=== PATIENT | female | born 1990 | race Caucasian/White ===

== ENCOUNTER → 2020-01-24 | Outpatient (CLI) | payer BC, SELFPAY ==
[2020-01-24 15:26] VITALS: BMI 18.8
[2020-01-24 17:05] LABS: Amphetamine Urine VISTA NEGATIVE (<1000 ng/mL); Barbiturate Urine VISTA NEGATIVE (< 200 ng/mL); Benzodiazepine Urine VISTA NEGATIVE (< 200 ng/mL); Cocaine Urine VISTA NEGATIVE (< 300 ng/mL); Ecstacy Urine VISTA NEGATIVE (< 500 ng/mL); Methadone Urine VISTA NEGATIVE (< 300 ng/mL); PCP Urine VISTA NEGATIVE (< 25 ng/mL); THC Urine VISTA NEGATIVE (< 50 ng/mL); Vista UDS pH Range 6
[2020-01-24 18:33] LABS: Chlamydia Trachomatis by PCR Negative (Negative); Neisserai gonorrhoeae by PCR Negative (Negative); Probe Check PASS; Sample Adequacy Control PASS; Specimen Processing Control PASS
== END | disposition home or self-care (01) ==
LOC: LABSPEC 16:38
PROVIDERS: PCP Student in an Organized Health Care Education/Training Program; Referring Provider Obstetrics & Gynecology; Visit Provider Obstetrics & Gynecology
DX: Z34.90 Encounter for supervision of normal pregnancy, unspecified, unspecified trimester (principal)
CPT/HCPCS: 80307; 87086; 87491; 87591

== ENCOUNTER → 2020-01-30 13:33 | Outpatient (CLI) | payer BC, SELFPAY ==
[2020-01-24 15:26] VITALS: BMI 18.8
--- NOTE | 2020-01-30 13:36 | US_ITS ---
STUDY: FIRST TRIMESTER OBSTETRICAL ULTRASOUND REASON FOR EXAM: Female, 29 years old. Dating. LMP: December 01, 2019. TECHNIQUE: Transvaginal TECHNICAL QUALITY: Adequate. PRIOR ULTRASOUND: None. FINDINGS: There is visualization of a single gestational sac in a normal intrauterine position. The mean sac diameter (MSD) measures 2.65 cm, indicating an estimated gestational age (EGA) of 7 weeks, 5 days. The gestational sac shape is within normal limits. There is a visualized yolk sac. The yolk sac measures 0.24 cm. The placenta is non-visualized. There is visualization of a live embryo. The crown-rump length (CRL) measures 0.92 cm, indicating an estimated gestational age (EGA) of 7 weeks, 0 days. There is demonstrated cardiac activity with a heart rate of 132 bpm. The estimated gestation age (EGA) by LMP is 8 weeks, 4 days. The estimated date of delivery (OTTO) by LMP is September 06, 2020. The estimated gestation age (EGA) by US is 7 weeks, 2 days. The estimated date of delivery (OTTO) by US is September 15, 2020. The uterus measures 9.0 x 7.5 x 5.3 cm. There is no demonstrated uterine fibroid. The cervix is closed. The right ovary measures 3.2 x 2.1 x 2.4 cm. There is no visualized right adnexal mass or complex lesion. The left ovary is not visualized. There is no visualized left adnexal mass or complex lesion. There is no fluid in the cul de sac. US/Transvaginal w/Preg US IMPRESSION: 1. Live single intrauterine at 7 weeks, 2 days. OTTO is September 15, 2020. 2. heart rate of 123 bpm. 3. Normal right ovary. Left ovary is not seen. Electronically Signed: Raz Barajas DO at 17:05 EDT Tel [phone], Service support ,
== END ==
PROVIDERS: PCP Student in an Organized Health Care Education/Training Program; Referring Provider Obstetrics & Gynecology; Visit Provider Obstetrics & Gynecology
DX: Z34.90 Encounter for supervision of normal pregnancy, unspecified, unspecified trimester (principal)
CPT/HCPCS: 76817

== ENCOUNTER → 2020-02-18 13:44 | Outpatient (CLI) | payer BC, SELFPAY ==
[2020-01-24 15:26] VITALS: BMI 18.8
[2020-02-18 13:57] LABS: Absolute Lymphocyte Count 2.02 X10^3/uL (0.83-4.51); Absolute Neutrophil Count 5.3 X10^3/uL (2.0-7.7); Basophil# 0.03 X10^3/uL; Basophil% 0.4 % (0-1); Eosinophil# 0.09 X10^3/uL; Eosinophils% 1.1 % (0-5); Hemoglobin 13.6 g/dL (12.0-15.0); Lymphocyte # 2.02 X10^3/ul (4.0); Lymphocyte % 25.7 % (19-41); Mean Corpuscular Hgb 30.4 pg (27.0-32.0); Mean Corpuscular Volume 89.5 fL (81-99); Mean Platelet Vol. 11.1 fl (6.2-12.0); Monocyte# 0.46 X10^3/uL; Monocyte% 5.8 % (0-10); NRBC Flagged by Analyzer 0 % (0-5); Neutrophil # 5.25 X10^3/uL (2.7-7.7); Neutrophil % 66.7 % (47-70); Platelet Count 185 K/mm3 (150-450); RBC Distribution Width CV 11.7 % (11.6-14.6); RBC Distribution Width SD 37.8 fl (35.1-43.9); Red Blood Count 4.47 M/mm3 (4.2-5.4); White Blood Count 7.9 K/mm3 (4.4-11.0)
[2020-02-19 09:57] LABS: HIV - WCH Non-Reactive (Nonreactive); Hepatitis B Surface Antigen Non-Reactive (Nonreactive); Hepatitis C Antibody Non-Reactive (Nonreactive); Rubella IgG 334.2 IU/mL
[2020-02-20 02:25] LABS: Rapid Plasmin Reagin (RPR) NONREACTIVE (NONREACTIVE)
== END ==
PROVIDERS: PCP Student in an Organized Health Care Education/Training Program; Referring Provider Obstetrics & Gynecology; Visit Provider Obstetrics & Gynecology
DX: Z34.90 Encounter for supervision of normal pregnancy, unspecified, unspecified trimester (principal)
CPT/HCPCS: 36415; 85025; 86592; 86703; 86762; 86803; 86850; 86900; 86901; 87340

== ENCOUNTER → 2020-04-23 16:02 | Outpatient (CLI) | payer BC, SELFPAY ==
[2020-03-30 16:39] VITALS: BMI 18.8
--- NOTE | 2020-04-23 16:04 | US_ITS ---
STUDY: SECOND AND THIRD TRIMESTER OBSTETRICAL ULTRASOUND REASON FOR EXAM: Female, 29 years old. Anatomy screening. LMP: 12/01/2019 TECHNIQUE: Transabdominal TECHNICAL QUALITY: Adequate. PRIOR ULTRASOUND: 01/30/2020. FINDINGS: There is a single intrauterine fetus. The fetus is in a breech presentation. There is demonstrated cardiac activity with a heart rate of 141 bpm. There is a normal amniotic fluid volume. The largest amniotic fluid pocket measures 5.9 cm. The placenta is 7 There are Grade 0 placental changes. The cervix measures 3.14 cm in length. The adnexal regions are not visualized. BIOMETRY: BPD: 4.37 cm: 19 weeks, 1 days HC: 16.03 cm: 18 weeks, 5 days AC: 13.36 cm: 18 weeks, 5 days FL: 2.88 cm: 18 weeks, 5 days CI: 77.52 FL/BPD: 65.95 FL/HC: 17.98 FL/AC: 21.57 HC/AC: 1.20 age by current US: 18 weeks, 5 days. OTTO by current US: 09/19/2020. Estimated weight: 263 grams, +/- 4 grams, 56 %. age by prior US: 19 weeks, 2 days. OTTO by prior US: 09/15/2020. Age by LMP: 20 weeks, 4 days. OTTO by LMP: 09/06/2020. ANATOMY: Gender: Male Cranium: Normal lateral ventricles. Normal choroid plexus. Normal cerebellum. Normal cisterna magna. Normal face, nose and lips. Chest: Limited visualization of four-chamber view of the heart due to patient alignment. Abdomen/Pelvis: Normal diaphragm. Normal stomach. Normal abdominal wall. Normal cord insertion. Normal 3 vessel cord. Normal kidneys. Normal bladder. Spine: Normal cervical spine. Normal thoracic spine. Normal lumbar spine. Normal sacrum. Extremities: Normal bilateral upper extremities. Normal bilateral lower extremities. US/OB Anatomy Scan IMPRESSION: 1. Live single intrauterine at 18 weeks, 5 days. There is adequate interval growth since prior ultrasound. 2. EFW 263 g. 3. Adequate MM fluid. 4. Posterior grade 0 placenta. 5. Breech presentation. 6. Limited view of the heart. The remainder of the anatomy appears grossly normal. Electronically Signed: Raz Barajas DO at 23:46 EDT Tel [phone], Service support ,
== END ==
PROVIDERS: PCP Student in an Organized Health Care Education/Training Program; Referring Provider Obstetrics & Gynecology; Visit Provider Obstetrics & Gynecology
DX: Z34.90 Encounter for supervision of normal pregnancy, unspecified, unspecified trimester (principal)
CPT/HCPCS: 76805

== ENCOUNTER → 2020-06-22 14:42 | Outpatient (CLI) | payer BC, SELFPAY ==
[2020-05-25 15:56] VITALS: BMI 21.4
[2020-06-22 15:14] LABS: Absolute Lymphocyte Count 1.23 X10^3/uL (0.83-4.51); Absolute Neutrophil Count 4.2 X10^3/uL (2.0-7.7); Basophil# 0.03 X10^3/uL; Basophil% 0.5 % (0-1); Eosinophil# 0.04 X10^3/uL; Eosinophils% 0.7 % (0-5); Hematocrit 34.1 % (37-47); Hemoglobin 11.5 g/dL (12.0-15.0); Lymphocyte # 1.23 X10^3/ul (4.0); Lymphocyte % 20.9 % (19-41); Mean Corp Hgb Conc 33.7 g/dL (32-36); Mean Corpuscular Hgb 31.2 pg (27.0-32.0); Mean Corpuscular Volume 92.4 fL (81-99); Mean Platelet Vol. 10.6 fl (6.2-12.0); Monocyte# 0.36 X10^3/uL; Monocyte% 6.1 % (0-10); NRBC Flagged by Analyzer 0 % (0-5); Neutrophil # 4.18 X10^3/uL (2.7-7.7); POSITIVE COUNT YES; Platelet Count 94 K/mm3 (150-450); RBC Distribution Width CV 12.7 % (11.6-14.6); RBC Distribution Width SD 42.5 fl (35.1-43.9); Red Blood Count 3.69 M/mm3 (4.2-5.4); White Blood Count 5.9 K/mm3 (4.4-11.0)
[2020-06-22 15:21] LABS: Glucose Challenge Gest 1H 50g 166 mg/dL (70-140)
[2020-06-22 15:41] LABS: Differential Indicated SCAN CRITERIA MET
[2020-06-22 15:54] LABS: Platelet Estimate MOD DEC (ADEQ); Red Cell Morphology NORM C+C NORMAL (NORM C&C)
== END ==
PROVIDERS: PCP Student in an Organized Health Care Education/Training Program; Referring Provider Obstetrics & Gynecology; Visit Provider Obstetrics & Gynecology
DX: Z34.90 Encounter for supervision of normal pregnancy, unspecified, unspecified trimester (principal); Z13.1 Encounter for screening for diabetes mellitus
CPT/HCPCS: 36415; 82950; 85025

== ENCOUNTER → 2020-07-01 07:00 | Outpatient (CLI) | payer BC, SELFPAY ==
[2020-06-22 15:12] VITALS: BMI 23.1
[2020-07-01 08:05] LABS: Glucose GTT-Gestation. Fasting 75 mg/dL (<105)
[2020-07-01 09:22] LABS: Glucose GTT-Gestational 1 Hr 120 mg/dL (<190)
[2020-07-01 10:44] LABS: Glucose GTT-Gestational 2 Hr 111 mg/dL (<165)
[2020-07-01 11:25] LABS: Glucose GTT-Gestational 3 Hr 104 L (<145)
== END ==
PROVIDERS: PCP Student in an Organized Health Care Education/Training Program; Referring Provider Nurse Practitioner Women's Health; Visit Provider Nurse Practitioner Women's Health
DX: R73.09 Other abnormal glucose (principal)
CPT/HCPCS: 36415; 82951; 82952

== ENCOUNTER → 2020-08-24 | Outpatient (CLI) | payer BC, SELFPAY ==
[2020-08-24 16:03] VITALS: BMI 24.7
== END | disposition home or self-care (01) ==
PROVIDERS: PCP Student in an Organized Health Care Education/Training Program; Referring Provider Obstetrics & Gynecology; Visit Provider Obstetrics & Gynecology
DX: Z34.90 Encounter for supervision of normal pregnancy, unspecified, unspecified trimester (principal)
CPT/HCPCS: 87081

== ENCOUNTER → 2020-09-14 17:19 | Outpatient (CLI) | payer BC, SELFPAY ==
[2020-08-03 16:13] VITALS: BMI 23.6
[2020-09-11 13:02] VITALS: BMI 24.7
== END ==
PROVIDERS: PCP Student in an Organized Health Care Education/Training Program; Referring Provider Nurse Practitioner Women's Health; Visit Provider Nurse Practitioner Women's Health
DX: Z34.90 Encounter for supervision of normal pregnancy, unspecified, unspecified trimester (principal)
CPT/HCPCS: 87635; C9803; U0005; U0003

== ENCOUNTER 2020-09-17 20:20 | Inpatient (IN) | payer BC, SELFPAY ==
[2020-09-11 13:02] VITALS: BMI 24.7
[2020-09-17] VITALS (21 sets, daily range): BP systolic 98–133; BP diastolic 54–85; PULSE 68–102; TEMP 36.7–37.4; O2SAT 97–100; BMI 25.1
--- NOTE | 2020-09-17 20:44 | PCM.HPOB.BLA ---
- Problem List (1) Active labor Status: Acute (2) 35 weeks gestation of Status: Acute Comment: electronic covid test ordered 08/14/20 (scheduled for 09/14/20 at 1655) (3) Abnormal US Status: Acute Comment: Echogenic cardiac focus and eccentric cord insertion. Offered NIPT - patient declines. q4 growth ultrasounds. growth adequate, 07/20, 08/17/20 (4) Lab test negative for COVID-19 virus Status: Acute (5) Status: Acute Qualifiers: Comment: declined genetic, carrier and ntd. Overall anatomy normal FU 2 wks with MFM for additional heart views, echogenic intracardiac focus and eccentric cord insertion. Serial growth recommended @ [facility] @ 4 wks (6) Supervision of normal Status: Acute Qualifiers: Comment: PRR OTTO 09/17/20 ITS A BOY! (name secret) Spouse: Bud History and Physical Date of Admission: 09/17/20 Intake Vital Signs 09/11/20 Height 5 ft 7 in 09/11/20 Weight: 158 lb 09/11/20 BMI 24.7 09/11/20 BP 132/82 H Intake Visit Reasons: 40 WK OB Chief Complaint: est ob Dispensing Lead Required: No Is patient in pain?: No Allergies No Known Allergies Allergy (Verified 09/11/20 13:02) Medications multivitamin no.47-iron fum 27 mg-folate no.1 1 mg-dha 300 mg capsule cap PO 01/24/20 [History Confirmed 09/11/20] Last Menstral Period: 12/01/19 Zika: Zika virus screening: Negative : No PFSH PFSH Medical History No significant medical problems (Acute) Surgical History H/O foot surgery (Acute) H/O wisdom tooth extraction (Acute) Family History Grandfather Hypertension Heart disease Grandmother Cancer Aunt Breast cancer Social History (Updated 09/11/20 @ 13:[address] 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 OB Visit OTTO Calculator Estimated Delivery Date Method Current WG Current Estimate 09/17/20 Ultrasound #2 39w 1d Other Estimates 09/06/20 LMP (Certain) 40w 5d 09/17/20 Ultrasound #1 39w 1d Expected Delivery Route/Plan Labor Preferences- CB/BF classes: virtual labor support person: Bud labor intervention preferences: open to standard interventions pain management options: wants to try natural, open to epidural cut cord/dad catch: no : yes PP control planned: [] discussed possible routes of delivery and associated risks: discussed possible delivery modalities and possible indications for each including R/B/A of , VAVD, FAVD, and CS. questions answered. special requests: [] Specific Issue/Plans flu vaccine: given04/27 tdap vaccine: considering rhogam: na LARC form signed: yes movement and labor precautions reviewed. Problem list reviewed and updated with the most current plan of care details and appropriate orders placed. Relevant counseling for the gestational age provided. Continue routine care and follow up unless otherwise noted in visit notes/problem list details Initial Weight: 120 lb Date EGA Weight BP Urine Prot Glucose FHR FuHt Pres Dilation Effaced St Visit Note 03/02/20 11w 4d 123 lb (+3 lb) 108/72 Negative Negative 150 SM- no vb cramping declined all optional testing 03/30/20 15w 4d 126 lb 2 oz (+6 lb 2 oz) 106/60 Negative Negative 150 GP - no cramping or bleeding. Anatomy US at [facility] ordered. 04/27/20 19w 4d 130 lb (+10 lb) 102/60 Negative Negative 140 20 SM_ no vb cramping obtain anatomy us 05/25/20 23w 4d 136 lb 8 oz (+16 lb 8 oz) 120/74 Negative Negative 150 24 GP - no cramping, LOF, VB, DFM. Reviewed repeat anatomy US results. Has isolated episode of lightheadedness consistent with vasovagal episode - discussed EKG if occurs again. 06/22/20 27w 4d 148 lb 2 oz (+28 lb 2 oz) 104/60 Negative Negative 130 27 MH-No Vb, LOF. Good FM. Elevated GCT today:will get 3 hr GTT. Growth US 06/18:no results yet. Will rpt 4 weeks 07/06/20 29w 4d 147 lb (+27 lb) 126/80 Negative Negative 145 30 SM- no vb lof good fm n regualr ctx 07/20/20 31w 4d 147 lb (+27 lb) 110/62 Negative Negative 132 31 Breech MH-No Vb, LOF. Good FM. Had MFM growth US today, confirm breech. Has repeat US 4 weeks 08/03/20 33w 4d 151 lb 4 oz (+31 lb 4 oz) 98/68 Negative Negative 125 33 Cephalic GP - no LOF, VB, DFM, ctx. Discussed labor preferences and routes of delivery. 08/17/20 35w 4d 153 lb 6 oz (+33 lb 6 oz) 110/80 Negative Negative 150 35 Cephalic GP - no LOF, VB, DFM, ctx. Denies complaints. Had growth today. 08/24/20 36w 4d 158 lb (+38 lb) 110/78 Negative Negative 150 36 Cephalic 0.5 SM- no vb lof good fm nor egular ctx gbs today 08/31/20 37w 4d 159 lb 4 oz (+39 lb 4 oz) 110/78 Negative Negative 125 37 Cephalic 1 60 -2 GP - no LOF, VB, DFM, regular ctx. Discussed covid testing. 09/07/20 38w 4d 161 lb (+41 lb) 120/70 Negative Negative 135 37 SM- no vb lof good fm no regular ctx 09/11/20 39w 1d 158 lb (+38 lb) 132/82 Negative Negative 135 37 Cephalic 1 SM- see for spots in vision- nl bps, symptoms resolved good fm no regular ctx no BAILEY. reviewed precautions fu in 1 week ACOG First Trimester First Trimester: Desire for , Alcohol, Tobacco Cessation, Illicit/Recreational Drug/Substance Use, Intimate Partner Violence, Barriers to care, Unstable Housing, Communication Barriers, Environmental/Work Hazards, Anticipated Course of Care, Toxoplasmosis Precations, Use of Any medications, Sexual activity, Exercise, Dental Care, Sauna/Hot tub use, Seat Belt use, Childbirth classes/Hospital facilities, , Travel, Indications for US and Screening for Aneuploidy Diagnostics Diagnostics Diagnostics Gest Glucose Tolerance MG/DL 07/01/20 Glucose 1 Hr 50 gm 166 mg/dL (70-140) H 06/22/20 Hgb 11.5 g/dL (12.0-15.0) L 06/22/20 Hct 34.1 % (37-47) L 06/22/20 Details: HIV: Urine Culture: Sequential Screen: NIPT Screen: Results POC Urinalysis 2 Dip (Clinic) Office Urine Glucose Negative Last Edit by Shayy Sebastian on 09/11/20 13:07 Office Urine Protein Negative Last Edit by Shayy Sebastian on 09/11/20 13:07 Assessment & Plan 29yo at 40 weeks admitted in active labor Patient presents IAL, plan expectant management for , pitocin/AROM PRN if needed. Pain management: plans epidural. GBS negative. Management of any complications: none I have reviewed the [facility] and made any clinically relevant updates. UPDATE- I have seen the patient and performed any clinically relevant updates to the history and physical exam. Neda Estrella MD
[2020-09-17] MEDS: 0.9% Saline Lock 10 ML Syringe IV (20:45)
[2020-09-17 21:13] LABS: Absolute Lymphocyte Count 1.35 X10^3/uL (0.83-4.51); Absolute Neutrophil Count 6.9 X10^3/uL (2.0-7.7); Basophil# 0.02 X10^3/uL; Basophil% 0.2 % (0-1); Eosinophil# 0.01 X10^3/uL; Eosinophils% 0.1 % (0-5); Hematocrit 35.7 % (37-47); Hemoglobin 11.7 g/dL (12.0-15.0); Lymphocyte # 1.35 X10^3/ul (4.0); Mean Corp Hgb Conc 32.8 g/dL (32-36); Mean Corpuscular Hgb 28.3 pg (27.0-32.0); Mean Corpuscular Volume 86.4 fL (81-99); Mean Platelet Vol. 11.3 fl (6.2-12.0); Monocyte# 0.65 X10^3/uL; Monocyte% 7.2 % (0-10); NRBC Flagged by Analyzer 0 % (0-5); Neutrophil # 6.94 X10^3/uL (2.7-7.7); Neutrophil % 76.9 % (47-70); Platelet Count 142 K/mm3 (150-450); RBC Distribution Width CV 12.8 % (11.6-14.6); Red Blood Count 4.13 M/mm3 (4.2-5.4)
[2020-09-17] MEDS: Lactated Ringers 500 ML 999 ML IV (21:54)
[2020-09-17] MEDS: Lactated Ringers 1,000 ML 200 ML IV (22:25)
[2020-09-17] MEDS: fentaNYL-bupivacaine (epidural) 100 ML BAG EPIDURAL (22:59)
[2020-09-18] VITALS (27 sets, daily range): BP systolic 94–185; BP diastolic 54–123; PULSE 74–110; RESP 16–18; TEMP 36.8–37.6; O2SAT 96–100
[2020-09-18] MEDS: Oxytocin 30 units/NS 500 ml 30 UNITS/500 ML IV.SOLN 334 UNITS IV (04:08)
[2020-09-18] MEDS: Methylergonovine 0.2 MG/ML Ampul IM (04:11)
--- NOTE | 2020-09-18 04:25 | PCM.OPRPT ---
Problem List (1) Active labor Status: Acute (2) 35 weeks gestation of Status: Acute Comment: electronic covid test ordered 08/14/20 (scheduled for 09/14/20 at 1655) (3) Abnormal US Status: Acute Comment: Echogenic cardiac focus and eccentric cord insertion. Offered NIPT - patient declines. q4 growth ultrasounds. growth adequate, 07/20, 08/17/20 (4) Lab test negative for COVID-19 virus Status: Acute (5) Status: Acute Qualifiers: Comment: declined genetic, carrier and ntd. Overall anatomy normal FU 2 wks with MFM for additional heart views, echogenic intracardiac focus and eccentric cord insertion. Serial growth recommended @ [facility] @ 4 wks (6) Supervision of normal Status: Acute Qualifiers: Comment: PRR OTTO 09/17/20 ITS A BOY! (name secret) Spouse: Bud Vaginal Delivery Maternal Presentation: Active Labor 29-year-old G1, P0 at 40 weeks gestation admitted out of triage in active labor. Patient made cervical change to complete dilation without augmentation. Amniotic Membrane Rupture Type: Spontaneous Amniotic Fluid Description: Clear Final OTTO: 09/17/20 Gestational age: 40 Weeks and 1 Days Date of Procedure: 09/18/20 Pre-Operative Diagnosis: Term , active labor Post-Operative Diagnosis: Same Surgery/ Procedure Performed: Spontaneous Vaginal Delivery Type of Anesthesia: Epidural Description of Procedure: Patient had been pushing for approximately 30 minutes when she delivered the head in the VIGNESH presentation. The head was delivered atraumatically no nuchal cord was noted. The anterior and posterior shoulders delivered without complication followed by the rest of the and the was placed on the maternal abdomen. Delayed cord clamping was employed for approximately 60 seconds. Cord was clamped and cut and gentle traction was applied to the cord and the placenta delivered spontaneously immediately following it was noted to be intact with three-vessel cord. The perineum and vagina were inspected and midline second-degree perineal laceration which was repaired in the standard fashion using 3-0 Vicryl repeat suture. Intermittent uterine atony was noted and therefore a dose of Methergine was administered. EBL was 350 cc. Patient and infant tolerated delivery well. Presentation: Vertex, VIGNESH Placental Delivery Description: Spontaneous Placenta Disposition: [facility] Cord Vessel Description: 3 Vessels Cord Entanglement: None Estimated Blood Loss: 350 Infant A gender: Male Episiotomy Description: None Laceration: Midline, Perineal Extension/lac, 2nd degree Medications given after delivery: IV Pitocin, IM Methergin Complications: None Multi Select Codes - Urinary/Genital Urinary/Genital CPT Codes: 42621 Vaginal Delivery [facility]
--- NOTE | 2020-09-18 04:28 | DCINST_ITS ---
Discharge Diet: No Restrictions Discharge Activity: Return to Normal Activity, May not drive while taking narcotic pain medications., May Shower May resume sexual activity in: 4-6 weeks Additional Activity Instructions:: Nothing in the vagina for 4-6 weeks. You may return to work/school in 6 weeks. Call your doctor if your incision/area has: Continuous Slow Oozing, Sudden Increased Bleeding, Increased Pain/ Swelling, Increased Redness, Foul Smelling Discharge Additional Instructions: If you experience any of the following, contact your healthcare provider. * Bleeding that soaks a pad every hour for 2 hours * Fever 100.4 or higher * Unrelieved incision or abdominal pain * Swelling, redness, discharge or bleeding from your incision or episiotomy site * Your incision begins to separate * Problems urinating (including inability to urinate or burning while urinating). * Visual changes * Severe headache * Flu-like symptoms * Pain or redness in one of both of your breasts * Pain, warmth, tenderness or swelling in your legs, especially the calf area * Frequent nausea and vomiting * Symptoms of depression or anxiety If you experience any of the following, call 911 or go to the nearest Emergency Room. * Chest pain * Problems breathing * Seizure activity * Partial or complete paralysis of a body part, slurred speech, weakness or drooping of the face, or a sudden inability to walk or hold your balance Allergies/Adverse Reactions: Allergies No Known Allergies Allergy (Verified 09/17/20 20:35) Medications to take at Discharge multivitamin no.47-iron fum 27 mg-folate no.1 1 mg-dha 300 mg capsule 1 cap PO DAILY 01/24/20 Boostrix Tdap 2.5 Lf unit-8 mcg-5 Lf/0.5 mL intramuscular syringe 0.5 ml IM ONCE #1 ml NS 06/22/20 When: Call to make an appointment with your doctor in 6 weeks. If you had elevated Blood Pressure or 4th degree laceration you will need to be seen in 2 weeks. Primary Care Physician: Connor Blank [Primary Care Provider] - Test Results: Test results from this visit will be discussed in further detail at your follow- up appointment, if applicable.
[2020-09-18] MEDS: 0.9% Saline Lock 10 ML Syringe IV (06:43)
[2020-09-18] MEDS: Naproxen 250 MG Tablet 500 MG PO (14:20)
[2020-09-19] VITALS: BP 95/57; PULSE 73; RESP 16; TEMP 36.9; O2SAT 98
[2020-09-19 04:10] VITALS: BP 104/63; PULSE 75; RESP 16; TEMP 36.6; O2SAT 97
--- NOTE | 2020-09-19 06:18 | PCM.PN.OB ---
Subjective: Patient doing well without complaints. Tolerating PO. Ambulating and voiding without difficulty. Breast feeding well. Denies chest pain, shortness of breath, calf pain/swelling, fevers, chills, lightheadedness. - Physical Exam Vitals/I&O's: Vital Signs Temp Pulse Resp BP Pulse Ox 97.9 F 75 16 104/63 97 09/19/20 04:10 09/19/20 04:10 09/19/20 04:10 09/19/20 04:10 09/19/20 04:10 Oxygen Delivery Method Room Air Weight: 160 lb 7.944 oz Body Mass Index (BMI) 25.1 Intake and Output for Last 24 Hours 09/17/20 09/18/20 09/19/20 23:59 23:59 23:59 Intake Total 500 / 500 1500 / 1500 Output Total 800 / 800 Balance 500 / 500 700 / 700 General: Alert, Oriented x3, Cooperative, No apparent distress, Well developed, Well nourished HEENT: Atraumatic, PERRLA, EOMI, Normocephalic Neck: Supple, No JVD Lungs: Normal air movement Cardiovascular: Regular rate Abdomen: Soft, Non Tender, Non-Distended, - - fundus firm Extremities: No edema, No Calf Tenderness Neurological: Cranial nerves II-XII grossly intact, Neuro grossly intact Psych/Mental Status: Normal Affect, Appropriate Current Medications Acetaminophen (Acetaminophen 500 Mg Tablet) 1,000 mg PO Q8H PRN PRN PRN Reason: Pain Score 1-3 Bisacodyl (Bisacodyl 10 Mg Suppository) 10 mg RC UD PRN PRN Reason: If no BM Dibucaine (Dibucaine 30 Gm Tube) 1 applic TOPICAL TID PRN PRN; Protocol PRN Reason: Discomfort Hydrocortisone (Hydrocortisone 2.5% Crm) 1 applic TOPICAL TID PRN PRN; Protocol PRN Reason: Discomfort Methylergonovine Maleate (Methylergonovine 0.2 Mg/Ml Ampul) 0.2 mg IM X1 PRN PRN Reason: Excess bleeding/uterine atony Last Admin: 09/18/20 04:11 Dose: 0.2 mg Documented by: Naproxen (Naproxen 250 Mg Tablet) 500 mg PO Q8H PRN PRN PRN Reason: Pain Score 1-3 Last Admin: 09/18/20 14:20 Dose: 500 mg Documented by: Ondansetron HCl (Ondansetron 4 Mg/2 Ml Vial) 4 mg IV Q4H PRN PRN PRN Reason: Nausea Oxycodone HCl (Oxycodone 5 Mg Tablet) 5 - 10 mg PO Q4H PRN PRN PRN Reason: Pain Score 4-10 Senna/Docusate Sodium (Senna/Docusate Sodium 1 Tablet) 1 - 2 tablet PO DAILY PRN PRN PRN Reason: Constipation Simethicone (Simethicone 80 Mg Tablet) 80 mg PO PCHS PRN PRN Reason: Indigestion/Stomach pain Sodium Chloride (0.9% Saline Lock 10 Ml Syringe) 5 - 15 ml IV UD PRN PRN Reason: SALINE FLUSH Last Admin: 09/18/20 06:43 Dose: 10 ml Documented by: Medical Necessity - Tobacco Use Smoking Status: Never smoker Assessment/Plan All Active Problems (Last Reviewed 09/11/20 @ 13:02 by Shayy Sebastian) 35 weeks gestation of (Resolved) Abnormal US (Resolved) Active labor (Resolved) Lab test negative for COVID-19 virus (Resolved) (Resolved) Supervision of normal (Resolved) s/p PPD # 1 1. routine post delivery care 2. breast feeding- support given 3. rh positive 4. rubella immune
[2020-09-19 07:59] VITALS: BP 95/60; PULSE 80; RESP 16; TEMP 36.6
== END 2020-09-19 12:15 | disposition home or self-care (01) | DRG 807 ==
LOC: OBT 20:30 → WP 20:30
PROVIDERS: Admitting Provider Obstetrics & Gynecology; PCP Student in an Organized Health Care Education/Training Program; Referring Provider Obstetrics & Gynecology; Visit Provider Obstetrics & Gynecology
DX: O70.1 Second degree perineal laceration during delivery (principal); Z37.0 Single live birth; Z3A.40 40 weeks gestation of pregnancy; O62.2 Other uterine inertia
CPT/HCPCS: 59025; 59050; 85025; 86850; 86900; 86901; 99218; J7120; A4216; G0378

== ENCOUNTER → 2020-11-09 | Outpatient (CLI) | payer BC, SELFPAY ==
[2020-11-09 15:32] VITALS: BMI 21.0
[2020-11-12 16:21] LABS: HPV Reflexed? NOT INDICATED
== END | disposition home or self-care (01) ==
LOC: LABSPEC 16:58
PROVIDERS: PCP Student in an Organized Health Care Education/Training Program; Visit Provider Obstetrics & Gynecology
DX: Z12.4 Encounter for screening for malignant neoplasm of cervix (principal)
CPT/HCPCS: 88175; G0145

== ENCOUNTER → 2020-11-24 11:51 | Outpatient (CLI) | payer BC, SELFPAY ==
[2020-11-09 15:32] VITALS: BMI 21.0
== END ==
PROVIDERS: PCP Student in an Organized Health Care Education/Training Program; Referring Provider Obstetrics & Gynecology; Visit Provider Obstetrics & Gynecology
DX: Z39.1 Encounter for care and examination of lactating mother (principal)
CPT/HCPCS: 96158

== ENCOUNTER → 2021-03-26 19:57 | Outpatient (CLI) | payer BC, SELFPAY | PROVIDERS: PCP Student in an Organized Health Care Education/Training Program; Referring Provider Obstetrics & Gynecology; Visit Provider Obstetrics & Gynecology | DX: Z39.1 Encounter for care and examination of lactating mother (principal) | CPT/HCPCS: 96158; 96159 ==

== ENCOUNTER → 2022-03-24 | Outpatient (CLI) | payer OTHER, SELFPAY ==
[2022-03-24 12:04] LABS: Amphetamine Urine VISTA NEGATIVE (<1000 ng/mL); Barbiturate Urine VISTA NEGATIVE (< 200 ng/mL); Benzodiazepine Urine VISTA NEGATIVE (< 200 ng/mL); Cocaine Urine VISTA NEGATIVE (< 300 ng/mL); Ecstacy Urine VISTA NEGATIVE (< 500 ng/mL); Methadone Urine VISTA NEGATIVE (< 300 ng/mL); PCP Urine VISTA NEGATIVE (< 25 ng/mL); THC Urine VISTA NEGATIVE (< 50 ng/mL); Vista UDS pH Range 7
[2022-03-25 22:06] LABS: Chlamydia By Nucleic Acid AMP Negative (Negative)
[2022-03-26 07:46] LABS: Gonococcus By Nucleic Acid AMP Negative (Negative)
== END | disposition home or self-care (01) ==
LOC: LABSPEC 11:19
PROVIDERS: PCP Student in an Organized Health Care Education/Training Program; Visit Provider Obstetrics & Gynecology
DX: Z34.90 Encounter for supervision of normal pregnancy, unspecified, unspecified trimester (principal)
CPT/HCPCS: 80307; 87086; 87088; 87491; 87591

== ENCOUNTER → 2022-05-12 | Outpatient (CLI) | payer OTHER, SELFPAY ==
[2022-05-12 13:27] LABS: Absolute Lymphocyte Count 1.49 X10^3/uL (0.83-4.51); Absolute Neutrophil Count 4.1 X10^3/uL (2.0-7.7); Basophil# 0.02 X10^3/uL; Basophil% 0.3 % (0-1); Eosinophil# 0.05 X10^3/uL; Eosinophils% 0.8 % (0-5); Hematocrit 35.3 % (37-47); Lymphocyte # 1.49 X10^3/ul (0.83-4.51); Lymphocyte % 24.6 % (19-41); Mean Corpuscular Hgb 30.2 pg (27.0-32.0); Mean Corpuscular Volume 88.7 fL (81-99); Mean Platelet Vol. 10.1 fl (6.2-12.0); Monocyte# 0.41 X10^3/uL; Monocyte% 6.8 % (0-10); NRBC Flagged by Analyzer 0 % (0-5); Neutrophil # 4.05 X10^3/uL (2.7-7.7); Platelet Count 161 K/mm3 (150-450); RBC Distribution Width CV 13.2 % (11.6-14.6); RBC Distribution Width SD 42.8 fl (35.1-43.9); Red Blood Count 3.98 M/mm3 (4.2-5.4); White Blood Count 6.1 K/mm3 (4.4-11.0)
[2022-05-12 14:45] LABS: HIV - WCH Non-Reactive (Nonreactive); Hepatitis B Surface Antigen Non-Reactive (Nonreactive); Hepatitis C Antibody Non-Reactive (Nonreactive); Rubella IgG Reactive (Nonreactive); Syphilis Antibodies Non-reactive
== END | disposition home or self-care (01) ==
LOC: PAVLAB 13:07
PROVIDERS: PCP Student in an Organized Health Care Education/Training Program; Referring Provider Obstetrics & Gynecology; Visit Provider Obstetrics & Gynecology
DX: Z34.90 Encounter for supervision of normal pregnancy, unspecified, unspecified trimester (principal)
CPT/HCPCS: 36415; 85025; 86703; 86762; 86780; 86803; 86850; 86900; 86901; 87340

== ENCOUNTER → 2022-08-02 | Outpatient (CLI) | payer OTHER, SELFPAY ==
[2022-08-02 09:05] LABS: Absolute Lymphocyte Count 1.59 X10^3/uL (0.83-4.51); Absolute Neutrophil Count 4.6 X10^3/uL (2.0-7.7); Basophil# 0.03 X10^3/uL; Basophil% 0.4 % (0-1); Eosinophil# 0.04 X10^3/uL; Eosinophils% 0.6 % (0-5); Hematocrit 32.8 % (37-47); Lymphocyte # 1.59 X10^3/ul (0.83-4.51); Lymphocyte % 23.7 % (19-41); Mean Corp Hgb Conc 33.5 g/dL (32-36); Mean Corpuscular Hgb 29.4 pg (27.0-32.0); Mean Corpuscular Volume 87.7 fL (81-99); Mean Platelet Vol. 9.5 fl (6.2-12.0); Monocyte# 0.46 X10^3/uL; Monocyte% 6.9 % (0-10); NRBC Flagged by Analyzer 0 % (0-5); Neutrophil # 4.55 X10^3/uL (2.7-7.7); Neutrophil % 67.8 % (47-70); Platelet Count 190 K/mm3 (150-450); RBC Distribution Width CV 11.9 % (11.6-14.6); RBC Distribution Width SD 38.3 fl (35.1-43.9); Red Blood Count 3.74 M/mm3 (4.2-5.4); White Blood Count 6.7 K/mm3 (4.4-11.0)
[2022-08-02 09:13] LABS: Glucose Challenge Gest 1H 50g 102 mg/dL (70-140)
[2022-08-02 09:47] LABS: HIV - WCH Non-Reactive (Nonreactive); Syphilis Antibodies Non-reactive
== END | disposition home or self-care (01) ==
LOC: PAVLAB 08:36
PROVIDERS: PCP Student in an Organized Health Care Education/Training Program; Referring Provider Obstetrics & Gynecology; Visit Provider Obstetrics & Gynecology
DX: Z34.92 Encounter for supervision of normal pregnancy, unspecified, second trimester (principal); Z3A.24 24 weeks gestation of pregnancy
CPT/HCPCS: 36415; 82950; 85025; 86703; 86780

== ENCOUNTER → 2022-09-29 | Outpatient (CLI) | payer OTHER, SELFPAY | END | disposition home or self-care (01) | LOC: LABSPEC 16:09 | PROVIDERS: PCP Student in an Organized Health Care Education/Training Program; Visit Provider Obstetrics & Gynecology | DX: Z34.90 Encounter for supervision of normal pregnancy, unspecified, unspecified trimester (principal) | CPT/HCPCS: 87081 ==

== ENCOUNTER 2022-10-24 03:45 | Inpatient (IN) | payer OTHER, SELFPAY ==
[2022-10-24] VITALS (45 sets, daily range): BP systolic 107–137; BP diastolic 67–82; PULSE 62–115; RESP 16–18; TEMP 35.9–36.8; O2SAT 97–100; BMI 26.1
[2022-10-24 04:35] LABS: ROM Internal Control Test YES-OK TO RESULT pt. (Internal QC)
[2022-10-24] MEDS: LACTATED RINGERS 500 ML 999 ML IV (04:35)
[2022-10-24 04:37] LABS: ROM Patient Test POSITIVE (Negative)
[2022-10-24 04:50] LABS: Absolute Lymphocyte Count 1.57 X10^3/uL (0.83-4.51); Basophil# 0.02 X10^3/uL; Basophil% 0.3 % (0-1); Eosinophil# 0.02 X10^3/uL; Eosinophils% 0.3 % (0-5); Hematocrit 32.3 % (37-47); Hemoglobin 9.7 g/dL (12.0-15.0); Lymphocyte # 1.57 X10^3/ul (0.83-4.51); Lymphocyte % 21.7 % (19-41); Mean Corpuscular Volume 76.5 fL (81-99); Mean Platelet Vol. 11.5 fl (6.2-12.0); Monocyte# 0.52 X10^3/uL; Monocyte% 7.2 % (0-10); NRBC Flagged by Analyzer 0 % (0-5); Neutrophil # 5.04 X10^3/uL (2.7-7.7); Neutrophil % 69.8 % (47-70); Platelet Count 144 K/mm3 (150-450); RBC Distribution Width CV 14.6 % (11.6-14.6); RBC Distribution Width SD 39.8 fl (35.1-43.9); Red Blood Count 4.22 M/mm3 (4.2-5.4); White Blood Count 7.2 K/mm3 (4.4-11.0)
[2022-10-24 05:35] LABS: Syphilis Antibodies Non-reactive
[2022-10-24] MEDS: Ondansetron 4 MG/2 ML Vial IV (05:47)
[2022-10-24] MEDS: Lactated Ringers 1,000 ML 200 ML IV (05:54)
--- NOTE | 2022-10-24 07:40 | HP.PCM.OB_ITS ---
HPI - General General Date of Admission: 10/24/22 HPI Narrative JOSEY CHÁVEZ, is a 31 F who presents IAL 4 cm dilated with rom of uknown duration Maternal Data Information OTTO Calculator 2 Estimated Delivery Date Method Current WG Current Estimate 10/21/22 LMP (Certain) 40w 3d PFSH PFSH Medical History cardiac echogenic focus Low-lying placenta in second trimester No significant medical problems Home Medications vitamins no.85-iron 10 mg-folate no.1 1 mg-dha 200 mg capsule (Prenate Pixie) 1 cap PO DAILY #30 caps 03/24/22 [Rx Last Taken Unknown] Allergy/AdvReac Type Severity Reaction Status Date / Time No Known Allergies Allergy Verified 10/20/22 13:10 Family History Grandfather Hypertension Heart disease Grandmother Cancer Aunt Breast cancer Surgical History H/O foot surgery H/O wisdom tooth extraction Social History adopted: No household members: spouse and children housing: house current occupational status: employed current occupation: [employer] history of recent travel: No sexually active: Yes Smoking Status: Never smoker second hand exposure: No alcohol intake: former details: social substance use type: does not use caffeine: Yes Type: coffee Number of servings: 1 what type of physical activity do you participate in: walking frequency: 3-4 times per week seatbelt use: always do you feel safe at home: Yes 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 Date Name GA/Weeks Outcome Route Bth Weight Gen Labor Lgth Anesthesia Del Locatn Provider FOB 09/18/20 [place] 40 live - full term Male [facility] Sameer Delivery Date: 09/18/20 Last Updated by: Pebbles Hardin admitted in active labor. normal vaginal delivery Visit Details Expected Delivery Route/Plan labor Preferences- CB/BF classes: no labor support person:Bud labor intervention preferences: [] pain management options preferred: epidural if needed cut cord/dad catch: no : yes PP control planned: discussed discussed possible routes of delivery and associated risks: [] special requests: [] Plans Covid status: discussed Flu vaccine: Tdap vaccine: given Rhogam: na LARC form signed: yes Problem list reviewed and updated with the most current plan of care details and appropriate orders placed. Relevant counseling for the gestational age provided. Continue routine care and follow up unless otherwise noted in visit notes/problem list details OB Flowsheet Initial Weight: Not Recorded Date -?-?-?-?-?-?-?-?-?-?-?-?- EGA Weight BP Urine Prot -?-?-?-?-?-?-?-?-?-?-?-?- Glucose FHR FuHt Pres Dilation -?-?-?-?-?-?-?-?-?-?-?-?- Effaced St Visit Note 03/24/22 -?-?-?-?-?-?-?-?-?-?-?-?- 9w 6d 122 lb 116/72 -?-?-?-?-?-?-?-?-?-?-?-?- 180 -?-?-?-?-?-?-?-?-?-?-?-?- SM- CRL 2.56cm c ons with LMP 04/11/22 -?-?-?-?-?-?-?-?-?-?-?-?- 12w 3d 127 lb 104/60 Negative -?-?-?-?-?-?-?-?-?-?-?-?- Negative 160 -?-?-?-?-?-?-?-?-?-?-?-?- SM- no vb crampi ng 05/12/22 -?-?-?-?-?-?-?-?-?-?-?-?- 16w 6d 134 lb 6 oz 107/74 Nega tive -?-?-?-?-?-?-?-?-?-?-?-?- Negative 145 -?-?-?-?-?-?-?-?-?-?-?-?- JV- no complaint s today. new ob labs reviewed 06/09/22 -?-?-?-?-?-?-?-?-?-?-?-?- 20w 6d 138 lb 102/66 Negative -?-?-?-?-?-?-?-?-?-?-?-?- Negative 143 -?-?-?-?-?-?-?-?-?-?-?-?- -No VB, LOF. F eeling movement. Still desiding about NIPT 07/07/22 -?-?-?-?-?-?-?-?-?-?-?-?- 24w 6d 145 lb 117/75 -?-?-?-?-?-?-?-?-?-?-?-?- 145 -?-?-?-?-?-?-?-?-?-?-?-?- - no vb lof go od fm no regular ctx 08/02/22 -?-?-?-?-?-?-?-?-?-?-?-?- 28w 4d 151 lb 4 oz 96/62 Nega tive -?-?-?-?-?-?-?-?-?-?-?-?- Negative 146 28 -?-?-?-?-?-?-?-?-?-?-?-?- 08/15/22 -?-?-?-?-?-?-?-?-?-?-?-?- 30w 3d 155 lb Negative -?-?-?-?-?-?-?-?-?-?-?-?- Negative 161 30 -?-?-?-?-?-?-?-?-?-?-?-?- MH-NO VB, LOF. G ood FM. Seeing MFM wkly for BPP and check venous varix which is stable. Flu vaccine today 09/01/22 -?-?-?-?-?-?-?-?-?-?-?-?- 32w 6d 161 lb 109/75 -?-?-?-?-?-?-?-?-?-?-?-?- 140 34 -?-?-?-?-?-?-?-?-?-?-?-?- SM- no vb lof go od fm no regular ctx wekely testing. 09/16/22 -?-?-?-?-?--?-?-?-?-?-?-?- 35w 0d 162 lb 8 oz 108/71 Nega tive -?-?-?-?-?-?-?-?-?-?-?-?- Negative 150 36 -?-?-?-?-?-?-?-?-?-?-?-?- SM- no vb lof go od fm no regualr ctx 09/29/22 -?-?-?-?-?-?-?-?-?-?-?-?- 36w 6d 163 lb 8 oz 103/69 Nega tive -?-?-?-?-?-?-?-?-?-?-?-?- Negative 155 33 -?-?-?--?-?-?-?-?-?-?-?-?- JV- fh low but h ad growth scan and getting weekly bpp's and growth is normal. no recommendations on delivery timing on mfm note. 10/06/22 -?-?-?-?-?-?-?-?-?-?-?-?- 37w 6d 163 lb 112/76 Negative -?-?-?-?-?-?-?-?-?-?-?-?- Negative 115 36 -?-?-?-?-?-?-?-?-?-?-?-?- JV- low baseline today. JV- low baseline today. NST reactive, pt reassured. JV- low baseline today. NST reactive, pt reassured. growth scan today at 2:30 10/13/22 -?-?-?-?-?-?-?-?-?-?-?-?- 38w 6d 168 lb 2 oz 113/72 Nega tive -?-?-?-?-?-?-?-?-?-?-?-?- Negative 130 39 1.5 -?-?-?-?-?-?-?-?-?-?-?-?- SM- no vb lof go od fm no reg ctx SM- no vb lof good fm no reg ctx await repeat scan today to determine exp management vs IOL 10/20/22 -?-?-?-?-?-?-?-?-?-?-?-?- 39w 6d 167 lb 4 oz 114/70 Nega tive -?-?-?-?-?-?-?-?-?-?-?-?- Negative 130 40 3 -?-?-?-?-?-?-?-?-?-?-?-?- 60 -2 SM- SM- no vb lof good fm no reg ular ctx membranes swept plan IOL monday due to varices 10/24/22 -?-?-?-?-?-?-?-?-?-?-?-?- 40w 3d 166 lb 10.711 oz 117 /75 116/75 115/82 117/76 118/75 119/79 122/74 116/75 116/69 118/72 126/79 125/82 -?-?-?-?-?-?-?-?-?-?-?-?- -?-?-?-?-?-?-?-?-?-?-?-?- NST FHR Rate Baby A Baseline: 140 Variability:: Moderate Accelerations:: 15 x 15 Decelerations:: None NST Reactive:: Yes FHR Category:: Category I Uterine Activity:: q3-5 ROS Constitutional Constitutional: Reports systems reviewed and no addt'l complaints, except as documented ENT HEENT: Reports systems reviewed and no addt'l complaints, except as documented Cardiovascular Cardiovascular: Reports systems reviewed and no addt'l complaints, except as documented Respiratory/Chest Respiratory/Chest: Reports systems reviewed and no addt'l complaints, except as documented Gastrointestinal Gastrointestinal: Reports systems reviewed and no addt'l complaints, except as documented and nausea; Denies abdominal pain Genitourinary Genitourinary: Reports systems reviewed and no addt'l complaints, except as documented, contractions Details: present and frequency (regular ) and movement Details: present Musculoskeletal Musculoskeletal: Reports systems reviewed and no addt'l complaints, except as documented Integumentary Integumentary: Reports as per HPI Neurologic Neurologic: Reports systems reviewed and no addt'l complaints, except as documented Endocrine Endocrinology: Reports systems reviewed and no addt'l complaints, except as documented Vital Signs Vital Signs Vital Signs: 10/24/22 04:40 10/24/22 04:41 10/24/22 04:41 Temperature Temperature Source Temporal Pulse Rate 82 Blood Pressure 117/75 BP Systolic 117 BP Diastolic 75 Pulse Ox 10/24/22 04:40 10/24/22 04:40 10/24/22 05:51 Temperature 98.1 F Temperature Source Pulse Rate Blood Pressure 116/75 BP Systolic 116 BP Diastolic 75 Pulse Ox 98 10/24/22 05:51 10/24/22 05:51 10/24/22 05:51 Temperature Temperature Source Pulse Rate 80 77 Blood Pressure BP Systolic BP Diastolic Pulse Ox 100 10/24/22 05:52 10/24/22 05:52 10/24/22 06:13 Temperature 98.2 F Temperature Source Oral Pulse Rate 71 Blood Pressure BP Systolic BP Diastolic Pulse Ox 10/24/22 06:13 10/24/22 06:18 10/24/22 06:18 Temperature Temperature Source Pulse Rate 96 Blood Pressure BP Systolic BP Diastolic Pulse Ox 100 100 10/24/22 06:23 10/24/22 06:23 10/24/22 06:25 Temperature Temperature Source Pulse Rate 87 Blood Pressure 115/82 H BP Systolic 115 BP Diastolic 82 Pulse Ox 100 10/24/22 06:25 10/24/22 06:28 10/24/22 06:28 Temperature Temperature Source Pulse Rate 91 70 Blood Pressure BP Systolic BP Diastolic Pulse Ox 100 10/24/22 06:30 10/24/22 06:30 10/24/22 06:33 Temperature Temperature Source Pulse Rate 88 69 Blood Pressure 117/76 BP Systolic 117 BP Diastolic 76 Pulse Ox 10/24/22 06:33 10/24/22 06:36 10/24/22 06:36 Temperature Temperature Source Pulse Rate 79 Blood Pressure 118/75 BP Systolic 118 BP Diastolic 75 Pulse Ox 100 10/24/22 06:38 10/24/22 06:38 10/24/22 06:40 Temperature Temperature Source Pulse Rate 78 Blood Pressure 119/79 BP Systolic 119 BP Diastolic 79 Pulse Ox 100 10/24/22 06:40 10/24/22 06:43 10/24/22 06:43 Temperature Temperature Source Pulse Rate 80 73 Blood Pressure BP Systolic BP Diastolic Pulse Ox 100 10/24/22 06:45 10/24/22 06:45 10/24/22 06:48 Temperature Temperature Source Pulse Rate 71 91 Blood Pressure 122/74 H BP Systolic 122 BP Diastolic 74 Pulse Ox 10/24/22 06:48 10/24/22 06:50 10/24/22 06:50 Temperature Temperature Source Pulse Rate 96 Blood Pressure 116/75 BP Systolic 116 BP Diastolic 75 Pulse Ox 100 10/24/22 06:53 10/24/22 06:53 10/24/22 06:55 Temperature Temperature Source Pulse Rate 91 Blood Pressure 116/69 BP Systolic 116 BP Diastolic 69 Pulse Ox 99 10/24/22 06:55 10/24/22 06:58 10/24/22 06:58 Temperature Temperature Source Pulse Rate 88 96 Blood Pressure BP Systolic BP Diastolic Pulse Ox 99 10/24/22 07:00 10/24/22 07:00 10/24/22 06:43 Temperature Temperature Source Temporal Pulse Rate 103 H Blood Pressure 118/72 BP Systolic 118 BP Diastolic 72 Pulse Ox 10/24/22 06:43 10/24/22 07:03 10/24/22 07:03 Temperature 97.7 F L Temperature Source Pulse Rate 86 Blood Pressure BP Systolic BP Diastolic Pulse Ox 100 10/24/22 07:08 10/24/22 07:08 10/24/22 07:12 Temperature Temperature Source Pulse Rate 79 Blood Pressure 126/79 H BP Systolic 126 BP Diastolic 79 Pulse Ox 100 10/24/22 07:12 10/24/22 07:13 10/24/22 07:13 Temperature Temperature Source Pulse Rate 85 115 H Blood Pressure BP Systolic BP Diastolic Pulse Ox 100 10/24/22 07:16 10/24/22 07:16 10/24/22 07:26 Temperature 97.1 F L Temperature Source Pulse Rate 78 Blood Pressure 125/82 H BP Systolic 125 BP Diastolic 82 Pulse Ox Weight Weight: 166 lb 10.711 oz Body Mass Index (BMI) 26.1 Physical Exam Const alert, oriented x3 and healthy appearing Constitutional Narrative: uncomfortable with contractions HEENT normocephalic and moist oral mucous membranes Head and Scalp: atraumatic Neck full ROM, no lymphadenopathy, supple and thyroid normal General: trachea midline Thyroid: thyroid normal Lymph Lymphatic: no lymphadenopathy noted Chest inspection of chest normal Resp normal respiratory effort Cardio regular rate GI normal to inspection, nondistended, normoactive bowel sounds, soft to palpation and non-tender Inspection: gravid external exam normal Bimanual Exam - Vag & Uterus: uterus non-tender Manual OB Exam: estimated gestational size appropriate, presentation cephalic, dilated, effaced and station Extremity normal to inspection General Extremity: Negative for edema Skin no rashes or lesions noted Neuro deep tendon reflexes 2+ bilaterally Motor Exam: strength 5/5 throughout and clonus absent Psych mental status grossly normal Labs Labs Labs: Blood Type O POSITIVE Antibody Screen NEGATIVE Hct 32.3 % (37-47) L Hgb 9.7 g/dL (12.0-15.0) L Pap Smear Negative Obstetrics US Syphilis Total Ab Non-reactive Rubella IgG Antibody Reactive (Nonreactive) Hep Bs Antigen Non-Reactive (Nonreactive) Chlamydia DNA (ITZEL) Negative (Negative) Neisseria gonorrhoeae DNA (ITZEL) Negative (Negative) HIV 1&2 Antibody Non-Reactive (Nonreactive) Glucose 1 Hr 50 gm 102 mg/dL (70-140) Rhogam given: No Assessment & Plan (1) : QUALIFIERS: Weeks of gestation: 39 weeks Qualified Code(s): Z3A.39 - 39 weeks gestation of COMMENT: Neg GBS. anatomy nl, initially declined NIPT & Carrier testing; (2) Supervision of normal : COMMENT: PRR , OTTO 10/21/21, girl Toy LEISA Haas, Spouse- Bud (3) cardiac echogenic focus: COMMENT: declined NIPT testing. (4) Anxiety: COMMENT: vistaril ordered, needs to talk further at next OB appointment about possible SSRI/vistaril helpful. Declines zoloft. counseling recommended. Stable (5) Prominent renal pelvis: COMMENT: 09/29/22- mild dilation. recommend follow up after delivery fetus <7mm but prominent:recheck 08/09/22 (6) Congenital venous varix: COMMENT: Rpt MFM US 08/09/22: stable. Weekly BPP and growth Q4wk. Del at 39wk if >1.5mm. 14mm plan IOL monday at 40w3d 09/09: remains stable, nl BPP 10/07: remains stable, nl BPP (7) SROM (spontaneous rupture of membranes): (8) Active labor at term: PLAN: Plan Patient presents IAL, plan expectant management for , pitocin/AROM PRN if needed. Pain management: plans epidural. GBS neg. Management of any complications: see a/p I have reviewed the PFSH and made any clinically relevant updates.
[2022-10-24] MEDS: fentaNYL-bupivacaine (epidural) 100 ML BAG EPIDURAL (08:27)
[2022-10-24] MEDS: Oxytocin 15 Units/NS 250ml 15 UNITS/250 ML IV.SOLN 83 UNITS IV (09:45)
[2022-10-24] MEDS: Naproxen 500 MG Tablet PO (11:53)
[2022-10-24] MEDS: Acetaminophen 500 MG Tablet 1000 MG PO (18:35)
--- NOTE | 2022-10-24 19:38 | EX.PCM.OBRPT ---
Assessment & Plan (1) Active labor at term: (2) SROM (spontaneous rupture of membranes): (3) Prominent renal pelvis: COMMENT: 09/29/22- mild dilation. recommend follow up after delivery fetus <7mm but prominent:recheck 08/09/22 (4) Congenital venous varix: COMMENT: Rpt MFM US 08/09/22: stable. Weekly BPP and growth Q4wk. Del at 39wk if >1.5mm. 14mm plan IOL monday at 40w3d 09/09: remains stable, nl BPP 10/07: remains stable, nl BPP (5) Anxiety: COMMENT: vistaril ordered, needs to talk further at next OB appointment about possible SSRI/vistaril helpful. Declines zoloft. counseling recommended. Stable (6) cardiac echogenic focus: COMMENT: declined NIPT testing. (7) Supervision of normal : COMMENT: PRR , OTTO 10/21/21, girl [facility], Spouse- Bud (8) : QUALIFIERS: Weeks of gestation: 39 weeks Qualified Code(s): Z3A.39 - 39 weeks gestation of COMMENT: Neg GBS. anatomy nl, initially declined NIPT & Carrier testing; (9) Vaginal delivery: COMMENT: SM IAL 40 girl Per[place] Maternal Data Information OTTO Calculator Estimated Delivery Date Method Current WG Current Estimate 10/21/22 LMP (Certain) 40w 3d Vaginal Delivery Operative Information Date of Procedure: 10/24/22 Pre-Operative Diagnosis: see a/p diagnoses Post-Operative Diagnosis: same Surgery / Procedure Performed: Spontaneous Vaginal Delivery Type of Anesthesia: Epidural Special Medications: none Estimated Blood Loss: 200 Fluids Replaced: crystalloid Findings Description of Procedure: Patient began pushing and delivered the head in the VIGNESH presentation. The head was delivered atraumatically and a loose nuchal cord ?1 was identified and the delivered through without complication. The anterior and posterior shoulders delivered without complication followed by the rest of the infant and the infant was placed on the maternal abdomen. Delayed cord clamping was employed for approximately 60 seconds. Cord was clamped and cut and gentle traction was applied to the cord and the placenta delivered spontaneously immediately following it was noted to be intact with three-vessel cord. The perineum and vagina were inspected and noted to have no laceration. EBL was 200 cc. Patient and infant tolerated delivery well. Amniotic Fluid Description: Clear Placental Delivery Description: Spontaneous Placenta Disposition: [facility] Cord Vessel Description: 3 Vessels Cord Entanglement: None Delayed Cord Clamping: Yes Post Vaginal Delivery Medications Given After Delivery: IV Pitocin Episiotomy Description: None Complication Complications: None Procedures Urinary/Genital [id number]: [id number] Vaginal Delivery [facility]
--- NOTE | 2022-10-24 19:39 | DCINST_ITS ---
Discharge Instructions Diet Discharge Diet: No restrictions Activity Discharge Activity: Return to Normal Activity, May Drive, May Shower and May Take a Tub Bath (in 4 weeks) May resume sexual activity in: 6-8 weeks (after seen by OB provider) Weight Bearing Status: Full weight bearing Lifting Restrictions: none Dressing / Incision Call your doctor if you observe: Fever of 101 or Higher, Inability to urinate, Using more than 1 pad per hour (for more than 2 hours in a row or more), Shortness of breath, Dizziness, Chest pain and - (headache not controlled with tylenol, change in vision) Follow Up Care When: in 6 weeks for visit, call the office to make the appointment. If you had elevated blood pressures call the office to be seen within 1 week. Test Results: Test results from this visit will be discussed in further detail at your follow- up appointment, if applicable. Discharge Plan Admission Admit Date/Time: 10/24/22 03:45 Attending Provider: Mary Gonzalez Primary Care Provider: Connor Blank Discharge Orders/Prescriptions Prescriptions: No Action Prenate Pixie 10 mg iron- 1 mg-200 mg capsule 1 cap PO DAILY Qty: 30 12RF Referrals / Follow Up: Connor Blank [Primary Care Provider] -
[2022-10-25 03:41] VITALS: BP 110/69; PULSE 79; PULSE 82; O2SAT 97
[2022-10-25 04:11] VITALS: BP 110/69; PULSE 78; RESP 18; TEMP 36.6; O2SAT 97
--- NOTE | 2022-10-25 07:49 | PCM.PN.OB ---
Subjective Subjective Patient doing well without complaints. Tolerating PO. Ambulating and voiding without difficulty. Feeding well. Denies chest pain, shortness of breath, calf pain/swelling, fevers, chills, lightheadedness. Objective Data Objective Data Vital Signs: Vital Signs Temp Pulse Resp BP Pulse Ox O2 Del Method 97.9 F 78 18 110/69 97 Room Air 10/25/22 04:11 10/25/22 04:11 10/25/22 04:11 10/25/22 04:11 10/25/22 04:11 10/25/22 04:11 Oxygen Delivery Method Room Air Weight: 166 lb 10.711 oz Body Mass Index (BMI) 26.1 Intake & Output: Intake and Output for Last 24 Hours 10/23/22 10/24/22 10/25/22 23:59 23:59 23:59 Intake Total 1720 / 1720 Output Total 900 / 900 Balance 820 / 820 Lab / Micro Data Attestation: I reviewed the patient's lab results. Result Diagrams: 10/24/22 04:25 ROS Constitutional Constitutional: Reports systems reviewed and no addt'l complaints, except as documented; Denies anorexia or headache(s) Cardiovascular Cardiovascular: Reports systems reviewed and no addt'l complaints, except as documented; Denies dizziness, dyspnea, nausea or tachypnea Respiratory/Chest Respiratory/Chest: Reports systems reviewed and no addt'l complaints, except as documented; Denies cough, dyspnea, shortness of breath at rest or tachypnea Gastrointestinal Gastrointestinal: Reports systems reviewed and no addt'l complaints, except as documented; Denies abdominal pain, anorexia, constipation or nausea Genitourinary Genitourinary: Reports systems reviewed and no addt'l complaints, except as documented; Denies burning urination, difficulty urinating, dysuria, urinary frequency or urinary incontinence Musculoskeletal Musculoskeletal: Reports systems reviewed and no addt'l complaints, except as documented Integumentary Integumentary: Reports systems reviewed and no addt'l complaints, except as documented Neurologic Neurologic: Reports systems reviewed and no addt'l complaints, except as documented; Denies abnormal speech, dizziness or headache(s) Psychiatric Psychiatric: Reports systems reviewed and no addt'l complaints, except as documented Endocrine Endocrinology: Reports systems reviewed and no addt'l complaints, except as documented Hematologic/Lymphatic Hematologic/Lymphatic: Reports systems reviewed and no addt'l complaints, except as documented Physical Exam Const alert, oriented x3 and no apparent distress Neck full ROM Resp normal respiratory effort, normal air movement and no retractions Effort and Inspection: able to speak in complete sentences and symmetric chest movement GI soft to palpation Bladder / Kidney Exam: bladder normal to palpation Uterus Palpation: uterus fundus firm (U) Extremity normal to inspection and full ROM Psych mental status grossly normal, thought process normal and cooperative Assessment & Plan (1) Vaginal delivery: COMMENT: SALONI IAL 40 girl [place] PLAN: s/p PPD # 1 1. routine post delivery care 2. breast feeding- support given 3. rh positive 4. rubella immune 5. Discharge home (2) Anxiety: COMMENT: vistaril ordered, needs to talk further at next OB appointment about possible SSRI/vistaril helpful. Declines zoloft. counseling recommended. Stable Charges/Coding Multi Select Codes Urinary/Genital Urinary/Genital CPT Codes: No Charge
--- NOTE | 2022-10-25 07:52 | DCINST_ITS ---
Discharge Instructions Diet Discharge Diet: No restrictions Activity May resume sexual activity in: 6-8 weeks (after seen by OB provider) Weight Bearing Status: Full weight bearing Dressing / Incision Call your doctor if you observe: Fever of 101 or Higher, Inability to urinate, Using more than 1 pad per hour (for more than 2 hours in a row or more), Shortness of breath, Dizziness, Chest pain and - (headache not controlled with tylenol, change in vision) Follow Up Care Test Results: Test results from this visit will be discussed in further detail at your follow- up appointment, if applicable. Discharge Plan Admission Admit Date/Time: 10/24/22 03:45 Primary Reason for Your Visit: vaginal of Attending Provider: Mary Gonzalez Primary Care Provider: Connor Blank Discharge Orders/Prescriptions Prescriptions: No Action Prenate Pixie 10 mg iron- 1 mg-200 mg capsule 1 cap PO DAILY Qty: 30 12RF Referrals / Follow Up: Connor Blank [Primary Care Provider] - Disposition Disposition (needs filled in before D/C Order can be placed): Home, Self Care
[2022-10-25 08:15] VITALS: BP 111/60; PULSE 85
[2022-10-25 08:16] VITALS: BP 111/60; PULSE 85; RESP 16; TEMP 36.6
[2022-10-25] MEDS: Acetaminophen 500 MG Tablet 1000 MG PO (09:46)
[2022-10-25 12:52] VITALS: BP 116/73; PULSE 100; RESP 16; TEMP 36.4
== END 2022-10-25 13:15 | disposition home or self-care (01) | DRG 807 ==
PROVIDERS: Admitting Provider Obstetrics & Gynecology; PCP Student in an Organized Health Care Education/Training Program; Visit Provider Obstetrics & Gynecology
DX: O69.81X0 Labor and delivery complicated by cord around neck, without compression, not applicable or unspecified (principal); Z37.0 Single live birth; O99.344 Other mental disorders complicating childbirth; F41.9 Anxiety disorder, unspecified; Q27.8 Other specified congenital malformations of peripheral vascular system; Z3A.40 40 weeks gestation of pregnancy; O99.893 Other specified diseases and conditions complicating puerperium
CPT/HCPCS: 59025; 59050; 84112; 85025; 86780; 86850; 86900; 86901; 99221; J7120; G0378; J2405

== ENCOUNTER → 2024-01-01 | Outpatient (CLI) | payer OTHER, SELFPAY ==
[2024-01-04 13:08] LABS: HPV APTIMA, High Risk Negative (Negative)
== END | disposition home or self-care (01) ==
LOC: LABSPEC 13:44
PROVIDERS: PCP Student in an Organized Health Care Education/Training Program; Referring Provider Obstetrics & Gynecology; Visit Provider Obstetrics & Gynecology
DX: Z12.4 Encounter for screening for malignant neoplasm of cervix (principal)
CPT/HCPCS: 87624; 88175; G0145

== ENCOUNTER → 2024-09-27 | Outpatient (CLI) | payer OTHER, SELFPAY ==
[2024-09-27 09:05] LABS: Absolute Lymphocyte Count 0.97 X10^3/uL (0.83-4.51); Absolute Neutrophil Count 4.3 X10^3/uL (2.0-7.7); Basophil# 0.03 X10^3/uL; Basophil% 0.5 % (0-1); Eosinophil# 0.01 X10^3/uL; Eosinophils% 0.2 % (0-5); Hematocrit 38.3 % (37-47); Hemoglobin 12.8 g/dL (12.0-15.0); Lymphocyte # 0.97 X10^3/ul (0.83-4.51); Lymphocyte % 16.9 % (19-41); Mean Corp Hgb Conc 33.4 g/dL (32-36); Mean Corpuscular Hgb 27.5 pg (27.0-32.0); Mean Corpuscular Volume 82.4 fL (81-99); Mean Platelet Vol. 11.1 fl (6.2-12.0); Monocyte# 0.46 X10^3/uL; NRBC Flagged by Analyzer 0 % (0-5); Neutrophil # 4.26 X10^3/uL (2.7-7.7); Neutrophil % 74.2 % (47-70); Platelet Count 154 K/mm3 (150-450); RBC Distribution Width SD 41.2 fl (35.1-43.9); Red Blood Count 4.65 M/mm3 (4.2-5.4); White Blood Count 5.7 K/mm3 (4.4-11.0)
[2024-09-27 10:56] LABS: HIV Nonreactive (Nonreactive); Hepatitis B Surface Antigen Nonreactive (Nonreactive); Hepatitis C Antibody Nonreactive (Nonreactive); Rubella IgG REAC (Nonreactive); Syphilis Antibodies Nonreactive (Nonreactive)
[2024-09-30 23:07] LABS: Chlamydia By Nucleic Acid AMP Negative (Negative); Gonococcus By Nucleic Acid AMP Negative (Negative)
== END | disposition home or self-care (01) ==
LOC: BWCLAB 08:40
PROVIDERS: PCP Student in an Organized Health Care Education/Training Program; Referring Provider Advanced Practice Midwife; Visit Provider Advanced Practice Midwife
DX: Z34.90 Encounter for supervision of normal pregnancy, unspecified, unspecified trimester (principal)
CPT/HCPCS: 36415; 85025; 86703; 86762; 86780; 86803; 86850; 86900; 86901; 87086; 87340; 87491; 87591

== ENCOUNTER → 2025-02-06 | Outpatient (CLI) | payer OTHER, SELFPAY ==
--- OUTSIDE RECORDS SUMMARY | 2025-02-06 10:22 | XMS RPT_ITS | CCD ---
Author Organization [facility] CliniSyid Care Team Providers Care Telephone Betting Clerk Name Role Phone NAVEEN ARGUELLO Unavailable Unavailable PHYSICIAN, NONE Unavailable Unavailable Connor Rinaldi Primary Care Provider Unavailab Connor Gilbert Referring Provider Unavailable Beulah AGRISCIENCE INSTRUCTOR, RICHARD Christian Attending Provider [phone] Dr. Mary Gonzalez Attending Provider 1(330 ) Dr. Yue Sanford Attending Provider 1([phone]) Connor Rinaldi Primary Care Provider Unavailab Connor Gilbert Referring Provider Unavailable Beulah AGRISCIENCE INSTRUCTOR, RICHARD Christian Attending Provider 1(330 ) Dr. Mary Gonzalez Attending Provider 1(330 ) Dr. Yue Sanford Attending Provider [phone] Connor Patten Primary Care Provider Unava ilable Connor Patten Referring Provider Unavaila Dr. Mary Monroy Attending Provider 1(330 ) RICHARD Riojas NP Attending Provider 1(330 ) Dr. Yue Sanford Attending Provider 1(3 [phone]) Dr. Mary Gonzalez Admit Provider [phone] Dr. Mary Gonzalez Other Provider [phone] MIKI Acosta Attending Provider 1(330) Dr. Connor Rinaldi DO Primary Care Provider Dr. Connor Rinaldi DO Referring Provider Lizy Acosta CNM Attending Provider 1([phone]) Lizy Acosta CNM Referring Provider [phone] YUE HERMAN Referring Unavailab ASHELY Guardado Attending Unavailable RINALDI, CONNOR L Primary Care Unavailable YUE HERMAN Referring Unavailab ASHELY Guardado Attending Unavailable RINALDI, CONNOR L Primary Care Unavailable RINALDI, CONNOR L Primary Care Unavailable RUFINO SHELDON Attending Unavailable YUE HERMAN Referring Unavailab Dr. Yue Chatman DO Attending Provider Anahi Meehan Attending Provider [phone] Self Schedule, [facility] Attending Provider Lesli Gonzalez MD, Dr. Hernandez Attending Provider Rinaldi, Connor Referring Unavailable Rinaldi, Connor Primary Care Unavailable Anahi Riojas NP Attending Unavailable Lizy Acosta Attending Unavailable Rinaldi, Connor Referring Unavailable Rinaldi, Connor Primary Care Unavailable Rinaldi, Connor Referring Unavailable Rinaldi, Connor Primary Care Unavailable Yue Sanford Attending UnavailLizy Esteban Attending Unavailable Lizy Acosta Referring Unavailable Rinaldi, Connor Primary Care Unavailable Rinaldi, Connor Referring Unavailable Rinaldi, Connor Primary Care Unavailable Anahi Riojas NP Attending Unavailable Self Schedule, [facility] Attending Hansel Moralesrison, Connor Referring Unavailable Rinaldi, Connor Primary Care Unavailable Rinaldi, Connor Referring Unavailable Mary Gonzalez Attending Unavailable Rinaldi, Connor Primary Care Unavailable Rinaldi, Connor Referring Unavailable Lizy Acosta Attending Unavailable Rinladi, Connor Primary Care Unavailable Medications Current Medications Medication Drug Class(es) Dates Sig (Normalized) Sig (Original) hydrOXYzine pamoate 50 mg oral capsule (1 source) Antihistamine Start: 07-15-2022 take 1 capsule by mouth three to four times daily Hydroxyzine Pamoate (Vistaril) 50 mg capsule Active 50 MG PO 3 to 4 times per day 60 July 15, 2022 12:00am Magnesium (1 source) Start: 11-19-2024 take 1 tablet by mouth once daily Magnesium 250 mg tablet Active 250 mg PO daily November 19, 2024 12:00am Multivit 48-Sbnv-Xgjnwf 1-Dha (Pnv-Dha) 27 mg iron-1 mg -300 mg capsule (8 sources) Start: 09-13-2024 Multivit 40-Atla-Tixlhs 1-Dha (Pnv-Dha) 27 mg iron-1 mg -300 mg capsule Active NMA PO September 13, 2024 1:00am Start: 01-24-2020 End: 04-11-2022 Multivit 54-Znjl-Gbjwvw 1-Dh a (Pnv-Dha) 27 mg iron-1 mg -300 mg capsule Discontinued 1 NMA PO DAILY January 24, 2020 12:00am April 11, 2022 11:52am Start: 01-24-2020 End: 04-11-2022 take 1 capsule by mouth once daily Multivit 52-Zgjt-Ovfdkw 1-Dha (Pnv-Dha) 27 mg iron-1 mg -300 mg capsule Discontinued 1 CAP PO DAILY January 23, 2020 11:00pm April 11, 2022 10:52am Start: 01-24-2020 End: 04-11-2022 take 1 capsule by mouth once daily Multivit 18-Tmbn-Tououu 1-Dha (Pnv-Dha) 27 mg iron-1 mg -300 mg capsule Discontinued 1 CAP PO DAILY January 24, 2020 12:00am April 11, 2022 11:52am Start: 01-24-2020 take 1 capsule by mo [facility] once daily Multivit 93-Brqv-Lndolp 1-Dha (Pnv-Dha) 27 mg iron-1 mg -300 mg capsule Active 1 CAP PO DAILY January 24, 2020 12:00am Completed/Discontinued Medications Medication Drug Class(es) Dates Sig (Normalized) Sig (Original) amoxicillin 500 mg oral tablet (1 source) Penicillin-class Antibacterial Start: 12-08-2024 End: 12-18-2024 take 1 tablet by mouth every twelve hours Amoxicillin 500 mg tablet Discontinued 500 mg PO Q12H 19 05December 08, 2024 12:00am December 17, 2024 12:00am December 18, 2024 12:07am naproxen 250 mg oral tablet (6 sources) Nonsteroidal Anti-inflammatory Drug Start: 09-18-2020 End: 11-09-2020 take 250-500 mg by mouth every eight hours as needed for pain Naproxen 250 MG tablet Discontinued 250 - 500 mg PO EVERY 8 HOURS NEEDED as needed for MILD PAIN September 18, 2020 1:00am November 09, 2020 3:39pm Vit 85-Iron-Fa 1-Dha (Prenate Pixie) 10 mg iron- 1 mg-200 mg capsule (6 sources) Start: 03-24-2022 End: 09-13-2024 take 1 capsule by mouth once daily Vit 85-Iron-Fa 1-Dha (Prenate Pixie) 10 mg iron- 1 mg-200 mg capsule Discontinued 1 NMA PO DAILY March 24, 2022 12:00am September 13, 2024 2:42pm Start: 03-24-2022 take 1 capsule by mo ut once daily Vit 85-Iron-Fa 1-Dha (Prenate Pixie) 10 mg iron- 1 mg-200 mg capsule Active 1 CAP PO DAILY March 23, 2022 11:00pm Start: 03-24-2022 take 1 capsule by mo uth once daily Vit 85-Iron-Fa 1-Dha (Prenate Pixie) 10 mg iron- 1 mg-200 mg capsule Active 1 CAP PO DAILY March 24, 2022 12:00am Problems Active Problems Problem Classification Problem Date Documented Date Episodic/Chronic Anxiety disorders (20 sources) Anxiety; Translations: [Anxiety disorder, unspecified] Onset: 12-19-2024 08-15-2022 Chronic Comment on above: vistaril ordered, ne eds to talk further at next OB appointment about possible SSRI/vistaril helpful. Declines zoloft. counseling recommended. Stable stable. 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 Weekly BPP and growth Q4wk. Del at 39wk if >1.5mm. 14mm plan IOL monday at 40w3d2/10: remains stable, nl BPP3/10: remains stable, nl BPP Genitourinary symptoms and ill-defined conditions (18 sources) Prominent renal pelvis; Translations: [Other symptoms and signs involving the genitourinary system] 09-30-2022 Episodic Comment on above: 09/29/22- mild dilatio n. recommend follow up after deliveryfetus <7mm but prominent:recheck 08/09/22 Hemorrhage during ; abruptio placenta; placenta previa (7 sources) Low lying placenta; Translations: [Low lying placenta NOS or without hemorrhage, second trimester] 09-01-2022 Episodic Comment on above: 1.7cm no pelvic rest needed FU @ 28 wks/resolved Immunizations and screening for infectious disease (6 sources) Contact with or exposure to other viral diseases; Translations: [Lab test negative for COVID-19 virus] 09-18-2020 Episodic Other complications of (6 sources) ultrasound scan abnormal; Translations: [Abnormal ultrasonic finding on screening of mother] 09-18-2020 Episodic Comment on above: Echogenic cardiac fo cus and eccentric cord insertion. Offered NIPT - patient declines. q4 growth ultrasounds. growth adequate, 07/20, 08/17/20 Other conditions (3 sources) choroid plexus cyst 12-15-2024 Episodic Comment on above: offer NIPT Other and delivery including normal (20 sources) Normal ; Translations: [Encounter for supervision of normal , unspecified, unspecified trimester] Onset: 10-10-2024 Episodic Comment on above: SM IAL 41 girl M josé miguel PRR, , OTTO 05/01, Perla Mora, Bud PRR OTTO 09/17/20 ITS A BOY! (name secret) Spouse: Bud PRR , OTTO , girl [place], Spouse- Bud declined NIPT & Gudino ier testing declined genetic, ca rrier and ntd. Overall anatomy normal FU 2 wks with MFM for additional heart views, echogenic intracardiac focus and eccentric cord insertion. Serial growth recommended @ [facility] @ 4 wks Neg GBS. anatomy nl, initially declined NIPT & Carrier testing; PRR, , OTTO 05/01, SURPRISE Perla Mora, Bud declined NIPT & Gudino ier testing. anatomy scan normal. Other upper respiratory infections (3 sources) Upper respiratory infection; Translations: [Acute upper respiratory infection, unspecified] Onset: 12-08-2024 12-19-2024 Episodic Polyhydramnios and other problems of amniotic cavity (9 sources) Polyhydramnios; Translations: [Polyhydramnios, unspecified trimester, not applicable or unspecified] 09-27-2022 Episodic Comment on above: CHERI-28.2 on 09/09; 17. Residual codes; unclassified (6 sources) Gestation period, 35 weeks; Translations: [35 weeks gestation of ] 09-18-2020 Episodic Comment on above: electronic covid marguerite t ordered 08/14/20 (scheduled for 09/14/20 at 1655) Residual codes; unclassified (2 sources) heart echogenicity on obstetric ultrasound scan 10-24-2022 Episodic Comment on above: declined NIPT testin g. Residual codes; unclassified (1 source) 21 weeks gestation of ; Translations: [21 weeks gestation of ] Onset: 12-19-2024 Episodic Unclassified (2 sources) Normal labor; Translations: [Active labor at term] 10-24-2022 Past or Other Problems Problem Classification Problem Date Documented Date Episodic/Chronic Administrative/social admission (2 sources) Other specified counseling; Translations: [Other specified counseling] Onset: 05-31-2017 Episodic Medical examination/evaluatio n (2 sources) Encounter for gynecological examination (general) (routine) with abnormal findings; Translations: [Encounter for gynecological examination (general) (routine) with abnormal findings] Onset: 05-31-2017 Episodic Unclassified (6 sources) Labor finding; Translations: [Active labor] 09-18-2020 Unclassified (19 sources) heart echogenicity on obstetric ultrasound scan; Translations: [ cardiac echogenic focus] 09-01-2022 Unclassified (2 sources) Spontaneous rupture of membranes; Translations: [Spontaneous rupture of amniotic membranes] 10-24-2022 Results Test Name Value Interpretation Reference Range Facility Tour Bus Driver/Guide Office Visit Reporton 01-16-2025 Tour Bus Driver/Guide Office Visit Report [facility] [address] [place] [address], [address] [place] [address] OFFICE VISIT Date of Service: 01/16/25 MR#: [id number] Acct: [id number] Name: RAMYA GOEL Rep #: [id number] : 1990 Provider: MIKI Bryan ams Age/Sex: 34/F Location[place] [facility] [place]: Signed Intake Vital Signs 10/23/24 14:30 12/19/24 11:48 01/16/25 09:34 Height 5 ft 7 in 5 ft 7 in 5 ft 7 in Weight: 140 lb 8 oz BMI 21.9 BP 97/65 Intake Visit Reasons: 25wk ob Chief Complaint: 25 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 Hand Required: No Is patient in pain?: No Allergies No Known Allergies Allergy (Verified 01/16/25 09:36) Medications ???Medication ???Instructions ???Recorded ???Confirmed ???Type multivitamin no.47-iron fum 27 cap PO 09/13/24 01/16/25 History mg-folate no.1 1 mg-dha 300 mg capsule (PNV-DHA) magnesium 250 mg tablet 250 mg PO QDAY 11/19/24 01/16/25 H istory Last Menstrual Period: 07/25/24 Zika: Zika virus screening: Negative : No PFSH PFSH Medical History Vaginal delivery cardiac echogenic focus Low-lying placenta in second trimester No significant medical problems Surgical History History of cataract surgery H/O foot surgery H/O wisdom tooth extraction Family History Grandfather Hypertension Heart disease Grandmother Cancer Aunt Breast cancer Maternal Social History adopted: No household members: spouse and children housing: house number of children: 2 current occupational status: employed current occupation: [employer] current occupational exposures/hazards: No pets and animals: Yes pets and animals: dog(s) history of recent travel: No sexually active: Yes Smoking Status: Never smoker second hand exposure: No alcohol intake: former details: social- Not while substance use type: does not use well-balanced diet: daily or most days caffeine: Yes Type: coffee Number of servings: 1 eating out: rarely or never during the past year weight has: remained stable what type of physical activity do you participate in: none frequency: 3-4 times per week taryn/religious: Lutheran seatbelt use: always do you feel safe at home: Yes 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 Date Name GA/Weeks Outcome Route Bth Weight Gen Labor Lgth Anesthesia Del Locatn Provider FOB 09/18/20 [place] 40 live - full term 7# Male [facility] Proko p 10/24/22 Perla 40 live - full term 8#11 Female epidural [facility] Sh liliana Farrell Delivery Date: 09/18/20 Last Updated by: Pebbles Hardin admitted in active labor. normal vaginal delivery Delivery Date: 10/24/22 Last Updated by: Alyssa Rizo see problem list for complications, and ial 40 sm. HPI 25wk ob Details: RAMYA GOEL is a 34 year old who presents for routine OB visit. OB Visit OTTO Calculator Estimated Delivery Date Method Current WG Current Estimate 05/01/25 LMP (Certain) 25w 0d Other Estimates 05/04/25 Ultrasound #1 24w 4d Expected Delivery Route/Plan Labor Preferences- CB/BF classes: [] labor support person: [] labor intervention preferences: [] pain management options preferred: [] cut cord/dad catch: [] : [] PP control planned: [] discussed possible routes of delivery and associated risks: [] special requests: [] Specific Issue/Plans Covid status: [] Flu vaccine: [] Tdap vaccine: [] Rhogam: [] LARC form signed: [] Problem list reviewed and updated with the most current plan of care details and appropriate orders placed. Relevant counseling for the gestational age provided. Continue routine care and follow up unless otherwise noted in visit notes/problem list details Initial Weight: 126 lb Date -???-???-???-???-???-?? ?-???-???-???-???-???-? ??- EGA Weight BP Urine Prot -???-???-???-???-???-?? ?-???-???-???-???-???-? ??- Glucose FHR FuHt Pres Dilation -???-???-???-???-???-?? ?-???-???-???-???-???-? ??- Effaced St Visit Note 09/27/24 -???-???-???-???-???-?? ?-???-???-???-???-???-? ??- 9w 1d 126 lb 8 oz (+8 oz) 124/83 -???-???-???-???-???-?? ?-???-???-???-???-???-? ??- 169 -???-???-???-???-???-?? ?-???-???-???-???-???-? ??- KW- CRL cons with dates. Declines NIPT 10/23/24 -???-???-???-???-???-?? ?-???-???-?? (more content not included)... Normal [facility] Progress Noteon 01-03-2025 Automotive Diagnostic Technician Authentication Interface Message Text Note opened in error Normal [facility] Automotive Diagnostic Technician Authentication Interface Message Text [facility] Perinatology Antepartum Consult Note I had the pleasure of seeing your patient, Ms. Goel. She is a 34 y.o. at 23w1d. She comes for consultation today for the following reason: At the prior visit CPCs were identified. She herself had some questions and concerns about this finding so a consultation was planned. Today at ultrasound the CPCs are seen again but extremely small and resolving; as would be expected. The CPCs are an isolated finding as the remaining anatomy appears normal. Please note that the anatomy ultrasound is completed today and is normal. Since the CPCs are an isolated finding they are likely an incidental finding and not a sign of aneuploidy. The patient had some concern about having this finding (CPCs) at the prior study. She told me today that she spoke with her OB in the interval who also explained that CPCs tend not to be a concerning finding. This provided her with further reassurance. I reiterated to her that the CPCs are not concerning. Furthermore they will resolve spontaneously so no follow-up is needed. No follow-up has been scheduled in [facility]. Thank you for the opportunity to participate in the care of Ramya Goel. I would be happy to see her again for her care this . Please feel free to contact me if you have any questions. My final recommendations will be communicated back to the requesting physician by way of shared medical record or fax. Solange Howard MD [facility] Tour Bus Driver/Guide Office Visit Reporton 12-19-2024 Tour Bus Driver/Guide Office Visit Report [facility] [address], [address] [place] [address] OFFICE VISIT Date of Service: 12/19/24 MR#: [id number] Acct: [id number] Name: RAMYA GOEL Rep #: [id number] : 1990 Provider: Dr. Mary tan MD Age/Sex: 33/F [place] [facility] [place] Status: Signed Intake Vital Signs 10/23/24 14:30 12/08/24 09:05 12/19/24 11:44 12/19/24 11:48 Height 5 ft 7 in 5 ft 7 in 5 ft 7 in 5 ft 7 in Weight: 136 lb 8 oz BMI 21.4 BP 116/74 Intake Visit Reasons: 20wk ob Binder Stripper Hand Required: No Is patient in pain?: No Allergies No Known Allergies Allergy (Verified 12/19/24 11:45) Medications ???Medication ???Instructions ???Recorded ???Confirmed ???Type multivitamin no.47-iron fum 27 cap PO 09/13/24 12/19/24 History mg-folate no.1 1 mg-dha 300 mg capsule (PNV-DHA) magnesium 250 mg tablet 250 mg PO QDAY 11/19/24 12/19/24 H istory Last Menstrual Period: 07/25/24 Zika: Zika virus screening: Negative : No PFSH PFSH Medical History Vaginal delivery cardiac echogenic focus Low-lying placenta in second trimester No significant medical problems Surgical History History of cataract surgery H/O foot surgery H/O wisdom tooth extraction Family History Grandfather Hypertension Heart disease Grandmother Cancer Aunt Breast cancer Maternal Social History adopted: No household members: spouse and children housing: house number of children: 2 current occupational status: employed current occupation: [employer]- [employer] current occupational exposures/hazards: No pets and animals: Yes pets and animals: dog(s) history of recent travel: No sexually active: Yes Smoking Status: Never smoker second hand exposure: No alcohol intake: former details: social- Not while substance use type: does not use well-balanced diet: daily or most days caffeine: Yes Type: coffee Number of servings: 1 eating out: rarely or never during the past year weight has: remained stable what type of physical activity do you participate in: none frequency: 3-4 times per week taryn/religious: Lutheran seatbelt use: always do you feel safe at home: Yes 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 Date Name GA/Weeks Outcome Route Bth Weight Gen Labor Lgth Anesthesia Del Locatn Provider FOB 09/18/20 [place] 40 live - full term 7# Male [facility] Proko p 10/24/22 Perla 40 live - full term 8#11 Female epidural [facility] liliana Gonzalez Bud Delivery Date: 09/18/20 Last Updated by: Pebbles Hardin admitted in active labor. normal vaginal delivery Delivery Date: 10/24/22 Last Updated by: Alyssa Rizo see problem list for complications, and ial 40 sm. HPI 20wk ob Details: RAMYA GOEL is a 33 year old who presents for routine OB visit. OB Visit OTTO Calculator Estimated Delivery Date Method Current WG Current Estimate 05/01/25 LMP (Certain) 21w 0d Other Estimates 05/04/25 Ultrasound #1 20w 4d Expected Delivery Route/Plan Labor Preferences- CB/BF classes: [] labor support person: [] labor intervention preferences: [] pain management options preferred: [] cut cord/dad catch: [] : [] PP control planned: [] discussed possible routes of delivery and associated risks: [] special requests: [] Specific Issue/Plans Covid status: [] Flu vaccine: [] Tdap vaccine: [] Rhogam: [] LARC form signed: [] Problem list reviewed and updated with the most current plan of care details and appropriate orders placed. Relevant counseling for the gestational age provided. Continue routine care and follow up unless otherwise noted in visit notes/problem list details Initial Weight: 126 lb Date -???-???-???-???-???-?? ?-???-???-???-???-???-? ??- EGA Weight BP Urine Prot -???-???-???-???-???-?? ?-???-???-???-???-???-? ??- Glucose FHR FuHt Pres Dilation -???-???-???-???-???-?? ?-???-???-???-???-???-? ??- Effaced St Visit Note 09/27/24 -???-???-???-???-???-?? ?-???-???-???-???-???-? ??- 9w 1d 126 lb 8 oz (+8 oz) 124/83 -???-???-???-???-???-?? ?-???-???-???-???-???-? ??- 169 -???-???-???-???-???-?? ?-???-???-???-???-???-? ??- KW- CRL cons with dates. Declines NIPT 10/23/24 -???-???-???-???-???-?? ?-???-???-???-???- (more content not included)... Normal [facility] Rapid group A Streptococcus antigen assay at point of careOrdered By: Nick Ziegler on 12-08-2024 S. pyogenes Ag IA.rapid Ql (Throat) Negative [facility] Visit Reporton 0 12-08-2024 Urgent Care Visit Report [facility] [address] , [address] [place] [address] OFFICE VISIT Date of Service: 12/08/24 MR#: [id number] Acct: [id number] Name: RAMYA GOEL Rep #: [id number] : 1990 Provider: [facility] Self Schedule Age/Sex: 33/F [place] [facility] [place] Status: Signed Intake Vital Signs 11/19/24 13:40 12/08/24 09:05 Height 5 ft 7 in 5 ft 7 in Weight: 131 lb 8 oz 33 lb BMI 20.5 5.1 BP 118/80 105/66 Blood Pressure Location Lt brachial Position Sitting Respiration 14 Pulse 91 Pulse Source Monitor Temp 98.7 F Temp Source Oral Pulse Oximetry (%) 99 Oxygen Delivery Method room air Intake Visit Reasons: SORE THROAT, EAR PAIN Chief Complaint: sore throat, swollen glands in neck, ear pain Binder Stripper Hand Required: No Accompanied by: Self Is patient in pain?: Yes Pain scale (1-10): 1 Allergies No Known Allergies Allergy (Verified 12/08/24 09:05) Medications ???Medication ???Instructions ???Recorded ???Confirmed ???Type multivitamin no.47-iron fum 27 cap PO 09/13/24 12/08/24 History mg-folate no.1 1 mg-dha 300 mg capsule (PNV-DHA) magnesium 250 mg tablet 250 mg PO QDAY 11/19/24 12/08/24 H istory amoxicillin 500 mg tablet 500 mg PO Q12H 10 days #20 tabs 12/08/24 Rx PFSH Medical History Vaginal delivery cardiac echogenic focus Low-lying placenta in second trimester No significant medical problems Surgical History History of cataract surgery H/O foot surgery H/O wisdom tooth extraction Family History Grandfather Hypertension Heart disease Grandmother Cancer Aunt Breast cancer Maternal Social History adopted: No household members: spouse and children housing: house number of children: 2 current occupational status: employed current occupation: [employer] current occupational exposures/hazards: No pets and animals: Yes pets and animals: dog(s) history of recent travel: No sexually active: Yes Smoking Status: Never smoker second hand exposure: No alcohol intake: former details: social- Not while substance use type: does not use well-balanced diet: daily or most days caffeine: Yes Type: coffee Number of servings: 1 eating out: rarely or never during the past year weight has: remained stable what type of physical activity do you participate in: none frequency: 3-4 times per week taryn/religious: Lutheran seatbelt use: always do you feel safe at home: Yes additional social history: [employer] social media in [facility] Chief Complaint: sore throat, swollen glands in neck, ear pain Details: RAMYA GOEL, is a 33 F who presents to the office today for concerns for intermittent sore throat and ear pain. This has been ongoing for 5 days. She state possible fever on day one. She is taking Tylenol to help. ROS Const Constitutional: Positive for headache(s) (day one and day 5) and change in appetite (less hungry); No body ache, chills, fatigue or fever(s) Eyes Eyes: No blurry vision, change in vision, double vision, irritation, discharge, vision loss, dry eyes, bulging eyes, floaters, visual disturbances, eye pain, Light sensitivity, spots in vision, tunnel vision or other ENT ENT: Positive for ear or mastoid pain (Bilateral), ear pressure, nasal congestion (yesterday), sinus pressure (day one), nasal discharge (clear), post nasal drip, headache(s) (day one and day 5), hoarseness (intermittent), neck pain and sore throat; No ear discharge, tinnitus, dizziness/vertigo, nosebleed/epistaxis, nose pain, sinus pain, facial pain, dental pain, difficulty swallowing, bad breath, lip swelling, mouth lesions, mouth pain, tongue swelling or throat swelling Resp Respiratory: Positive for cough (in the AM) Cough: Yes productive and change in phlegm color (unknown); No chest congestion, hemoptysis, pain on inspiration, shortness of breath, pain with cough, stridor or wheezing Cardio Cardiology: No chest pain at rest, chest pain with exertion, shortness of breath, dyspnea on exertion or lightheadedness Gastro GI: No abdominal pain, change in bowel habits, constipation, diarrhea, difficulty swallowing, nausea/dyspepsia or vomiting Genitourinary-Female: No burning urination or urinary frequency Musc Musculoskeletal: Positive for neck pain; No joint pain Skin Skin: No rash Neuro Neurology: Positive for headache(s) (day one and day 5); No visual disturbances Psych Psychiatric: Positive for change in appetite (less hungry) Endo Endocrine: No fatigue Aller/Imm Allergy/Immunologic: No lip swelling (more content not included)... Normal [facility] - Chemistry and C hemistry - challengeOrdered By: Anahi Riojas on 11-19-2024 Glucose Ql (U) Negative [facility] - UrinalysisOrder ed By: Anahi Riojas on 11-19-2024 Protein Ql (U) Negative [facility] Tour Bus Driver/Guide Office Visit Reporton 11-19-2024 Tour Bus Driver/Guide Office Visit Report [facility] [address], [address] [place] [address] OFFICE VISIT Date of Service: 11/19/24 MR#: [id number] Acct: [id number] Name: RAMYA GOEL Rep #: [id number] : 1990 Provider: RICHARD griffiths Age/Sex: 33/F [place] [facility] [place]: Signed Intake Vital Signs 09/27/24 08:02 10/23/24 14:30 11/19/24 13:40 Height 5 ft 7 in 5 ft 7 in 5 ft 7 in Weight: 131 lb 8 oz BMI 20.5 BP 118/80 Intake Visit Reasons: 16 wk ob Chief Complaint: 16 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 Hand Required: No Is patient in pain?: No Allergies No Known Allergies Allergy (Verified 11/19/24 13:40) Medications ???Medication ???Instructions ???Recorded ???Confirmed ???Type multivitamin no.47-iron fum 27 cap PO 09/13/24 11/19/24 History mg-folate no.1 1 mg-dha 300 mg capsule (PNV-DHA) magnesium 250 mg tablet 250 mg PO QDAY 11/19/24 11/19/24 H istory Last Menstrual Period: 07/25/24 Zika: Zika virus screening: Negative : No PFSH PFSH Medical History Vaginal delivery cardiac echogenic focus Low-lying placenta in second trimester No significant medical problems Surgical History History of cataract surgery H/O foot surgery H/O wisdom tooth extraction Family History Grandfather Hypertension Heart disease Grandmother Cancer Aunt Breast cancer Maternal Social History adopted: No household members: spouse and children housing: house number of children: 2 current occupational status: employed current occupation: [employer] current occupational exposures/hazards: No pets and animals: Yes pets and animals: dog(s) history of recent travel: No sexually active: Yes Smoking Status: Never smoker second hand exposure: No alcohol intake: former details: social- Not while substance use type: does not use well-balanced diet: daily or most days caffeine: Yes Type: coffee Number of servings: 1 eating out: rarely or never during the past year weight has: remained stable what type of physical activity do you participate in: none frequency: 3-4 times per week taryn/religious: Lutheran seatbelt use: always do you feel safe at home: Yes 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 Date Name GA/Weeks Outcome Route Bth Weight Gen Labor Lgth Anesthesia Del Locatn Provider FOB 09/18/20 [place] 40 live - full term 7# Male [facility] Proko p 03/27/23 [place] 40 live - full term 8#11 Female epidural [facility] Sh liliana Farrell Delivery Date: 09/18/20 Last Updated by: Pebbles Hardin admitted in active labor. normal vaginal delivery Delivery Date: 10/24/22 Last Updated by: Alyssa Rizo see problem list for complications, and ial 40 sm. HPI 16 wk ob Details: RAMYA GOEL is a 33 year old who presents for routine OB visit. OB Visit OTTO Calculator Estimated Delivery Date Method Current WG Current Estimate 05/01/25 LMP (Certain) 16w 5d Other Estimates 05/04/25 Ultrasound #1 16w 2d Expected Delivery Route/Plan Labor Preferences- CB/BF classes: [] labor support person: [] labor intervention preferences: [] pain management options preferred: [] cut cord/dad catch: [] : [] PP control planned: [] discussed possible routes of delivery and associated risks: [] special requests: [] Specific Issue/Plans Covid status: [] Flu vaccine: [] Tdap vaccine: [] Rhogam: [] LARC form signed: [] Problem list reviewed and updated with the most current plan of care details and appropriate orders placed. Relevant counseling for the gestational age provided. Continue routine care and follow up unless otherwise noted in visit notes/problem list details Initial Weight: 126 lb Date -???-???-???-???-???-?? ?-???-???-???-???-???-? ??- EGA Weight BP Urine Prot -???-???-???-???-???-?? ?-???-???-???-???-???-? ??- Glucose FHR FuHt Pres Dilation -???-???-???-???-???-?? ?-???-???-???-???-???-? ??- Effaced St Visit Note 09/27/24 -???-???-???-???-???-?? ?-???-???-???-???-???-? ??- 9w 1d 126 lb 8 oz (+8 oz) 124/83 -???-???-???-???-???-?? ?-???-???-???-???-???-? ??- 169 -???-???-???-???-???-?? ?-???-???-???-???-???-? ??- KW- CRL cons with dates. Declines NIPT 10/23/24 -???-???-???-???-???-?? ?-???-?? (more content not included)... Normal [facility] - Chemistry and C hemistry - challengeOrdered By: Yue Hull on 10-23-2024 Glucose Ql (U) Negative [facility] - UrinalysisOrder ed By: Yue Hull on 10-23-2024 Protein Ql (U) Negative [facility] Tour Bus Driver/Guide Office Visit Reporton 10-23-2024 Tour Bus Driver/Guide Office Visit Report [facility], [address] [place] [address] OFFICE VISIT Date of Service: 10/23/24 MR#: [id number] Acct: [id number] Name: RAMYA GOEL Rep #: [id number] : 1990 Provider: Dr. Yue Lopez DO Age/Sex: 33/F Location[place] [facility] [place] Status: Signed Intake Vital Signs 01/01/24 10:54 09/27/24 08:02 10/23/24 14:30 10/23/24 14:30 Height 5 ft 7 in 5 ft 7 in 5 ft 7 in 5 ft 7 in Weight: 129 lb 8 oz BMI 20.2 BP 128/80 H Intake Visit Reasons: 12 wk ob Binder Stripper Hand Required: No Is patient in pain?: No Allergies No Known Allergies Allergy (Verified 10/23/24 14:29) Medications ???Medication ???Instructions ???Recorded ???Confirmed ???Type multivitamin no.47-iron fum 27 cap PO 09/13/24 10/23/24 History mg-folate no.1 1 mg-dha 300 mg capsule (PNV-DHA) Last Menstrual Period: 07/25/24 Zika: Zika virus screening: Negative : No PFSH PFSH Medical History Vaginal delivery cardiac echogenic focus Low-lying placenta in second trimester No significant medical problems Surgical History History of cataract surgery H/O foot surgery H/O wisdom tooth extraction Family History Grandfather Hypertension Heart disease Grandmother Cancer Aunt Breast cancer Maternal Social History adopted: No household members: spouse and children housing: house number of children: 2 current occupational status: employed current occupation: [employer] current occupational exposures/hazards: No pets and animals: Yes pets and animals: dog(s) history of recent travel: No sexually active: Yes Smoking Status: Never smoker second hand exposure: No alcohol intake: former details: social- Not while substance use type: does not use well-balanced diet: daily or most days caffeine: Yes Type: coffee Number of servings: 1 eating out: rarely or never during the past year weight has: remained stable what type of physical activity do you participate in: none frequency: 3-4 times per week taryn/religious: Lutheran seatbelt use: always do you feel safe at home: Yes additional social history: [employer] 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 Date Name GA/Weeks Outcome Route Bth Weight Infant Gen Labor Lgth Anesthesia Del Locatn Provider FOB 09/18/20 [place] 40 live - full term 7# Male [facility] Proko p 10/24/22 [place] 40 live - full term 8#11 Female epidural [facility] Demi Gonzalez Bud Delivery Date: 09/18/20 Last Updated by: Pebbles Hardin admitted in active labor. normal vaginal delivery Delivery Date: 10/24/22 Last Updated by: Alyssa Rizo see problem list for complications, and ial 40 sm. HPI 12 wk ob Details: RAMYA GOEL is a 33 year old who presents for routine OB visit. OB Visit OTTO Calculator Estimated Delivery Date Method Current WG Current Estimate 05/01/25 LMP (Certain) 12w 6d Other Estimates 05/04/25 Ultrasound #1 12w 3d Expected Delivery Route/Plan Labor Preferences- CB/BF classes: [] labor support person: [] labor intervention preferences: [] pain management options preferred: [] cut cord/dad catch: [] : [] PP control planned: [] discussed possible routes of delivery and associated risks: [] special requests: [] Specific Issue/Plans Covid status: [] Flu vaccine: [] Tdap vaccine: [] Rhogam: [] LARC form signed: [] Problem list reviewed and updated with the most current plan of care details and appropriate orders placed. Relevant counseling for the gestational age provided. Continue routine care and follow up unless otherwise noted in visit notes/problem list details Initial Weight: 126 lb Date -???-???-???-???-???-?? ?-???-???-???-???-???-? ??- EGA Weight BP Urine Prot -???-???-???-???-???-?? ?-???-???-???-???-???-? ??- Glucose FHR FuHt Pres Dilation -???-???-???-???-???-?? ?-???-???-???-???-???-? ??- Effaced St Visit Note 09/27/24 -???-???-???-???-???-?? ?-???-???-???-???-???-? ??- 9w 1d 126 lb 8 oz (+8 oz) 124/83 -???-???-???-???-???-?? ?-???-???-???-???-???-? ??- 169 -???-???-???-???-???-?? ?-???-???-???-???-???-? ??- KW- CRL cons with dates. Declines NIPT 10/23/24 -???-???-???-???-???-?? ?-???-???-???-???-???-? ??- 12w 6d 129 lb 8 oz (+3 lb 8 oz) 128/80 Negati (more content not included)... Normal [facility] Chlamydia/GC ITZEL aptimaon CHLAMY,NUC ACID Negative Normal Negative [facility] Comment on above: Performed By: #### L 7000.1800, M100.0 #### [facility] [address] [place], [address] GC BY NUC ACID Negative Normal Negative [facility] Comment on above: Result Comment: Perf ormed at: =G - [facility] [address] [place], [place] [id number] Family Counselor: Lizzie Lezama MD, Phone: [phone] Performed By: #### L 7000.1800, M100.2200 #### [facility] [address] [place], [address] Urine Cultureon 09-28-2024 URC Culture exhibits no growth. Normal [facility] Comment on above: Performed By: #### L 7000.1800, M100.2200 #### [facility] [address] [place], [address] Absolute lymphocyte countOrd ered By: Lizy Acosta on 09-27-2024 Lymphocytes Auto (Unsp spec) [#/Vol] 0.97 10*3/uL 0.83-4.51 [facility] Absolute neutrophil countOrd ered By: Lizy Acosta on 09-27-2024 Neutrophils (Bld) [#/Vol] 4.3 10*3/uL 2.0-7.7 [facility] Automated lymphocyte count a s percentage of total leukocytesOrdered By: Lizy Dave on 09-27-2024 Lymphocytes/100 WBC Auto (Unsp spec) 16.9 % Low 19-41 [facility] Basophil percentageOrdered B y: Lizy Acosta on 09-27-2024 Basophils/100 WBC (Bld) 0.5 % 0-1 [facility] C. trachomatis rRNA ITZEL+prob e Ql (Unsp spec)Ordered By: Lizy Acosta on 09-27-2024 Chlamydia DNA (ITZEL) Negative Negative [facility] CBC W/Diff, Automatedon 09-01 Absolute Lymph 0.97 X10 3/uL Normal 0.83-4.51 [facility] Comment on above: Performed By: #### L 3890.6102, L509.8002, L3890.6006, L100.0100, L509.4006, L3890.6301, BTS #### [facility] [address] [place], [address] Absolute Neut 4.3 X10 3/uL Normal 2.0-7.7 [facility] Comment on above: Performed By: #### L 3890.6102, L509.8002, L3890.6006, L100.0100, L509.4006, L3890.6301, BTS #### [facility] [address] [place], [address] Basophils/100 WBC (Bld) 0.5 % Normal 0-1 [facility] Comment on above: Performed By: #### L 3890.6102, L509.8002, L3890.6006, L100.0100, L509.4006, L3890.6301, BTS #### [facility] [address] [place], [address] Eosinophils/100 WBC (Bld) 0.2 % Normal 0-5 [facility] Comment on above: Performed By: #### L 3890.6102, L509.8002, L3890.6006, L100.0100, L509.4006, L3890.6301, BTS #### [facility] [address] [place], [address] Erythrocyte distribution width (RBC) [Ratio] 14.0 % Normal 11.6-14.6 [facility] Comment on above: Performed By: #### L 3890.6102, L509.8002, L3890.6006, L100.0100, L509.4006, L3890.6301, BTS #### [facility] [address] [place], [address] Hematocrit (Bld) [Volume fraction] 38.3 % Normal 37-47 [facility] Comment on above: Performed By: #### L 3890.6102, L509.8002, L3890.6006, L100.0100, L509.4006, L3890.6301, BTS #### [facility] [address] [place], [address] Hemoglobin (Bld) [Mass/Vol] 12.8 g/dL Normal 12.0-15.0 [facility] Comment on above: Performed By: #### L 3890.6102, L509.8002, L3890.6006, L100.0100, L509.4006, L3890.6301, BTS #### [facility] [address] [place], [address] IG% 0.200 Normal 0.0-0.9 [facility] Comment on above: Result Comment: IG% - Immature Granulocytes (promyelocytes, myelocytes and metamyelocytes) > 1% indicates that a LEFT SHIFT is Present. Performed By: #### L 3890.6102, L509.8002, L3890.6006, L100.0100, L509.4006, L3890.6301, BTS #### [facility] [address] [place], [address] Lymphocytes/100 WBC (Bld) 16.9 % Low 19-41 [facility] Comment on above: Performed By: #### L 3890.6102, L509.8002, L3890.6006, L100.0100, L509.4006, L3890.6301, BTS #### [facility] [address] [place], [address] MCH (RBC) [Entitic mass] 27.5 pg Normal 27.0-32.0 [facility] Comment on above: Performed By: #### L 3890.6102, L509.8002, L3890.6006, L100.0100, L509.4006, L3890.6301, BTS #### [facility] [address] [place], [address] MCHC (RBC) [Mass/Vol] 33.4 g/dL Normal 32-36 [facility] Comment on above: Performed By: #### L 3890.6102, L509.8002, L3890.6006, L100.0100, L509.4006, L3890.6301, BTS #### [facility] [address] [place], [address] MCV (RBC) [Entitic vol] 82.4 fL Normal 81-99 [facility] Comment on above: Performed By: #### L 3890.6102, L509.8002, L3890.6006, L100.0100, L509.4006, L3890.6301, BTS #### [facility] [address] [place], [address] Monocytes/100 WBC (Bld) 8.0 % Normal 0-10 [facility] Comment on above: Performed By: #### L 3890.6102, L509.8002, L3890.6006, L100.0100, L509.4006, L3890.6301, BTS #### [facility] [address] [place], [address] Neutrophils/100 WBC (Bld) 74.2 % High 47-70 [facility] Comment on above: Performed By: #### L 3890.6102, L509.8002, L3890.6006, L100.0100, L509.4006, L3890.6301, BTS #### [facility] [address] [place], [address] Nucleated RBC (Bld) [#/Vol] 0 10*3/uL Normal 0-5 [facility] Comment on above: Performed By: #### L 3890.6102, L509.8002, L3890.6006, L100.0100, L509.4006, L3890.6301, BTS #### [facility] [address] [place], [address] Platelet mean volume (Bld) [Entitic vol] 11.1 fL Normal 6.2-12.0 [facility] Comment on above: Performed By: #### L 3890.6102, L509.8002, L3890.6006, L100.0100, L509.4006, L3890.6301, BTS #### [facility] [address] [place], [address] Platelets (Bld) [#/Vol] 154 10*3/uL Normal 150-450 [facility] Comment on above: Performed By: #### L 3890.6102, L509.8002, L3890.6006, L100.0100, L509.4006, L3890.6301, BTS #### [facility] [address] [place], [address] RBC (Bld) [#/Vol] 4.65 10*6/uL Normal 4.2-5.4 [facility] Comment on above: Performed By: #### L 3890.6102, L509.8002, L3890.6006, L100.0100, L509.4006, L3890.6301, BTS #### [facility] [address] [place], [address] RDW SD 41.2 fl Normal 35.1-43.9 [facility] Comment on above: Performed By: #### L 3890.6102, L509.8002, L3890.6006, L100.0100, L509.4006, L3890.6301, BTS #### [facility] [address] [place], [address] WBC (Bld) [#/Vol] 5.7 10*3/uL Normal 4.4-11.0 [facility] Comment on above: Performed By: #### L 3890.6102, L509.8002, L3890.6006, L100.0100, L509.4006, L3890.6301, BTS #### [facility] [address] [place], [address] Chlamydia trachomatis rRNA d etection by probe and target amplification methodOrdered By: Lizy Acosta on 09-27-2024 C. trachomatis rRNA ITZEL+probe Ql (Unsp spec) Negative Negative [facility] Eosinophil percentageOrdered By: Lizy Acosta on 09-27-2024 Eosinophils/100 WBC (Bld) 0.2 % 0-5 [facility] Erythrocyte distribution wid th ratioOrdered By: Lizy Acosta on 09-27-2024 Erythrocyte distribution width (RBC) [Ratio] 14.0 % 11.6-14.6 [facility] Erythrocyte distribution wid th standard deviationOrdered By: Lizy Acosta on 09-27-2024 Erythrocyte distribution width (RBC) [Entitic vol] 41.2 fL 35.1-43.9 [facility] Erythrocyte distribution width (RBC) [Ratio] 41.2 fl 35.1-43.9 [facility] HBV surface Ag Ql (S)Ordered By: Lizy Acosta on 09-27-2024 Hepatitis B Surface Antigen Non-Reactive Nonreactive [facility] Comment on above: Reactive: Presumptiv e evidence of HBV. Repeatedly reactive samples must be confirmed using a neutralization test ([employer] HBsAg Confirmatory Test)Non-Reactive: HBsAg not detected; does not exclude the possibility of exposure to HBV Hematocrit Auto (Bld) [Volum e fraction]Ordered By: Lizy Acosta on 09-27-2024 Hematocrit (Bld) [Volume fraction] 38.3 % 37-47 [facility] Hemoglobin measurementOrdere d By: Lizy Acosta on 09-27-2024 Hemoglobin (Bld) [Mass/Vol] 12.8 g/dL 12.0-15.0 [facility] Hepatitis C antibodyOrdered By: Lizy Acosta on 09-27-2024 Hepatitis C Antibody Non-Reactive Nonreactive [facility] Comment on above: Reactive: Presumptiv e evidence of antibodies to HCV. Follow CDC recommendations for supplemental testing.Non-Reactive: Antibodies to HCV were not detected; does not exclude the possibility of exposure to HCVReactive Results are presumptive evidence of antibodies to HCV. Follow CDC recommendations for supplemental testing.Order confirmation testing: HCV Quant by PCR testing - HCVPCR #[id number] Non Reactive: < 0.8 Equivocal: >/= 0.8 to < 1.0 Reactive: >/= 1.0The CDC requires that a reactive/equivocal HCV antibody result be sent out for confirmation. HCV Quant by PCR testing. Immature granulocytes/100 WB C Auto (Bld)Ordered By: Lizy Acosta on 09-27-2024 Immature granulocytes/100 WBC (Bld) 0.200 % 0.0-0.9 [facility] Comment on above: IG% - Immature Granu locytes (promyelocytes, myelocytes and metamyelocytes) > 1% indicates that a LEFT SHIFT is Present. L3890.6006on 09-27-2024 HIV Non-Reactive Normal Nonreactive [facility] Comment on above: Result Comment: Non- Reactive Reactive Repeatedly reactive samples must be confirmed according to CDC recommended confirmatory algorithms. The subresults for either HIVAG or AHIV can be used as an aid in the selection of the confirmation algorithm for reactive samples. [facility] Order the HIV antibody detection and differentiation: lc#[id number] Performed By: #### L 3890.6102, L509.8002, L3890.6006, L100.0100, L509.4006, L3890.6301, BTS #### [facility] [address] [place], [address] L3890.6102on 09-27-2024 HEP B Surf Ag Non-Reactive Normal Nonreactive [facility] Comment on above: Result Comment: Reac tive: Presumptive evidence of HBV. Repeatedly reactive samples must be confirmed using a neutralization test ([employer] HBsAg Confirmatory Test) Non-Reactive: HBsAg not detected; does not exclude the possibility of exposure to HBV Performed By: #### L 3890.6102, L509.8002, L3890.6006, L100.0100, L509.4006, L3890.6301, BTS ####[facility] [address] [facility] [place], [place], [id number] L3890.6301on 09-27-2024 Hepatitis C Ab Non-Reactive Normal Nonreactive [facility] Comment on above: Result Comment: Reac tive: Presumptive evidence of antibodies to HCV. Follow CDC recommendations for supplemental testing. Non-Reactive: Antibodies to HCV were not detected; does not exclude the possibility of exposure to HCV Reactive Results are presumptive evidence of antibodies to HCV. Follow CDC recommendations for supplemental testing. Order confirmation testing: HCV Quant by PCR testing - HCVPCR lc#[id number] Non Reactive: < 0.8 Equivocal: >/= 0.8 to < 1.0 Reactive: >/= 1.0 The CDC requires that a reactive/equivocal HCV antibody result be sent out for confirmation. HCV Quant by PCR testing. Performed By: #### L 3890.6102, L509.8002, L3890.6006, L100.0100, L509.4006, L3890.6301, BTS ####[facility] [address] [place], [address] L509.4006on 09-27-2024 Rubella IgG REAC Normal Nonreactive [facility] Comment on above: Result Comment: Anti body Result: Interpretation Non-Reactive: Non-Immune Reactive: Immune The following results were obtained with the [employer] Rubella IgG assay. Results from assays of other manufacturers cannot be used interchangeably. Performed By: #### L 3890.6102, L509.8002, L3890.6006, L100.0100, L509.4006, L3890.6301, BTS #### [facility] [address] [facility] [place], [address] L509.8002on 09-27-2024 Syphilis Abs Non-Reactive Normal Nonreactive [facility] Comment on above: Performed By: #### L 3890.6102, L509.8002, L3890.6006, L100.0100, L509.4006, L3890.6301, BTS #### [facility] [address] [facility] [place], [address] Laboratory - Microbiology an d Antimicrobial susceptibilityOrdered By: Lizy Acosta on 09-27-2024 HBV surface Ag Ql (S) Non-Reactive Nonreactive [facility] Comment on above: Reactive: Presumptiv e evidence of HBV. Repeatedly reactive samples must be confirmed using a neutralization test ([employer] HBsAg Confirmatory Test)Non-Reactive: HBsAg not detected; does not exclude the possibility of exposure to HBV Lymphocytes Auto (Unsp spec) [#/Vol]Ordered By: Lizy Acosta on 09-27-2024 Lymphocytes (Bld) [#/Vol] 0.97 10*3/uL 0.83-4.51 [facility] Lymphocytes/100 WBC Auto (Un sp spec)Ordered By: Lizy Acosta on 09-27-2024 Lymphocytes/100 WBC (Bld) 16.9 % Low 19-41 [facility] MCV (mean corpuscular volume ) determinationOrdered By: Lizy Acosta on 09-27-2024 MCV (RBC) [Entitic vol] 82.4 fL 81-99 [facility] Mean corpuscular hemoglobin (MCH) determinationOrdered By: Lizy Acosta on 09-27-2024 MCH (RBC) [Entitic mass] 27.5 pg 27.0-32.0 [facility] Mean corpuscular hemoglobin concentration (MCHC) determinationOrdered By: Lizy Acosta on 09-27-2024 MCHC (RBC) [Mass/Vol] 33.4 g/dL 32-36 [facility] Mean platelet volume determi nationOrdered By: Lizy Acosta on 09-27-2024 Platelet mean volume (Bld) [Entitic vol] 11.1 fL 6.2-12.0 [facility] Monocyte percentageOrdered B y: Lizy Acosta on 09-27-2024 Monocytes/100 WBC (Bld) 8.0 % 0-10 [facility] Neisseria gonorrhoeae nuclei c acid detection by amplified probe techniqueOrdered By: Lizy Acosta on 09-27-2024 N. gonorrhoeae DNA ITZEL+probe Ql (Unsp spec) Negative Negative [facility] Comment on above: Performed at: =[address] [id number] Director: Lizzie Lezama MD, Phone: [phone] Neutrophil percentageOrdered By: Lizy Acosta on 09-27-2024 Neutrophils/100 WBC (Bld) 74.2 % High 47-70 [facility] No Panel InformationOrdered By: Lizy Acosta on 09-27-2024 HIV (1&2) Antibody Non-Reactive Nonreactive [facility] Comment on above: Non-ReactiveReactive Repeatedly reactive samples must be confirmed according to CDC recommended confirmatory algorithms. The subresults for either HIVAG or AHIV can be used as an aid in the selection of the confirmation algorithm for reactive samples.Send out specimens with Reactive results to [facility] for confirmation.Order the HIV antibody detection and differentiation: #[id number] Syphilis Total Antibody Non-Reactive Nonreactiv e [facility] Nucleated red blood cell per centageOrdered By: Lizy Acosta on 09-27-2024 Nucleated RBC/100 WBC (Bld) [Ratio] 0 % 0-5 [facility] Tour Bus Driver/Guide Office Visit Reporton 09-27-2024 Tour Bus Driver/Guide Office Visit Report [facility]'[address], [address] [place] [id number] OFFICE VISIT Date of Service: 09/27/24 MR#: [id number] Acct: [id number] Name: RAMYA GOEL Rep #: [id number] 20 : 1990 Provider: MIKI Bryan ams Age/Sex: 33/F Location[place] [facility] [place]: Signed Intake Vital Signs 01/01/24 10:54 09/27/24 08:02 Height 5 ft 7 in 5 ft 7 in Weight: 126 lb 8 oz BMI 19.8 BP 124/83 H Intake Visit Reasons: NOB LMP 07/25 Chief Complaint: NOB LMP 07/25 Binder Stripper Hand Required: No Is patient in pain?: No Allergies No Known Allergies Allergy (Verified 09/27/24 08:03) Medications ???Medication ???Instructions ???Recorded ???Confirmed ???Type multivitamin no.47-iron fum 27 cap PO 09/13/24 09/13/24 History mg-folate no.1 1 mg-dha 300 mg capsule (PNV-DHA) Last Menstrual Period: 07/25/24 Zika: Zika virus screening: Negative : No PFSH PFSH Medical History Vaginal delivery cardiac echogenic focus Low-lying placenta in second trimester No significant medical problems Surgical History History of cataract surgery H/O foot surgery H/O wisdom tooth extraction Family History Grandfather Hypertension Heart disease Grandmother Cancer Aunt Breast cancer Maternal Social History adopted: No household members: spouse and children housing: house number of children: 2 service: No current occupational status: employed current occupation: [employer] current occupational exposures/hazards: No pets and animals: Yes pets and animals: dog(s) history of recent travel: No sexually active: Yes Smoking Status: Never smoker second hand exposure: No alcohol intake: former details: social- Not while substance use type: does not use well-balanced diet: daily or most days caffeine: Yes Type: coffee Number of servings: 1 eating out: rarely or never during the past year weight has: remained stable what type of physical activity do you participate in: none frequency: 3-4 times per week taryn/religious: Lutheran seatbelt use: always do you feel safe at home: Yes 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 Date Name GA/Weeks Outcome Route Bth Weight Infant Gen Labor Lgth Anesthesia Del Locatn Provider FOB 09/18/20 [place] 40 live - full term 7# Male [facility] Proko p 10/24/22 [place] 40 live - full term 8#11 Female epidural [facility] Sh liliana Lisa Bud Delivery Date: 09/18/20 Last Updated by: Pebbles Hardin admitted in active labor. normal vaginal delivery Delivery Date: 10/24/22 Last Updated by: Alyssa Rizo see problem list for complications, and ial 40 sm. HPI NOB LMP 07/25 Details: RAMYA GOEL is a 33 year old who presents for New OB visit. OB Visit OTTO Calculator Estimated Delivery Date Method Current WG Current Estimate 05/01/25 LMP (Certain) 9w 1d Other Estimates 05/04/25 Ultrasound #1 8w 5d Comments: HIV: Urine Culture: Sequential Screen: NIPT Screen: Estimated Due Date: 05/01/25 Expected Delivery Route/Plan Labor Preferences- CB/BF classes: [] labor support person: [] labor intervention preferences: [] pain management options preferred: [] cut cord/dad catch: [] : [] PP control planned: [] discussed possible routes of delivery and associated risks: [] special requests: [] Specific Issue/Plans Covid status: [] Flu vaccine: [] Tdap vaccine: [] Rhogam: [] LARC form signed: [] Problem list reviewed and updated with the most current plan of care details and appropriate orders placed. Relevant counseling for the gestational age provided. Continue routine care and follow up unless otherwise noted in visit notes/problem list details Initial Weight: 126 lb Date -???-???-???-???-???-?? ?-???-???-???-???-???-? ??- EGA Weight BP Urine Prot -???-???-???-???-???-?? ?-???-???-???-???-???-? ??- Glucose FHR FuHt Pres Dilation -???-???-???-???-???-?? ?-???-???-???-???-???-? ??- Effaced St Visit Note 09/27/24 -???-???-???-???-???-?? ?-???-???-???-???-???-? ??- 9w 1d 126 lb 8 oz (+8 oz) 124/83 -???-???-???-???-???-?? ?-???-???-???-???-???-? ??- 169 -???-???-???-???-???-?? ?-???-???-???-???-???-? ??- KW- CRL cons with dates. Declines NIPT (more content not included)... Normal [facility] Platelet countOrdered By: Beto Acosta on 09-27-2024 Platelets (d) [#/Vol] 154 10*3/uL 150-450 [facility] RBC Auto (d) [#/Vol]Ordere d By: Lizy Acosta on 09-27-2024 RBC (d) [#/Vol] 4.65 10*6/uL 4.2-5.4 [facility] Rubella immune status determ ination by IgG antibody assayOrdered By: Lizy Acosta on 09-27-2024 Rubella IgG Antibody REAC Nonreactive [facility] Comment on above: Antibody Result: Int erpretationNon-Reactive: Non-ImmuneReactive: ImmuneThe following results were obtained with the [employer] Rubella IgG assay. Results from assays of other manufacturers cannot be used interchangeably. Type AND Screenon 09-27-2024 ABO and Rh group Nom (Bld) Blood group O Rh(D) positive Normal [facility] Comment on above: Order Comment: PN Performed By: #### L 3890.6102, L509.8002, L3890.6006, L100.0100, L509.4006, L3890.6301, BTS #### [facility] [address] [place], [address] Urine cultureOrdered By: Manuel Acosta on 09-27-2024 Bacteria identified Cx Nom (U) Culture exhibits no growth. [facility] White blood cell (WBC) count Ordered By: Lizy Acosta on 09-27-2024 WBC (Bld) [#/Vol] 5.7 10*3/uL 4.4-11.0 [facility] Absolute lymphocyte countOrd ered By: Dr. Gonzalez on 10-24-2022 Lymphocytes Auto (Unsp spec) [#/Vol] 1.57 10*3/uL 0.83-4.51 [facility] Basophil percentageOrdered B y: Dr. Gonzalez on 10-24-2022 Basophils/100 WBC (Bld) 0.3 % 0-1 [facility] Eosinophils/100 WBC (Bld) 0.3 % 0-5 [facility] Neutrophils (Bld) [#/Vol] 5.0 10*3/uL 2.0-7.7 [facility] Neutrophils/100 WBC (Bld) 69.8 % 47-70 [facility] WBC (Bld) [#/Vol] 7.2 10*3/uL 4.4-11.0 [facility] Blood erythrocytes count (nu mber/volume)Ordered By: Dr. Gonzalez on 10-24-2022 RBC (Bld) [#/Vol] 4.22 10*6/uL 4.2-5.4 [facility] Blood hemoglobin measurement (mass/volume)Ordered By: Dr. Gonzalez on 10-24-2022 Hemoglobin (Bld) [Mass/Vol] 9.7 g/dL 12.0-15.0 [facility] Blood lymphocytes/100 leukoc ytesOrdered By: Dr. Gonzalez on 10-24-2022 Lymphocytes/100 WBC (Bld) 21.7 % 19-41 [facility] Blood monocytes/100 leukocyt esOrdered By: Dr. Gonzalez on 10-24-2022 Monocytes/100 WBC (Bld) 7.2 % 0-10 [facility] Blood platelet mean volumeOr dered By: Dr. Gonzalez on 10-24-2022 Platelet mean volume (Bld) [Entitic vol] 11.5 fL 6.2-12.0 [facility] Determination of erythrocyte mean corpuscular volume (MCV)Ordered By: Dr. Gonzalez on 10-24-2022 MCV (RBC) [Entitic vol] 76.5 fL 81-99 [facility] Hematocrit Auto (Bld) [Volum e fraction]Ordered By: Dr. Gonzalez on 10-24-2022 Hematocrit (Bld) [Volume fraction] 32.3 % 37-47 [facility] - Hematology and Cell countsOrdered By: Dr. Gonzalez on 10-24-2022 Erythrocyte distribution width (RBC) [Entitic vol] 39.8 fL 35.1-43.9 [facility] Erythrocyte distribution width (RBC) [Ratio] 14.6 % 11.6-14.6 [facility] Immature granulocytes/100 WBC (Bld) 0.700 % 0.0-0.9 [facility] Comment on above: IG% - Immature Granu locytes (promyelocytes, myelocytes and metamyelocytes) > 1% indicates that a LEFT SHIFT is Present. MCH (RBC) [Entitic mass] 23.0 pg 27.0-32.0 [facility] Nucleated RBC/100 WBC (Bld) [Ratio] 0 % 0-5 [facility] MCHC Auto (RBC) [Mass/Vol]Or dered By: Dr. Gonzalez on 10-24-2022 MCHC (RBC) [Mass/Vol] 30.0 g/dL 32-36 [facility] No Panel InformationOrdered By: Dr. Gonzalez on 10-24-2022 Vaginal Amniotic Fluid Detection Positive Negative [facility] Comment on above: Amniotic fluid prese nt indicates rupture of Membranes. RESULTS CALLED TO PHILLY MENDEZ 10/24/22 0435 Ryder Stewart.REPORT READ BACK BY SAME. Platelets bldOrdered By: Dr. Gonzalez on 10-24-2022 Platelets (Bld) [#/Vol] 144 10*3/uL 150-450 [facility] Serum Treponema species anti body detectionOrdered By: Dr. Gonzalez on 10-24-2022 Treponema sp Ab Ql (S) Non-Reactive [facility] - Chemistry and C hemistry - challengeon 10-20-2022 Glucose Ql (U) Negative [facility] - Urinalysison Protein Ql (U) Negative [facility] - Chemistry and C hemistry - challengeon 10-13-2022 Glucose Ql (U) Negative [facility] - Urinalysison Protein Ql (U) Negative [facility] - Chemistry and C hemistry - challengeon 10-06-2022 Glucose Ql (U) Negative [facility] - Urinalysison Protein Ql (U) Negative [facility] No Panel InformationOrdered By: Dr. Hull on 10-01-2022 Group B Streptococcus Culture Group B Beta Streptococcus is not isolated. [facility] - Chemistry and C hemistry - challengeon 09-29-2022 Glucose Ql (U) Negative [facility] - Urinalysison Protein Ql (U) Negative [facility] - Chemistry and C hemistry - challengeon 09-16-2022 Glucose Ql (U) Negative [facility] - Urinalysison Protein Ql (U) Negative [facility] - Chemistry and C hemistry - challengeon 08-15-2022 Glucose Ql (U) Negative [facility] - Urinalysison Protein Ql (U) Negative [facility] Absolute lymphocyte countOrd ered By: Dr. Gonzalez on 08-02-2022 Lymphocytes Auto (Unsp spec) [#/Vol] 1.59 10*3/uL 0.83-4.51 [facility] Basophil percentageOrdered B y: Dr. Gonzalez on 08-02-2022 Basophils/100 WBC (Bld) 0.4 % 0-1 [facility] Eosinophils/100 WBC (Bld) 0.6 % 0-5 [facility] Neutrophils (Bld) [#/Vol] 4.6 10*3/uL 2.0-7.7 [facility] Neutrophils/100 WBC (Bld) 67.8 % 47-70 [facility] WBC (Bld) [#/Vol] 6.7 10*3/uL 4.4-11.0 [facility] Blood erythrocytes count (nu mber/volume)Ordered By: Dr. Gonzalez on 08-02-2022 RBC (Bld) [#/Vol] 3.74 10*6/uL 4.2-5.4 [facility] Blood hemoglobin measurement (mass/volume)Ordered By: Dr. Gonzalez on 08-02-2022 Hemoglobin (Bld) [Mass/Vol] 11.0 g/dL 12.0-15.0 [facility] Blood lymphocytes/100 leukoc ytesOrdered By: Dr. Gonzalez on 08-02-2022 Lymphocytes/100 WBC (Bld) 23.7 % 19-41 [facility] Blood monocytes/100 leukocyt esOrdered By: Dr. Gonzalez on 08-02-2022 Monocytes/100 WBC (Bld) 6.9 % 0-10 [facility] Blood platelet mean volumeOr dered By: Dr. Gonzalez on 08-02-2022 Platelet mean volume (Bld) [Entitic vol] 9.5 fL 6.2-12.0 [facility] Determination of erythrocyte mean corpuscular volume (MCV)Ordered By: Dr. Gonzalez on 08-02-2022 MCV (RBC) [Entitic vol] 87.7 fL 81-99 [facility] Gestational diabetes screen 1-hour screen with 50g oral glucose loadOrdered By: Dr. Gonzalez on 08-02-2022 Glucose 1 Hr post 50 g glucose PO [Mass/Vol] 102 mg/dL 70-140 [facility] HIV 1 and HIV-2 antibody ass ay with HIV-1 p24 antigen detectionOrdered By: Dr. Gonzalez on 01-03-2023 HIV 1+2 Ab+HIV1 p24 Ag IA Ql Non-Reactive Nonreactive [facility] Hematocrit Auto (Bld) [Volum e fraction]Ordered By: Dr. Gonzalez on 08-02-2022 Hematocrit (Bld) [Volume fraction] 32.8 % 37-47 [facility] - Chemistry and C hemistry - challengeon 08-02-2022 Glucose Ql (U) Negative [facility] - Hematology and Cell countsOrdered By: Dr. Gonzalez on 08-02-2022 Erythrocyte distribution width (RBC) [Entitic vol] 38.3 fL 35.1-43.9 [facility] Erythrocyte distribution width (RBC) [Ratio] 11.9 % 11.6-14.6 [facility] Immature granulocytes/100 WBC (Bld) 0.600 % 0.0-0.9 [facility] Comment on above: IG% - Immature Granu locytes (promyelocytes, myelocytes and metamyelocytes) > 1% indicates that a LEFT SHIFT is Present. MCH (RBC) [Entitic mass] 29.4 pg 27.0-32.0 [facility] Nucleated RBC/100 WBC (Bld) [Ratio] 0 % 0-5 [facility] Laboratory - Urinalysison Protein Ql (U) Negative [facility] MCHC Auto (RBC) [Mass/Vol]Or dered By: Dr. Gonzalez on 08-02-2022 MCHC (RBC) [Mass/Vol] 33.5 g/dL 32-36 [facility] Platelets bldOrdered By: Dr. Gonzalez on 08-02-2022 Platelets (Bld) [#/Vol] 190 10*3/uL 150-450 [facility] Serum Treponema species anti body detectionOrdered By: Dr. Gonzalez on 08-02-2022 Treponema sp Ab Ql (S) Non-Reactive [facility] Laboratory - Chemistry and C hemistry - challengeon 06-09-2022 Glucose Ql (U) Negative [facility] - Urinalysison Protein Ql (U) Negative [facility] Absolute lymphocyte counton 05-12-2022 Lymphocytes Auto (Unsp spec) [#/Vol] 1.49 10*3/uL 0.83-4.51 [facility] Work Phone: Basophil percentageon 2021 Basophils/100 WBC (Bld) 0.3 % 0-1 [facility] Work Phone: Eosinophils/100 WBC (Bld) 0.8 % 0-5 [facility] Work Phone: Neutrophils (Bld) [#/Vol] 4.1 10*3/uL 2.0-7.7 [facility] Work Phone: Neutrophils/100 WBC (Bld) 67.0 % 47-70 [facility] Work Phone: WBC (Bld) [#/Vol] 6.1 10*3/uL 4.4-11.0 [facility] Work Phone: [phone] Blood erythrocytes count (nu mber/volume)on 05-12-2022 RBC (Bld) [#/Vol] 3.98 10*6/uL 4.2-5.4 [facility]: [phone] Blood hemoglobin measurement (mass/volume)on 05-12-2022 Hemoglobin (Bld) [Mass/Vol] 12.0 g/dL 12.0-15.0 [facility] Work Phone: Blood lymphocytes/100 leukoc yteson 05-12-2022 Lymphocytes/100 WBC (Bld) 24.6 % 19-41 [facility] Work Phone: Blood monocytes/100 leukocyt eson 05-12-2022 Monocytes/100 WBC (Bld) 6.8 % 0-10 [facility] Work Phone: Blood platelet mean volumeon 05-12-2022 Platelet mean volume (Bld) [Entitic vol] 10.1 fL 6.2-12.0 [facility] Work Phone: Determination of erythrocyte mean corpuscular volume (MCV)on 05-12-2022 MCV (RBC) [Entitic vol] 88.7 fL 81-99 [facility] Work Phone: HIV 1 and HIV-2 antibody ass ay with HIV-1 p24 antigen detectionon 05-12-2022 HIV 1+2 Ab+HIV1 p24 Ag IA Ql Non-Reactive Nonreactive [facility] Work Phone: Hematocrit Auto (Bld) [Volum e fraction]on 05-12-2022 Hematocrit (Bld) [Volume fraction] 35.3 % 37-47 [facility] Work Phone: Laboratory - Chemistry and C hemistry - challengeon 05-12-2022 Glucose Ql (U) Negative [facility] Work Phone: Laboratory - Hematology and Cell countson 05-12-2022 Erythrocyte distribution width (RBC) [Entitic vol] 42.8 fL 35.1-43.9 [facility] Work Phone: Erythrocyte distribution width (RBC) [Ratio] 13.2 % 11.6-14.6 [facility] Work Phone: Immature granulocytes/100 WBC (Bld) 0.500 % 0.0-0.9 [facility] Work Phone: Comment on above: IG% - Immature Granu locytes (promyelocytes, myelocytes and metamyelocytes) > 1% indicates that a LEFT SHIFT is Present. MCH (RBC) [Entitic mass] 30.2 pg 27.0-32.0 [facility] Work Phone: Nucleated RBC/100 WBC (Bld) [Ratio] 0 % 0-5 [facility] Work Phone: Laboratory - Urinalysison Protein Ql (U) Negative [facility] Work Phone: MCHC Auto (RBC) [Mass/Vol]on 05-12-2022 MCHC (RBC) [Mass/Vol] 34.0 g/dL 32-36 [facility] Work Phone: No Panel Informationon 05-12 Hepatitis B Surface Antigen Non-Reactive Nonreactive [facility] Work Phone: Hepatitis C Antibody Non-Reactive Nonreactive [facility] Work Phone: Comment on above: Non Reactive: < 0.8 Equivocal: >/= 0.8 to < 1.0 Reactive: >/= 1.0The CDC recommends that a reactive/equivocal HCV antibody result be followed up by the HCV Nucleic Acid Amplificationtest ([id number]) Rubella IgG Antibody Reactive Nonreactive [facility] Work Phone: Comment on above: Antibody Results Int erpretation of Immune Status Non Reactive Presumed Non-Immune Equivocal Equivocal Reactive Presumed Immune Platelets bldon 05-12-2022 Platelets (Bld) [#/Vol] 161 10*3/uL 150-450 [facility] Work Phone: Serum Treponema species anti body detectionon 05-12-2022 Treponema sp Ab Ql (S) Non-Reactive [facility] Work Phone: Laboratory - Chemistry and C hemistry - challengeon 04-11-2022 Glucose Ql (U) Negative [facility] Work Phone: Laboratory - Urinalysison Protein Ql (U) Negative [facility] Work Phone: Chlamydia trachomatis rRNA d etection by probe and target amplification methodon 03-24-2022 C. trachomatis rRNA ITZEL+probe Ql (Unsp spec) Negative Negative [facility] Work Phone: Laboratory - Drug toxicology on 03-24-2022 Amphetamines Ql (U) Negative <1000 ng/mL [facility] Work Phone: Benzodiazepines Ql (U) Negative < 200 ng/mL [facility] Work Phone: Cannabinoids Screen Ql (U) Negative < 50 ng/mL [facility] Work Phone: Cocaine Ql (U) Negative < 300 ng/mL [facility] Work Phone: Opiates Ql (U) Negative < 300 ng/mL [facility] Work Phone: Laboratory - Microbiology an d Antimicrobial susceptibilityon 03-24-2022 N. gonorrhoeae DNA ITZEL+probe Ql (Unsp spec) Negative Negative [facility] Work Phone: Comment on above: Performed at: =[address] [place] [id number] Director: Lizzie Lezama MD, Phone: [phone] No Panel Informationon 03-24 MDMA (Ecstasy) Screen Negative < 500 ng/mL [facility] Work Phone: Urine Barbiturates Screen Negative < 200 ng/mL [facility] Work Phone: Urine Drug Screen Comment [facility] Work Phone: Comment on above: CONFIRMATORY TESTING FOR ALL POSITIVE URINE DRUG SCREENRESULTS WILL ONLY BE SENT OUT UPON PHYSICIAN ORDER. VISTA Urine Drug Screen methods provide only preliminaryanalytical test results. A more specific alternate chemicalmethod must be used in order to obtain a confirmedanalytical result. Gas chromatography/mass spectrometery(GC/MS) is the preferred confirmatory method. Clinicalconsideration and professional judgement should be appliedto any drug of abuse test result, particularly whenpreliminary positive results are used. URINE TCA TESTING MUST BE ORDERED SEPARATELY. USE TESTMNEMONIC: [facility] Urine Methadone Screen Negative < 300 ng/mL [facility] Work Phone: Urine phencyclidine (PCP) de tectionon 03-24-2022 Phencyclidine Ql (U) Negative < 25 ng/mL [facility] Work Phone: Alcohol And Drug Counselor Cytology Reporton 2016 Alcohol And Drug Counselor Cytology Report . Pathology ReportsAccession: Collected Date/Time: Received Date/Time: Pathologist:[id number] 05/31/2017 17:14 EDT 06/01/2017 18:00 EDT Alcohol And Drug Counselor Cytology ReportSPECIMEN:Specimen Description: Liquid Prep Reflex ASCUSSpecimen: Cervical/EndocervicalSc reening or Diagnostic: ScreeningRELEVANT HISTORY:LMP: [birth year]57Kujce Control: [id number] ADEQUACY:SATISFACTORY FOR EVALUATIONENDOCERVICAL/ TRANSFORMATIONAL ZONE COMPONENT PRESENTINTERPRETATION/R ESULTS:NEGATIVE FOR INTRAEPITHELIAL LESION OR MALIGNANCYORGANISMS:FUN GAL ORGANISMS MORPHOLOGICALLY CONSISTENT WITH NANDO SPECIES.Electronically Signed byPathology report verified by [facility] HospitalScreened by: KKElectronically signed by Monica POLO (ASCP)Sign-Out Date: 06/06/2017 15:23Performing Lab: [facility], [address] [place], [place] [address] hospitalThe Pap test is a screening test for cervical cancer. As evidenced by published data, it is subject to both inherent false negative and false positive results. Your patient's results should be interpreted in context with pertinent clinical history including gynecological examination. Normal [facility] ([place]) Comment on above: Performed By: #### G YCR ####[place] [address] CTPCRon 06-02-2017 C. trachomatis Interp C. trachomatis DNA not detected. Specimen is presumptive negative for C. trachomatis. A negative result does not preclude C. trachomatis infection because results depend on adequate specimen collection, absence of inhibitors, and sufficient DNA to be detected. Normal [facility] ([place]) Comment on above: Performed By: #### C TPCR, NGPCR1 ####[place] [address] C.trachomatis PCR Negative [facility] ([place]) Comment on above: Result Comment: Mole cular (PCR) assay performed on the N[employer] Amanda 4800 system. Performed By: #### C TPCR, NGPCR1 ####[place] [address] Chlam Source Cervix Normal [facility] ([place]) Comment on above: Performed By: #### C TPCR, NGPCR1 ####[place] [address] NGPCRon 06-02-2017 GC PCR Source Cervix Normal [facility] ([place]) Comment on above: Performed By: #### C TPCR, NGPCR1 ####[place] [address] N. gonorrhoeae (PCR) Negative [facility] ([place]) Comment on above: Result Comment: Mole cular (PCR) assay performed on the [employer] Amanda 4800 System. Performed By: #### C TPCR, NGPCR1 ####[place] [id number] [place] [id number] N. gonorrhoeae Interp N. gonorrhoeae DNA not detected. Specimen is presumptive negative for N. gonorrhoeae. A negative result does not preclude Neisseria gonorrhoeae infection because results depend on adequate specimen collection, absence of inhibitors, and sufficient DNA to be detected. Normal [facility] ([place]) Comment on above: Performed By: #### C TPCR, NGPCR1 ####[facility] [place] [id number] Culture, urine Bacteria identified Cx Nom (U) Positive [facility] Work Phone: Vital Signs Date Time Vital Sign Value Performing Clinician Faci lity 01-16-2025 09:34-0400 Body height 170.[address] Connor Rinaldi DO Work Phone: [facility] 01-16-2025 09:34-0400 Body mass index (BMI) [Ratio] 21.9 kg/m2 Dr. Connor Rinaldi DO Work Phone: [facility] 01-16-2025 09:34-0400 Body weight 63.[address] Connor Rinaldi DO Work Phone: [facility] 01-16-2025 09:34-0400 Diastolic blood pressure 65 mm[Hg] Dr. Connor Rinaldi DO Work Phone: [facility] 01-16-2025 09:34-0400 Systolic blood pressure 97 mm[Hg] Dr. Connor Rinaldi DO Work Phone: [facility] 12-19-2024 11:44-0400 Body mass index (BMI) [Ratio] 21.4 kg/m2 Dr. Connor Rinaldi DO Work Phone: [facility] 12-19-2024 11:44-0400 Body weight 61.[address] Connor Rinaldi DO Work Phone: [facility] 12-19-2024 11:44-0400 Diastolic blood pressure 74 mm[Hg] Dr. Connor Rinaldi DO Work Phone: 6(392)787-639128 [place] [address] 12-19-2024 11:44-0400 Systolic blood pressure 116 mm[Hg] Dr. Connor Rinaldi DO Work Phone: 3(611)811-915909 [place] [address] 12-08-2024 09:05-0400 Body mass index (BMI) [Ratio] 5.1 kg/m2 Dr. Connor Rinaldi DO Work Phone: 1(137)382-505809 [place] [address] 12-08-2024 09:05-0400 Body temperature 98.7 [degF] Dr. Connor Rinaldi DO Work Phone: 1(390)645-979809 [place] [address] 12-08-2024 09:05-0400 Body weight 14.[address] Connor Rinaldi DO Work Phone: 0(025)077-013109 [place] [address] 12-08-2024 09:05-0400 Diastolic blood pressure 66 mm[Hg] Dr. Connor Rinaldi DO Work Phone: 7(776)565-423209 [place] [address] 12-08-2024 09:05-0400 Heart rate 91 /min Dr. Connor Rinaldi DO Work Phone: 2(158)100-825509 [place] [address] 12-08-2024 09:05-0400 Respiratory rate 14 /min Dr. Connor Rinaldi DO Work Phone: 7(445)020-008109 [place] [address] 12-08-2024 09:05-0400 SaO2% (BldA) [Mass fraction] 99 % Dr. Connor Rinaldi DO Work Phone: 3(295)829-166209 [place] [address] 12-08-2024 09:05-0400 Systolic blood pressure 105 mm[Hg] Dr. Connor Rinaldi DO Work Phone: 5(834)918-461409 [place] [address] 11-19-2024 13:40-0400 Body mass index (BMI) [Ratio] 20.5 kg/m2 Dr. Connor Rinaldi DO Work Phone: 5(001)960-129509 [place] [address] 11-19-2024 13:40-0400 Body weight 59.[address] Connor Rinaldi DO Work Phone: 8(113)688-226009 [place] [address] 11-19-2024 13:40-0400 Diastolic blood pressure 80 mm[Hg] Dr. Connor Rinaldi DO Work Phone: 1(572)521-322909 [place] [address] 11-19-2024 13:40-0400 Systolic blood pressure 118 mm[Hg] Dr. Connor Rinaldi DO Work Phone: 3(860)953-068309 [place] [address] 10-23-2024 14:30-0400 Body mass index (BMI) [Ratio] 20.2 kg/m2 Dr. Connor Rinaldi DO Work Phone: 8(075)337-622109 [place] [address] 10-23-2024 14:30-0400 Body weight 58.[address] Connor Rinaldi DO Work Phone: 2(339)054-105309 [place] [address] 10-23-2024 14:30-0400 Diastolic blood pressure 80 mm[Hg] Dr. Connor Rinaldi DO Work Phone: 7(101)854-747309 [place] [address] 10-23-2024 14:30-0400 Systolic blood pressure 128 mm[Hg] Dr. Connor Rinaldi DO Work Phone: 9(974)632-957209 [place] [address] 09-27-2024 08:02-0500 Body height 170.[address] Connor Rianldi DO Work Phone: 1(027)733-543109 [place] [address] 09-27-2024 08:02-0500 Body mass index (BMI) [Ratio] 19.8 kg/m2 Dr. Connor Rinaldi DO Work Phone: 5(781)161-554309 [place] [address] 09-27-2024 08:02-0500 Body weight 57.[address] Connor Rinaldi DO Work Phone: 8(354)187-566509 [place] [address] 09-27-2024 08:02-0500 Diastolic blood pressure 83 mm[Hg] Dr. Connor Rinaldi DO Work Phone: 8(513)187-848409 [place] [address] 09-27-2024 08:02-0500 Systolic blood pressure 124 mm[Hg] Dr. Connor Rinaldi DO Work Phone: 2(259)904-335309 [place] [address] 10-25-2022 12:52-0400 Body temperature 97.6 [degF] Connor WITT [facility] 10-25-2022 12:52-0400 Diastolic blood pressure 73 mm[Hg] [facility]-25-2022 12:52-0400 Heart [facility] 100 [facility] 10-25-2022 12:52-0400 Respiratory rate 16 /min Connor Abhay [facility] 10-25-2022 12:52-0400 Systolic blood pressure 116 mm[Hg] Chancellor Abhay [facility] 10-25-2022 04:11-0400 SaO2% (BldA) [Mass fraction] 97 % [facility] 10-24-2022 03:54-0400 Body height 170.18 cm Chancellor Abhay [facility] 10-24-2022 03:54-0400 Body mass index (BMI) [Ratio] 26.1 kg/m2 [facility] 10-24-2022 03:54-0400 Body weight 75.6 kg Chancellor Abhay [facility] 10-20-2022 13:09-0400 Body mass index (BMI) [Ratio] 26.2 kg/m2 Chancellor Abhay [facility] 10-20-2022 13:09-0400 Body weight 75.86 kg Chancellor Abhay [facility] 10-20-2022 13:09-0400 Diastolic blood pressure 70 mm[Hg] [facility] 10-20-2022 13:09-0400 Systolic blood pressure 114 mm[Hg] [facility] 10-13-2022 13:29-0400 Diastolic blood pressure 72 mm[Hg] [facility] 10-13-2022 13:29-0400 Systolic blood pressure 113 mm[Hg] [facility] 10-13-2022 12:58-0400 Body mass index (BMI) [Ratio] 26.3 kg/m2 [facility] 10-13-2022 12:58-0400 Body weight 76.26 kg Chancellor Abhay [facility] 10-06-2022 13:34-0500 Body mass index (BMI) [Ratio] 25.5 kg/m2 [facility] 10-06-2022 13:34-0500 Body weight 73.93 [facility] 10-06-2022 13:34-0500 Diastolic blood pressure 76 mm[Hg] [facility] 10-06-2022 13:34-0500 Systolic blood pressure 112 mm[Hg] [facility] 09-29-2022 13:43-0500 Body height 170.18 cm [facility] [place] 09-29-2022 13:42-0500 Body mass index (BMI) [Ratio] 25.6 kg/m2 [facility] 09-29-2022 13:42-0500 Body weight 74.16 kg [facility] [place] 09-29-2022 13:42-0500 Diastolic blood pressure 69 mm[Hg] [facility] 09-29-2022 13:42-0500 Systolic blood pressure 103 mm[Hg] [facility] 09-16-2022 09:30-0500 Body mass index (BMI) [Ratio] 25.4 kg/m2 [facility] 09-16-2022 09:30-0500 Body weight 73.7 kg [facility] [place] 09-16-2022 09:30-0500 Diastolic blood pressure 71 mm[Hg] [facility] 09-16-2022 09:30-0500 Systolic blood pressure 108 mm[Hg] [facility] 09-01-2022 13:37-0500 Body mass index (BMI) [Ratio] 25.2 kg/m2 [facility] 09-01-2022 13:37-0500 Body weight 73.02 kg [facility] [place] 09-01-2022 13:37-0500 Diastolic blood pressure 75 mm[Hg] [facility] 09-01-2022 13:37-0500 Systolic blood pressure 109 mm[Hg] [facility] 08-15-2022 13:47-0500 Body mass index (BMI) [Ratio] 24.3 kg/m2 [facility] 08-15-2022 13:47-0500 Body weight 70.3 kg [facility] [place] 08-02-2022 09:07-0500 Body mass index (BMI) [Ratio] 23.6 kg/m2 [facility] 08-02-2022 09:07-0500 Body weight 68.6 kg [facility] [place] 08-02-2022 09:07-0500 Diastolic blood pressure 62 mm[Hg] [facility] 08-02-2022 09:07-0500 Systolic blood pressure 96 mm[Hg] [facility] 07-07-2022 13:13-0500 Body mass index (BMI) [Ratio] 22.7 kg/m2 [facility] 07-07-2022 13:13-0500 Body weight 65.77 kg [facility] [place] 07-07-2022 13:13-0500 Diastolic blood pressure 75 mm[Hg] [facility] 07-07-2022 13:13-0500 Systolic blood pressure 117 mm[Hg] [facility] 06-09-2022 14:00-0500 Body mass index (BMI) [Ratio] 21.6 kg/m2 [facility] 06-09-2022 14:00-0500 Body weight 62.59 kg [facility] [place] 06-09-2022 14:00-0500 Diastolic blood pressure 66 mm[Hg] [facility] 06-09-2022 14:00-0500 Systolic blood pressure 102 mm[Hg] [facility] 05-12-2022 13:38-0400 Body height 170.18 cm [facility] [place] Work Phone: 05-12-2022 13:38-0400 Body mass index (BMI) [Ratio] 21 kg/m2 [facility] Work Phone: 05-12-2022 13:38-0400 Body weight 60.95 kg [facility] [place] Work Phone: 05-12-2022 13:38-0400 Diastolic blood pressure 74 mm[Hg] [facility] Work Phone: 05-12-2022 13:38-0400 Systolic blood pressure 107 mm[Hg] [facility] Work Phone: 04-11-2022 11:51-0400 Body mass index (BMI) [Ratio] 19.8 kg/m2 [facility] Work Phone: 04-11-2022 11:51-0400 Body weight 57.6 kg [facility] [place] Work Phone: 04-11-2022 11:51-0400 Diastolic blood pressure 60 mm[Hg] [facility] Work Phone: 04-11-2022 11:51-0400 Systolic blood pressure 104 mm[Hg] [facility] Work Phone: 03-24-2022 09:54-0400 Diastolic blood pressure 72 mm[Hg] [facility] Work Phone: 03-24-2022 09:54-0400 Systolic blood pressure 116 mm[Hg] [facility] Work Phone: 03-24-2022 09:21-0400 Body height 170.18 cm [facility] [place] Work Phone: 03-24-2022 09:20-0400 Body mass index (BMI) [Ratio] 19.1 kg/m2 [facility] Work Phone: 03-24-2022 09:20-0400 Body weight 55.33 kg [facility] [place] Work Phone: 02-08-2022 09:43-0400 Body mass index (BMI) [Ratio] 18.5 kg/m2 [facility] Work Phone: 02-08-2022 09:43-0400 Body weight 53.63 kg Connor Rinaldi [facility] Work Phone: 02-08-2022 09:43-0400 Diastolic blood pressure 78 mm[Hg] [facility] Work Phone: 02-08-2022 09:43-0400 Systolic blood pressure 126 mm[Hg] [facility] Work Phone: Encounters Encounter Date Encounter Type Care Provider Facility Start: 02-06-2025 ambulatory Connor Rinaldiwarner Vu y:[facility] Start: 01-16-2025 End: 01-16-2025 Patient encounter procedure Lizy Acosta CNM -[facility] Work Phone: Start: 01-16-2025 End: 01-16-[address] Connor Rinaldi DO Work Phone: [facility] Work Phone: Start: 01-03-2025 End: 01-03-2025 ambulatory YUE HERMAN [facility] Start: 12-19-2024 End: 12-19-2024 ambulatory Connor Rinaldi Facility:[facility] Start: 12-19-2024 End: 12-19-[address] Mary Gonzalez MD -[facility] Work Phone: Start: 12-11-2024 End: 12-11-2024 ambulatory CONNOR RINALDI [facility] Start: 12-08-2024 End: 12-08-2024 [facility] Work Phone: Start: 12-08-2024 End: 12-08-2024 ambulatory [facility] Start: 11-19-2024 End: 11-19-2024 Patient encounter procedure Anahi RAMOS -[facility] Work Phone: Start: 11-19-2024 End: 11-19-2024 ambulatory Connor Rinaldi Facility:[facility] Start: 10-23-2024 End: 10-23-[address] Yue Sanford DO -[facility] Work Phone: Start: 10-23-2024 End: 10-23-2024 ambulatory Connor Rinaldi Facility[place] Start: 09-27-2024 End: 09-27-2024 Patient encounter procedure Lizy Acosta [facility] -[facility] Work Phone: Start: 09-27-2024 End: 09-27-[address] Connor Rinaldi DO Work Phone: [facility] Work Phone: Start: 09-27-2024 End: 09-27-2024 ambulatory Lizy Acosta Facility:[facility] Start: 10-25-2022 [facility]: 10-24-2022 Non-patient / Non-visit [facility] Start: 10-24-2022 End: 10-25-2022 [facility] and management [facility] Start: 10-20-2022 End: 10-20-2022 Patient encounter procedure [facility] Start: 10-13-2022 End: 10-13-2022 Patient encounter procedure [facility] Start: 10-06-2022 End: 10-06-2022 Patient encounter procedure [facility] Start: 09-29-2022 End: 09-29-2022 ambulatory [facility] Work Phone: Start: 09-29-2022 End: 09-29-2022 Patient encounter procedure [facility] Specimen Start: 09-29-2022 End: 09-29-2022 Patient encounter procedure [facility] Start: 09-16-2022 End: 09-16-2022 Patient encounter procedure [facility] Start: 09-01-2022 End: 09-01-2022 Patient encounter procedure [facility] Start: 08-15-2022 End: 08-15-2022 Patient encounter procedure [facility] Start: 08-02-2022 End: 08-02-2022 Patient encounter procedure [facility] Start: 07-07-2022 End: 07-07-2022 Patient encounter procedure [facility] Start: 06-09-2022 End: 06-09-2022 Patient encounter procedure [facility] Start: 05-12-2022 End: 05-12-2022 ambulatory [facility] Work Phone: Start: 05-12-2022 End: 05-12-2022 Patient encounter procedure [facility] Start: 04-11-2022 End: 04-11-2022 Patient encounter procedure [facility] Start: 03-24-2022 End: 03-24-2022 ambulatory [facility] Work Phone: Start: 03-24-2022 End: 03-24-2022 Patient encounter procedure [facility] Start: 03-24-2022 End: 03-24-2022 Patient encounter procedure [facility] Start: 02-08-2022 End: 02-08-2022 Patient encounter procedure [facility] Start: 05-31-2017 End: 06-05-2017 Ambulatory NAVEEN SAUNDRA Facility:[facility] Procedures Date Procedure Procedure Detail Performing Clinician Start: 09-27-[address] Carlee Rinaldi DO Work Phone: Start: 09-27-2024 Hepatitis C antibody measurement Dr. Connor Rinaldi DO Work Phone: Comment on above: Reactive: Presumptiv e evidence of antibodies to HCV. Follow CDC recommendations for supplemental testing.Non-Reactive: Antibodies to HCV were not detected; does not exclude the possibility of exposure to HCVReactive Results are presumptive evidence of antibodies to HCV. Follow CDC recommendations for supplemental testing.Order confirmation testing: HCV Quant by PCR testing - HCVPCR #[id number] Non Reactive: < 0.8 Equivocal: >/= 0.8 to < 1.0 Reactive: >/= 1.0The CDC requires that a reactive/equivocal HCV antibody result be sent out for confirmation. HCV Quant by PCR testing. Start: 09-27-[address] Connor Rinaldi DO Work Phone: Comment on above: Antibody Result: Int erpretationNon-Reactive: Non- ImmuneReactive: ImmuneThe following results were obtained with the [employer] Rubella IgG assay. Results from assays of other manufacturers cannot be used interchangeably. Group B Streptococcu s Culture Connor Rinaldi Urine culture Connor yañez Plan of Treatment Date Care Activity Detail Author Start: 10-25-2022 Patient discharge [facility] Start: 10-25-2022 Consultation [facility] Start: 10-24-2022 Administration of medication [facility] Start: 10-24-2022 Application of ice c ollar, cap or bag [facility] Start: 10-24-2022 Catheterization of vein [facility] Start: 10-24-2022 Introduction of urin yomi catheter [facility] Start: 10-24-2022 Measuring intake and output [facility] Start: 10-24-2022 Notification of physician [facility] Start: 10-24-2022 Procedure discontinued [facility] Start: 10-24-2022 Provision of activit y privileges [facility] Start: 10-24-2022 Vital signs measurements [facility] Start: 10-24-2022 [facility] Start: 10-24-2022 Admission procedure [facility] Start: 10-24-2022 Anesthesia consultation [facility] Start: 10-24-2022 acoustic stimu lation test [facility] Start: 10-24-2022 Insertion of cathete r into peripheral vein [facility] Start: 10-24-2022 Intrauterine catheterization [facility] Start: 10-24-2022 Introduction of urin yomi catheter [facility] Start: 10-24-2022 Provision of activit y privileges [facility] Start: 10-24-2022 End: 10-24-2022 [facility] Start: 10-24-2022 Nonstress test [facility] Start: 10-24-2022 End: 10-24-2022 Obstetric monitoring [facility] Start: 10-24-2022 Vital signs measurements [facility] CBC W Auto Different ial panel - Blood [facility] Work Phone: CBC W Auto Different ial panel - Blood [facility] Hepatitis B surface antigen measurement [facility] Work Phone: Hepatitis C antibody measurement [facility] Work Phone: HIV 1+2 Ab+HIV1 p24 Ag [Presence] in Serum or Plasma by Immunoassay [facility] Work Phone: Measurement of gluco se 2 hours after glucose challenge for glucose tolerance test [facility] Patient Education After a Vagina l [facility] Work Phone: Patient referral [facility] Work Phone: Rubella IgG measurement [facility] Work Phone: Serologic test for syphilis [facility] Treponema sp Ab [Pre sence] in Serum [facility] Work Phone: [facility] Immunizations Immunization Date Immunization Notes Care Provider Fa cility 08-15-2022 influenza, injectabl e, quadrivalent, preservative free Dr. Connor Rinaldi DO Work Phone: [facility] 08-15-2022 influenza, seasonal, injectable [facility] 08-02-2022 tetanus toxoid, redu alexis diphtheria toxoid, and acellular pertussis vaccine, adsorbed [facility] 07-06-2020 tetanus toxoid, redu alexis diphtheria toxoid, and acellular pertussis vaccine, [facility] 04-27-2020 Influenza virus vaccine Connor Darrian [facility] Payers Date Payer Category Payer Self-pay [id number] 2024 Unknown [id number] 2017 Unknown [id number] 1990 Unknown [id number] 2.16. [id number] 1990 Unknown [id number] 2.16. [id number] 1990 Unknown [id number] 2.16. [id number] Unknown WARNER [id number] Unknown [id number] 2.16.8 [id number] Unknown [id number] 2.16.8 [id number] Unknown [id number] 2.16.8 [id number] Unknown [id number] 2.16.8 [id number] Unknown [id number] 2.16.8 [id number] Unknown [id number] 2.16.8 [id number] Unknown [id number] 2.16.8 [id number] Unknown [id number] 2.16.8 [id number] Social History Date Type Detail Facility Start: 03-24-2022 End: 10-24-2022 Tobacco smoking status NHIS Unknown if ever smoked [facility] Start: 1990 Sex Assigned At Female W [facility] Start: 09-13-2024 Tobacco smoking stat us NHIS Never smoked tobacco (finding) [facility] Start: 10-10-2024 Sex Female (finding) [facility] Goals Date Patient Goal Desired Activity /State Clinical Notes 10-24-2022 to 01-16-2025 Note Date & Type Note Facility 01-16-2025 Progress note [facility] 09-27-2024 Evaluation note Diagnosis Onset Date Resolution Anxiety acute September 27, 2024 7:56am acute September 27, 2024 7:56am Supervision of normal acute September 27 7:56am [facility] Work Phone: 1(465) 440-412602-28-2025 Evaluation note* Diagnosis Onset Date Resolution Status Admit Date Anxiety acute September 27, 2024 7:56am acute September 27, 2024 7:56am Supervision of normal acute September 27, 025 7:56am Anxiety acute October 23 2:17pm acute October 23 2:17pm Supervision of normal acute October 23, 2024 2:17pm Anxiety acute November 19 1:38pm acute November 19 1:38pm Supervision of normal acute November 19, 2024 1:38pm URI (upper respiratory infection) resolved December 08, 2024 8 :59am Anxiety acute December 19, 2024 11:36am Choroid plexus cyst of fetus acute December 19, 2024 11:36am acute December 19, 2024 11:36am Supervision of normal acute December 19, 2024 1 1:36am Anxiety acute January 16 9:31am Choroid plexus cyst of fetus acute January 16, 2025 9:31am acute January 16 9:31am Supervision of normal acute January 16, 2025 9:31am [facility] Work Phone: 1(390) 351-489703-28-2023 Discharge summary Author Lizy Acosta [facility] October 25, 2022 7:53am Note Date/Time October 25, 2022 7:5 2am [facility] Medical Records Department [address] [place] [address] Instructions for Home/Discharge Instructions 10/25/22 0752 MR#: [id number] Acct: [id number] Name: RAMYA GOEL Rep #:[id number] : 1990 31 From: Lizy Acosta CNM PCP: Connor Rinaldi Status:ADM IN Discharge Instructions Diet Discharge Diet: No restrictions Activity May resume sexual activity in: 6-8 weeks (after seen by OB provider) Weight Bearing Status: Full weight bearing Dressing / Incision Call your doctor if you observe: Fever of 101 or Higher, Inability to urinate, Using more than 1 pad per hour (for more than 2 hours in a row or more), Shortness of breath, Dizziness, Chest pain and - (headache not controlled with tylenol, change in vision) Follow Up Care Test Results: Test results from this visit will be discussed in further detail at your follow- up appointment, if applicable. Discharge Plan Admission Admit Date/Time: 10/24/22 03:45 Primary Reason for Your Visit: vaginal of Attending Provider: Mary Gonzalez Primary Care Provider: Connor Rinaldi Discharge Orders/Prescriptions Prescriptions: No Action Prenate Pixie 10 mg iron- 1 mg-200 mg capsule 1 cap PO DAILY Qty: 30 12RF Referrals / Follow Up: Connor Rinaldi [Primary Care Provider] - Disposition Disposition (needs filled in before D/C Order can be placed): Home, Self Care 10/25/22752<Electronically signed by Lizy Acosta CNM>Lizy Acosta CNM CC: Connor Rinaldi ~ Signed [facility] Work Phone: 1(449) 373-844503-28-2023 Progress note Author Lizy Acosta [facility] October 25, 2022 7:52am Note Date/Time October 25, 2022 7:5 2am [facility] Medical Records Department [address] [place] [address] Progress Note - OBGYN 10/25/22 0749 MR#: [id number] Acct: [id number] Name: RAMYA GOEL Rep #:[id number] : 1990 31 From: Lizy Acosta CNM PCP: Connor Rinaldi Status:ADM IN Location: [id number] Subjective Subjective Patient doing well without complaints. Tolerating PO. Ambulating and voiding without difficulty. Feeding well. Denies chest pain, shortness of breath, calf pain/swelling, fevers, chills, lightheadedness. Objective Data Objective Data Vital Signs: Vital Signs Temp Pulse Resp BP Pulse Ox O2 Del Method 97.9 F 78 18 110/69 97 Room Air 10/25/22 04:11 10/25/22 04:11 10/25/22 04:11 10/25/22 04:11 10/25/22 04:11 10/25/22 04:11 Oxygen Delivery Method Room Air Weight: 166 lb 10.711 oz Body Mass Index (BMI) 26.1 Intake & Output: Intake and Output for Last 24 Hours 10/23/22 10/24/22 10/25/22 23:59 23:59 23:59 Intake Total 1720 / 1720 Output Total 900 / 900 Balance 820 / 820 Lab / Micro Data Attestation: I reviewed the patient's lab results. Result Diagrams: 10/24/22 04:25 ROS Constitutional Constitutional: Reports systems reviewed and no addt'l complaints, except as documented; Denies anorexia or headache(s) Cardiovascular Cardiovascular: Reports systems reviewed and no addt'l complaints, except as documented; Denies dizziness, dyspnea, nausea or tachypnea Respiratory/Chest Respiratory/Chest: Reports systems reviewed and no addt'l complaints, except as documented; Denies cough, dyspnea, shortness of breath at rest or tachypnea Gastrointestinal Gastrointestinal: Reports systems reviewed and no addt'l complaints, except as documented; Denies abdominal pain, anorexia, constipation or nausea Genitourinary Genitourinary: Reports systems reviewed and no addt'l complaints, except as documented; Denies burning urination, difficulty urinating, dysuria, urinary frequency or urinary incontinence Musculoskeletal Musculoskeletal: Reports systems reviewed and no addt'l complaints, except as documented Integumentary Integumentary: Reports systems reviewed and no addt'l complaints, except as documented Neurologic Neurologic: Reports systems reviewed and no addt'l complaints, except as documented; Denies abnormal speech, dizziness or headache(s) Psychiatric Psychiatric: Reports systems reviewed and no addt'l complaints, except as documented Endocrine Endocrinology: Reports systems reviewed and no addt'l complaints, except as documented Hematologic/Lymphatic Hematologic/Lymphatic: Reports systems reviewed and no addt'l complaints, exceptas documented Physical Exam Const alert, oriented x3 and no apparent distress Neck full ROM Resp normal respiratory effort, normal air movement and no retractions Effort and Inspection: able to speak in complete sentences and symmetric chest movement GI soft to palpation Bladder / Kidney Exam: bladder normal to palpation Uterus Palpation: uterus fundus firm (U) Extremity normal to inspection and full ROM Psych mental status grossly normal, thought process normal and cooperative Assessment & Plan (1) Vaginal delivery: COMMENT: SM IAL 40 girl Perla PLAN: s/p PPD # 1 1. routine post delivery care 2. breast feeding- support given 3. rh positive 4. rubella immune 5. Discharge home (2) Anxiety: COMMENT: vistaril ordered, needs to talk further at next OB appointment about possible SSRI/vistaril helpful. Declines zoloft. counseling recommended.Stable Charges/Coding Multi Select Codes Urinary/Genital Urinary/Genital CPT Codes: No Charge 10/25/22 0752 <Electronically signed by Lizy Acosta CNM> Cosigner Signature (if applicable): CC: ~ Signed [facility] Work Phone: 1(276) 692-410403-27-[address] Gonzalez [facility] October 24, 2022 7:39pm Note Date/Time October 24, 2022 7:3 9pm [facility] Medical Records Department [address] [place] [address] Instructions for Home/Discharge Instructions 10/24/22 1939 MR#: [id number] Acct: [id number] Name: RAMYA GOEL Rep #:[id number] : 1990 31 From: Mary pederson MD PCP: Connor Rinaldi Status:ADM IN Discharge Instructions Diet Discharge Diet: No restrictions Activity Discharge Activity: Return to Normal Activity, May Drive, May Shower and May Take a Tub Bath (in 4 weeks) May resume sexual activity in: 6-8 weeks (after seen by OB provider) Weight Bearing Status: Full weight bearing Lifting Restrictions: none Dressing / Incision Call your doctor if you observe: Fever of 101 or Higher, Inability to urinate, Using more than 1 pad per hour (for more than 2 hours in a row or more), Shortness of breath, Dizziness, Chest pain and - (headache not controlled with tylenol, change in vision) Follow Up Care When: in 6 weeks for visit, call the office to make the appointment. If you had elevated blood pressures call the office to be seen within 1 week. Test Results: Test results from this visit will be discussed in further detail at your follow- up appointment, if applicable. Discharge Plan Admission Admit Date/Time: 10/24/22 03:45 Attending Provider: Mary Gonzalez Primary Care Provider: Connor Rinaldi Discharge Orders/Prescriptions Prescriptions: No Action Prenate Pixie 10 mg iron- 1 mg-200 mg capsule 1 cap PO DAILY Qty: 30 12RF Referrals / Follow Up: Connor Rinaldi [Primary Care Provider] - 10/24/221938<Electronically signed by Mary Gonzalez MD>Mary Gonzalez MD CC: Connor Rinaldi ~ Signed [facility] Work Phone: 1(616) 478-496803-27-[address] [facility] 10-24-2022 History and physical note Author Dr. 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 DIRECTOR 10/24/22 0740 MR#: [id number] Acct: [id number] Name: RAMYA GOEL Rep #:[id number] : 1990 31 From: Mary pederson MD PCP: Connor Rinaldi Status:ADM IN Location: [facility]012-1 HPI - General General Date of Admission: 10/24/22 HPI Narrative RAMYA GOEL, is a 31 F who presents IAL 4 cm dilated with rom of uknown duration Maternal Data Information OTTO Calculator Estimated Delivery Date Method Current WG Current Estimate 10/21/22 LMP (Certain) 40w 3d PFSH PFSH Medical History cardiac echogenic focus Low-lying placenta in second trimester No significant medical problems Home Medications vitamins no.85-iron 10 mg-folate no.1 1 mg-dha 200 mg capsule (Prenate Pixie) 1 cap PO DAILY #30 caps 03/24/22 [Rx Last Taken Unknown] Allergy/AdvReac Type Severity Reaction Status Date / Time No Known Allergies Allergy Verified 10/20/22 13:10 Family History Grandfather Hypertension Heart disease Grandmother Cancer Aunt Breast cancer Surgical History H/O foot surgery H/O wisdom tooth extraction Social History adopted: No household members: spouse and children housing: house current occupational status: employed current occupation: [employer] history of recent travel: No sexually active: Yes Smoking Status: Never smoker second hand exposure: No alcohol intake: former details: social substance use type: does not use caffeine: Yes Type: coffee Number of servings: 1 what type of physical activity do you participate in: walking frequency: 3-4 times per week seatbelt use: always do you feel safe at home: Yes 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 Date Name GA/Weeks Outcome Route Bth Weight Gen Labor Lgth Anesthesia Del [facility] Provider FOB 09/18/20 Waldo 40 live - full term Male [facility] Sameer Delivery Date: 09/18/20 Last Updated by: Pebbles Hardin admitted in active labor. normal vaginal delivery Visit Details Expected Delivery Route/Plan labor Preferences- CB/BF classes: no labor support person:Bud labor intervention preferences: [] pain management options preferred: epidural if needed cut cord/dad catch: no : yes PP control planned: discussed discussed possible routes of delivery and associated risks: [] special requests: [] Plans Covid status: discussed Flu vaccine: Tdap vaccine: given Rhogam: na LARC form signed: yes Problem list reviewed and updated with the most current plan of care details and appropriate orders placed. Relevant counseling for the gestational age provided. Continue routine care and follow up unless otherwise noted in visit notes/problem list details OB Flowsheet Initial Weight: Not Recorded Date -?-?-?-?-?-?-?-?-?-?-?-?- EGA Weight BP Urine Prot -?-?-?-?-?-?-?-?-?-?-?-?- Glucose FHR FuHt Pres Dilation -?-?-?-?-?-?-?-?-?-?-?-?- Effaced St Visit Note 03/24/22 -?-?-?-?-?-?-?-?-?-?-?-?- 9w 6d 122 lb 116/72 -?-?-?-?-?-?-?-?-?-?-?-?- 180 -?-?-?-?-?-?-?-?-?-?-?-?- SM- CRL 2.56cm c ons with LMP 04/11/22 -?-?-?-?-?-?-?-?-?-?-?-?- 12w 3d 127 lb 104/60 Negative -?-?-?-?-?-?-?-?-?-?-?-?- Negative 160 -?-?-?-?-?-?-?-?-?-?-?-?- SM- no vb crampi ng 05/12/22 -?-?-?-?-?-?-?-?-?-?-?-?- 16w 6d 134 lb 6 oz 107/74 Nega tive -?-?-?-?-?-?-?-?-?-?-?-?- Negative 145 -?-?-?-?-?-?-?-?-?-?-?-?- JV- no complaint s today. new ob labs reviewed 06/09/22 -?-?-?-?-?-?-?-?-?-?-?-?- 20w 6d 138 lb 102/66 Negative -?-?-?-?-?-?-?-?-?-?-?-?- Negative 143 -?-?-?-?-?-?-?-?-?-?-?-?- MH-No VB, LOF. F eeling movement. Still desiding about NIPT 07/07/22 -?-?-?-?-?-?-?-?-?-?-?-?- 24w 6d 145 lb 117/75 -?-?-?-?-?-?-?-?-?-?-?-?- 145 -?-?-?-?-?-?-?-?-?-?-?-?- SM- no vb lof go od fm no regular ctx 08/02/22 -?-?-?-?-?-?-?-?-?-?-?-?- 28w 4d 151 lb 4 oz 96/62 Nega tive -?-?-?-?-?-?-?-?-?-?-?-?- Negative 146 28 -?-?-?-?-?-?-?-?-?-?-?-?- 08/15/22 -?-?-?-?-?-?-?-?-?-?-?-?- 30w 3d 155 lb Negative -?-?-?-?-?-?-?-?-?-?-?-?- Negative 161 30 -?-?-?-?-?-?-?-?-?-?-?-?- MH-NO VB, LOF. G ood FM. Seeing MFM wkly for BPP and check venous varix which is stable. Flu vaccine today 09/01/22 -?-?-?-?-?-?-?-?-?-?-?-?- 32w 6d 161 lb 109/75 -?-?-?-?-?-?-?-?-?-?-?-?- 140 34 -?-?-?-?-?-?-?-?-?-?-?-?- SM- no vb lof go od fm no regular ctx wekely testing. 09/16/22 -?-?-?-?-?-?-?-?-?-?-?--?- 35w 0d 162 lb 8 oz 108/71 Nega tive -?-?-?-?-?-?-?-?-?-?-?-?- Negative 150 36 -?-?-?-?-?-?-?-?-?-?-?-?- SM- no vb lof go od fm no regualr ctx 09/29/22 -?-?-?-?-?-?-?-?-?-?-?-?- 36w 6d 163 lb 8 oz 103/69 Nega tive -?-?-?-?-?-?-?-?-?-?-?-?- Negative 155 33 -?-?-?-?-?-?-?-?-?--?-?-?- JV- fh low but h ad growth scan and getting weekly bpp's and growth is normal. no recommendations on delivery timing on mfm note. 10/06/22 -?-?-?-?-?-?-?-?-?-?-?-?- 37w 6d 163 lb 112/76 Negative -?-?-?-?-?-?-?-?-?-?-?-?- Negative 115 36 -?-?-?-?-?-?-?-?-?-?-?-?- JV- low baseline today. JV- low baseline today. NST reactive, pt reassured. JV- low baseline today. NST reactive, pt reassured. growth scan today at 2:30 10/13/22 -?-?-?-?-?-?-?-?-?-?-?-?- 38w 6d 168 lb 2 oz 113/72 Nega tive -?-?-?-?-?-?-?-?-?-?-?-?- Negative 130 39 1.5 -?-?-?-?-?-?-?-?-?-?-?-?- SM- no vb lof go od fm no reg ctx SM- no vb lof good fm no reg ctx await repeat scan today to determine exp management vs IOL 10/20/22 -?-?-?-?-?-?-?-?-?-?-?-?- 39w 6d 167 lb 4 oz 114/70 Nega tive -?-?-?-?-?-?-?-?-?-?-?-?- Negative 130 40 3 -?-?-?-?-?-?-?-?-?-?-?-?- 60 -2 SM- SM- no vb lof good fm no reg ular ctx membranes swept plan IOL monday due to varices 10/24/22 -?-?-?-?-?-?-?-?-?-?-?-?- 40w 3d 166 lb 10.711 oz 117 /75 116/75 115/82 117/76 118/75 119/79 122/74 116/75 116/69 118/72 126/79 125/82 -?-?-?-?-?-?-?-?-?-?-?-?- -?-?-?-?-?-?-?-?-?-?-?-?- NST FHR Rate Baby A Baseline: 140 Variability:: Moderate Accelerations:: 15 x 15 Decelerations:: None NST Reactive:: Yes FHR Category:: Category I Uterine Activity:: q3-5 ROS Constitutional Constitutional: Reports systems reviewed and no addt'l complaints, except as documented ENT HEENT: Reports systems reviewed and no addt'l complaints, except as documented Cardiovascular Cardiovascular: Reports systems reviewed and no addt'l complaints, except as documented Respiratory/Chest Respiratory/Chest: Reports systems reviewed and no addt'l complaints, except as documented Gastrointestinal Gastrointestinal: Reports systems reviewed and no addt'l complaints, except as documented and nausea; Denies abdominal pain Genitourinary Genitourinary: Reports systems reviewed and no addt'l complaints, except as documented, contractions Details: present and frequency (regular ) and movement Details: present Musculoskeletal Musculoskeletal: Reports systems reviewed and no addt'l complaints, except as documented Integumentary Integumentary: Reports as per HPI Neurologic Neurologic: Reports systems reviewed and no addt'l complaints, except as documented Endocrine Endocrinology: Reports systems reviewed and no addt'l complaints, except as documented Vital Signs Vital Signs Vital Signs: 10/24/22 04:40 10/24/22 04:41 10/24/22 04:41 Temperature Temperature Source Temporal Pulse Rate 82 Blood Pressure 117/75 BP Systolic 117 BP Diastolic 75 Pulse Ox 10/24/22 04:40 10/24/22 04:40 10/24/22 05:51 Temperature 98.1 F Temperature Source Pulse Rate Blood Pressure 116/75 BP Systolic 116 BP Diastolic 75 Pulse Ox 98 10/24/22 05:51 10/24/22 05:51 10/24/22 05:51 Temperature Temperature Source Pulse Rate 80 77 Blood Pressure BP Systolic BP Diastolic Pulse Ox 100 10/24/22 05:52 10/24/22 05:52 10/24/22 06:13 Temperature 98.2 F Temperature Source Oral Pulse Rate 71 Blood Pressure BP Systolic BP Diastolic Pulse Ox 10/24/22 06:13 10/24/22 06:18 10/24/22 06:18 Temperature Temperature Source Pulse Rate 96 Blood Pressure BP Systolic BP Diastolic Pulse Ox 100 100 10/24/22 06:23 10/24/22 06:23 10/24/22 06:25 Temperature Temperature Source Pulse Rate 87 Blood Pressure 115/82 H BP Systolic 115 BP Diastolic 82 Pulse Ox 100 10/24/22 06:25 10/24/22 06:28 10/24/22 06:28 Temperature Temperature Source Pulse Rate 91 70 Blood Pressure BP Systolic BP Diastolic Pulse Ox 100 10/24/22 06:30 10/24/22 06:30 10/24/22 06:33 Temperature Temperature Source Pulse Rate 88 69 Blood Pressure 117/76 BP Systolic 117 BP Diastolic 76 Pulse Ox 10/24/22 06:33 10/24/22 06:36 10/24/22 06:36 Temperature Temperature Source Pulse Rate 79 Blood Pressure 118/75 BP Systolic 118 BP Diastolic 75 Pulse Ox 100 10/24/22 06:38 10/24/22 06:38 10/24/22 06:40 Temperature Temperature Source Pulse Rate 78 Blood Pressure 119/79 BP Systolic 119 BP Diastolic 79 Pulse Ox 100 10/24/22 06:40 10/24/22 06:43 10/24/22 06:43 Temperature Temperature Source Pulse Rate 80 73 Blood Pressure BP Systolic BP Diastolic Pulse Ox 100 10/24/22 06:45 10/24/22 06:45 10/24/22 06:48 Temperature Temperature Source Pulse Rate 71 91 Blood Pressure 122/74 H BP Systolic 122 BP Diastolic 74 Pulse Ox 10/24/22 06:48 10/24/22 06:50 10/24/22 06:50 Temperature Temperature Source Pulse Rate 96 Blood Pressure 116/75 BP Systolic 116 BP Diastolic 75 Pulse Ox 100 10/24/22 06:53 10/24/22 06:53 10/24/22 06:55 Temperature Temperature Source Pulse Rate 91 Blood Pressure 116/69 BP Systolic 116 BP Diastolic 69 Pulse Ox 99 10/24/22 06:55 10/24/22 06:58 10/24/22 06:58 Temperature Temperature Source Pulse Rate 88 96 Blood Pressure BP Systolic BP Diastolic Pulse Ox 99 10/24/22 07:00 10/24/22 07:00 10/24/22 06:43 Temperature Temperature Source Temporal Pulse Rate 103 H Blood Pressure 118/72 BP Systolic 118 BP Diastolic 72 Pulse Ox 10/24/22 06:43 10/24/22 07:03 10/24/22 07:03 Temperature 97.7 F L Temperature Source Pulse Rate 86 Blood Pressure BP Systolic BP Diastolic Pulse Ox 100 10/24/22 07:08 10/24/22 07:08 10/24/22 07:12 Temperature Temperature Source Pulse Rate 79 Blood Pressure 126/79 H BP Systolic 126 BP Diastolic 79 Pulse Ox 100 10/24/22 07:12 10/24/22 07:13 10/24/22 07:13 Temperature Temperature Source Pulse Rate 85 115 H Blood Pressure BP Systolic BP Diastolic Pulse Ox 100 10/24/22 07:16 10/24/22 07:16 10/24/22 07:26 Temperature 97.1 F L Temperature Source Pulse Rate 78 Blood Pressure 125/82 H BP Systolic 125 BP Diastolic 82 Pulse Ox Weight Weight: 166 lb 10.711 oz Body Mass Index (BMI) 26.1 Physical Exam Const alert, oriented x3 and healthy appearing Constitutional Narrative: uncomfortable with contractions HEENT normocephalic and moist oral mucous membranes Head and Scalp: atraumatic Neck full ROM, no lymphadenopathy, supple and thyroid normal General: trachea midline Thyroid: thyroid normal Lymph Lymphatic: no lymphadenopathy noted Chest inspection of chest normal Resp normal respiratory effort Cardio regular rate GI normal to inspection, nondistended, normoactive bowel sounds, soft to palpation and non-tender Inspection: gravid external exam normal Bimanual Exam - Vag & Uterus: uterus non-tender Manual OB Exam: estimated gestational size appropriate, presentation cephalic, dilated, effaced and station Extremity normal to inspection General Extremity: Negative for edema Skin no rashes or lesions noted Neuro deep tendon reflexes 2+ bilaterally Motor Exam: strength 5/5 throughout and clonus absent Psych mental status grossly normal Labs Labs Labs: Blood Type O POSITIVE Antibody Screen NEGATIVE Hct 32.3 % (37-47) L Hgb 9.7 g/dL (12.0-15.0) L Pap Smear Negative Obstetrics US Syphilis Total Ab Non-reactive Rubella IgG Antibody Reactive (Nonreactive) Hep Bs Antigen Non-Reactive (Nonreactive) Chlamydia DNA (ITZEL) Negative (Negative) Neisseria gonorrhoeae DNA (ITZEL) Negative (Negative) HIV 1&2 Antibody Non-Reactive (Nonreactive) Glucose 1 Hr 50 gm 102 mg/dL (70-140) Rhogam given: No Assessment & Plan (1) : QUALIFIERS: Weeks of gestation: 39 weeks Qualified Code(s): Z3A.39 - 39 weeks gestation of COMMENT: Neg GBS. anatomy nl, initially declined NIPT & Carrier testing; (2) Supervision of normal : COMMENT: PRR , OTTO 10/21/21, girl Toy LEISA Waldo, Spouse- Bud (3) cardiac echogenic focus: COMMENT: declined NIPT testing. (4) Anxiety: COMMENT: vistaril ordered, needs to talk further at next OB appointment about possible SSRI/vistaril helpful. Declines zoloft. counseling recommended. Stable (5) Prominent renal pelvis: COMMENT: 09/29/22- mild dilation. recommend follow up after delivery fetus <7mm but prominent:recheck 08/09/22 (6) Congenital venous varix: COMMENT: Rpt MFM US 08/09/22: stable. Weekly BPP and growth Q4wk. Del at 39wk if >1.5mm. 14mm plan IOL monday at 40w3d 09/09: remains stable, nl BPP 10/07: remains stable, nl BPP (7) SROM (spontaneous rupture of membranes): (8) Active labor at term: PLAN: Plan Patient presents IAL, plan expectant management for , pitocin/AROM PRN if needed. Pain management: plans epidural. GBS neg. Management of any complications: see a/p I have reviewed the [facility] and made any clinically relevant updates. 10/24/22 0743 <Electronically signed by Mary Gonzalez MD> Cosigner Signature (if applicable): CC: Dr. Mary Gonzalez MD; Connor Rinaldi~ Signed [facility] Work Phone: evaluation note* Diagnosis Onset Date Resolution Status Encounter for routine gynecological examination noneactive acute Supervision of normal acute [facility] Work Phone: evaluation note* Diagnosis Onset Date Resolution Status Encounter for routine gynecological examination noneactive acute Supervision of normal acute acute Supervision of normal acute acute Supervision of normal acute [facility] Work Phone: evaluation note* Diagnosis Onset Date Resolution Status cardiac echogenic focus acute acute Supervision of normal acute Low-lying placenta in second trimester resolved cardiac echogenic focus acute acute Supervision of normal acute Low-lying placenta in second trimester resolved Anxiety acute Congenital venous varix acut e cardiac echogenic focus acute acute Prominent renal pelvis acute Supervision of normal acute Anxiety acute Congenital venous varix acut e cardiac echogenic focus acute acute Prominent renal pelvis acute Supervision of normal acute Anxiety acute Congenital venous varix acut e cardiac echogenic focus acute acute Prominent renal pelvis acute Supervision of normal acute Anxiety acute Congenital venous varix acut e cardiac echogenic focus acute acute Prominent renal pelvis acute Supervision of normal acute Anxiety acute Congenital venous varix acut e cardiac echogenic focus acute Polyhydramnios affecting acute acute Prominent renal pelvis acute Supervision of normal acute [facility] Work Phone: Evaluation note* Diagnosis Onset Date Resolution Status cardiac echogenic focus resolved Low-lying placenta in second trimester resolved resolved Supervision of normal resolved Anxiety acute Congenital venous varix reso lved cardiac echogenic focus resolved resolved Prominent renal pelvis resol mercy Supervision of normal resolved Anxiety acute Congenital venous varix reso lved cardiac echogenic focus resolved resolved Prominent renal pelvis resol mercy Supervision of normal resolved Anxiety acute Congenital venous varix reso lved cardiac echogenic focus resolved resolved Prominent renal pelvis resol mercy Supervision of normal resolved Anxiety acute Congenital venous varix reso lved cardiac echogenic focus resolved resolved Prominent renal pelvis resol mercy Supervision of normal resolved Anxiety acute Congenital venous varix reso lved cardiac echogenic focus resolved Polyhydramnios affecting resolved resolved Prominent renal pelvis resol mercy Supervision of normal resolved Anxiety acute Congenital venous varix reso lved cardiac echogenic focus resolved Polyhydramnios affecting resolved resolved Prominent renal pelvis resol mercy Supervision of normal resolved Anxiety acute Congenital venous varix reso lved cardiac echogenic focus resolved resolved Prominent renal pelvis resol mercy Supervision of normal resolved Anxiety acute Congenital venous varix reso lved cardiac echogenic focus resolved resolved Prominent renal pelvis resol mercy Supervision of normal resolved Anxiety acute Active labor at term resolve d Congenital venous varix reso lved cardiac echogenic focus resolved resolved Prominent renal pelvis resol mercy SROM (spontaneous rupture of membranes) resolved Supervision of normal resolved [facility] Work Phone: Progress note Author Lizy Acosta [facility] Note Date/Time January 16, 2025 9:51 am [facility] [address] [place] [address], [address] [place] [address] OFFICE VISIT Date of Service: 01/16/25 MR#: [id number] Acct: [id number] Name: RAMYA GOEL Rep #: [id number] : 1990 Provider: MIKI Acosta Age/Sex: 34/F Location[place] [facility] [place]: Signed Intake Vital Signs 10/23/24 14:30 12/19/24 11:48 01/16/25 09:34 Height 5 ft 7 in 5 ft 7 in 5 ft 7 in Weight: 140 lb 8 oz BMI 21.9 BP 97/65 Intake Visit Reasons: 25wk ob Chief Complaint: 25 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 Hand Required: No Is patient in pain?: No Allergies No Known Allergies Allergy (Verified 01/16/25 09:36) Medications ?Medication ?Instructions ?Recorded ?Confirmed ?Type multivitamin no.47-iron fum 27 cap PO 09/13/24 5 History mg-folate no.1 1 mg-dha 300 mg capsule (PNV-DHA) magnesium 250 mg tablet 250 mg PO QDAY 11/19/2412/29 History Last Menstrual Period: 07/25/24 Zika: Zika virus screening: Negative : No PFSH PFSH Medical History Vaginal delivery cardiac echogenic focus Low-lying placenta in second trimester No significant medical problems Surgical History History of cataract surgery H/O foot surgery H/O wisdom tooth extraction Family History Grandfather Hypertension Heart disease Grandmother Cancer Aunt Breast cancer Maternal Social History adopted: No household members: spouse and children housing: house number of children: 2 current occupational status: employed current occupation: [employer] current occupational exposures/hazards: No pets and animals: Yes pets and animals: dog(s) history of recent travel: No sexually active: Yes Smoking Status: Never smoker second hand exposure: No alcohol intake: former details: social- Not while substance use type: does not use well-balanced diet: daily or most days caffeine: Yes Type: coffee Number of servings: 1 eating out: rarely or never during the past year weight has: remained stable what type of physical activity do you participate in: none frequency: 3-4 times per week taryn/religious: Lutheran seatbelt use: always do you feel safe at home: Yes 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 Date Name GA/Weeks Outcome Route Bth Weight Gen Labor Lgth Anesthesia Del Locatn Provider FOB 09/18/20 [place] 40 live - full term 7# Male [facility] Sameer 10/24/22 [place] 40 live - full term 8#11 Female epi dural [facility] Mary Gonzalez Bud Delivery Date: 09/18/20 Last Updated by: Pebbles Hardin admitted in active labor. normal vaginal delivery Delivery Date: 10/24/22 Last Updated by: Alyssa Rizo see problem list for complications, and ial 40 sm. HPI 25wk ob Details: RAMYA GOEL is a 34 year old who presents for routine OB visit. OB Visit OTTO Calculator Estimated Delivery Date Method Current WG Current Estimate 05/01/25 LMP (Certain) 25w 0d Other Estimates 05/04/25 Ultrasound #1 24w 4d Expected Delivery Route/Plan Labor Preferences- CB/BF classes: [] labor support person: [] labor intervention preferences: [] pain management options preferred: [] cut cord/dad catch: [] : [] PP control planned: [] discussed possible routes of delivery and associated risks: [] special requests: [] Specific Issue/Plans Covid status: [] Flu vaccine: [] Tdap vaccine: [] Rhogam: [] LARC form signed: [] Problem list reviewed and updated with the most current plan of care details and appropriate orders placed. Relevant counseling for the gestational age provided. Continue routine care and follow up unless otherwise noted in visit notes/problem list details Initial Weight: 126 lb Date -?-?-?-?-?-?-?-?-?-?-?-?- EGA Weight BP Urine Prot -?-?-?-?-?-?-?-?-?-?-?-?- Glucose FHR FuHt Pres Dilation -?-?-?-?-?-?-?-?-?-?-?-?- Effaced St Visit Note 09/27/24 -?-?-?-?-?-?-?-?-?-?-?-?- 9w 1d 126 lb 8 oz (+8 oz) 124/83 -?-?-?-?-?-?-?-?-?-?-?-?- 169 -?-?-?-?-?-?-?-?-?-?-?-?- KW- CRL cons wit h dates. Declines NIPT 10/23/24 -?-?-?-?-?-?-?-?-?-?-?-?- 12w 6d 129 lb 8 oz (+3 lb 8 oz) 128/80 Negative -?-?-?-?-?-?-?-?-?-?-?-?- Negative 160 -?-?-?-?-?-?-?-?-?-?-?-?- JV- no complaint s today but wants a full vitamin work up. we discussed lack of necessity and all questions answered. healthy diet and pnv discussion today. 11/19/24 -?-?-?-?-?-?-?-?-?-?-?-?- 16w 5d 131 lb 8 oz (+5 lb 8 oz) 118/80 Negative -?-?-?-?-?-?-?-?-?-?-?-?- Negative 154 -?-?-?-?-?-?-?-?-?-?-?-?- MH-No VB. Feels well. Magnesium helps with headaches 12/19/24 -?-?-?-?-?-?-?-?-?-?-?-?- 21w 0d 136 lb 8 oz (+10 lb 8 oz) 116/74 -?-?-?-?-?-?-?-?-?-?-?-?- 150 -?-?-?-?-?-?-?-?-?-?-?-?- SM- no vb lof go od fm no regular ctx discussed anatomy findings, declines NIPT 01/16/25 -?-?-?-?-?-?-?-?-?-?-?-?- 25w 0d 140 lb 8 oz (+14 lb 8 oz) 97/65 Negative -?-?-?-?-?-?-?-?-?-?-?-?- Negative 155 25 -?-?-?-?-?-?-?-?-?-?-?-?- KW- no vb/crampi ng. good fm. glucose discussed. umbilical hernia discussed and may want surgical consult after delivery ACOG First Trimester First Trimester: Desire for , Alcohol, Tobacco Cessation, Illicit/Recreational Drug/Substance Use, Intimate Partner Violence, Barriers to care, Unstable Housing, Communication Barriers, Environmental/Work Hazards, Anticipated Course of Care, Toxoplasmosis Precations, Use of Any medications, Sexual activity, Exercise, Dental Care, Sauna/Hot tub use, Seat Belt use, Childbirth classes/Hospital facilities, Travel, Indications for Ultrasound and Screening for Aneuploidy; Discussed Second Trimester Second Trimester: Signs and Symptoms of Labor, Selecting a care provider, Reproductive Life Planning & Contreception, Care Planning, Depression/Anxiety and Intimate Partner Violence Third Trimester Third Trimester: Pain Management Plans, Labor support person(s), Immediate Larc and Signs and Symptoms of Preeclampsia ROS Const Reports system reviewed and no additional complaints, except as documented Eyes Reports system reviewed and no additional complaints, except as documented ENT Reports system reviewed and no additional complaints, except as documented Card Reports system reviewed and no additional complaints, except as documented Resp Reports system reviewed and no additional complaints, except as documented GI Reports system reviewed and no additional complaints, except as documented, Denies nausea and Denies vomiting Reports system reviewed and no additional complaints, except as documented Musc Reports system reviewed and no additional complaints, except as documented Skin/Breast Reports system reviewed and no additional complaints, except as documented Neuro Yes system reviewed and no additional complaints, except as documented Psych Reports system reviewed and no additional complaints, except as documented Endo Reports system reviewed and no additional complaints, except as documented Axel/Lymph Reports system reviewed and no additional complaints, except as documented Aller/Immun Reports system reviewed and no additional complaints, except as documented Exam Const General: cooperative, healthy appearing and no acute distress Orientation: alert, awake and oriented x3 Neck Neck: normal visual inspection and full ROM Resp Effort & Inspection: normal respiratory effort, able to speak in complete sentences and symmetric chest movement GI Inspection: normal to inspection Palpation: soft and other Other: gravid Skin General: no rashes or lesions noted Neuro General: patient alert, patient awake and patient oriented x3 Cognition: normal cognition Speech: speech normal Gait: normal gait Motor: muscle tone normal throughout Extrem General: normal to inspection and full ROM Psych Appearance: grossly normal Mental Status: mental status grossly normal Mood: congruent mood Affect: normal affect Speech and Movement: speech and movement normal Attitude: cooperative Thought Process: normal Thought Content: normal Judgment: judgment good Results POC Urinalysis 2 Dip (Clinic) Office Urine Glucose Negative Last Edit by Sheri Mckeon on 01/16/25 09 :41 Office Urine Protein Negative Last Edit by Sheri Mckeon on 01/16/25 09 :41 Coding Level of Care Code OB Routine Diagnoses 25 weeks gestation of Z3A.25 Weeks of gestation: 25 weeks Encounter for supervision of other normal in second trimester Z34.82 Normal : other normal Trimester: second trimester Choroid plexus cyst of fetus Anxiety F41.9 Assessment and Plan Assessment and Plan (1) : Status: Acute Qualifiers: Weeks of gestation: 25 weeks Qualified Code(s): Z3A.25 - 25 weeks gestation of Comment: declined NIPT & Carrier testing. anatomy scan normal. (2) Supervision of normal : Status: Acute Qualifiers: Normal : other normal Trimester: second trimester Qualified Code(s): Z34.82 - Encounter for supervision of other normal , second trimester Comment: PRR, , OTT[facility] 05/01/25, [facility] Perla Haas, Bud (3) Choroid plexus cyst of fetus: Status: Acute Comment: offer NIPT (4) Anxiety: Status: Acute Comment: stable. no meds Orders: Orders POC Urinalysis 2 Dip (Clinic) Today CBC W/Diff, Automated Today Z34.82 - Encounter for supervision of other normal , second trimester Glucose Challenge Gest 1H 50g Today Z13.1 - Encounter for screening for diabetes mellitus, Z34.82 - Encounter for supervision of other normal , second trimester HIV Today Z34.82 - Encounter for supervision of other normal , second trimester Syphilis Antibodies Today Z34.82 - Encounter for supervision of other normal , second trimester Plan Details Additional Comments: ACOG trimester education reviewed and updated. see problem list details for updated plan management information and see below for orders placed at this visit. GA appropriate handout given. 01/16/25 8632 <Electronically signed by Lizy sorto CNM> Date _ Lizy Acosta [facility] Signature: Date (if applicable) CC: ~ [facility] Work Phone: Reason for referral (narrative)No reason for referral information availableWKettering Health [facility] Work Phone: Summary Purpose Family History No Family History Records Found Relationship Condition Age at Onset Recorded Date/T vicki grandfather Hypertension Unknown Cardiac disease Unknown grandmother Malignant neoplasm Unknown aunt Malignant neoplasm of breast Unknown Advance Directives No Advanced Directives Records Found Advance Directive Response Recorded Date/ Time Living Will No September 17 9:38pm Power of Inspector Outside Production No September 17, 2020 9:38pm Advance Directive Response Recorded Date/ Time Living Will No September 17 8:38pm Power of Inspector Outside Production No September 17, 2020 8:38pm Advance Directive Response Recorded Date/ Time Living Will No October 24, 2022 4:27am Power of Inspector Outside Production No October 24 4:27am Chief Complaint and Reason for Visit Chief Complaint Annual ([employer]) NOB LMP 01/14 Reason for Visit Encounter for routin e gynecological examination Supervision of normal Chief Complaint Annual ([employer]) NOB LMP 01/14 12 WK OB 16wk ob Reason for Visit Encounter for routin e gynecological examination Supervision of normal Supervision of normal Supervision of normal Chief Complaint 20wk ob 24wk ob 28 WK OB/GLUCOSE 30 WK OB 32 WK OB 34 WK OB 36 WK OB Encounter for supervision of normal , uns Reason for Visit cardiac echoge jose focus Supervision of normal Low-lying placenta in second trimester cardiac echogenic focus Supervision of normal Low-lying placenta in second trimester Anxiety Congenital venous varix cardiac echogenic focus Prominent renal pelvis Supervision of normal Anxiety Congenital venous varix cardiac echogenic focus Prominent renal pelvis Supervision of normal Anxiety Congenital venous varix cardiac echogenic focus Prominent renal pelvis Supervision of normal Anxiety Congenital venous varix cardiac echogenic focus Prominent renal pelvis Supervision of normal Anxiety Congenital venous varix cardiac echogenic focus Polyhydramnios affecting Prominent renal pelvis Supervision of normal Chief Complaint 24wk ob 28 WK OB/GLUCOSE 30 WK OB 32 WK OB 34 WK OB 36 WK OB Encounter for supervision of normal , uns 37 WK OB 38 WK OB 39 WK OB LABOR & DELIVERY/VAGINAL DELIVERY LABOR & DELIVERY LABOR & DELIVERY/VAGINAL DELIVERY Reason for Visit cardiac echoge jose focus Low-lying placenta in second trimester Supervision of normal Anxiety Congenital venous varix cardiac echogenic focus Prominent renal pelvis Supervision of normal Anxiety Congenital venous varix cardiac echogenic focus Prominent renal pelvis Supervision of normal Anxiety Congenital venous varix cardiac echogenic focus Prominent renal pelvis Supervision of normal Anxiety Congenital venous varix cardiac echogenic focus Prominent renal pelvis Supervision of normal Anxiety Congenital venous varix cardiac echogenic focus Polyhydramnios affecting Prominent renal pelvis Supervision of normal Anxiety Congenital venous varix cardiac echogenic focus Polyhydramnios affecting Prominent renal pelvis Supervision of normal Anxiety Congenital venous varix cardiac echogenic focus Prominent renal pelvis Supervision of normal Anxiety Congenital venous varix cardiac echogenic focus Prominent renal pelvis Supervision of normal Anxiety Active labor at term Congenital venous varix cardiac echogenic focus Prominent renal pelvis SROM (spontaneous rupture of membranes) Supervision of normal Chief Complaint Admit Date NOB LMP 07/25September 27, 2024 7:56am Reason for Visit Admit Date Anxiety September 27, 2024 7:56am September 27, 2024 7:56am Supervision of normal September 27, 2024 7:56am Chief Complaint Admit Date NOB LMP 07/25September 27, 2024 7:56am 12 wk ob October 23, 2024 2:1 7pm 16 wk ob November 19, 2024 1:3 8pm SORE THROAT, EAR PAIN December 08, 2024 8:5 9am wk ob December 19, 2024 11:36 am wk ob January 16, 2025 9:31 am Reason for Visit Admit Date Anxiety September 27, 2024 7:56am September 27, 2024 7:56am Supervision of normal September 27, 2024 7:56am Anxiety October 23, 2024 2:1 7pm October 23, 2024 2:1 7pm Supervision of normal October 232024 2:17pm Anxiety November 19, 2024 1:3 8pm November 19, 2024 1:3 8pm Supervision of normal November 192024 1:38pm URI (upper respiratory infection) December 082024 8:59am Anxiety December 19, 2024 11:36 am Choroid plexus cyst of fetus December 19, 11:36am December 19, 2024 11:36 am Supervision of normal November 11:36am Anxiety January 16, 2025 9:31 am Choroid plexus cyst of fetus January 16, 2025 9:31am January 16, 2025 9:31 am Supervision of normal December 9:31am Additional Source Comments INFORMATION SOURCE (unrecogn ized section and content) DATE CREATED AUTHOR 01/23/2018 [facility] ([place]) DATE CREATED AUTHOR AUTHOR'S ORGANIZ ATION 01/04/2025 [facility] DATE CREATED AUTHOR AUTHOR'S ORGANIZ ATION 01/30/2025 [facility] Goals (unrecognized section and content) Goals may be documented in a n alternate sectionGoals may be documented in an alternate sectionGoals may be documented in an alternate sectionGoals may be documented in an alternate sectionGoals may be documented in an alternate section Care Teams (unrecognized sec tion and content) Team Status: Active Member Role Status Dates [facility] Primary Care Provider Active Team Status: Inactive Member Role Status Dates Connor Rinaldi Primary Care Provider, Referring Provi marv Active Anahi Riojas AGRISCIENCE INSTRUCTOR, AGRISCIENCE INSTRUCTOR-C Attending Provider Active Team Status: Inactive Member Role Status Dates Connor Boyleon Primary Care Provider, Referring Provi marv Active Dr. Mary Gonzalez MD Attending Provider Active Team Status: Inactive Member Role Status Dates Connor Boyleon Primary Care Provider, Referring Provi marv Active Dr. Yue Sanford DO Attending Provider Activ e Team Status: Inactive Member Role Status Dates Connor Rinaldi Primary Care Provider Active Dr. Mary Gonzalez MD Attending Provider, Referr ing Provider Active Team Status: Inactive Member Role Status Dates [facility] Primary Care Provider Active Dr. Yue Sanford DO Attending Provider Activ e Team Status: Active Member Role Status Dates Connor Rinaldi OLS Primary Care Provider Active Team Status: Inactive Member Role Status Dates Connor Rinaldi OLS Primary Care Provider, Referring P rovider Active Dr. Mary Gonzalez MD Attending Provider Active Team Status: Inactive Member Role Status Dates Connor Rinaldi OLS Primary Care Provider, Referring P rovider Active Anahi Riojas AGRISCIENCE INSTRUCTOR, AGRISCIENCE INSTRUCTOR-C Attending Provider Active Team Status: Inactive Member Role Status Dates Connor Rinaldi OLS Primary Care Provider, Referring P rovider Active Dr. Yue Sanford DO Attending Provider Activ e Team Status: Active Member Role Status Dates Connor WITT Primary Care Provider Active Dr. Mary Gonzalez MD Admit Provid er, Attending Provider, Other Provider Active Team Status: Active Member Role Status Dates Connor WITT Primary Care Provider Active Dr. Mary Gonzalez MD Admit Provider, Other Prov ider Active Lizy Acosta CNM Attending Provider Active Team Status: Inactive Member Role Status Dates Connor WITT Primary Care Provider Active Dr. Mary Gonzalez MD Attending Provider, Referr ing Provider Active Team Status: Inactive Member Role Status Dates Connor WITT Primary Care Provider Active Dr. Yue Sanford DO Attending Provider Activ e Team Status: Inactive Member Role Status Dates Connor WITT Primary Care Provider Active Dr. Mary Gonzalez MD Admit Provider, Attending Provider Active Team Status: Active Member Role Status Dates Dr. Connor Rinaldi DO Primary Care Provider Active Team Status: Inactive Member Role Status Dates Dr. Connor Rinaldi DO Primary Care Provider Active Start: September 27, 2024 End: September 27, 2024 Dr. Connor Rinaldi DO Referring Provider Active Start: September 27, 2024 End: September 27, 2024 Lizy Acosta CNM Attending Provider Active S tart: September 27, 2024 End: September 27, 2024 Team Status: Inactive Member Role Status Dates Dr. Connor Rinaldi DO Primary Care Provider Active Start: September 27, 2024 End: September 27, 2024 Lizy Acosta CNM Attending Provider Active S tart: September 27, 2024 End: September 27, 2024 Lizy Acosta CNM Referring Provider Active S tart: September 27, 2024 End: September 27, 2024 Team Status: Inactive Member Role Status Dates Dr. Connor Rinaldi DO Primary Care Provider Active Start: October 23, 2024 End: October 23, 2024 Dr. Connor Rinaldi DO Referring Provider Active Start: October 23, 2024 End: October 23, 2024 Dr. Yue Sanford DO Attending Provider Activ e Start: October 23, 2024 End: October 23, 2024 Team Status: Inactive Member Role Status Dates Dr. Connor Rinaldi DO Primary Care Provider Active Start: November 19, 2024 End: November 19, 2024 Dr. Connor Rinaldi DO Referring Provider Active Start: November 19, 2024 End: November 19, 2024 Anahi Riojas NP, NP-C Attending Provider Active Start: November 19, 2024 End: November 19, 2024 Team Status: Inactive Member Role Status Dates Dr. Connor Rinaldi DO Primary Care Provider Active Start: December 08, 2024 End: December 08, 2024 Dr. Connor Rinaldi DO Referring Provider Active Start: December 08, 2024 End: December 08, 2024 [facility] Attending Provider Active Start: December 08, 2024 End: December 08, 2024 Team Status: Inactive Member Role Status Dates Dr. Connor Rinaldi DO Primary Care Provider Active Start: December 19, 2024 End: December 19, 2024 Dr. Connor Rinaldi DO Referring Provider Active Start: December 19, 2024 End: December 19, 2024 Dr. Mary Gonzalez MD Attending Provider Active Start: December 19, 2024 End: December 19, 2024 Team Status: Inactive Member Role Status Dates Dr. Connor Rinaldi DO Primary Care Provider Active Start: January 16, 2025 End: January 16, 2025 Dr. Connor Rinaldi DO Referring Provider Active Start: January 16, 2025 End: January 16, 2025 Lizy Acosta CNM Attending Provider Active S tart: January 16, 2025 End: January 16, 2025 FOR RECORDS PERTAINING TO PATIENTS WHO ARE OR HAVE BEEN ENROLLED IN A CHEMICAL DEPENDENCY/SUBSTANCEABUSE PROGRAM, SOME INFORMATION MAY BE OMITTED. This clinical summary was aggregated from multiple sources. Caution should be exercised in using it in the provision of clinical care. This summary normalizes information from multiple sources, and as a consequence, information in this document may materially change the coding, format and clinical context of patient data. In addition, data may be omitted in some cases. CLINICAL DECISIONS SHOULD BE BASED ON THE PRIMARY CLINICAL RECORDS. [employer] provides no warranty or guarantee of the accuracy or completeness of information in this document.
[2025-02-06 12:20] LABS: Hematocrit 37.9 % (37-47); Hemoglobin 12.6 g/dL (12.0-15.0); Immature Granulocytes Count 0.050 X10^3/uL (0.0-0.0); Mean Corp Hgb Conc 33.2 g/dL (32-36); Mean Corpuscular Volume 90.7 fL (81-99); Mean Platelet Vol. 10.9 fl (6.2-12.0); NRBC Flagged by Analyzer 0 % (0-5); Platelet Count 169 K/mm3 (150-450); RBC Distribution Width CV 13.3 % (11.6-14.6); RBC Distribution Width SD 44.1 fl (35.1-43.9); Red Blood Count 4.18 M/mm3 (4.2-5.4); White Blood Count 6.3 K/mm3 (4.4-11.0)
[2025-02-06 13:15] LABS: Glucose Challenge Gest 1H 50g 80 mg/dL (70-140); HIV Nonreactive (Nonreactive); Syphilis Antibodies Nonreactive (Nonreactive)
== END | disposition home or self-care (01) ==
PROVIDERS: PCP Student in an Organized Health Care Education/Training Program; Visit Provider Advanced Practice Midwife
DX: Z34.82 Encounter for supervision of other normal pregnancy, second trimester (principal); Z13.1 Encounter for screening for diabetes mellitus
CPT/HCPCS: 36415; 82950; 85025; 86703; 86780

== ENCOUNTER 2025-03-07 09:45 | Outpatient (CLI) | payer OTHER, SELFPAY ==
[2025-03-07 09:56] VITALS: BP 109/62; PULSE 79; RESP 16; TEMP 36.5
[2025-03-07 10:01] VITALS: BMI 23.1
--- NOTE | 2025-03-07 10:01 | US_ITS ---
PROCEDURE: OB BIOPHYSICAL PROF W/O NST N/A REASON FOR EXAM: DECREASED MOVEMENT TECHNIQUE: OB BIOPHYSICAL PROF W/O NST COMPARISON: None FINDINGS LMP: July 25, 2025. Number: 1 Position: Transverse right. Placental Position: Posterior and not low-lying Placental Abnormalities: No evidence of previa. ESTIMATED GESTATIONAL AGE: Baseline: 32 weeks and 1 day ESTIMATED DATE OF DELIVERY: Baseline: May 01, 2025 BIOPHYSICAL ASSESSMENT: Amniotic Fluid Volume: 4.8 cm Amniotic Fluid Index: 16 cm (8-24 cm normal range) Cardiac Motion: 137 beats per minute (average) Trunk and Limb Motion: Present. MATERNAL ANATOMY: Adnexa: Neither maternal ovary is successfully identified. Biophysical profile: Breathing movements: 2 Gross body movements: 2 tone: 2 Amniotic fluid volume: 2 Total score: 8/8 US/OB Biophysical Prof W/O NST IMPRESSION: Normal biophysical profile. Reading Location: [id number]
--- NOTE | 2025-03-07 10:01 | US_ITS ---
PROCEDURE: OB BIOPHYSICAL PROF W/O NST N/A REASON FOR EXAM: DECREASED MOVEMENT TECHNIQUE: OB BIOPHYSICAL PROF W/O NST COMPARISON: None FINDINGS LMP: July 25, 2025. Number: 1 Position: Transverse right. Placental Position: Posterior and not low-lying Placental Abnormalities: No evidence of previa. ESTIMATED GESTATIONAL AGE: Baseline: 32 weeks and 1 day ESTIMATED DATE OF DELIVERY: Baseline: May 01, 2025 BIOPHYSICAL ASSESSMENT: Amniotic Fluid Volume: 4.8 cm Amniotic Fluid Index: 16 cm (8-24 cm normal range) Cardiac Motion: 137 beats per minute (average) Trunk and Limb Motion: Present. MATERNAL ANATOMY: Adnexa: Neither maternal ovary is successfully identified. Biophysical profile: Breathing movements: 2 Gross body movements: 2 tone: 2 Amniotic fluid volume: 2 Total score: 8/8 US/OB Biophysical Prof W/O NST IMPRESSION: Normal biophysical profile. Reading Location: [id number]
--- NOTE | 2025-03-07 13:08 | OB.TRI.PN_ITS ---
Progress Notes Date of Service: 03/07/25 Progress Note: Patient presents for triage evaluation secondary to nonreassuring NST at 32 weeks gestation FHT: 135 Moderate variability reactive no decelerations category I tracing [place]: rare Contractions Assessment and plan: BPP 03/07, Reactive NST, reassuring maternal and status patient discharged to home to follow-up in office. See problem list details for additional plan information. Charges/Coding Multi Select Codes Urinary/Genital Urinary/Genital CPT Codes: 50698-24 non-stress test Interp Assessment & Plan (1) Variable heart rate decelerations, antepartum: COMMENT: IVF and BPP ordered. (2) Decreased movement: COMMENT: NST obtained in office (3) Choroid plexus cyst of fetus: COMMENT: offer NIPT declined (4) Supervision of normal : QUALIFIERS: Normal : other normal Trimester: third trimester Qualified Code(s): Z34.83 - Encounter for supervision of other normal , third trimester COMMENT: PRR, , OTTO 05/01/25, [facility] Perla Haas, Bud (5) : QUALIFIERS: Weeks of gestation: 32 weeks Qualified Code(s): Z3A.32 - 32 weeks gestation of COMMENT: declined NIPT & Carrier testing. anatomy scan normal. (6) Anxiety: COMMENT: stable. no meds. 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
--- NOTE | 2025-03-07 13:08 | OB.TRI.PN_ITS ---
Progress Notes Date of Service: 03/07/25 Progress Note: Patient presents for triage evaluation secondary to nonreassuring NST at 32 weeks gestation FHT: 135 Moderate variability reactive no decelerations category I tracing [place]: rare Contractions Assessment and plan: BPP 03/07, Reactive NST, reassuring maternal and status patient discharged to home to follow-up in office. See problem list details for additional plan information. Charges/Coding Multi Select Codes Urinary/Genital Urinary/Genital CPT Codes: 37913-18 non-stress test Interp Assessment & Plan (1) Variable heart rate decelerations, antepartum: COMMENT: IVF and BPP ordered. (2) Decreased movement: COMMENT: NST obtained in office (3) Choroid plexus cyst of fetus: COMMENT: offer NIPT declined (4) Supervision of normal : QUALIFIERS: Normal : other normal Trimester: third trimester Qualified Code(s): Z34.83 - Encounter for supervision of other normal , third trimester COMMENT: PRR, , OTTO 05/01/25, [facility] Perla Haas, Bud (5) : QUALIFIERS: Weeks of gestation: 32 weeks Qualified Code(s): Z3A.32 - 32 weeks gestation of COMMENT: declined NIPT & Carrier testing. anatomy scan normal. (6) Anxiety: COMMENT: stable. no meds. 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
== END 2025-03-07 12:10 | disposition home or self-care (01) ==
LOC: WPOUT 09:50 → WP 09:50
PROVIDERS: PCP Student in an Organized Health Care Education/Training Program; Referring Provider Advanced Practice Midwife; Visit Provider Advanced Practice Midwife
DX: O36.8330 Maternal care for abnormalities of the fetal heart rate or rhythm, third trimester, not applicable or unspecified (principal); Z3A.32 32 weeks gestation of pregnancy
CPT/HCPCS: 59025; 59050; 76819; 99221; G0378

== ENCOUNTER → 2025-04-03 | Outpatient (CLI) | payer OTHER, SELFPAY | END | disposition home or self-care (01) | PROVIDERS: PCP Student in an Organized Health Care Education/Training Program; Visit Provider Advanced Practice Midwife | DX: Z34.83 Encounter for supervision of other normal pregnancy, third trimester (principal) | CPT/HCPCS: 87081 ==

== ENCOUNTER 2025-05-01 14:25 | Outpatient (CLI) | payer OTHER, SELFPAY ==
[2025-05-01 14:31] VITALS: BP 116/73; PULSE 72
[2025-05-01 14:32] VITALS: TEMP 36.8
--- NOTE | 2025-05-01 14:38 | US_ITS ---
PROCEDURE: OB LIMITED WITH BIOMETRICS 05/01/2025 REASON FOR EXAM: GROWTH TECHNIQUE: Procedure Code: USOBGROWTH Modality: US Procedure: OB LIMITED WITH BIOMETRICS COMPARISON: 825 FINDINGS Number: 1 Position: Vertex Placental Position: Posterior Placental Abnormalities: No evidence of previa. DIMENSIONS: Biparietal Diameter: 9.3 cm/37 weeks 5 days Head Circumference: 33.5 cm/38 weeks 2 days Abdominal Circumference: 35.3 cm/39 weeks 1 day Femur Length: 7.3 cm/37 weeks 1 day ESTIMATED WEIGHT: 3521 g ESTIMATED WEIGHT PERCENTILE (24+ weeks): 41.9% tile ESTIMATED GESTATIONAL AGE: Baseline: 40 weeks 0 days By Ultrasound: 38 weeks 0 days ESTIMATED DATE OF DELIVERY: Baseline: 05/01/2025 By Ultrasound: 05/15/2025 BIOPHYSICAL ASSESSMENT: Amniotic Fluid Volume: 4.2 Amniotic Fluid Index: 11.7 (8-24 cm normal range) Cardiac Motion: 157 beats per minute (average) Trunk and Limb Motion: Present. MATERNAL ANATOMY: Adnexa: Neither maternal ovary is successfully identified. US/OB Limited With Biometrics IMPRESSION: Single live IUP in cephalic presentation with a estimated gestational age by trasound of 38 weeks 0 days and estimated delivery date of 05/15/2025. Reading Location: [place] [id number]
[2025-05-01 14:40] VITALS: BMI 24.7
--- NOTE | 2025-05-01 16:03 | OB.TRI.PN ---
Progress Notes Date of Service: 05/01/25 Progress Note: Patient presents for triage evaluation secondary to low fundal height FHT: 140 Moderate variability reactive no decelerations category I tracing [place]: no regular Contractions Assessment and plan: 40 weeks uterine size date discrepancy Reactive NST, reassuring maternal and status patient discharged to home to follow-up as scheudled. See problem list details for additional plan information. Charges/Coding Procedures Urinary/Genital [id number]: [id number] non-stress test Interp
== END 2025-05-01 16:11 | disposition home or self-care (01) ==
LOC: WPOUT 14:29 → WP 14:30
PROVIDERS: PCP Student in an Organized Health Care Education/Training Program; Referring Provider Obstetrics & Gynecology; Visit Provider Obstetrics & Gynecology
DX: O26.90 Pregnancy related conditions, unspecified, unspecified trimester (principal); Z3A.00 Weeks of gestation of pregnancy not specified
CPT/HCPCS: 59025; 59050; 76816; 99221; G0378

== ENCOUNTER 2025-05-04 03:20 | Inpatient (IN) | payer OTHER, SELFPAY ==
[2025-05-04] VITALS (31 sets, daily range): BP systolic 102–138; BP diastolic 64–81; PULSE 59–85; RESP 16–18; TEMP 35.9–36.9; O2SAT 96–99; BMI 24.7
--- OUTSIDE RECORDS SUMMARY | 2025-05-04 02:56 | XMS RPT_ITS | CCD ---
Author Organization [facility] Care Team Providers Care Bulk Station Agent Name Role Phone NAVEEN ARGUELLO Unavailable Unavailable PHYSICIAN, NONE Unavailable Unavailable Connor Blank Primary Care Provider Unavailab Connor Gilbert Referring Provider Unavailable Beulah SHOW JUMPING INSTRUCTOR, RICHARD Christian Attending Provider 1([phone] ) Dr. Mary Gonzalez Attending Provider 1(330 ) Dr. Yue Sanford Attending Provider 1( 30) Connor Blank Primary Care Provider Unavailab Connor Gilbert Referring Provider Unavailable RICHARD Riojas NP Attending Provider 1(330 ) Dr. Mary Gonzalez Attending Provider 1(330 ) Dr. Yue Sanford Attending Provider 1( 30) Connor Patten Primary Care Provider Unava ilable Connor Patten Referring Provider Unavaila Dr. Mary Monroy Attending Provider 1(330 ) RICHARD Riojas NP Attending Provider 1(330 ) Dr. Yue Sanford Attending Provider 1([phone] Dr. Mary Gonzalez Admit Provider [phone] Dr. Mary Gonzalez Other Provider [phone] MIKI Acosta Attending Provider 1(330) Dr. Connor Blank DO Primary Care Provider [phone] Dr. Connor Blank DO Referring Provider Lizy Acosta CNM Attending Provider 1(330) Lizy Acosta CNM Referring Provider [phone] YUE HERMAN Referring Unavailab ASHELY Guaraddo Attending Unavailable CONNOR BLANK L Primary Care Unavailable YUE HERMAN Referring Unavailab ASHELY Guardado Attending Unavailable CONNOR BLANK L Primary Care Unavailable BLANKCONNOR L Primary Care Unavailable RUFINO SHELDON Attending Unavailable YUE HERMAN Referring Unavailab teto Sanford DO, Dr. Turner Attending Provider Beulah SHOW JUMPING INSTRUCTOR-CAnahi Attending Provider Self Schedule, [facility] Attending Provider Lesli michoacano Gonzalez MD, Dr. Hernandez Attending Provider [phone] Abhay RAE, Dr. yRan Primary Care Provider [phone] Dr. Connor Blank DO Referring Provider Lizy Acosta CNM Attending Provider Dr. Connor Blank DO Primary Care Provider Dr. Connor Blank DO Referring Provider Toney ADAM-Nick Martinez Attending Provider Krysta Petersen CNM Attending Provider Lizy Acosta CNM Referring Provider Dr. Connor Blank DO Primary Care Provider [phone] Dr. Connor Blank DO Referring Provider Anahi Meehan Attending Provider Lizy Acosta CNM Other Provider Dr. Connor Blank DO Primary Care Provider Dr. Connor Blank DO Referring Provider Connor Blank Primary Care Unavailable Connor Blank Referring Unavailable Mary Gonzalez Attending Unavailable Connor Blank Referring Unavailable Mary Gonzalez Attending Unavailable Connor Blank Primary Care Unavailable Connor Blank Referring Unavailable Lizy Acosta Attending Unavailable Connor Blank Primary Care Unavailable Mary Gonzalez Attending Unavailable Connor Blank Primary Care Unavailable Mary Gonzalez Consulting Unavailable Mary Gonzalez Referring Unavailable Blank, Connor Primary Care Unavailable Dave Lizy Consulting Unavailable Dave, Lizy Referring Unavailable Lizy Acosta Attending Unavailable Blank, Connor Referring Unavailable Nick Ziegler NP Attending Unavailable Blank, Connor Primary Care Unavailable Anahi Riojas NP Attending Unavailable Blank, Connor Primary Care Unavailable Blank, Connor Referring Unavailable Blank, Connor Primary Care Unavailable Dave, Lizy Referring Unavailable Lizy Acosta Attending Unavailable Blank, Connor Primary Care Unavailable Lizy Acosta Attending Unavailable Mary Gonzalez Attending Unavailable Blank, Connor Primary Care Unavailable Marcanthony Mary Referring Unavailable Blank, Connor Primary Care Unavailable Dave, Lizy Referring Unavailable Lizy Acosta Attending Unavailable Blank, Connor Primary Care Unavailable Lizy Acosta Attending Unavailable Blank, Connor Referring Unavailable MarcrobertonyMary Attending Unavailable Blank, Connor Primary Care Unavailable Blank, Connor Primary Care Unavailable Blank, Connor Referring Unavailable Lizy Acosta Attending Unavailable Blank, Connor Primary Care Unavailable Blank, Connor Referring Unavailable Mary Gonzalez Attending Unavailable Blank, Connor Primary Care Unavailable Blank, Connor Referring Unavailable Lizy Acosta Attending Unavailable Yue Sanford Attending Unavailabl e Blank, Connor Referring Unavailable Blank, Connor Primary Care Unavailable Krysta Petersen Attending Unavailable Blank, Connor Primary Care Unavailable Blank, Connor Referring Unavailable Krysta Petersen Attending Unavailable Blank, Connor Primary Care Unavailable Blank, Connor Referring Unavailable Blank, Connor Referring Unavailable Blank, Connor Primary Care Unavailable Lizy Acosta Attending Unavailable Blank, Connor Referring Unavailable Yue Sanford Attending Unavailabl e Blank, Connor Primary Care Unavailable Blank, Connor Referring Unavailable Anahi Riojas NP Attending Unavailable Blank, Connor Primary Care Unavailable BlankDr. Connor rowley DO Primary Care Physician Dr. Connor Blank DO Referring Provider Lizy Acosta CNM Attending Physician [phone] Beulah ADAM-CAnahi Attending Physician [phone] Krysta Petersen CNM Attending Physician [phone] Lizy Acosta CNM Nurse Practitioner [phone] Lisa FIGUEROA, Dr. Hernandez Attending Physician Dr. Yue Sanford DO Attending Physician Lisa FIGUEROA, Dr. Hernandez Referring Provider [phone] Lisa FIGUEROA, Dr. Hernandez Nurse Practitioner Medications Current Medications Medication Drug Class(es) Dates Sig (Normalized) Sig (Original) hydrOXYzine pamoate 50 mg oral capsule (1 source) Antihistamine Start: 07-15-2022 take 1 capsule by mouth three to four times daily Hydroxyzine Pamoate (Vistaril) 50 mg capsule Active 50 MG PO 3 to 4 times per day 60 July 15, 2022 12:00am Magnesium (14 sources) Start: 11-19-2024 take 1 tablet by mouth once daily Start: 11-19-2024 take 1 tablet by quynh th once daily Magnesium 250 mg tablet Active 250 mg PO daily November 19, 2024 12:00am Complies with drug therapy Start: 11-19-2024 take 1 tablet by quynh th once daily Magnesium 250 mg tablet Active 250 mg PO daily November 19, 2024 12:00am Multivit 51-Aovg-Gpudue 1-Dh a (Pnv-Dha) 27 mg iron-1 mg -300 mg capsule (20 sources) Start: 09-13-2024 Start: 09-13-2024 Multivit 47-Ir on-Folate 1-Dha (Pnv-Dha) 27 mg iron-1 mg -300 mg capsule Active NMA PO September 13, 2024 1:00am Complies with drug therapy Start: 09-13-2024 Multivit 47-Ir on-Folate 1-Dha (Pnv-Dha) 27 mg iron-1 mg -300 mg capsule Active NMA PO September 13, 2024 1:00am Start: 01-24-2020 End: 04-11-2022 Multivit 12-Jdsr-Hccwha 1-Dh a (Pnv-Dha) 27 mg iron-1 mg -300 mg capsule Discontinued 1 NMA PO DAILY January 24, 2020 12:00am April 11, 2022 11:52am Start: 01-24-2020 End: 04-11-2022 Multivit 49-Hskw-Hskbbw 1-Dh a (Pnv-Dha) 27 mg iron-1 mg -300 mg capsule Discontinued 1 NMA PO DAILY January 24, 2020 12:00am April 11, 2022 11:52am Start: 01-24-2020 End: 04-11-2022 take 1 capsule by mouth once daily Multivit 14-Pypk-Voizpn 1-Dha (Pnv-Dha) 27 mg iron-1 mg -300 mg capsule Discontinued 1 CAP PO DAILY January 23, 2020 11:00pm April 11, 2022 10:52am Start: 01-24-2020 End: 04-11-2022 take 1 capsule by mouth once daily Multivit 69-Liuj-Xfnkgq 1-Dha (Pnv-Dha) 27 mg iron-1 mg -300 mg capsule Discontinued 1 CAP PO DAILY January 24, 2020 12:00am April 11, 2022 11:52am Start: 01-24-2020 take 1 capsule by mo [facility] once daily Multivit 51-Ncyz-Hfwgxo 1-Dha (Pnv-Dha) 27 mg iron-1 mg -300 mg capsule Active 1 CAP PO DAILY January 24, 2020 12:00am Completed/Discontinued Medications Medication Drug Class(es) Dates Sig (Normalized) Sig (Original) amoxicillin 500 mg oral tablet (14 sources) Penicillin-class Antibacterial Start: 12-08-2024 End: 12-18-2024 take 1 tablet by mouth every twelve hours Amoxicillin 500 mg tablet Discontinued 500 mg PO Q12H 20 December 08, 2024 12:00am December 17, 2024 12:00am December 18, 2024 12:07am naproxen 250 mg oral tablet (19 sources) Nonsteroidal Anti-inflammatory Drug Start: 09-18-2020 End: 11-09-2020 take 250-500 mg by mouth every eight hours as needed for pain Naproxen 250 MG tablet Discontinued 250 - 500 mg PO EVERY 8 HOURS NEEDED as needed for MILD PAIN 29 08September 18, 2020 1:00am November 09, 2020 3:39pm Vit 85-Iron-Fa 1-Dha (Prenate Pixie) 10 mg iron- 1 mg-200 mg capsule (12 sources) Start: 03-24-2022 End: 09-13-2024 take 1 capsule by mouth once daily Vit 85-Iron-Fa 1-Dha (Prenate Pixie) 10 mg iron- 1 mg-200 mg capsule Discontinued 1 NMA PO DAILY 30 12 Ell[place] 25th, 2022 12:00am September 13, 2024 2:42pm Start: 03-24-2022 End: 09-13-2024 take 1 capsule by mouth once daily Vit 85-Iron-Fa 1-Dha (Prenate Pixie) 10 mg iron- 1 mg-200 mg capsule Discontinued 1 NMA PO DAILY March 24, 2022 12:00am September 13, 2024 2:42pm Start: 03-24-2022 take 1 capsule by mo [facility] once daily Vit 85-Iron-Fa 1-Dha (Prenate Pixie) 10 mg iron- 1 mg-200 mg capsule Active 1 CAP PO DAILY March 23, 2022 11:00pm Start: 03-24-2022 take 1 capsule by mo uth once daily Vit 85-Iron-Fa 1-Dha (Prenate Pixie) 10 mg iron- 1 mg-200 mg capsule Active 1 CAP PO DAILY March 24, 2022 12:00am Vits 85-Iron-Fa 1-Dha (Prenate Pixie) 10 mg iron- 1 mg-200 mg capsule (7 sources) Start: 03-24-2022 End: 09-13-2024 take 1 capsule by mouth once daily Vits 85-Iron-Fa 1-Dha (Prenate Pixie) 10 mg iron- 1 mg-200 mg capsule Discontinued 1 NMA PO DAILY 29 07March 24, 2022 12:00am September 13, 2024 2:42pm Problems Active Problems Problem Classification Problem Date Documented Date Episodic/Chronic Anxiety disorders (20 sources) Anxiety; Translations: [Anxiety disorder, unspecified] Onset: 03-18-2025 08-15-2022 Chronic Comment on above: vistaril ordered, ne eds to talk further at next OB appointment about possible SSRI/vistaril helpful. Declines zoloft. counseling recommended. Stable stable. no meds stable. no meds. 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 Weekly BPP and growth Q4wk. Del at 39wk if >1.5mm. 14mm plan IOL monday at 40w3d2/10: remains stable, nl BPP3/10: remains stable, nl BPP Genitourinary symptoms and ill-defined conditions (20 sources) Prominent renal pelvis; Translations: [Other symptoms and signs involving the genitourinary system] 09-30-2022 Episodic Comment on above: 09/29/22- mild dilatio n. recommend follow up after deliveryfetus <7mm but prominent:recheck 08/09/22 Hemorrhage during ; abruptio placenta; placenta previa (20 sources) Low lying placenta; Translations: [Low lying placenta NOS or without hemorrhage, second trimester] 09-01-2022 Episodic Comment on above: 1.7cm no pelvic rest needed FU @ 28 wks/resolved Immunizations and screening for infectious disease (20 sources) Contact with or exposure to other viral diseases; Translations: [Lab test negative for COVID-19 virus] Onset: 02-21-2025 09-18-2020 Episodic Other complications of (19 sources) ultrasound scan abnormal; Translations: [Abnormal ultrasonic finding on screening of mother] 09-18-2020 Episodic Comment on above: Echogenic cardiac fo cus and eccentric cord insertion. Offered NIPT - patient declines. q4 growth ultrasounds. growth adequate, 07/20, 08/17/20 Other complications of (20 sources) Reduced movement; Translations: [Decreased movements, unspecified trimester, not applicable or unspecified] 03-07-2025 Episodic Comment on above: NST obtained in offi ce Other complications of (20 sources) Variable heart decelerations; Translations: [Maternal care for abnormalities of the heart rate or rhythm, unspecified trimester, not applicable or unspecified] 03-07-2025 Episodic Comment on above: IVF and BPP ordered. Other complications of (1 source) Maternal care for abnormalities of the heart rate or rhythm, unspecified trimester, not applicable or unspecified; Translations: [Maternal care for abnormalities of the heart rate or rhythm, unspecified trimester, not applicable or unspecified] Onset: 03-18-2025 Episodic Other complications of (2 sources) Decreased movements, unspecified trimester, not applicable or unspecified; Translations: [Decreased movements, unspecified trimester, not applicable or unspecified] Onset: 03-07-2025 Episodic Other complications of (1 source) Maternal care for abnormalities of the heart rate or rhythm, third trimester, not applicable or unspecified; Translations: [Maternal care for abnormalities of the heart rate or rhythm, third trimester, not applicable or unspecified] Onset: 03-18-2025 Episodic Other conditions (20 sources) choroid plexus cyst 12-15-2024 Episodic Comment on above: offer NIPT offer NIPT declined Other and delivery including normal (20 sources) Normal ; Translations: [Encounter for supervision of normal , unspecified, unspecified trimester] Onset: 10-10-2024 Episodic Comment on above: SM IAL 41 girl M aislyn PRR, , OTTO 05/01, Perla Mora, Bud PRR OTTO 09/17/20 ITS A BOY! (name secret) Spouse: Bud PRR , OTTO , girl Manishcorrina Haas, Spouse- Bud declined NIPT & Gudino ier testing declined genetic, ca rrier and ntd. Overall anatomy normal FU 2 wks with MFM for additional heart views, echogenic intracardiac focus and eccentric cord insertion. Serial growth recommended @ [facility] @ 4 wks Neg GBS. anatomy nl, initially declined NIPT & Carrier testing; PRR, , OTTO 05/01, SURPRISE LEISA Haas, Perla, Bud declined NIPT & Gudino ier testing. anatomy scan normal. GBS neg, declined NI PT & Carrier testing. anatomy scan normal. Other upper respiratory infections (20 sources) Upper respiratory infection; Translations: [Acute upper respiratory infection, unspecified] Onset: 02-18-2025 12-19-2024 Episodic Polyhydramnios and other problems of amniotic cavity (20 sources) Polyhydramnios; Translations: [Polyhydramnios, unspecified trimester, not applicable or unspecified] 09-27-2022 Episodic Comment on above: CHERI-28.2 on 09/09; 17. Residual codes; unclassified (19 sources) Gestation period, 35 weeks; Translations: [35 weeks gestation of ] 09-18-2020 Episodic Comment on above: electronic covid marguerite t ordered 08/14/20 (scheduled for 2/15/21 at 1655) Residual codes; unclassified (15 sources) heart echogenicity on obstetric ultrasound scan 10-24-2022 Episodic Comment on above: declined NIPT testin g. Residual codes; unclassified (1 source) 38 weeks gestation of ; Translations: [38 weeks gestation of ] Onset: 04-18-2025 Episodic Residual codes; unclassified (1 source) 37 weeks gestation of ; Translations: [37 weeks gestation of ] Onset: 04-11-2025 Episodic Residual codes; unclassified (1 source) 36 weeks gestation of ; Translations: [36 weeks gestation of ] Onset: 04-03-2025 Episodic Residual codes; unclassified (1 source) 34 weeks gestation of ; Translations: [34 weeks gestation of ] Onset: 03-20-2025 Episodic Residual codes; unclassified (1 source) 32 weeks gestation of ; Translations: [32 weeks gestation of ] Onset: 03-18-2025 Episodic Residual codes; unclassified (1 source) 30 weeks gestation of ; Translations: [30 weeks gestation of ] Onset: 02-21-2025 Episodic Unclassified (2 sources) Normal labor; Translations: [...] (routine) with abnormal findings] Onset: 05-31-2017 Episodic Residual codes; unclassified (1 source) 21 weeks gestation of ; Translations: [21 weeks gestation of ] Onset: 12-19-2024 Episodic Unclassified (19 sources) Labor finding; Translations: [Active labor] 09-18-2020 Unclassified (19 sources) heart echogenicity on obstetric ultrasound scan; Translations: [ cardiac echogenic focus] 09-01-2022 Unclassified (2 sources) Spontaneous rupture of membranes; Translations: [Spontaneous rupture of amniotic membranes] 10-24-2022 Results Test Name Value Interpretation Reference Range Facility OB Limited With Biometricson 05-01-2025 OB Limited With Biometrics [facility] Imaging Services [address] [place], [place] [id number] OB Limited With Biometrics MR#: [id number] Acct: [id number] Name: RAMYA GOEL Rep #: [id number] : 1990 F 34 From: Jr Little MD PCP: Dr. Connor Blank DO Status: REG CLI Study: OB Limited With Biometrics Date of Exam: 05/01 Exam# [id number] Ordering Dr: Mary Gonzalez PROCEDURE: OB LIMITED WITH BIOMETRICS 05/01/2025 REASON FOR EXAM: GROWTH TECHNIQUE: Procedure Code: USOBGROWTH Modality: US Procedure: OB LIMITED WITH BIOMETRICS COMPARISON: 825 FINDINGS Number: 1 Position: Vertex Placental Position: Posterior Placental Abnormalities: No evidence of previa. DIMENSIONS: Biparietal Diameter: 9.3 cm/37 weeks 5 days Head Circumference: 33.5 cm/38 weeks 2 days Abdominal Circumference: 35.3 cm/39 weeks 1 day Femur Length: 7.3 cm/37 weeks 1 day ESTIMATED WEIGHT: 3521 g ESTIMATED WEIGHT PERCENTILE (24+ weeks): 41.9% tile ESTIMATED GESTATIONAL AGE: Baseline: 40 weeks 0 days By Ultrasound: 38 weeks 0 days ESTIMATED DATE OF DELIVERY: Baseline: 05/01/2025 By Ultrasound: 05/15/2025 BIOPHYSICAL ASSESSMENT: Amniotic Fluid Volume: 4.2 Amniotic Fluid Index: 11.7 (8-24 cm normal range) Cardiac Motion: 157 beats per minute (average) Trunk and Limb Motion: Present. MATERNAL ANATOMY: Adnexa: Neither maternal ovary is successfully identified. US/OB Limited With Biometrics IMPRESSION: Single live IUP in cephalic presentation with a estimated gestational age by ultrasound of 38 weeks 0 days and estimated delivery date of 05/15/2025. Reading Location: [place] [address] CC: Dr. Connor Blank DO; Dr. Mary Gonzalez MD Set Rider: Signed Normal [facility] OB Triage Progress Noteon OB Triage Progress Note [facility] Medical Records Department [address] [place] [address] OB Triage Progress Note 05/01/25 1603 MR#: [id number] Acct: [id number] Name: RAMYA GOEL Rep #: [id number] : 1990 34 From: Mary Gonzalez MD PCP: Dr. Connor Blank DO Status:REG CLI Y DOS: Location: [place] [address] Progress Notes Date of Service: 05/01/25 Progress Note: Patient presents for triage evaluation secondary to low fundal height FHT: 140 Moderate variability reactive no decelerations category I tracing [place]: no regular Contractions Assessment and plan: 40 weeks uterine size date discrepancy Reactive NST, reassuring maternal and status patient discharged to home to follow-up as scheudled. See problem list details for additional plan information. Charges/Coding Procedures Urinary/Genital 52xxx-59xxx: [id number] non-stress test Interp 05/01/25 1604 Date Mary Gonzalez MD Cosign Signature (if applicable): Date CC: Dr. Connor Blank DO; Dr. Mary Gonzalez MD Signed Normal [facility] Nailhead Setter Office Visit Reporton 05-01-2025 Nailhead Setter Office Visit Report [facility] [address], [address] [place] [address] OFFICE VISIT Date of Service: 05/01/25 MR#: [id number] Acct: [id number] Name: RAMYA GOEL Rep #: [id number] : 1990 Provider: Dr. Mary tan MD Age/Sex: 34/F [place] [facility] [place]: Signed Intake Vital Signs 03/07/25 08:38 04/23/25 09:23 05/01/25 13:56 Height 5 ft 7 in 5 ft 7 in 5 ft 7 in Weight: 159 lb BMI 24.9 BP 130/81 H Intake Visit Reasons: 40 WK OB *HAPPY DUE DATE Director Of Institutional Giving Required: No Is patient in pain?: No Allergies No Known Allergies Allergy (Verified 05/01/25 13:55) Medications ???Medication ???Instructions ???Recorded ???Confirmed ???Type multivitamin no.47-iron fum 27 cap PO 09/13/24 05/01/25 History mg-folate no.1 1 mg-dha 300 mg capsule (PNV-DHA) magnesium 250 mg tablet 250 mg PO QDAY 11/19/24 05/01/25 H istory Last Menstrual Period: 07/25/24 Zika: [...] 2 current occupational status: employed current occupation: [employer]- [employer] current occupational exposures/hazards: No pets and [...] none frequency: 3-4 times per week taryn/religious: Zoroastrian seatbelt use: always do you feel safe at home: Yes 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 Date Name GA/Weeks Outcome Route Bth Weight Gen Labor Lgth Anesthesia Del Locatn Provider FOB 09/18/20 Waldo 40 live - full term 7# Male [facility] Proko p 10/24/22 Perla 40 live - full term 8#11 Female epidural [facility] Sh liliana Lisa Bud Delivery Date: 09/18/20 Last Updated by: Pebbles Hardin admitted in active labor. normal vaginal delivery Delivery Date: 10/24/22 Last Updated by: Alyssa Rizo see problem list for complications, and ial 40 sm. HPI 40 WK OB *HAPPY DUE DATE Details: RAMYA GOEL is a 34 year old who presents for routine OB visit. OB Visit OTTO Calculator Estimated Delivery Date Method Current WG Current Estimate 05/01/25 LMP (Certain) 40w 0d Other Estimates 05/04/25 Ultrasound #1 39w 4d Expected Delivery Route/Plan Lsvd labor Preferences- CB/BF classes: no labor support person: Bud labor intervention preferences: [] pain management options preferred: wants limited. cut cord/dad catch: no : yes PP control planned: discussed discussed possible routes of delivery and associated risks: [] special requests: [] Specific Issue/Plans Covid status: [] Flu vaccine: [] Tdap vaccine: given Rhogam: NA LARC form signed: yes movement and labor precautions reviewed. Problem list reviewed and updated with the [...] ??- 169 -???-???-???-???-???-?? ?-???-???-???-???-???-? ??- KW- CRL con (more content not included)... Normal [facility] Laboratory - Chemistry and C hemistry - challengeOrdered By: Yue Hull on 04-23-2025 Glucose Ql (U) Negative [facility] Laboratory - UrinalysisOrder ed By: Yue Hull on 04-23-2025 Protein Ql (U) Negative [facility] Nailhead Setter Office Visit Reporton 04-23-2025 Nailhead Setter Office Visit Report [facility] [address], [address] [place] [address] OFFICE VISIT Date of Service: 04/23/25 MR#: [id number] Acct: [id number] Name: RAMYA GOEL Rep #: [id number] : 1990 Provider: Dr. Yue Lopez DO Age/Sex: 34/F Location: [facility] [place] Status: Signed Intake Vital Signs 03/07/25 08:38 04/03/25 09:24 04/18/25 09:32 04/23/25 09:23 Height 5 ft 7 in 5 ft 7 in 5 ft 7 in 5 ft 7 in Weight: 157 lb 7 oz BMI 24.6 BP 134/86 H Intake Visit Reasons: 39 WK OB Chief Complaint: 39 Week OB Director Of Institutional Giving Required: No Is patient in pain?: No Allergies No Known Allergies Allergy (Verified 04/23/25 09:23) Medications ???Medication ???Instructions ???Recorded ???Confirmed ???Type multivitamin no.47-iron fum 27 cap PO 09/13/24 04/23/25 History mg-folate no.1 1 mg-dha 300 mg capsule (PNV-DHA) magnesium 250 mg tablet 250 mg PO QDAY 11/19/24 04/23/25 H istory Last Menstrual Period: 07/25/24 Zika: [...] 2 current occupational status: employed current occupation: [employer]- [employer] current occupational exposures/hazards: No pets and [...] none frequency: 3-4 times per week taryn/religious: Zoroastrian seatbelt use: always do you feel safe at home: Yes 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 Date Name GA/Weeks Outcome Route Bth Weight Infant Gen Labor Lgth Anesthesia Del Locatn Provider FOB 09/18/20 Waldo 40 live - full term 7# Male [facility] Proko p 10/24/22 Perla 40 live - full term 8#11 Female epidural [facility] Sh liliana Lisa Bud Delivery Date: 09/18/20 Last Updated by: Pebbles Hardin admitted in active labor. normal vaginal delivery Delivery Date: 10/24/22 Last Updated by: Alyssa Rizo see problem list for complications, and ial 40 sm. HPI 39 WK OB Details: RAMYA GOEL is a 34 year old who presents for routine OB visit. OB Visit OTTO Calculator Estimated Delivery Date Method Current WG Current Estimate 05/01/25 LMP (Certain) 38w 6d Other Estimates 05/04/25 Ultrasound #1 38w 3d Expected Delivery Route/Plan Labor Preferences- CB/BF classes: no labor support person: Bud labor intervention preferences: [] pain management options preferred: wants limited. cut cord/dad catch: no : yes PP control planned: discussed discussed possible routes of delivery and associated risks: [] special requests: [] Specific Issue/Plans Covid status: [] Flu vaccine: [] Tdap vaccine: given Rhogam: NA LARC form signed: yes Problem list reviewed [...] -???-???-???-???-???-?? ?-???-???-???-???-???-? ??- KW- CRL cons with geoff (more content not included)... Normal [facility] Laboratory - Chemistry and C hemistry - challengeOrdered By: Lizy Acosta on 04-18-2025 Glucose Ql (U) Negative [facility] Laboratory - UrinalysisOrder ed By: Lizy Acosta on 04-18-2025 Protein Ql (U) Negative [facility] Nailhead Setter Office Visit Reporton 04-18-2025 Nailhead Setter Office Visit Report [facility]'s [address], [address] [place] [address] OFFICE VISIT Date of Service: 04/18/25 MR#: [id number] Acct: [id number] Name: RAMYA GOEL Rep #: [id number] : 1990 Provider: MIKI Bryan ams Age/Sex: 34/F [place] [facility] [place]: Signed Intake Vital Signs 03/07/25 08:38 04/11/25 13:06 04/18/25 09:32 Height 5 ft 7 in 5 ft 7 in 5 ft 7 in Weight: 159 lb 1 oz BMI 24.9 BP 130/63 H Intake Visit Reasons: 38 WK OB Director Of Institutional Giving Required: No Is patient in pain?: No Allergies No Known Allergies Allergy (Verified 04/18/25 09:33) Medications ???Medication ???Instructions ???Recorded ???Confirmed ???Type multivitamin no.47-iron fum 27 cap PO 09/13/24 04/18/25 History mg-folate no.1 1 mg-dha 300 mg capsule (PNV-DHA) magnesium 250 mg tablet 250 mg PO QDAY 11/19/24 04/18/25 H istory Last Menstrual Period: 07/25/24 Zika: Zika virus screening: Negative : No Have you fallen in the past year?: No PFSH PFSH Medical History Vaginal delivery [...] 2 current occupational status: employed current occupation: [employer] current occupational exposures/hazards: No pets and [...] none frequency: 3-4 times per week taryn/religious: Zoroastrian seatbelt use: always do you feel safe at home: Yes 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 Date Name GA/Weeks Outcome Route Bth Weight Infant Gen Labor Lgth Anesthesia Del Locatn Provider FOB 09/18/20 Wal[place] 40 live - full term 7# Male [facility] Proko p 10/24/22 Perla 40 live - full term 8#11 Female epidural [facility] Demi Gonzalez Bud Delivery Date: 09/18/20 Last Updated by: Pebbles Hardin admitted in active labor. normal vaginal delivery Delivery Date: 10/24/22 Last Updated by: Alyssa Rizo see problem list for complications, and ial 40 sm. HPI 38 WK OB Details: RAMYA GOEL is a 34 year old who presents for routine OB visit. OB Visit OTTO Calculator Estimated Delivery Date Method Current WG Current Estimate 05/01/25 LMP (Certain) 38w 1d Other Estimates 05/04/25 Ultrasound #1 37w 5d Expected Delivery Route/Plan Labor Preferences- CB/BF classes: no labor support person: Bud labor intervention preferences: [] pain management options preferred: wants limited. cut cord/dad catch: no : yes PP control planned: discussed discussed possible routes of delivery and associated risks: [] special requests: [] Specific Issue/Plans Covid status: [] Flu vaccine: [] Tdap vaccine: given Rhogam: NA LARC form signed: yes Problem list reviewed [...] CRL cons with dates. Declines NIPT 10/23/24 -???-???-???-? (more content not included)... Normal [facility] Laboratory - Chemistry and C hemistry - challengeOrdered By: Mary Gonzalez on 04-11-2025 Glucose Ql (U) Negative [facility] Laboratory - UrinalysisOrder ed By: Mary Gonzalez on 04-11-2025 Protein Ql (U) Negative [facility] Nailhead Setter Office Visit Reporton 04-11-2025 Nailhead Setter Office Visit Report [facility] [address], [address] [place] [address] OFFICE VISIT Date of Service: 04/11/25 MR#: [id number] Acct: [id number] Name: RAMYA GOEL Rep #: [id number] : 1990 Provider: Dr. Mary tan MD Age/Sex: 34/F [place] [facility] [place]: Signed Intake Vital Signs 03/07/25 08:38 04/03/25 09:24 04/11/25 13:06 04/11/25 13:06 Height 5 ft 7 in 5 ft 7 in 5 ft 7 in 5 ft 7 in Weight: 156 lb 1 oz BMI 24.4 BP 116/71 Intake Visit Reasons: 37wk ob Director Of Institutional Giving Required: No Is patient in pain?: No Allergies No Known Allergies Allergy (Verified 04/11/25 13:05) Medications ???Medication ???Instructions ???Recorded ???Confirmed ???Type multivitamin no.47-iron fum 27 cap PO 09/13/24 04/11/25 History mg-folate no.1 1 mg-dha 300 mg capsule (PNV-DHA) magnesium 250 mg tablet 250 mg PO QDAY 11/19/24 04/11/25 H istory Last Menstrual Period: 07/25/24 Zika: [...] 2 current occupational status: employed current occupation: [employer] current occupational exposures/hazards: No pets and [...] none frequency: 3-4 times per week taryn/religious: Zoroastrian seatbelt use: always do you feel safe at home: Yes 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 Date Name GA/Weeks Outcome Route Bth Weight Gen Labor Lgth Anesthesia Del Locatn Provider FOB 09/18/20 [place] 40 live - full term 7# Male [facility] Proko p 10/24/22 Perla 40 live - full term 8#11 Female epidural [facility] Demi Gonzalez Bud Delivery Date: 09/18/20 Last Updated by: Pebbles Hardin admitted in active labor. normal vaginal delivery Delivery Date: 10/24/22 Last Updated by: Alyssa Rizo see problem list for complications, and ial 40 sm. HPI 37wk ob Details: RAMYA GOEL is a 34 year old who presents for routine OB visit. OB Visit OTTO Calculator Estimated Delivery Date Method Current WG Current Estimate 05/01/25 LMP (Certain) 37w 1d Other Estimates 05/04/25 Ultrasound #1 36w 5d Expected Delivery Route/Plan Labor Preferences- CB/BF classes: no labor support person: Bud labor intervention preferences: [] pain management options preferred: wants limited. cut cord/dad catch: no : yes PP control planned: discussed discussed possible routes of delivery and associated risks: [] special requests: [] Specific Issue/Plans Covid status: [] Flu vaccine: [] Tdap vaccine: given Rhogam: NA LARC form signed: yes Problem list reviewed [...] CRL cons with dates. Declines NIPT 10/23/24 -???-???-???-?? (more content not included)... Normal [facility] Rule out Beta Strep (Grp. B) on 04-05-2025 ERVIN Group B Beta Streptococcus is not isolated. Normal [facility] Comment on above: Performed By: #### M 100.3400 #### [facility] Laboratory [address] [place], [address] Laboratory - Chemistry and C hemistry - challengeOrdered By: Lizy Acosta on 04-03-2025 Glucose Ql (U) Negative [facility] Laboratory - UrinalysisOrder ed By: Lizy Acosta on 04-03-2025 Protein Ql (U) Negative [facility] Nailhead Setter Office Visit Reporton 04-03-2025 Nailhead Setter Office Visit Report [facility]'s [address], [address] [place] [address] OFFICE VISIT Date of Service: 04/03/25 MR#: [id number] Acct: [id number] Name: RAMYA GOEL Rep #: [id number] : 1990 Provider: MIKI Bryan ams Age/Sex: 34/F Location[place] [facility] [place]: Signed Intake Vital Signs 02/06/25 09:08 03/20/25 14:45 04/03/25 09:24 Height 5 ft 7 in 5 ft 7 in 5 ft 7 in Weight: 157 lb 7 oz BMI 24.6 BP 115/74 Intake Visit Reasons: 36wk ob Chief Complaint: 36wk ob Director Of Institutional Giving Required: No Is patient in pain?: No Allergies No Known Allergies Allergy (Verified 04/03/25 09:23) Medications ???Medication ???Instructions ???Recorded ???Confirmed ???Type multivitamin no.47-iron fum 27 cap PO 09/13/24 04/03/25 History mg-folate no.1 1 mg-dha 300 mg capsule (PNV-DHA) magnesium 250 mg tablet 250 mg PO QDAY 11/19/24 04/03/25 H istory Last Menstrual Period: 07/25/24 : No PFSH PFSH Medical History Vaginal [...] 2 current occupational status: employed current occupation: [employer] current occupational exposures/hazards: No pets and [...] none frequency: 3-4 times per week taryn/religious: Zoroastrian seatbelt use: always do you feel safe at home: Yes 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 Date Name GA/Weeks Outcome Route Bth Weight Gen Labor Lgth Anesthesia Del Locatn Provider FOB 09/18/20 [place] 40 live - full term 7# Male [facility] Proko p 10/24/22 Perla 40 live - full term 8#11 Female epidural [facility] Demi Gonzalez Bud Delivery Date: 09/18/20 Last Updated by: Pebbles Hardin admitted in active labor. normal vaginal delivery Delivery Date: 10/24/22 Last Updated by: Alyssa Rizo see problem list for complications, and ial 40 sm. HPI 36wk ob Details: RAMYA GOEL is a 34 year old who presents for routine OB visit. OB Visit OTTO Calculator Estimated Delivery Date Method Current WG Current Estimate 05/01/25 LMP (Certain) 36w 0d Other Estimates 05/04/25 Ultrasound #1 35w 4d Expected Delivery Route/Plan Labor Preferences- CB/BF classes: no labor support person: Bud labor intervention preferences: [] pain management options preferred: wants limited. cut cord/dad catch: no : yes PP control planned: discussed discussed possible routes of delivery and associated risks: [] special requests: [] Specific Issue/Plans Covid status: [] Flu vaccine: [] Tdap vaccine: given Rhogam: NA LARC form signed: yes Problem list reviewed [...] ??- 12w 6d 129 lb 8 oz ( (more content not included)... Normal [facility] Screening beta-hemolytic Str eptococcus cultureOrdered By: Lizy Acosta on 04-03-2025 Beta-hemolytic Streptococcus culture Group B Beta Streptococcus is not isolated. [facility] Nailhead Setter Office Visit Reporton 03-20-2025 Nailhead Setter Office Visit Report [facility]'s [address], [address] [place] [address] OFFICE VISIT Date of Service: 03/20/25 MR#: [id number] Acct: [id number] Name: RAMYA GOEL Rep #: [id number] : 1990 Provider: Dr. Mary tan MD Age/Sex: 34/F Location[place] [facility] [place]: Signed Intake Vital Signs 02/06/25 09:08 03/07/25 10:01 03/20/25 14:45 Height 5 ft 7 in 5 ft 7 in 5 ft 7 in Weight: 152 lb 4 oz BMI 23.8 BP 119/74 Intake Visit Reasons: 34wk ob Director Of Institutional Giving Required: No Is patient in pain?: No Allergies No Known Allergies Allergy (Verified 03/20/25 14:45) Medications ???Medication ???Instructions ???Recorded ???Confirmed ???Type multivitamin no.47-iron fum 27 cap PO 09/13/24 03/20/25 History mg-folate no.1 1 mg-dha 300 mg capsule (PNV-DHA) magnesium 250 mg tablet 250 mg PO QDAY 11/19/24 03/20/25 H istory Last Menstrual Period: 07/25/24 Zika: [...] 2 current occupational status: employed current occupation: [employer] current occupational exposures/hazards: No pets and [...] none frequency: 3-4 times per week taryn/religious: Zoroastrian seatbelt use: always do you feel safe at home: Yes 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 Date Name GA/Weeks Outcome Route Bth Weight Infant Gen Labor Lgth Anesthesia Del Locatn Provider FOB 09/18/20 [place] 40 live - full term 7# Male [facility] Proko p 10/24/22 Perla 40 live - full term 8#11 Female epidural [facility] Demi Gonzalez Bud Delivery Date: 09/18/20 Last Updated by: Pebbles Hardin admitted in active labor. normal vaginal delivery Delivery Date: 10/24/22 Last Updated by: Alyssa Rizo see problem list for complications, and ial 40 sm. HPI 34wk ob Details: RAMYA GOEL is a 34 year old who presents for routine OB visit. OB Visit OTTO Calculator Estimated Delivery Date Method Current WG Current Estimate 05/01/25 LMP (Certain) 34w 0d Other Estimates 05/04/25 Ultrasound #1 33w 4d Expected Delivery Route/Plan Labor Preferences- CB/BF classes: no labor support person: Bud labor intervention preferences: [] pain management options preferred: wants limited. cut cord/dad catch: no : yes PP control planned: discussed discussed possible routes of delivery and associated risks: [] special requests: [] Specific Issue/Plans Covid status: [] Flu vaccine: [] Tdap vaccine: given Rhogam: NA LARC form signed: yes Problem list reviewed [...] cons with dates. Declines NIPT 10/23/24 -???-???-???-???-???-?? ?-???-???-???-???-? (more content not included)... Normal [facility] Laboratory - Chemistry and C hemistry - challengeOrdered By: Krysta Petersen on 03-07-2025 Glucose Ql (U) Negative [facility] Laboratory - UrinalysisOrder ed By: Krysta Petersen on 03-07-2025 Protein Ql (U) Negative [facility] OB Biophysical Prof W/O NSTo n 03-07-2025 OB Biophysical Prof W/O NST [facility] [address] [place] [address] OB Biophysical Prof W/O NST MR#: [id number] Acct: [id number] Name: RAMYA GOEL Rep #: [id number] : 1990 F 34 From: Delano bejarano MD PCP: Dr. Connor Blank, DO Status: DEP CLI Study: OB Biophysical Prof W/O NST Date of Exam: 03/24 Exam# [id number] Ordering Dr: Lizy Acosta CNM PROCEDURE: OB BIOPHYSICAL PROF W/O NST N/A REASON FOR EXAM: DECREASED MOVEMENT TECHNIQUE: OB BIOPHYSICAL PROF W/O NST COMPARISON: None FINDINGS LMP: July 25, 2025. Number: 1 Position: Transverse right. Placental Position: Posterior and not low-lying Placental Abnormalities: No evidence of previa. ESTIMATED GESTATIONAL AGE: Baseline: 32 weeks and 1 day ESTIMATED DATE OF DELIVERY: Baseline: May 01, 2025 BIOPHYSICAL ASSESSMENT: Amniotic Fluid Volume: 4.8 cm Amniotic Fluid Index: 16 cm (8-24 cm normal range) Cardiac Motion: 137 beats per minute (average) Trunk and Limb Motion: Present. MATERNAL ANATOMY: Adnexa: Neither maternal ovary is successfully identified. Biophysical profile: Breathing movements: 2 Gross body movements: 2 tone: 2 Amniotic fluid volume: 2 Total score: 8/8 US/OB Biophysical Prof W/O NST IMPRESSION: Normal biophysical profile. Reading Location: [id number] CC: MIKI Acosta; Dr. Connor Blank, Set Rider: Signed Normal [facility] OB Triage Progress Noteon OB Triage Progress Note [facility] Medical Records Department [address] [place] [address] OB Triage Progress Note 03/07/25 1308 MR#: [id number] Acct: [id number] Name: RAMYA GOEL Rep #: [id number] : 1990 34 From: Lizy Acosta CNM PCP: Dr. Connor Blank, Status:DEP CLI Y DOS: Location: [facility] Progress Notes Date of Service: 03/07/25 Progress Note: Patient presents for triage evaluation secondary to nonreassuring NST at 32 weeks gestation FHT: 135 Moderate variability reactive no decelerations category I tracing [place]: rare Contractions Assessment and plan: BPP 03/07, Reactive NST, reassuring maternal and status patient discharged to home to follow-up in office. See problem list details for additional plan information. Charges/Coding Multi Select Codes Urinary/Genital Urinary/Genital CPT Codes: 74298-35 non-stress test Interp Assessment Plan (1) Variable heart rate decelerations, antepartum: COMMENT: IVF and BPP ordered. (2) Decreased movement: COMMENT: NST obtained in office (3) Choroid plexus cyst of fetus: COMMENT: offer NIPT declined (4) Supervision of normal : QUALIFIERS: Normal : other normal Trimester: third trimester Qualified Code(s): Z34.83 - Encounter for supervision of other normal , third trimester COMMENT: PRR, , OTTO 05/01/25, SURPRISE Perla Mora, Bud (5) : QUALIFIERS: Weeks of gestation: 32 weeks Qualified Code(s): Z3A.32 - 32 weeks gestation of COMMENT: declined NIPT Carrier testing. anatomy scan normal. (6) Anxiety: COMMENT: stable. no meds. 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 03/07/25 1310 Date Lizy Avery Signature (if applicable): Date CC: MIKI Acosta; Dr. Connor Blank, DO Signed Normal [facility] Nailhead Setter Office Visit Reporton 03-07-2025 Nailhead Setter Office Visit Report [facility] [address], [address] [place] [address] OFFICE VISIT Date of Service: 03/07/25 MR#: [id number] Acct: [id number] Name: RAMYA GOEL Rep #: [id number] : 1990 Provider: MIKI kinsey Age/Sex: 34/F [place] [facility] [place]: Signed Intake Vital Signs 12/19/24 11:48 02/06/25 09:08 02/21/25 10:11 03/07/25 08:38 Height 5 ft 7 in 5 ft 7 in 5 ft 7 in 5 ft 7 in Weight: 147 lb 2 oz 147 lb 148 lb 6 oz BMI 23.0 23.0 23.2 BP 102/60 111/69 104/69 Intake Visit Reasons: 32wk ob Director Of Institutional Giving Required: No Is patient in pain?: No Feel stressed/tense/nervous/ anxious/difficulty sleeping: not at all Allergies No Known Allergies Allergy (Verified 03/07/25 08:36) Medications ???Medication ???Instructions ???Recorded ???Confirmed ???Type multivitamin no.47-iron fum 27 cap PO 09/13/24 03/07/25 History mg-folate no.1 1 mg-dha 300 mg capsule (PNV-DHA) magnesium 250 mg tablet 250 mg PO QDAY 11/19/24 03/07/25 H istory Last Menstrual Period: 07/25/24 Zika: [...] 2 current occupational status: employed current occupation: [employer] current occupational exposures/hazards: No pets and [...] none frequency: 3-4 times per week taryn/religious: Zoroastrian seatbelt use: always do you feel safe at home: Yes 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 Date Name GA/Weeks Outcome Route Bth Weight Gen Labor Lgth Anesthesia Del Locatn Provider FOB 09/18/20 [place] 40 live - full term 7# Male [facility] Proko p 10/24/22 [place] 40 live - full term 8#11 Female epidural [facility] Demi Gonzalez Bud Delivery Date: 09/18/20 Last Updated by: Pebbles Hardin admitted in active labor. normal vaginal delivery Delivery Date: 10/24/22 Last Updated by: Alyssa Rizo see problem list for complications, and ial 40 sm. HPI 32wk ob Details: RAMYA GOEL is a 34 year old who presents for routine OB visit. OB Visit OTTO Calculator Estimated Delivery Date Method Current WG Current Estimate 05/01/25 LMP (Certain) 32w 1d Other Estimates 05/04/25 Ultrasound #1 31w 5d Expected Delivery Route/Plan Labor Preferences- CB/BF classes: no labor support person: Bud labor intervention preferences: [] pain management options preferred: wants limited. cut cord/dad catch: no : yes PP control planned: discussed discussed possible routes of delivery and associated risks: [] special requests: [] Specific Issue/Plans Covid status: [] Flu vaccine: [] Tdap vaccine: [] Rhogam: NA LARC form signed: yes Problem list reviewed [...] (+8 oz) 124/83 -???-???-???-???-???-?? ?-???-???-???-???-???-? ??- 169 -???-???-???-???-??? (more content not included)... Normal [facility] Nailhead Setter Office Visit Reporton 02-21-2025 Nailhead Setter Office Visit Report [address], [address] [place] [address] OFFICE VISIT Date of Service: 02/21/25 MR#: [id number] Acct: [id number] Name: RAMYA GOEL Rep #: [id number] : 1990 Provider: MIKI kinsey Age/Sex: 34/F Location[place] [facility] [place] Status: Signed with Addenda ADDENDUM by Ruby Esteban on 02/21/25 at 1032 Office Procedure Documentation entered by Ruby Esteban 02/21/25 10:32: Immunizations Adacel(Tdap Adolesn/Adult)(PF) 2 Lf-(2.5-5-3-5)-5 Lf/0.5 mL IM syringe Performing Provider: Krysta Petersen CNM [place] [facility] Administered by: Ruby Esteban on 02/21/25 10:32 Dose Route Admin Location Dispensed Lot Number Expiration Date NDC Man ufacturer 0.5 mL IM Left Arm (SQ) 0.5 mL [id number] 12/29/26 67708-404-69 [employer]- [employer]STEUR VIS Given Date VIS Provided VIS Publication Date 02/21/25 Single Vaccine 24 Eligibility Eligibility Date Funding Source Not Applicable Date cc: * Signed Intake Vital Signs 12/19/24 11:48 02/06/25 09:08 02/21/25 10:11 Height 5 ft 7 in 5 ft 7 in 5 ft 7 in Weight: 147 lb BMI 23.0 BP 111/69 Intake Visit Reasons: 30wk ob Director Of Institutional Giving Required: No Is patient in pain?: No Allergies No Known Allergies Allergy (Verified 02/21/25 10:12) Medications ???Medication ???Instructions ???Recorded ???Confirmed ???Type multivitamin no.47-iron fum 27 cap PO 09/13/24 02/21/25 History mg-folate no.1 1 mg-dha 300 mg capsule (PNV-DHA) magnesium 250 mg tablet 250 mg PO QDAY 11/19/24 02/21/25 H istory Last Menstrual Period: 07/25/24 Zika: Zika virus screening: Negative : Yes Have you fallen in the past year?: No PFSH PFSH Medical History Vaginal delivery [...] 2 current occupational status: employed current occupation: [employer] [facility] current occupational exposures/hazards: No pets and [...] none frequency: 3-4 times per week taryn/religious: Zoroastrian seatbelt use: always do you feel safe at home: Yes 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 Date Name GA/Weeks Outcome Route Bth Weight Gen Labor Lgth Anesthesia Del Locatn Provider FOB 09/18/20 [place] 40 live - full term 7# Male [facility] Proko p 10/24/22 Perla 40 live - full term 8#11 Female epidural [facility] Demi Gonzalez Bud Delivery Date: 09/18/20 Last Updated by: Pebbles Hardin admitted in active labor. normal vaginal delivery Delivery Date: 10/24/22 Last Updated by: Alyssa Rizo see problem list for complications, and ial 40 sm. HPI 30wk ob Details: RAMYA GOEL is a 34 year old who presents for routine OB visit. OB Visit OTTO Calculator Estimated Delivery Date Method Current WG Current Estimate 05/01/25 LMP (Certain) 30w 1d Other Estimates 05/04/25 Ultrasound #1 29w 5d Expected Delivery Route/Plan Labor Preferences- CB/BF classes: no labor support person: Bud labor intervention preferences: [] pain management options preferred: wants limited. cut cord/dad catch: no : yes PP control planned: discussed discussed possible routes of delivery and associated risks: [] special requests: [] Specific Issue/Plans Covid status: [] Flu vaccine: [] Tdap vaccine: [] Rhogam: NA LARC form signed: yes Problem list reviewed and updated with the most current plan of (more content not included)... Normal [facility] Absolute lymphocyte countOrd ered By: Lizy Acosta on 02-06-2025 Lymphocytes Auto (Unsp spec) [#/Vol] 1.17 10*3/uL 0.83-4.[address] [facility] Absolute neutrophil countOrd ered By: Lizy Acosta on 02-06-2025 Neutrophils (Bld) [#/Vol] 4.7 10*3/uL 2.0-7.[address] [facility] Automated lymphocyte count a s percentage of total leukocytesOrdered By: Lizy Acosta on 02-06-2025 Lymphocytes/100 WBC Auto (Unsp spec) 18.5 % Low 19-[address] [facility] Basophil percentageOrdered B y: Lizy Acosta on 02-06-2025 Basophils/100 WBC (Bld) 0.6 % 0-1 [facility] CBC W/Diff, Automatedon 01-28 Absolute Lymph 1.17 X10 3/uL Normal 0.83-4.[address] [facility] Comment on above: Performed By: #### L 501.0250, L3890.6006, L509.8002, L100.0100 #### [facility] Laboratory [address] [place], [address] Absolute Neut 4.7 X10 3/uL Normal 2.0-7.[address] [facility] Comment on above: Performed By: #### L 501.0250, L3890.6006, L509.8002, L100.0100 #### [facility] Laboratory [address] [place], [address] Basophils/100 WBC (Bld) 0.6 % Normal 0-1 [facility] Comment on above: Performed By: #### L 501.0250, L3890.6006, L509.8002, L100.0100 #### [facility] Laboratory [address] [place], [address] Eosinophils/100 WBC (Bld) 0.3 % Normal 0-[address] [facility] Comment on above: Performed By: #### L 501.0250, L3890.6006, L509.8002, L100.0100 #### [facility] [address] [place], [address] Erythrocyte distribution width (RBC) [Ratio] 13.3 % Normal 11.6-14.[address] [facility] Comment on above: Performed By: #### L 501.0250, L3890.6006, L509.8002, L100.0100 #### [facility] [address] [place], [address] Hematocrit (Bld) [Volume fraction] 37.9 % Normal 37-[address] [facility] Comment on above: Performed By: #### L 501.0250, L3890.6006, L509.8002, L100.0100 #### [facility] [address] [place], [address] Hemoglobin (Bld) [Mass/Vol] 12.6 g/dL Normal 12.0-15.[address] [facility] Comment on above: Performed By: #### L 501.0250, L3890.6006, L509.8002, L100.0100 #### [facility] [address] [place], [address] IG% 0.800 Normal 0.0-0.[address] [facility] Comment on above: Result Comment: IG% - Immature Granulocytes (promyelocytes, myelocytes and metamyelocytes) > 1% indicates that a LEFT SHIFT is Present. Performed By: #### L 501.0250, L3890.6006, L509.8002, L100.0100 #### [facility] [address] [place], [address] Lymphocytes/100 WBC (Bld) 18.5 % Low 19-[address] [facility] Comment on above: Performed By: #### L 501.0250, L3890.6006, L509.8002, L100.0100 #### [facility] [address] [place], [address] MCH (RBC) [Entitic mass] 30.1 pg Normal 27.0-32.[address] [facility] Comment on above: Performed By: #### L 501.0250, L3890.6006, L509.8002, L100.0100 #### [facility] [address] [place], [address] MCHC (RBC) [Mass/Vol] 33.2 g/dL Normal 32-36 [facility] Comment on above: Performed By: #### L 501.0250, L3890.6006, L509.8002, L100.0100 #### [facility] [address] [place], [address] MCV (RBC) [Entitic vol] 90.7 fL Normal 81-99 [facility] Comment on above: Performed By: #### L 501.0250, L3890.6006, L509.8002, L100.0100 #### [facility] [address] [place], [address] Monocytes/100 WBC (Bld) 5.5 % Normal 0-10 [facility] Comment on above: Performed By: #### L 501.0250, L3890.6006, L509.8002, L100.0100 #### [facility] [address] [place], [address] Neutrophils/100 WBC (Bld) 74.3 % High 47-[address] [facility] Comment on above: Performed By: #### L 501.0250, L3890.6006, L509.8002, L100.0100 #### [facility] [address] [place], [address] Nucleated RBC (Bld) [#/Vol] 0 10*3/uL Normal 0-[address] [facility] Comment on above: Performed By: #### L 501.0250, L3890.6006, L509.8002, L100.0100 #### [facility] [address] [place], [address] Platelet mean volume (Bld) [Entitic vol] 10.9 fL Normal 6.2-12.[address] [facility] Comment on above: Performed By: #### L 501.0250, L3890.6006, L509.8002, L100.0100 #### [facility] [address] [place], [address] Platelets (Bld) [#/Vol] 169 10*3/uL Normal 150-[address] [facility] Comment on above: Performed By: #### L 501.0250, L3890.6006, L509.8002, L100.0100 #### [facility] [address] [place], [address] RBC (Bld) [#/Vol] 4.18 10*6/uL Low 4.2-5.4 [facility] Comment on above: Performed By: #### L 501.0250, L3890.6006, L509.8002, L100.0100 #### [facility] [address] [place], [address] RDW SD 44.1 fl High 35.1-43.[address] [facility] Comment on above: Performed By: #### L 501.0250, L3890.6006, L509.8002, L100.0100 #### [facility] [address] [place], [address] WBC (Bld) [#/Vol] 6.3 10*3/uL Normal 4.4-11.0 [facility] Comment on above: Performed By: #### L 501.0250, L3890.6006, L509.8002, L100.0100 #### [facility] [address] [place], [address] Eosinophil percentageOrdered By: Lizy Acosta on 02-06-2025 Eosinophils/100 WBC (Bld) 0.3 % 0-[address] [facility] Erythrocyte distribution wid th ratioOrdered By: Lizy Acosta on 02-06-2025 Erythrocyte distribution width (RBC) [Ratio] 13.3 % 11.6-14.[address] [facility] Erythrocyte distribution wid th standard deviationOrdered By: Lizy Acosta on 02-06-2025 Erythrocyte distribution width (RBC) [Ratio] 44.1 fl High 35.1-43.[address] [facility] Glucose Challenge Gest 1H 50 allan 02-06-2025 GLU GEST 50g 1H 80 mg/dL Normal 70-[address] [facility] Comment on above: Performed By: #### L 501.0250, L3890.6006, L509.8002, L100.0100 ####[facility] [address] [place], [address] Glucose measurement at 2 kym rs post-dose gestational glucose tolerance testOrdered By: Lizy Acosta on 02-06-2025 Glucose [Mass/Vol] 80 mg/dL 70-140 [facility] HIVon 02-06-2025 HIV Non-Reactive Normal Nonreactive [facility] Comment on above: Result Comment: Non- Reactive Reactive Repeatedly reactive samples must be confirmed according to CDC recommended confirmatory algorithms. The subresults for either HIVAG or AHIV can be used as an aid in the selection of the confirmation algorithm for reactive samples. Send out specimens with Reactive results to [facility] for confirmation. Order the HIV antibody detection and differentiation: lc#[id number] Performed By: #### L 501.0250, L3890.6006, L509.8002, L100.0100 ####[facility] [address] [place], [address] Hematocrit Auto (Bld) [Volum e fraction]Ordered By: Lizy Acosta on 02-06-2025 Hematocrit (Bld) [Volume fraction] 37.9 % 37-[address] [facility] Hemoglobin measurementOrdere d By: Lizy Acosta on 02-06-2025 Hemoglobin (Bld) [Mass/Vol] 12.6 g/dL 12.0-15.[address] [facility] Immature granulocytes/100 WB C Auto (Bld)Ordered By: Lizy Acosta on 02-06-2025 Immature granulocytes/100 WBC (Bld) 0.800 % 0.0-0.[address] [facility] Comment on above: IG% - Immature Granu locytes (promyelocytes, myelocytes and metamyelocytes) > 1% indicates that a LEFT SHIFT is Present. Laboratory - Chemistry and C hemistry - challengeOrdered By: Anahi Riojas on 02-06-2025 Glucose Ql (U) Negative [facility] Laboratory - UrinalysisOrder ed By: Anahi Riojas on 02-06-2025 Protein Ql (U) Negative [facility] MCV (mean corpuscular volume ) determinationOrdered By: Lizy Acosta on 02-06-2025 MCV (RBC) [Entitic vol] 90.7 fL 81-99 [facility] Mean corpuscular hemoglobin (MCH) determinationOrdered By: Lizy Acosta on 02-06-2025 MCH (RBC) [Entitic mass] 30.1 pg 27.0-32.[address] [facility] Mean corpuscular hemoglobin concentration (MCHC) determinationOrdered By: Lizy Acosta on 02-06-2025 MCHC (RBC) [Mass/Vol] 33.2 g/dL 32-36 [facility] Mean platelet volume determi nationOrdered By: Lizy Acosta on 02-06-2025 Platelet mean volume (Bld) [Entitic vol] 10.9 fL 6.2-12.[address] [facility] Monocyte percentageOrdered B y: Lizy Acosta on 02-06-2025 Monocytes/100 WBC (Bld) 5.5 % 0-10 [facility] Neutrophil percentageOrdered By: Lizy Acosta on 02-06-2025 Neutrophils/100 WBC (Bld) 74.3 % High 47-[address] [facility] No Panel InformationOrdered By: Lizy Acosta on 02-06-2025 HIV (1&2) Antibody Non-Reactive Nonreactive [facility] Comment on above: Non-ReactiveReactive Repeatedly reactive samples must be confirmed according to CDC recommended confirmatory algorithms. The subresults for either HIVAG or AHIV can be used as an aid in the selection of the confirmation algorithm for reactive samples.Send out specimens with Reactive results to [facility] for confirmation.Order the HIV antibody detection and differentiation: #[id number] Nucleated red blood cell per centageOrdered By: Lizy Acosta on 02-06-2025 Nucleated RBC/100 WBC (Bld) [Ratio] 0 % 0-[address] [facility] Nail[employer]ter Office Visit Reporton 02-06-2025 Nailhead Setter Office Visit Report [facility] [address], [address] [place] [address] OFFICE VISIT Date of Service: 02/06/25 MR#: [id number] Acct: [id number] Name: RAMYA GOEL Rep #: [id number] : 1990 Provider: RICHARD griffiths Age/Sex: 34/F [place] [facility] [place]: Signed Intake Vital Signs 12/19/24 11:48 01/16/25 09:34 02/06/25 09:08 Height 5 ft 7 in 5 ft 7 in 5 ft 7 in Weight: 140 lb 8 oz 147 lb 2 oz BMI 21.9 23.0 BP 97/65 102/60 Intake Visit Reasons: 28wk ob/glucose Chief Complaint: 28 Week OB/Glucose Director Of Institutional Giving Required: No Is patient in pain?: No Allergies No Known Allergies Allergy (Verified 02/06/25 09:08) Medications ???Medication ???Instructions ???Recorded ???Confirmed ???Type multivitamin no.47-iron fum 27 cap PO 09/13/24 02/06/25 History mg-folate no.1 1 mg-dha 300 mg capsule (PNV-DHA) magnesium 250 mg tablet 250 mg PO QDAY 11/19/24 02/06/25 H istory Last Menstrual Period: 07/25/24 Zika: Zika virus screening: Negative : Yes PFSH PFSH Medical History Vaginal delivery cardiac [...] 2 current occupational status: employed current occupation: [employer] current occupational exposures/hazards: No pets and [...] none frequency: 3-4 times per week taryn/religious: Zoroastrian seatbelt use: always do you feel safe at home: Yes 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 Date Name GA/Weeks Outcome Route Bth Weight Gen Labor Lgth Anesthesia Del Locatn Provider FOB 09/18/20 [place] 40 live - full term 7# Male [facility] Proko p 10/24/22 [place] 40 live - full term 8#11 Female epidural [facility] Sh liliana Gonzalez Bud Delivery Date: 09/18/20 Last Updated by: Pebbles Hardin admitted in active labor. normal vaginal delivery Delivery Date: 10/24/22 Last Updated by: Alyssa Rizo see problem list for complications, and ial 40 sm. HPI 28wk ob/glucose Details: RAMYA GOEL is a 34 year old who presents for routine OB visit. OB Visit OTTO Calculator Estimated Delivery Date Method Current WG Current Estimate 05/01/25 LMP (Certain) 28w 0d Other Estimates 05/04/25 Ultrasound #1 27w 4d Expected Delivery Route/Plan Labor Preferences- CB/BF classes: no labor support person: Bud labor intervention preferences: [] pain management options preferred: wants limited. cut cord/dad catch: no : yes PP control planned: discussed discussed possible routes of delivery and associated risks: [] special requests: [] Specific Issue/Plans Covid status: [] Flu vaccine: [] Tdap vaccine: [] Rhogam: NA LARC form signed: yes Problem list reviewed [...] 169 -???-???-???-???-???-?? ?-???-???-???-???-???-? ??- KW- CRL cons wit (more content not included)... Normal [facility] Platelet countOrdered By: Beto Acosta on 02-06-2025 Platelets (Bld) [#/Vol] 169 10*3/uL 150-[address] [facility] RBC Auto (Bld) [#/Vol]Ordere d By: Lizy Acosta on 02-06-2025 RBC (Bld) [#/Vol] 4.18 10*6/uL Low 4.2-5.4 [facility] Syphilis Antibodieson 2024 Syphilis Abs Non-Reactive Normal Nonreactive [facility] Comment on above: Performed By: #### L 501.0250, L3890.6006, L509.8002, L100.0100 ####[facility] [id number] [place], [place], [id number] White blood cell (WBC) count Ordered By: Lizy Acosta on 02-06-2025 WBC (Bld) [#/Vol] 6.3 10*3/uL 4.4-11.0 [facility] Laboratory - Chemistry and C hemistry - challengeOrdered By: Lizy Acosta on 01-16-2025 Glucose Ql (U) Negative [facility] Laboratory - UrinalysisOrder ed By: Lizy Acosta on 01-16-2025 Protein Ql (U) Negative [facility] Nailhead [employer]ter Office Visit Reporton 01-16-2025 Nailhead Setter Office Visit Report [facility] [address], [address] [place] [address] OFFICE VISIT Date of Service: 01/16/25 MR#: [id number] Acct: [id number] Name: RAMYA GOEL Rep #: [id number] : 1990 Provider: MIKI Bryan ams Age/Sex: 34/F Location: [facility] [place] Status: Signed Intake Vital Signs 10/23/24 14:30 12/19/24 11:48 01/16/25 09:34 Height 5 ft 7 in 5 ft 7 in 5 ft 7 in Weight: 140 lb 8 oz BMI 21.9 BP 97/65 Intake Visit Reasons: 25wk ob Chief Complaint: 25 Week OB Director Of Institutional Giving Required: No Is patient in pain?: No [...] 2 current occupational status: employed current occupation: [employer] current occupational exposures/hazards: No pets and [...] none frequency: 3-4 times per week taryn/religious: Zoroastrian seatbelt use: always do you feel safe at home: Yes 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 Date Name GA/Weeks Outcome Route Bth Weight Gen Labor Lgth Anesthesia Del Locatn Provider FOB 09/18/20 [place] 40 live - full term 7# Male [facility] Proko p 10/24/22 [place] 40 live - full term 8#11 Female epidural [facility] Sh liliana Lisa Bud Delivery Date: 09/18/20 [...] -???-???-???-???-???-?? ?-???-???-?? (more content not included)... Normal [facility] Progress Noteon 01-03-2025 [employer] Authentication Interface Message Text Note opened in error Normal [facility] Maintenance [employer] Authentication Interface Message Text [facility] Perinatology Antepartum Consult Note I had the [...] needed. No follow-up has been scheduled in [facility]. Thank you for the opportunity to participate in the care of Ramya Goel. I would be happy to see her again for her care this . Please feel free to contact me if you have any questions. My final recommendations will be communicated back to the requesting physician by way of shared medical record or fax. Solange Howard MD Normal [facility] Laboratory - Chemistry and C hemistry - challengeOrdered By: Mary Gonzalez on 12-19-2024 Glucose Ql (U) Negative [facility] Laboratory - UrinalysisOrder ed By: Mary Gonzalez on 12-19-2024 Protein Ql (U) Negative [facility] Nailhead Setter Office Visit Reporton 12-19-2024 Nailhead Setter Office Visit Report [facility]'s [address], [address] [place] [address] OFFICE VISIT Date of Service: 12/19/24 MR#: [id number] Acct: [id number] Name: RAMYA GOEL Rep #: [id number] : 1990 Provider: Dr. Mary tan MD Age/Sex: 33/F Location[place] [facility] [place] Status: Signed Intake Vital Signs 10/23/24 14:30 12/08/24 09:05 12/19/24 11:44 12/19/24 11:48 Height 5 ft 7 in 5 ft 7 in 5 ft 7 in 5 ft 7 in Weight: 136 lb 8 oz BMI 21.4 BP 116/74 Intake Visit Reasons: 20wk ob Director Of Institutional Giving Required: No Is patient in pain?: No [...] 2 current occupational status: employed current occupation: [employer] current occupational exposures/hazards: No pets and [...] none frequency: 3-4 times per week taryn/religious: Zoroastrian seatbelt use: always do you feel safe at home: Yes 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 Date Name GA/Weeks Outcome Route Bth Weight Gen Labor Lgth Anesthesia Del Locatn Provider FOB 09/18/20 [place] 40 live - full term 7# Male [facility] Proko p 10/24/22 [place] 40 live - full term 8#11 Female epidural [facility] liliana Farrell Delivery Date: 09/18/20 Last Updated [...] -???-???-???-???-???-?? ?-???-???-???-???- (more content not included)... Normal [facility] Rapid group A Streptococcus antigen assay at point of careOrdered By: Nick Ziegler on 12-08-2024 S. pyogenes Ag IA.rapid Ql (Throat) Negative [facility] Urgent Care Visit Reporton 0 12-08-2024 Urgent Care Visit Report [facility] [address], [address] [place] [address] OFFICE VISIT Date of Service: 12/08/24 MR#: [id number] Acct: [id number] Name: RAMYA GOEL Rep #: [id number] : 1990 Provider: [facility] Self Schedule Age/Sex: 33/F Location: [facility] Status: Signed Intake Vital Signs 11/19/24 13:40 [...] throat, swollen glands in neck, ear pain Director Of Institutional Giving Required: No Accompanied by: Self Is patient [...] 2 current occupational status: employed current occupation: [employer] current occupational exposures/hazards: No pets and [...] none frequency: 3-4 times per week taryn/religious: Zoroastrian seatbelt use: always do you feel safe at home: Yes 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 Normal [facility] Laboratory - Chemistry and C hemistry - challengeOrdered By: Anahi Riojas on 11-19-2024 Glucose Ql (U) Negative [facility] Laboratory - UrinalysisOrder ed By: Anahi Riojas on 11-19-2024 Protein Ql (U) Negative [facility] Nailhead Setter Office Visit Reporton 11-19-2024 Nailhead Setter Office Visit Report [facility] [address], [address] [place] [address] OFFICE VISIT Date of Service: 11/19/24 MR#: [id number] Acct: [id number] Name: RAMYA GOEL Rep #: [id number] : 1990 Provider: RICHARD griffiths Age/Sex: 33/F Location[place] [facility] [place] Status: Signed Intake Vital Signs 09/27/24 08:02 10/23/24 14:30 11/19/24 13:40 Height 5 ft 7 in 5 ft 7 in 5 ft 7 in Weight: 131 lb 8 oz BMI 20.5 BP 118/80 Intake Visit Reasons: 16 wk ob Chief Complaint: 16 Week OB Director Of Institutional Giving Required: No Is patient in pain?: No [...] 2 current occupational status: employed current occupation: [employer] current occupational exposures/hazards: No pets and [...] none frequency: 3-4 times per week taryn/religious: Zoroastrian seatbelt use: always do you feel safe at home: Yes 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 Date Name GA/Weeks Outcome Route Bth Weight Gen Labor Lgth Anesthesia Del Locatn Provider FOB 09/18/20 [place] 40 live - full term 7# Male [facility] Proko p 10/24/22 [place] 40 live - full term 8#11 Female epidural [facility] liliana Gonzalez Bud Delivery Date: 09/18/20 Last [...] -???-???-???-???-???-?? ?-???-?? (more content not included)... Normal [facility] Laboratory - Chemistry and C hemistry - challengeOrdered By: Yue Hull on 10-23-2024 Glucose Ql (U) Negative [facility] Laboratory - UrinalysisOrder ed By: Yue Hull on 10-23-2024 Protein Ql (U) Negative [facility] Nailhead Setter Office Visit Reporton 10-23-2024 Nailhead Setter Office Visit Report [facility] [address], [address] [place] [address] OFFICE VISIT Date of Service: 10/23/24 MR#: [id number] Acct: [id number] Name: RAMYA GOEL Rep #: [id number] : 1990 Provider: Dr. Yue Lopez DO Age/Sex: 33/F Location: [facility] [place] Status: Signed Intake Vital Signs 01/01/24 10:54 09/27/24 08:02 10/23/24 14:30 10/23/24 14:30 Height 5 ft 7 in 5 ft 7 in 5 ft 7 in 5 ft 7 in Weight: 129 lb 8 oz BMI 20.2 BP 128/80 H Intake Visit Reasons: 12 wk ob Director Of Institutional Giving Required: No Is patient in pain?: No [...] 2 current occupational status: employed current occupation: [employer] current occupational exposures/hazards: No pets and [...] none frequency: 3-4 times per week taryn/religious: Zoroastrian seatbelt use: always do you feel safe at home: Yes 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 Date Name GA/Weeks Outcome Route Bth Weight Infant Gen Labor Lgth Anesthesia Del Locatn Provider FOB 09/18/20 [place] 40 live - full term 7# Male [facility] Proko p 10/24/22 [place] 40 live - full term 8#11 Female epidural [facility] Sh liliana Lisa Bud Delivery Date: 09/18/20 [...] 128/80 Negati (more content not included)... Normal [facility] Chlamydia/GC ITZEL aptimaon CHLAMY,NUC ACID Negative Normal Negative [facility] Comment on above: Performed By: #### M 100.2200, L7000.1800 ####[facility] [address] [place], [place], [id number] GC BY NUC ACID Negative Normal Negative [facility] Comment on above: Result Comment: Perf ormed at: =G - [facility] [address], [place] [id number] Metal Riveter: Lizzie Lezama MD, Phone: [phone] Performed By: #### M 100.2200, L7000.1800 ####[facility] [address] [place], [place], [id number] Urine Cultureon 09-28-2024 URC Culture exhibits no growth. Normal [facility] Comment on above: Performed By: #### M 100.2200, L7000.1800 ####[facility] [address] [place], [place], [id number] Absolute lymphocyte countOrd ered By: Lizy Acosta on 09-27-2024 Lymphocytes Auto (Unsp spec) [#/Vol] 0.97 10*3/uL 0.83-4.[address] [facility] Absolute neutrophil countOrd ered By: Lizy Acosta on 09-27-2024 Neutrophils (Bld) [#/Vol] 4.3 10*3/uL 2.0-7.[address] [facility] Automated lymphocyte count a s percentage of total leukocytesOrdered By: Lizy Acosta on 09-27-2024 Lymphocytes/100 WBC Auto (Unsp spec) 16.9 % Low 19-[address] [facility] Basophil percentageOrdered B y: Lizy Acosta on 09-27-2024 Basophils/100 WBC (Bld) 0.5 % 0-1 [facility] C. trachomatis rRNA ITZEL+prob e Ql (Unsp spec)Ordered By: Lizy Acosta on 09-27-2024 Chlamydia DNA (ITZEL) Negative Negative [facility] CBC W/Diff, Automatedon 09-01 Absolute Lymph 0.97 X10 3/uL Normal 0.83-4.[address] [facility] Comment on above: Performed By: #### L 3890.6301, BTS, L3890.6102, L509.8002, L3890.6006, L100.0100, L509.4006 ####[facility] [address] [place], [address] Absolute Neut 4.3 X10 3/uL Normal 2.0-7.[address] [facility] Comment on above: Performed By: #### L 3890.6301, BTS, L3890.6102, L509.8002, L3890.6006, L100.0100, L509.4006 ####[facility] [address] [place], [address] Basophils/100 WBC (Bld) 0.5 % Normal 0-1 [facility] Comment on above: Performed By: #### L 3890.6301, BTS, L3890.6102, L509.8002, L3890.6006, L100.0100, L509.4006 ####[facility] [address] [place], [address] Eosinophils/100 WBC (Bld) 0.2 % Normal 0-[address] [facility] Comment on above: Performed By: #### L 3890.6301, BTS, L3890.6102, L509.8002, L3890.6006, L100.0100, L509.4006 ####[facility] [address] [place], [address] Erythrocyte distribution width (RBC) [Ratio] 14.0 % Normal 11.6-14.[address] [facility] Comment on above: Performed By: #### L 3890.6301, BTS, L3890.6102, L509.8002, L3890.6006, L100.0100, L509.4006 ####[facility] [address] [place], [address] Hematocrit (Bld) [Volume fraction] 38.3 % Normal 37-[address] [facility] Comment on above: Performed By: #### L 3890.6301, BTS, L3890.6102, L509.8002, L3890.6006, L100.0100, L509.4006 ####[facility] [address] [place], [address] Hemoglobin (Bld) [Mass/Vol] 12.8 g/dL Normal 12.0-15.[address] [facility] Comment on above: Performed By: #### L 3890.6301, BTS, L3890.6102, L509.8002, L3890.6006, L100.0100, L509.4006 ####[facility] [address] [place], [address] IG% 0.200 Normal 0.0-0.[address] [facility] Comment on above: Result Comment: IG% - Immature Granulocytes (promyelocytes, myelocytes and metamyelocytes) > 1% indicates that a LEFT SHIFT is Present. Performed By: #### L 3890.6301, BTS, L3890.6102, L509.8002, L3890.6006, L100.0100, L509.4006 ####[facility] [address] [place], [address] Lymphocytes/100 WBC (Bld) 16.9 % Low 19-[address] [facility] Comment on above: Performed By: #### L 3890.6301, BTS, L3890.6102, L509.8002, L3890.6006, L100.0100, L509.4006 ####[facility] [address] [place], [address] MCH (RBC) [Entitic mass] 27.5 pg Normal 27.0-32.[address] [facility] Comment on above: Performed By: #### L 3890.6301, BTS, L3890.6102, L509.8002, L3890.6006, L100.0100, L509.4006 ####[facility] [address] [place], [address] MCHC (RBC) [Mass/Vol] 33.4 g/dL Normal 32-36 [facility] Comment on above: Performed By: #### L 3890.6301, BTS, L3890.6102, L509.8002, L3890.6006, L100.0100, L509.4006 ####[facility] [address] [place], [address] MCV (RBC) [Entitic vol] 82.4 fL Normal 81-99 [facility] Comment on above: Performed By: #### L 3890.6301, BTS, L3890.6102, L509.8002, L3890.6006, L100.0100, L509.4006 ####[facility] [address] [place], [address] Monocytes/100 WBC (Bld) 8.0 % Normal 0-10 [facility] Comment on above: Performed By: #### L 3890.6301, BTS, L3890.6102, L509.8002, L3890.6006, L100.0100, L509.4006 ####[facility] [address] [place], [address] Neutrophils/100 WBC (Bld) 74.2 % High 47-[address] [facility] Comment on above: Performed By: #### L 3890.6301, BTS, L3890.6102, L509.8002, L3890.6006, L100.0100, L509.4006 ####[facility] [address] [place], [address] Nucleated RBC (Bld) [#/Vol] 0 10*3/uL Normal 0-[address] [facility] Comment on above: Performed By: #### L 3890.6301, BTS, L3890.6102, L509.8002, L3890.6006, L100.0100, L509.4006 ####[facility] [address] [place], [address] Platelet mean volume (Bld) [Entitic vol] 11.1 fL Normal 6.2-12.[address] [facility] Comment on above: Performed By: #### L 3890.6301, BTS, L3890.6102, L509.8002, L3890.6006, L100.0100, L509.4006 ####[facility] [address] [place], [address] Platelets (Bld) [#/Vol] 154 10*3/uL Normal 150-[address] [facility] Comment on above: Performed By: #### L 3890.6301, BTS, L3890.6102, L509.8002, L3890.6006, L100.0100, L509.4006 ####[facility] [address] [place], [address] RBC (Bld) [#/Vol] 4.65 10*6/uL Normal 4.2-5.4 [facility] Comment on above: Performed By: #### L 3890.6301, BTS, L3890.6102, L509.8002, L3890.6006, L100.0100, L509.4006 ####[facility] [address] [place], [address] RDW SD 41.2 fl Normal 35.1-43.[address] [facility] Comment on above: Performed By: #### L 3890.6301, BTS, L3890.6102, L509.8002, L3890.6006, L100.0100, L509.4006 ####[facility] [address] [place], [address] WBC (Bld) [#/Vol] 5.7 10*3/uL Normal 4.4-11.0 [facility] Comment on above: Performed By: #### L 3890.6301, BTS, L3890.6102, L509.8002, L3890.6006, L100.0100, L509.4006 ####[facility] [address] [place], [address] Chlamydia trachomatis rRNA d etection by probe and target amplification methodOrdered By: Lizy Acosta on 09-27-2024 C. trachomatis rRNA ITZEL+probe Ql (Unsp spec) Negative Negative [facility] Eosinophil percentageOrdered By: Lizy Acosta on 09-27-2024 Eosinophils/100 WBC (Bld) 0.2 % 0-[address] [facility] Erythrocyte distribution wid th ratioOrdered By: Lizy Acosta on 09-27-2024 Erythrocyte distribution width (RBC) [Ratio] 14.0 % 11.6-14.[address] [facility] Erythrocyte distribution wid th standard deviationOrdered By: Lizy Acosta on 09-27-2024 Erythrocyte distribution width (RBC) [Entitic vol] 41.2 fL 35.1-43.[address] [facility] Erythrocyte distribution width (RBC) [Ratio] 41.2 fl 35.1-43.[address] [facility] HBV surface Ag Ql (S)Ordered By: Lizy Acosta on 09-27-2024 Hepatitis B Surface Antigen Non-Reactive Nonreactive [facility] Comment on above: Reactive: Presumptiv e evidence of HBV. Repeatedly reactive samples must be confirmed using a neutralization test ([employer] HBsAg Confirmatory Test)Non-Reactive: HBsAg not detected; does not exclude the possibility of exposure to HBV Hematocrit Auto (Bld) [Volum e fraction]Ordered By: Lizy Acosta on 09-27-2024 Hematocrit (Bld) [Volume fraction] 38.3 % 37-[address] [facility] Hemoglobin measurementOrdere d By: Lizy Acosta on 09-27-2024 Hemoglobin (Bld) [Mass/Vol] 12.8 g/dL 12.0-15.[address] [facility] Hepatitis C antibodyOrdered By: Lizy Acosta on 09-27-2024 Hepatitis C Antibody Non-Reactive Nonreactive [facility] Comment on above: Reactive: Presumptiv e evidence of antibodies to HCV. Follow CDC recommendations for supplemental testing.Non-Reactive: Antibodies to HCV were not detected; does not exclude the possibility of exposure to HCVReactive Results are presumptive evidence of antibodies to HCV. Follow CDC recommendations for supplemental testing.Order confirmation testing: HCV Quant by PCR testing - HCVPCR #[id number] Non Reactive: < 0.8 Equivocal: >/= 0.8 to < 1.0 Reactive: >/= 1.0The CDC requires that a reactive/equivocal HCV antibody result be sent out for confirmation. HCV Quant by PCR testing. Immature granulocytes/100 WB C Auto (Bld)Ordered By: Lizy Acosta on 09-27-2024 Immature granulocytes/100 WBC (Bld) 0.200 % 0.0-0.[address] [facility] Comment on above: IG% - Immature Granu locytes (promyelocytes, myelocytes and metamyelocytes) > 1% indicates that a LEFT SHIFT is Present. L3890.6006on 09-27-2024 HIV Non-Reactive Normal Nonreactive [facility] Comment on above: Result Comment: Non- Reactive Reactive Repeatedly reactive samples must be confirmed according to CDC recommended confirmatory algorithms. The subresults for either HIVAG or AHIV can be used as an aid in the selection of the confirmation algorithm for reactive samples. Send out specimens with Reactive results to [facility] for confirmation. Order the HIV antibody detection and differentiation: lc#[id number] Performed By: #### L 3890.6301, BTS, L3890.6102, L509.8002, L3890.6006, L100.0100, L509.4006 ####[facility] [address] [place], [place], [id number] L3890.6102on 09-27-2024 HEP B Surf Ag Non-Reactive Normal Nonreactive [facility] Comment on above: Result Comment: Reac tive: Presumptive evidence of HBV. Repeatedly reactive samples must be confirmed using a neutralization test ([employer] HBsAg Confirmatory Test) Non-Reactive: HBsAg not detected; does not exclude the possibility of exposure to HBV Performed By: #### L 3890.6301, BTS, L3890.6102, L509.8002, L3890.6006, L100.0100, L509.4006 ####[facility] [address] [facility] [place], [place], [id number] L3890.6301on 09-27-2024 Hepatitis C Ab Non-Reactive Normal Nonreactive [facility] Comment on above: Result Comment: Reac tive: Presumptive evidence of antibodies to HCV. Follow CDC recommendations for supplemental testing. Non-Reactive: Antibodies to HCV were not detected; does not exclude the possibility of exposure to HCV Reactive Results are presumptive evidence of antibodies to HCV. Follow CDC recommendations for supplemental testing. Order confirmation testing: HCV Quant by PCR testing - HCVPCR #[id number] Non Reactive: < 0.8 Equivocal: >/= 0.8 to < 1.0 Reactive: >/= 1.0 The CDC requires that a reactive/equivocal HCV antibody result be sent out for confirmation. HCV Quant by PCR testing. Performed By: #### L 3890.6301, BTS, L3890.6102, L509.8002, L3890.6006, L100.0100, L509.4006 ####[facility] [address] [place], [address] L509.4006on 09-27-2024 Rubella IgG REAC Normal Nonreactive [facility] Comment on above: Result Comment: Anti body Result: Interpretation Non-Reactive: Non-Immune Reactive: Immune The following results were obtained with the [employer] Rubella IgG assay. Results from assays of other manufacturers cannot be used interchangeably. Performed By: #### L 3890.6301, BTS, L3890.6102, L509.8002, L3890.6006, L100.0100, L509.4006 ####[facility] [address] [place], [place], [address] L509.8002on 09-27-2024 Syphilis Abs Non-Reactive Normal Nonreactive [facility] Comment on above: Performed By: #### L 3890.6301, BTS, L3890.6102, L509.8002, L3890.6006, L100.0100, L509.4006 ####[facility] [address] [facility] [place], [place], [id number] Laboratory - Microbiology an d Antimicrobial susceptibilityOrdered By: Lizy Acosta on 09-27-2024 HBV surface Ag Ql (S) Non-Reactive Nonreactive [facility] Comment on above: Reactive: Presumptiv e evidence of HBV. Repeatedly reactive samples must be confirmed using a neutralization test ([employer] HBsAg Confirmatory Test)Non-Reactive: HBsAg not detected; does not exclude the possibility of exposure to HBV Lymphocytes Auto (Unsp spec) [#/Vol]Ordered By: Lizy Acosta on 09-27-2024 Lymphocytes (Bld) [#/Vol] 0.97 10*3/uL 0.83-4.[address] [facility] Lymphocytes/100 WBC Auto (Un sp spec)Ordered By: Lizy Acosta on 09-27-2024 Lymphocytes/100 WBC (Bld) 16.9 % Low 19-[address] [facility] MCV (mean corpuscular volume ) determinationOrdered By: Lizy Acosta on 09-27-2024 MCV (RBC) [Entitic vol] 82.4 fL 81-99 [facility] Mean corpuscular hemoglobin (MCH) determinationOrdered By: Lizy Acosta on 09-27-2024 MCH (RBC) [Entitic mass] 27.5 pg 27.0-32.[address] [facility] Mean corpuscular hemoglobin concentration (MCHC) determinationOrdered By: Liyz Acosta on 09-27-2024 MCHC (RBC) [Mass/Vol] 33.4 g/dL 32-36 [facility] Mean platelet volume determi nationOrdered By: Lizy Acosta on 09-27-2024 Platelet mean volume (Bld) [Entitic vol] 11.1 fL 6.2-12.[address] [facility] Monocyte percentageOrdered B y: Lizy Acosta on 09-27-2024 Monocytes/100 WBC (Bld) 8.0 % 0-10 [facility] Neisseria gonorrhoeae nuclei c acid detection by amplified probe techniqueOrdered By: Lizy Acosta on 09-27-2024 N. gonorrhoeae DNA ITZEL+probe Ql (Unsp spec) Negative Negative [facility] Comment on above: Performed at: =[facility] [address] [id number] Director: Lizzie Lezama MD, Phone: [phone] Neutrophil percentageOrdered By: Lizy Acosta on 09-27-2024 Neutrophils/100 WBC (Bld) 74.2 % High 47-[address] [facility] No Panel InformationOrdered By: Lizy Acosta on 09-27-2024 HIV (1&2) Antibody Non-Reactive Nonreactive [facility] Comment on above: Non-ReactiveReactive Repeatedly reactive samples must be confirmed according to CDC recommended confirmatory algorithms. The subresults for either HIVAG or AHIV can be used as an aid in the selection of the confirmation algorithm for reactive samples.Send out specimens with Reactive results to [facility] for confirmation.Order the HIV antibody detection and differentiation: #[id number] Syphilis Total Antibody Non-Reactive Nonreactiv e [facility] Nucleated red blood cell per centageOrdered By: Lizy Acosta on 09-27-2024 Nucleated RBC/100 WBC (Bld) [Ratio] 0 % 0-[address] [facility] Nailhead Setter Office Visit Reporton 09-27-2024 Nailhead Setter Office Visit Report [facility] [address], [address] [place] [address] OFFICE VISIT Date of Service: 09/27/24 MR#: [id number] Acct: [id number] Name: RAMYA GOEL Rep #: [id number] 20 : 1990 Provider: MIKI Bryan ams Age/Sex: 33/F Location: [facility] Status: Signed Intake Vital Signs 01/01/24 10:54 09/27/24 08:02 Height 5 ft 7 in 5 ft 7 in Weight: 126 lb 8 oz BMI 19.8 BP 124/83 H Intake Visit Reasons: NOB LMP 07/25 Chief Complaint: NOB LMP 07/25 Director Of Institutional Giving Required: No Is patient in pain?: No [...] No current occupational status: employed current occupation: [employer] current occupational exposures/hazards: No pets and animals: [...] none frequency: 3-4 times per week taryn/religious: Zoroastrian seatbelt use: always do you feel safe at home: Yes 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 Date Name GA/Weeks Outcome Route Bth Weight Infant Gen Labor Lgth Anesthesia Del Locatn Provider FOB 09/18/20 [place] 40 live - full term 7# Male [facility] Proko p 10/24/22 [place] 40 live - full term 8#11 Female epidural [facility] liliana Gonzalez Bud Delivery Date: 09/18/20 Last [...] Declines NIPT (more content not included)... Normal [facility] Platelet countOrdered By: Beto Acosta on 09-27-2024 Platelets (Bld) [#/Vol] 154 10*3/uL 150-[address] [facility] RBC Auto (Bld) [#/Vol]Ordere d By: Lizy Acosta on 09-27-2024 RBC (Bld) [#/Vol] 4.65 10*6/uL 4.2-5.4 [facility] Rubella immune status determ ination by IgG antibody assayOrdered By: Lizy Acosta on 09-27-2024 Rubella IgG Antibody REAC Nonreactive [facility] Comment on above: Antibody Result: Int erpretationNon-Reactive: Non-ImmuneReactive: ImmuneThe following results were obtained with the [employer] Rubella IgG assay. Results from assays of other manufacturers cannot be used interchangeably. Type AND Screenon 09-27-2024 ABO and Rh group Nom (Bld) Blood group O Rh(D) positive Normal [facility] Comment on above: Order Comment: PN Performed By: #### L 3890.6301, BTS, L3890.6102, L509.8002, L3890.6006, L100.0100, L509.4006 ####[facility] [address] [place], [address] Urine cultureOrdered By: Manuel Acosta on 09-27-2024 Bacteria identified Cx Nom (U) Culture exhibits no growth. [facility] White blood cell (WBC) count Ordered By: Lizy Acosta on 09-27-2024 WBC (Bld) [#/Vol] 5.7 10*3/uL 4.4-11.0 [facility] Absolute lymphocyte countOrd ered By: Dr. Gonzalez on 10-24-2022 Lymphocytes Auto (Unsp spec) [#/Vol] 1.57 10*3/uL 0.83-4.[address] [facility] Basophil percentageOrdered B y: Dr. Gonzalez on 10-24-2022 Basophils/100 WBC (Bld) 0.3 % 0-1 [facility] Eosinophils/100 WBC (Bld) 0.3 % 0-[address] [facility] Neutrophils (Bld) [#/Vol] 5.0 10*3/uL 2.0-7.[address] [facility] Neutrophils/100 WBC (Bld) 69.8 % 47-[address] [facility] WBC (Bld) [#/Vol] 7.2 10*3/uL 4.4-11.0 [facility] Blood erythrocytes count (nu mber/volume)Ordered By: Dr. Gonzalez on 10-24-2022 RBC (Bld) [#/Vol] 4.22 10*6/uL 4.2-5.4 [facility] Blood hemoglobin measurement (mass/volume)Ordered By: Dr. Gonzalez on 10-24-2022 Hemoglobin (Bld) [Mass/Vol] 9.7 g/dL 12.0-15.[address] [facility] Blood lymphocytes/100 leukoc ytesOrdered By: Dr. Gonzalez on 10-24-2022 Lymphocytes/100 WBC (Bld) 21.7 % 19-[address] [facility] Blood monocytes/100 leukocyt esOrdered By: Dr. Gonzalez on 10-24-2022 Monocytes/100 WBC (Bld) 7.2 % 0-10 [facility] Blood platelet mean volumeOr dered By: Dr. Gonzalez on 10-24-2022 Platelet mean volume (Bld) [Entitic vol] 11.5 fL 6.2-12.[address] [facility] Determination of erythrocyte mean corpuscular volume (MCV)Ordered By: Dr. Gonzalez on 10-24-2022 MCV (RBC) [Entitic vol] 76.5 fL 81-99 [facility] Hematocrit Auto (Bld) [Volum e fraction]Ordered By: Dr. Gonzalez on 10-24-2022 Hematocrit (Bld) [Volume fraction] 32.3 % 37-[address] [facility] Laboratory - Hematology and Cell countsOrdered By: Dr. Gonzalez on 10-24-2022 Erythrocyte distribution width (RBC) [Entitic vol] 39.8 fL 35.1-43.[address] [facility] Erythrocyte distribution width (RBC) [Ratio] 14.6 % 11.6-14.[address] [facility] Immature granulocytes/100 WBC (Bld) 0.700 % 0.0-0.[address] [facility] Comment on above: IG% - Immature Granu locytes (promyelocytes, myelocytes and metamyelocytes) > 1% indicates that a LEFT SHIFT is Present. MCH (RBC) [Entitic mass] 23.0 pg 27.0-32.[address] [facility] Nucleated RBC/100 WBC (Bld) [Ratio] 0 % 0-[address] [facility] MCHC Auto (RBC) [Mass/Vol]Or dered By: Dr. Gonzalez on 10-24-2022 MCHC (RBC) [Mass/Vol] 30.0 g/dL 32-36 [facility] No Panel InformationOrdered By: Dr. Gonzalez on 10-24-2022 Vaginal Amniotic Fluid Detection Positive Negative [facility] Comment on above: Amniotic fluid prese nt indicates rupture of Membranes. RESULTS CALLED TO PHILLY MENDEZ 10/24/22 0435 Ryder Stewart.REPORT READ BACK BY SAME. Platelets bldOrdered By: Dr. Gonzalez on 10-24-2022 Platelets (Bld) [#/Vol] 144 10*3/uL 150-[address] [facility] Serum Treponema species anti body detectionOrdered By: Dr. Gonzalez on 10-24-2022 Treponema sp Ab Ql (S) Non-Reactive [facility] Laboratory - Chemistry and C hemistry - challengeon 10-20-2022 Glucose Ql (U) Negative [facility] Laboratory - Urinalysison Protein Ql (U) Negative [facility] Laboratory - Chemistry and C hemistry - challengeon 10-13-2022 Glucose Ql (U) Negative [facility] Laboratory - Urinalysison Protein Ql (U) Negative [facility] Laboratory - Chemistry and C hemistry - challengeon 10-06-2022 Glucose Ql (U) Negative [facility] Laboratory - Urinalysison Protein Ql (U) Negative [facility] No Panel InformationOrdered By: Dr. Hull on 10-01-2022 Group B Streptococcus Culture Group B Beta Streptococcus is not isolated. [facility] Laboratory - Chemistry and C hemistry - challengeon 09-29-2022 Glucose Ql (U) Negative [facility] Laboratory - Urinalysison Protein Ql (U) Negative [facility] Laboratory - Chemistry and C hemistry - challengeon 09-16-2022 Glucose Ql (U) Negative [facility] Laboratory - Urinalysison Protein Ql (U) Negative [facility] Laboratory - Chemistry and C hemistry - challengeon 08-15-2022 Glucose Ql (U) Negative [facility] Laboratory - Urinalysison Protein Ql (U) Negative [facility] Absolute lymphocyte countOrd ered By: Dr. Gonzalez on 08-02-2022 Lymphocytes Auto (Unsp spec) [#/Vol] 1.59 10*3/uL 0.83-4.[address] [facility] Basophil percentageOrdered B y: Dr. Gonzalez on 08-02-2022 Basophils/100 WBC (Bld) 0.4 % 0-1 [facility] Eosinophils/100 WBC (Bld) 0.6 % 0-[address] [facility] Neutrophils (Bld) [#/Vol] 4.6 10*3/uL 2.0-7.[address] [facility] Neutrophils/100 WBC (Bld) 67.8 % 47-[address] [facility] WBC (Bld) [#/Vol] 6.7 10*3/uL 4.4-11.0 [facility] Blood erythrocytes count (nu mber/volume)Ordered By: Dr. Gonzalez on 08-02-2022 RBC (Bld) [#/Vol] 3.74 10*6/uL 4.2-5.4 [facility] Blood hemoglobin measurement (mass/volume)Ordered By: Dr. Gonzalez on 08-02-2022 Hemoglobin (Bld) [Mass/Vol] 11.0 g/dL 12.0-15.[address] [facility] Blood lymphocytes/100 leukoc ytesOrdered By: Dr. Gonzalez on 08-02-2022 Lymphocytes/100 WBC (Bld) 23.7 % 19-[address] [facility] Blood monocytes/100 leukocyt esOrdered By: Dr. Gonzalez on 08-02-2022 Monocytes/100 WBC (Bld) 6.9 % 0-10 [facility] Blood platelet mean volumeOr dered By: Dr. Gonzalez on 08-02-2022 Platelet mean volume (Bld) [Entitic vol] 9.5 fL 6.2-12.[address] [facility] Determination of erythrocyte mean corpuscular volume (MCV)Ordered By: Dr. Gonzalez on 08-02-2022 MCV (RBC) [Entitic vol] 87.7 fL 81-99 [facility] Gestational diabetes screen 1-hour screen with 50g oral glucose loadOrdered By: Dr. Gonzalez on 08-02-2022 Glucose 1 Hr post 50 g glucose PO [Mass/Vol] 102 mg/dL 70-[address] [facility] HIV 1 and HIV-2 antibody ass ay with HIV-1 p24 antigen detectionOrdered By: Dr. Gonzalez on 08-02-2022 HIV 1+2 Ab+HIV1 p24 Ag IA Ql Non-Reactive Nonreactive [facility] Hematocrit Auto (Bld) [Volum e fraction]Ordered By: Dr. Gonzalez on 08-02-2022 Hematocrit (Bld) [Volume fraction] 32.8 % 37-[address] [facility] Laboratory - Chemistry and C hemistry - challengeon 08-02-2022 Glucose Ql (U) Negative [facility] Laboratory - Hematology and Cell countsOrdered By: Dr. Gonzalez on 08-02-2022 Erythrocyte distribution width (RBC) [Entitic vol] 38.3 fL 35.1-43.[address] [facility] Erythrocyte distribution width (RBC) [Ratio] 11.9 % 11.6-14.[address] [facility] Immature granulocytes/100 WBC (Bld) 0.600 % 0.0-0.[address] [facility] Comment on above: IG% - Immature Granu locytes (promyelocytes, myelocytes and metamyelocytes) > 1% indicates that a LEFT SHIFT is Present. MCH (RBC) [Entitic mass] 29.4 pg 27.0-32.[address] [facility] Nucleated RBC/100 WBC (Bld) [Ratio] 0 % 0-[address] [facility] Laboratory - Urinalysison Protein Ql (U) Negative [facility] MCHC Auto (RBC) [Mass/Vol]Or dered By: Dr. Gonzalez on 08-02-2022 MCHC (RBC) [Mass/Vol] 33.5 g/dL 32-36 [facility] Platelets bldOrdered By: Dr. Gonzalez on 08-02-2022 Platelets (Bld) [#/Vol] 190 10*3/uL 150-[address] [facility] Serum Treponema species anti body detectionOrdered By: Dr. Gonzalez on 08-02-2022 Treponema sp Ab Ql (S) Non-Reactive [facility] Laboratory - Chemistry and C hemistry - challengeon 06-09-2022 Glucose Ql (U) Negative [facility] Laboratory - Urinalysison Protein Ql (U) Negative [facility] Absolute lymphocyte counton 05-12-2022 Lymphocytes Auto (Unsp spec) [#/Vol] 1.49 10*3/uL 0.83-4.[address] [facility] Work Phone: Basophil percentageon 2021 Basophils/100 WBC (Bld) 0.3 % 0-1 [facility] Work Phone: Eosinophils/100 WBC (Bld) 0.8 % 0-[address] [facility] Work Phone: Neutrophils (Bld) [#/Vol] 4.1 10*3/uL 2.0-7.[address] [facility] Work Phone: Neutrophils/100 WBC (Bld) 67.0 % 47-[address] [facility] Work Phone: WBC (Bld) [#/Vol] 6.1 10*3/uL 4.4-11.0 [facility] Work Phone: Blood erythrocytes count (nu mber/volume)on 05-12-2022 RBC (Bld) [#/Vol] 3.98 10*6/uL 4.2-5.4 [facility] Work Phone: Blood hemoglobin measurement (mass/volume)on 05-12-2022 Hemoglobin (Bld) [Mass/Vol] 12.0 g/dL 12.0-15.[address] [facility] Work Phone: Blood lymphocytes/100 leukoc yteson 05-12-2022 Lymphocytes/100 WBC (Bld) 24.6 % 19-[address] [facility] Work Phone: Blood monocytes/100 leukocyt eson 05-12-2022 Monocytes/100 WBC (Bld) 6.8 % 0-10 [facility] Work Phone: Blood platelet mean volumeon 05-12-2022 Platelet mean volume (Bld) [Entitic vol] 10.1 fL 6.2-12.[address] [facility] Work Phone: Determination of erythrocyte mean corpuscular volume (MCV)on 05-12-2022 MCV (RBC) [Entitic vol] 88.7 fL 81-99 [facility] Work Phone: HIV 1 and HIV-2 antibody ass ay with HIV-1 p24 antigen detectionon 05-12-2022 HIV 1+2 Ab+HIV1 p24 Ag IA Ql Non-Reactive Nonreactive [facility] Work Phone: Hematocrit Auto (Bld) [Volum e fraction]on 05-12-2022 Hematocrit (Bld) [Volume fraction] 35.3 % 37-[address] [facility] Work Phone: Laboratory - Chemistry and C hemistry - challengeon 05-12-2022 Glucose Ql (U) Negative [facility] Work Phone: Laboratory - Hematology and Cell countson 05-12-2022 Erythrocyte distribution width (RBC) [Entitic vol] 42.8 fL 35.1-43.[address] [facility] Work Phone: Erythrocyte distribution width (RBC) [Ratio] 13.2 % 11.6-14.[address] [facility] Work Phone: Immature granulocytes/100 WBC (Bld) 0.500 % 0.0-0.[address] [facility] Work Phone: Comment on above: IG% - Immature Granu locytes (promyelocytes, myelocytes and metamyelocytes) > 1% indicates that a LEFT SHIFT is Present. MCH (RBC) [Entitic mass] 30.2 pg 27.0-32.[address] [facility] Work Phone: Nucleated RBC/100 WBC (Bld) [Ratio] 0 % 0-[address] [facility] Work Phone: Laboratory - Urinalysison Protein Ql (U) Negative [facility] Work Phone: MCHC Auto (RBC) [Mass/Vol]on 05-12-2022 MCHC (RBC) [Mass/Vol] 34.0 g/dL 32-36 [facility] Work Phone: No Panel Informationon 05-12 Hepatitis B Surface Antigen Non-Reactive Nonreactive [facility] Work Phone: Hepatitis C Antibody Non-Reactive Nonreactive [facility] Work Phone: Comment on above: Non Reactive: < 0.8 Equivocal: >/= 0.8 to < 1.0 Reactive: >/= 1.0The CDC recommends that a reactive/equivocal HCV antibody result be followed up by the HCV Nucleic Acid Amplificationtest (915418) Rubella IgG Antibody Reactive Nonreactive [facility] Work Phone: Comment on above: Antibody Results Int erpretation of Immune Status Non Reactive Presumed Non-Immune Equivocal Equivocal Reactive Presumed Immune Platelets bldon 05-12-2022 Platelets (Bld) [#/Vol] 161 10*3/uL 150-[address] [facility] Work Phone: Serum Treponema species anti body detectionon 05-12-2022 Treponema sp Ab Ql (S) Non-Reactive [facility] Work Phone: Laboratory - Chemistry and C hemistry - challengeon 04-11-2022 Glucose Ql (U) Negative [facility] Work Phone: Laboratory - Urinalysison Protein Ql (U) Negative [facility] Work Phone: Chlamydia trachomatis rRNA d etection by probe and target amplification methodon 03-24-2022 C. trachomatis rRNA ITZEL+probe Ql (Unsp spec) Negative Negative [facility] Work Phone: Laboratory - Drug toxicology on 03-24-2022 Amphetamines Ql (U) Negative <1000 ng/mL [facility] Work Phone: Benzodiazepines Ql (U) Negative < 200 ng/mL [facility] Work Phone: Cannabinoids Screen Ql (U) Negative < 50 ng/mL [facility] Work Phone: Cocaine Ql (U) Negative < 300 ng/mL [facility] Work Phone: Opiates Ql (U) Negative < 300 ng/mL [facility] Work Phone: Laboratory - Microbiology an d Antimicrobial susceptibilityon 03-24-2022 N. gonorrhoeae DNA ITZEL+probe Ql (Unsp spec) Negative Negative [facility] Work Phone: Comment on above: Performed at: =[address] [id number] Director: Lizzie Lezama MD, Phone: [phone] No Panel Informationon 03-24 MDMA (Ecstasy) Screen Negative < 500 ng/mL [facility] Work Phone: Urine Barbiturates Screen Negative < 200 ng/mL [facility] Work Phone: Urine Drug Screen Comment [facility] Work Phone: Comment on above: [...] Urine Methadone Screen Negative < 300 ng/mL [facility] Work Phone: Urine phencyclidine (PCP) de tectionon 03-24-2022 Phencyclidine Ql (U) Negative < 25 ng/mL [facility] Work Phone: [employer] Cytology Reporton 2016 [employer] Cytology Report . Pathology ReportsAccession: Collected Date/Time: Received Date/Time: Pathologist:[id number] 21 05/31/2017 17:14 EDT 06/01/2017 18:00 EDT [employer] Cytology ReportSPECIMEN:Specimen Description: Liquid Prep Reflex ASCUSSpecimen: Cervical/EndocervicalSc reening or Diagnostic: ScreeningRELEVANT HISTORY:LMP: [id number] Control: [id number] ADEQUACY:SATISFACTORY FOR EVALUATIONENDOCERVICAL/ TRANSFORMATIONAL ZONE COMPONENT PRESENTINTERPRETATION/R ESULTS:NEGATIVE FOR INTRAEPITHELIAL LESION OR MALIGNANCYORGANISMS:FUN GAL ORGANISMS MORPHOLOGICALLY CONSISTENT WITH NANDO SPECIES.Electronically Signed byPathology report verified by Cent[place]creened by: NGUYENElectronically signed by Monica POLO (ASCP)Sign-Out Date: 06/06/2017 15:23Performing Lab: [address]Dis[facility]ell [facility] hospitalThe Pap test is a screening test for cervical cancer. As evidenced by published data, it is subject to both inherent false negative and false positive results. Your patient's results should be interpreted in context with pertinent clinical history including gynecological examination. Normal [facility] ([place]) Comment on above: Performed By: #### G YCR ####[place] [address] CTPCRon 06-02-2017 C. trachomatis Interp C. trachomatis DNA not detected. Specimen is presumptive negative for C. trachomatis. A negative result does not preclude C. trachomatis infection because results depend on adequate specimen collection, absence of inhibitors, and sufficient DNA to be detected. Normal [facility] ([place]) Comment on above: Performed By: #### C TPCR, NGPCR1 ####[place] [address] C.trachomatis PCR Negative Normal [facility] ([place]) Comment on above: Result Comment: Farideh amin (PCR) assay performed on the N[employer] Amanda 4800 system. Performed By: #### C TPCR, NGPCR1 ####[address] [address] Chlam Source Cervix Normal [facility] ([place]) Comment on above: Performed By: #### C TPCR, NGPCR1 ####[address] [address] NGPCRon 06-02-2017 GC PCR Source Cervix Normal [facility] ([place]) Comment on above: Performed By: #### C TPCR, NGPCR1 ####[address] [address] N. gonorrhoeae (PCR) Negative [facility] ([place]) Comment on above: Result Comment: Mole cular (PCR) assay performed on the N[employer] Amanda 4800 System. Performed By: #### C TPCR, NGPCR1 ####[address] [address] N. gonorrhoeae Interp N. gonorrhoeae DNA not detected. Specimen is presumptive negative for N. gonorrhoeae. A negative result does not preclude Neisseria gonorrhoeae infection because results depend on adequate specimen collection, absence of inhibitors, and sufficient DNA to be detected. [facility] ([place]) Comment on above: Performed By: #### C TPCR, NGPCR1 ####[address] [address] Culture, urine Bacteria identified Cx Nom (U) Positive [facility] Work Phone: Vital Signs Date Time Vital Sign Value Performing Clinician Faci lity 05-01-2025 14:40-0400 Body height 170.[address] Connor Blank DO Work Phone: [facility] 05-01-2025 14:40-0400 Body mass index (BMI) [Ratio] 24.7 kg/m2 Dr. Connor Blank DO Work Phone: [facility] 05-01-2025 14:40-0400 Body weight 71.[address] Connor Blank DO Work Phone: [facility] 05-01-2025 14:32-0400 Body temperature 98.2 [degF] Dr. Connor Blank DO Work Phone: 3(951)180-003548 [place] [address] 05-01-2025 14:31-0400 Diastolic blood pressure 73 mm[Hg] Dr. Connor Blank DO Work Phone: 0(283)320-745748 [place] [address] 05-01-2025 14:31-0400 Heart rate 72 /min Dr. Connor Blank DO Work Phone: 2(333)217-894548 [place] [address] 05-01-2025 14:31-0400 Systolic blood pressure 116 mm[Hg] Dr. Connor Blank DO Work Phone: 8(421)889-207148 [place] [address] 05-01-2025 13:56-0400 Body height 170.[address] Connor Blank DO Work Phone: 4(984)335-278048 [place] [address] 05-01-2025 13:56-0400 Body mass index (BMI) [Ratio] 24.9 kg/m2 Dr. Connor Blank DO Work Phone: 0(044)731-784248 [place] [address] 05-01-2025 13:56-0400 Body weight 72.[address] Connor Blank DO Work Phone: 5(684)514-313848 [place] [address] 05-01-2025 13:56-0400 Diastolic blood pressure 81 mm[Hg] Dr. Connor Blank DO Work Phone: 4(512)354-174448 [place] [address] 05-01-2025 13:56-0400 Systolic blood pressure 130 mm[Hg] Dr. Connor Blank DO Work Phone: 7(708)658-591448 [place] [address] 04-23-2025 09:23-0400 Body height 170.[address] Connor Blank DO Work Phone: 5(245)003-230548 [place] [address] 04-23-2025 09:23-0400 Body mass index (BMI) [Ratio] 24.6 kg/m2 Dr. Connor Blank DO Work Phone: 2(975)754-991748 [place] [address] 04-23-2025 09:23-0400 Body weight 71.[address] Connor Blank DO Work Phone: 9(567)782-055248 [place] [address] 04-23-2025 09:23-0400 Diastolic blood pressure 86 mm[Hg] Dr. Connor Blank DO Work Phone: 7(106)631-663548 [place] [address] 04-23-2025 09:23-0400 Systolic blood pressure 134 mm[Hg] Dr. Connor Blank DO Work Phone: 6(125)795-708448 [place] [address] 04-18-2025 09:32-0400 Body mass index (BMI) [Ratio] 24.9 kg/m2 Dr. Connor Blank DO Work Phone: 5(204)845-043548 [place] [address] 04-18-2025 09:32-0400 Body weight 72.[address] Connor Blank DO Work Phone: 9(809)105-784448 [place] [address] 04-18-2025 09:32-0400 Diastolic blood pressure 63 mm[Hg] Dr. Connor Blank DO Work Phone: 9(276)783-040348 [place] [address] 04-18-2025 09:32-0400 Systolic blood pressure 130 mm[Hg] Dr. Connor Blank DO Work Phone: 6(147)429-312048 [place] [address] 04-11-2025 13:06-0400 Body height 170.[address] Connor Blank DO Work Phone: 6(105)968-711948 [place] [address] 04-11-2025 13:06-0400 Body mass index (BMI) [Ratio] 24.4 kg/m2 Dr. Connor Blank DO Work Phone: 0(768)037-250348 [place] [address] 04-11-2025 13:06-0400 Body weight 70.[address] Connor Blank DO Work Phone: 0(562)979-270048 [place] [address] 04-11-2025 13:06-0400 Diastolic blood pressure 71 mm[Hg] Dr. Connor Blank DO Work Phone: 8(542)555-665448 [place] [address] 04-11-2025 13:06-0400 Systolic blood pressure 116 mm[Hg] Dr. Connor Blank DO Work Phone: 2(717)166-050348 [place] [address] 04-03-2025 09:24-0400 Body height 170.[address] Connor Blank DO Work Phone: 7(354)816-096748 [place] [address] 04-03-2025 09:24-0400 Body mass index (BMI) [Ratio] 24.6 kg/m2 Dr. Connor Blank DO Work Phone: 0(940)855-268648 [place] [address] 04-03-2025 09:24-0400 Body weight 71.[address] Connor Blank DO Work Phone: 7(973)466-251348 [place] [address] 04-03-2025 09:24-0400 Diastolic blood pressure 74 mm[Hg] Dr. Connor Blank DO Work Phone: 8(507)572-286348 [place] [address] 04-03-2025 09:24-0400 Systolic blood pressure 115 mm[Hg] Dr. Connor Blank DO Work Phone: 5(702)469-925248 [place] [address] 03-20-2025 14:45-0400 Body height 170.[address] Connor Blank DO Work Phone: 9(275)553-209048 [place] [address] 03-20-2025 14:45-0400 Body mass index (BMI) [Ratio] 23.8 kg/m2 Dr. Connor Blank DO Work Phone: 6(357)790-378848 [place] [address] 03-20-2025 14:45-0400 Body weight 69.[address] Connor Blank DO Work Phone: 1(798)452-770148 [place] [address] 03-20-2025 14:45-0400 Diastolic blood pressure 74 mm[Hg] Dr. Connor Blank DO Work Phone: 8(572)906-998148 [place] [address] 03-20-2025 14:45-0400 Systolic blood pressure 119 mm[Hg] Dr. Connor Blank DO Work Phone: 2(071)359-940948 [place] [address] 03-07-2025 10:01-0400 Body height 170.[address] Connor Blank DO Work Phone: 8(019)265-081448 [place] [address] 03-07-2025 10:01-0400 Body mass index (BMI) [Ratio] 23.1 kg/m2 Dr. Connor Blank DO Work Phone: 8(277)095-429448 [place] [address] 03-07-2025 10:01-0400 Body weight 67.[address] Connor Blank DO Work Phone: 2(523)065-578548 [place] [address] 03-07-2025 09:56-0400 Body temperature 97.7 [degF] Dr. Connor Blank DO Work Phone: 0(277)742-952448 [place] [address] 03-07-2025 09:56-0400 Diastolic blood pressure 62 mm[Hg] Dr. Connor Blank DO Work Phone: 8(118)213-372548 [place] [address] 03-07-2025 09:56-0400 Heart rate 79 /min Dr. Connor Blank DO Work Phone: 9(442)376-553648 [place] [address] 03-07-2025 09:56-0400 Respiratory rate 16 /min Dr. Connor Blank DO Work Phone: 8(080)406-023448 [place] [address] 03-07-2025 09:56-0400 Systolic blood pressure 109 mm[Hg] Dr. Connor Blank DO Work Phone: 8(918)276-961548 [place] [address] 03-07-2025 08:38-0400 Body height 170.[address] Connor Blank DO Work Phone: 2(359)680-485848 [place] [address] 03-07-2025 08:38-0400 Body mass index (BMI) [Ratio] 23.2 kg/m2 Dr. Connor Blank DO Work Phone: 3(378)957-565748 [place] [address] 03-07-2025 08:38-0400 Body weight 67.[address] Connor Blank DO Work Phone: 6(271)294-109248 [place] [address] 03-07-2025 08:38-0400 Diastolic blood pressure 69 mm[Hg] Dr. Connor Blank DO Work Phone: 3(424)676-362048 [place] [address] 03-07-2025 08:38-0400 Systolic blood pressure 104 mm[Hg] Dr. Connor Blank DO Work Phone: 5(930)920-276648 [place] [address] 02-21-2025 10:11-0400 Body height 170.[address] Connor Blank DO Work Phone: 8(972)192-374448 [place] [address] 02-21-2025 10:11-0400 Body mass index (BMI) [Ratio] 23 kg/m2 Dr. Connor Blank DO Work Phone: 5(294)511-617348 [place] [address] 02-21-2025 10:11-0400 Body weight 66.[address] Connor Blank DO Work Phone: 4(360)161-543648 [place] [address] 02-21-2025 10:11-0400 Diastolic blood pressure 69 mm[Hg] Dr. Connor Blank DO Work Phone: 5(785)078-601248 [place] [address] 02-21-2025 10:11-0400 Systolic blood pressure 111 mm[Hg] Dr. Connor Blank DO Work Phone: 8(942)681-915548 [place] [address] 02-06-2025 09:08-0400 Body height 170.[address] Connor Blank DO Work Phone: 6(002)316-632248 [place] [address] 02-06-2025 09:08-0400 Body mass index (BMI) [Ratio] 23 kg/m2 Dr. Connor Blank DO Work Phone: 4(756)833-296048 [place] [address] 02-06-2025 09:08-0400 Body weight 66.[address] Connor Blank DO Work Phone: 5(860)743-641748 [place] [address] 02-06-2025 09:08-0400 Diastolic blood pressure 60 mm[Hg] Dr. Connor Blank DO Work Phone: 4(263)635-416248 [place] [address] 02-06-2025 09:08-0400 Systolic blood pressure 102 mm[Hg] Dr. Connor Blank DO Work Phone: 4(075)684-809348 [place] [address] 01-16-2025 09:34-0400 Body height 170.[address] Connor Blank DO Work Phone: 3(253)066-364148 [place] [address] 01-16-2025 09:34-0400 Body mass index (BMI) [Ratio] 21.9 kg/m2 Dr. Connor Blank DO Work Phone: 3(954)587-723648 [place] [address] 01-16-2025 09:34-0400 Body weight 63.[address] Connor Blank DO Work Phone: 0(940)990-727048 [place] [address] 01-16-2025 09:34-0400 Diastolic blood pressure 65 mm[Hg] Dr. Connor Blank DO Work Phone: 4(050)286-767801 [place] [address] 01-16-2025 09:34-0400 Systolic blood pressure 97 mm[Hg] Dr. Connor Blank DO Work Phone: 1(664)144-563548 [place] [address] 12-19-2024 11:44-0400 Body mass index (BMI) [Ratio] 21.4 kg/m2 Dr. Connor Blank DO Work Phone: 9(107)993-187748 [place] [address] 12-19-2024 11:44-0400 Body weight 61.[address] Connor Blank DO Work Phone: 9(575)198-529548 [place] [address] 12-19-2024 11:44-0400 Diastolic blood pressure 74 mm[Hg] Dr. Connor Blank DO Work Phone: 4(964)929-382748 [place] [address] 12-19-2024 11:44-0400 Systolic blood pressure 116 mm[Hg] Dr. Connor Blank DO Work Phone: 1(577)731-562648 [place] [address] 12-08-2024 09:05-0400 Body mass index (BMI) [Ratio] 5.1 kg/m2 Dr. Connor Blank DO Work Phone: 5(228)430-632248 [place] [address] 12-08-2024 09:05-0400 Body temperature 98.7 [degF] Dr. Connor Blank DO Work Phone: 3(985)406-477048 [place] [address] 12-08-2024 09:05-0400 Body weight 14.[address] Connor Blank DO Work Phone: 2(598)154-600748 [place] [address] 12-08-2024 09:05-0400 Diastolic blood pressure 66 mm[Hg] Dr. Connor Blank DO Work Phone: 2(963)900-166848 [place] [address] 12-08-2024 09:05-0400 Heart rate 91 /min Dr. Connor Blank DO Work Phone: 8(529)605-899148 [place] [address] 12-08-2024 09:05-0400 Respiratory rate 14 /min Dr. Connor Blank DO Work Phone: 7(228)277-210548 [place] [address] 12-08-2024 09:05-0400 SaO2% (BldA) [Mass fraction] 99 % Dr. Connor Blank DO Work Phone: 9(356)650-488748 [place] [address] 12-08-2024 09:05-0400 Systolic blood pressure 105 mm[Hg] Dr. Connor Blank DO Work Phone: 3(989)409-417748 [place] [address] 11-19-2024 13:40-0400 Body mass index (BMI) [Ratio] 20.5 kg/m2 Dr. Connor Blank DO Work Phone: 1(013)847-149448 [place] [address] 11-19-2024 13:40-0400 Body weight 59.[address] Connor Blank DO Work Phone: 5(974)447-942048 [place] [address] 11-19-2024 13:40-0400 Diastolic blood pressure 80 mm[Hg] Dr. Connor Blank DO Work Phone: 0(609)065-848648 [place] [address] 11-19-2024 13:40-0400 Systolic blood pressure 118 mm[Hg] Dr. Connor Blank DO Work Phone: 2(169)257-382948 [place] [address] 10-23-2024 14:30-0400 Body mass index (BMI) [Ratio] 20.2 kg/m2 Dr. Connor Blank DO Work Phone: 3(946)275-901048 [place] [address] 10-23-2024 14:30-0400 Body weight 58.[address] Connor Blank DO Work Phone: 8(379)752-394548 [place] [address] 10-23-2024 14:30-0400 Diastolic blood pressure 80 mm[Hg] Dr. Connor Blank DO Work Phone: 5(558)728-346048 [place] [address] 10-23-2024 14:30-0400 Systolic blood pressure 128 mm[Hg] Dr. Connor Blank DO Work Phone: 7(220)082-407548 [place] [address] 09-27-2024 08:02-0500 Body height 170.[address] Connor Blank DO Work Phone: 5(259)016-621848 [place] [address] 09-27-2024 08:02-0500 Body mass index (BMI) [Ratio] 19.8 kg/m2 Dr. Connor Blank DO Work Phone: [facility] 09-27-2024 08:02-0500 Body weight 57.[address] Connor Blank DO Work Phone: [facility] 09-27-2024 08:02-0500 Diastolic blood pressure 83 mm[Hg] Dr. Connor Blank DO Work Phone: [facility] 09-27-2024 08:02-0500 Systolic blood pressure 124 mm[Hg] Dr. Connor Blank DO Work Phone: [facility] 10-25-2022 12:52-0400 Body temperature 97.6 [degF] [facility] 10-25-2022 12:52-0400 Diastolic blood pressure 73 mm[Hg] [facility] 10-25-2022 12:52-0400 Heart rate 100 /min [facility] 10-25-2022 12:52-0400 Respiratory rate 16 /min [facility] 10-25-2022 12:52-0400 Systolic blood pressure 116 mm[Hg] [facility] 10-25-2022 04:11-0400 SaO2% (BldA) [Mass fraction] 97 % [facility] 10-24-2022 03:54-0400 [facility]18 [facility] 03:54-0400 Body mass index (BMI) [Ratio] 26.1 kg/m2 [facility] 10-24-2022 03:54-0400 Body [facility] 75.6 [facility]-20-2022 13:09-0400 Body mass index (BMI) [Ratio] 26.2 kg/m2 [facility] 10-20-2022 13:09-0400 [facility]86 [facility] 13:09-0400 Diastolic blood pressure 70 mm[Hg] [facility] 10-20-2022 13:09-0400 Systolic blood pressure 114 mm[Hg] [facility] 10-13-2022 13:29-0400 Diastolic blood pressure 72 mm[Hg] [facility] 10-13-2022 13:29-0400 Systolic blood pressure 113 mm[Hg] [facility] 10-13-2022 12:58-0400 Body mass index (BMI) [Ratio] 26.3 kg/m2 [facility] 10-13-2022 12:58-0400 Body weight 76.26 kg [facility] 10-06-2022 13:34-0500 Body mass index (BMI) [Ratio] 25.5 kg/m2 [facility] 10-06-2022 13:34-0500 Body weight 73.93 kg [facility] 10-06-2022 13:34-0500 Diastolic blood pressure 76 mm[Hg] [facility] 10-06-2022 13:34-0500 Systolic blood pressure 112 mm[Hg] [facility] 09-29-2022 13:43-0500 Body height 170.18 cm [facility] 09-29-2022 13:42-0500 Body mass index (BMI) [Ratio] 25.6 kg/m2 [facility] 09-29-2022 13:42-0500 Body weight 74.16 kg [facility] 09-29-2022 13:42-0500 Diastolic blood pressure 69 mm[Hg] [facility] 09-29-2022 13:42-0500 Systolic blood pressure 103 mm[Hg] [facility] 09-16-2022 09:30-0500 Body mass index (BMI) [Ratio] 25.4 kg/m2 [facility] 09-16-2022 09:30-0500 Body weight 73.7 kg [facility] 09-16-2022 09:30-0500 Diastolic blood pressure 71 mm[Hg] [facility] 09-16-2022 09:30-0500 Systolic blood pressure 108 mm[Hg] [facility] 09-01-2022 13:37-0500 Body mass index (BMI) [Ratio] 25.2 kg/m2 [facility] 09-01-2022 13:37-0500 Body weight 73.02 kg [facility] 09-01-2022 13:37-0500 Diastolic blood pressure 75 mm[Hg] [facility] 09-01-2022 13:37-0500 Systolic blood pressure 109 mm[Hg] [facility] 08-15-2022 13:47-0500 Body mass index (BMI) [Ratio] 24.3 kg/m2 [facility] 08-15-2022 13:47-0500 Body weight 70.3 kg [facility] 08-02-2022 09:07-0500 Body mass index (BMI) [Ratio] 23.6 kg/m2 [facility] 08-02-2022 09:07-0500 Body weight 68.6 kg [facility] 08-02-2022 09:07-0500 Diastolic blood pressure 62 mm[Hg] [facility] 08-02-2022 09:07-0500 Systolic blood pressure 96 mm[Hg] [facility] 07-07-2022 13:13-0500 Body mass index (BMI) [Ratio] 22.7 kg/m2 [facility] 07-07-2022 13:13-0500 Body weight 65.77 kg [facility] 07-07-2022 13:13-0500 Diastolic blood pressure 75 mm[Hg] [facility] 07-07-2022 13:13-0500 Systolic blood pressure 117 mm[Hg] [facility] 06-09-2022 14:00-0500 Body mass index (BMI) [Ratio] 21.6 kg/m2 [facility] 06-09-2022 14:00-0500 Body weight 62.59 kg [facility] 06-09-2022 14:00-0500 Diastolic blood pressure 66 mm[Hg] [facility] 06-09-2022 14:00-0500 Systolic blood pressure 102 mm[Hg] [facility] 05-12-2022 13:38-0400 Body height 170.18 cm [facility] Work Phone: 05-12-2022 13:38-0400 Body mass index (BMI) [Ratio] 21 kg/m2 [facility] Work Phone: 05-12-2022 13:38-0400 Body weight 60.95 kg [facility] Work Phone: 05-12-2022 13:38-0400 Diastolic blood pressure 74 mm[Hg] [facility] Work Phone: 05-12-2022 13:38-0400 Systolic blood pressure 107 mm[Hg] [facility] Work Phone: 04-11-2022 11:51-0400 Body mass index (BMI) [Ratio] 19.8 kg/m2 [facility] Work Phone: 04-11-2022 11:51-0400 Body weight 57.6 kg [facility] Work Phone: 04-11-2022 11:51-0400 Diastolic blood pressure 60 mm[Hg] [facility] Work Phone: 04-11-2022 11:51-0400 Systolic blood pressure 104 mm[Hg] [facility] Work Phone: 03-24-2022 09:54-0400 Diastolic blood pressure 72 mm[Hg] [facility] Work Phone: 03-24-2022 09:54-0400 Systolic blood pressure 116 mm[Hg] [facility] Work Phone: 03-24-2022 09:21-0400 Body height 170.18 cm [facility] Work Phone: 03-24-2022 09:20-0400 Body mass index (BMI) [Ratio] 19.1 kg/m2 [facility] Work Phone: 03-24-2022 09:20-0400 Body weight 55.33 kg [facility] Work Phone: 02-08-2022 09:43-0400 Body mass index (BMI) [Ratio] 18.5 kg/m2 [facility] Work Phone: 02-08-2022 09:43-0400 Body weight 53.63 kg [facility] Work Phone: 02-08-2022 09:43-0400 Diastolic blood pressure 78 mm[Hg] [facility] Work Phone: 02-08-2022 09:43-0400 Systolic blood pressure 126 mm[Hg] [facility] Work Phone: Encounters Encounter Date Encounter Type Care Provider Facility Start: 05-01-2025 ambulatory Mary Cagle lity:[facility] Start: 05-01-2025 Non-patient / Non-visit Dr. Mary Gonzalez MD -[facility] Start: 05-01-2025 End: 05-01-[address] Mary Gonzalez MD [place] [place] Work Phone: Start: 05-01-2025 End: 05-01-2025 ambulatory Mary Gonzalez Facility:[facility] Start: 04-23-2025 End: 04-23-[address] Yue Sanford DO -[facility] [place] Work Phone: Start: 04-23-2025 End: 04-23-2025 ambulatory Yue Sanford Facility:[facility] Start: 04-18-2025 End: 04-18-2025 Patient encounter procedure Lizy Acosta CNM -[facility] [place] Work Phone: Start: 04-18-2025 End: 04-18-2025 ambulatory Connor Blank Facility:[facility] Start: 04-11-2025 End: 04-11-[address] Mary Gonzalez MD -[facility] [place] Work Phone: Start: 04-11-2025 End: 04-11-[address] Connor Blank DO Work Phone: -[facility] [place] Start: 04-03-2025 End: 04-03-[address] Connor Blank DO Work Phone: -Laboratory Specimen Start: 04-03-2025 End: 04-03-2025 Patient encounter procedure Lizy Acosta CNM -[facility] Specimen Work Phone: Start: 04-03-2025 End: 04-03-2025 Patient encounter procedure Lizy Acosta CNM -[facility] [place] Work Phone: Start: 04-03-2025 End: 04-03-[address] Connor Blank DO Work Phone: -[facility] [place] Start: 04-03-2025 End: 04-03-2025 ambulatory Connor Blank Facility:[facility] Start: 03-20-2025 End: 03-20-[address] Mary Gonzalez MD -[facility] [place] Work Phone: Start: 03-20-2025 End: 03-20-[address] Connor Blank DO Work Phone: -[facility] [place] Start: 03-07-2025 ambulatory Connor Blank Facilit y:[facility] Start: 03-07-2025 Non-patient / Non-visit Lizy Acosta CNM -[facility] Start: 03-07-2025 End: 03-07-[address] Connor Blank DO Work Phone: -[facility] Start: 03-07-2025 End: 03-07-2025 Patient encounter procedure [facility] Work Phone: Start: 03-07-2025 End: 03-07-2025 Patient encounter procedure Krysta Petersen [facility] -[facility] [place] Work Phone: Start: 03-07-2025 End: 03-07-[address] Connor Blank DO Work Phone: [facility] Start: 02-21-2025 End: 02-21-2025 Patient encounter procedure Krysta Petersen [facility] -[facility] [place] Work Phone: Start: 02-21-2025 End: 02-21-[address] Connor Blank DO Work Phone: -[facility] [place] Start: 02-06-2025 End: 02-06-2025 Patient encounter procedure Anahi Riojas [employer] -[facility] [place] Work Phone: Start: 02-06-2025 End: 02-06-[address] Connor Blank DO Work Phone: [facility] Start: 02-06-2025 End: 02-06-2025 ambulatory Connor Blank Facility:[facility] Start: 01-16-2025 End: 01-16-2025 Patient encounter procedure Lizy Acosta [facility] -[place] [facility] Work Phone: Start: 01-16-2025 End: 01-16-[address] Connor Blank DO Work Phone: [facility] Work Phone: Start: 01-03-2025 End: 01-03-2025 ambulatory YUE HERMAN [facility] Start: 12-19-2024 End: 12-19-2024 ambulatory Connor Blank Facility:[facility] Start: 12-19-2024 End: 12-19-[address] Mary Gonzalez MD -[facility] [place] Work Phone: Start: 12-11-2024 End: 12-11-2024 ambulatory CONNOR BLANK [facility] Start: 12-08-2024 End: 12-08-2024 [facility] Work Phone: Start: 12-08-2024 End: 12-08-2024 ambulatory Connor Moralesrison Facility:[facility] Start: 11-19-2024 End: 11-19-2024 Patient encounter procedure Anahi RAMOS -[facility] [place] Work Phone: Start: 11-19-2024 End: 11-19-2024 ambulatory Connor Blank Facility:[facility] Start: 10-23-2024 End: 10-23-[address] Yue Sanford DO -[facility] [place] Work Phone: Start: 10-23-2024 End: 10-23-2024 ambulatory Connor Blank Facility:[facility] Start: 09-27-2024 End: 09-27-2024 Patient encounter procedure Lizy Acosta CNM -[facility] [place] Work Phone: Start: 09-27-2024 End: 09-27-[address] Connor Blank DO Work Phone: [facility] Work Phone: Start: 09-27-2024 End: 09-27-2024 ambulatory Connor Blank Facility:[facility] Start: 10-25-2022 Non-patient / Non-visit Connor WITT [facility] Start: 10-24-2022 Non-patient / Non-visit Connor Blank [facility] Start: 10-24-2022 End: 10-25-2022 [facility] Start: 10-20-2022 End: 10-20-2022 [facility]: 10-13-2022 End: 10-13-2022 Patient encounter procedure [facility] Start: 10-06-2022 End: 10-06-2022 [facility] Start: 09-29-2022 End: 09-29-2022 ambulatory [facility] Work Phone: Start: 09-29-2022 End: 09-29-2022 Patient encounter procedure [facility], Specimen Start: 09-29-2022 End: 09-29-2022 Patient encounter procedure [facility] Start: 09-16-2022 End: 09-16-2022 Patient encounter procedure [facility] Start: 09-01-2022 End: 09-01-2022 Patient encounter procedure [facility] Start: 08-15-2022 End: 08-15-2022 Patient encounter procedure [facility] Start: 08-02-2022 End: 08-02-2022 Patient encounter procedure [facility] Start: 07-07-2022 End: 07-07-2022 Patient encounter procedure [facility] Start: 06-09-2022 End: 06-09-2022 Patient encounter procedure [facility] Start: 05-12-2022 End: 05-12-2022 ambulatory [facility] Work Phone: Start: 05-12-2022 End: 05-12-2022 Patient encounter procedure [facility] Start: 04-11-2022 End: 04-11-2022 Patient encounter procedure [facility] Start: 03-24-2022 End: 03-24-2022 ambulatory [facility] Work Phone: Start: 03-24-2022 End: 03-24-2022 Patient encounter procedure [facility] Specimen Start: 03-24-2022 End: 03-24-2022 Patient encounter procedure [facility] Start: 02-08-2022 End: 02-08-2022 Patient encounter procedure [facility] Start: 05-31-2017 End: 06-05-2017 Ambulatory NAVEEN ARGUELLO Facility:[facility] Procedures Date Procedure Procedure Detail Performing Clinician Start: 05-01-2025 Ultrasound scan for growth Dr. Connor Blank DO Work Phone: Start: 04-03-2025 Beta-hemolytic Strep tococcus culture Dr. Connor Blank DO Work Phone: Start: 03-07-2025 Ultrasonography for biophysical profile without non-stress testing Dr. Connor Blank DO Work Phone: Start: 02-06-2025 Serologic test for syphilis Dr. Connor Blank DO Work Phone: Start: 09-27-[address] Carlee Blank DO Work Phone: Start: 09-27-2024 Hepatitis C antibody measurement Dr. Connor Blank DO Work Phone: Comment on above: Reactive: Presumptiv e evidence of antibodies to HCV. Follow CDC recommendations for supplemental testing.Non-Reactive: Antibodies to HCV were not detected; does not exclude the possibility of exposure to HCVReactive Results are presumptive evidence of antibodies to HCV. Follow CDC recommendations for supplemental testing.Order confirmation testing: HCV Quant by PCR testing - HCVPCR #[id number] Non Reactive: < 0.8 Equivocal: >/= 0.8 to < 1.0 Reactive: >/= 1.0The CDC requires that a reactive/equivocal HCV antibody result be sent out for confirmation. HCV Quant by PCR testing. Start: 09-27-[address] Connor Blank DO Work Phone: Comment on above: Antibody Result: Int erpretationNon-Reactive: Non- ImmuneReactive: ImmuneThe following results were obtained with the [employer] Rubella IgG assay. Results from assays of other manufacturers cannot be used interchangeably. Group B Streptococcu s Culture Connor Blank Urine culture Connor yañez Plan of Treatment Date Care Activity Detail Author Start: 05-01-2025 Patient discharge [facility] Start: 04-23-2025 End: 04-23-2025 Patient encounter procedure Anxiety -[facility] Work Phone: Start: 03-20-[address] [facility] Start: 03-07-2025 Nonstress test [facility] Start: 03-07-2025 Obstetric monitoring [facility] Start: 03-07-2025 Vital signs measurements [facility] Start: 03-07-[address] [facility] Start: 03-07-2025 Biophysical profile panel US [facility] Start: 03-07-2025 Ultrasonography for biophysical profile without non-stress testing OB Biophysical Prof W/O NST [facility] Start: 03-07-2025 Patient discharge [facility] Start: 02-21-[address] [facility] Start: 02-06-2025 CBC W Auto Differential panel - Blood [facility] Start: 02-06-2025 Measurement of glucose 2 hours after glucose challenge for glucose tolerance test [facility] Start: 02-06-2025 Serologic test for syphilis [facility] Start: 02-06-[address] [facility] Start: 10-25-2022 Patient discharge [facility] Start: 10-25-[address] [facility] Start: 10-24-2022 Administration of medication [facility] Start: 10-24-2022 Application of ice collar, cap or bag [facility] Start: 10-24-2022 Catheterization of vein [facility] Start: 10-24-2022 Introduction of urinary catheter [facility] Start: 10-24-2022 Measuring intake and output [facility] Start: 10-24-2022 Notification of physician [facility] Start: 10-24-2022 Procedure discontinued [facility] Start: 10-24-2022 Provision of activity privileges [facility] Start: 10-24-2022 Vital signs measurements [facility] Start: 10-24-[address] [facility] Start: 10-24-2022 Admission procedure [facility] Start: 10-24-2022 Anesthesia consultation [facility] Start: 10-24-2022 acoustic stimulation test [facility] Start: 10-24-2022 Insertion of catheter into peripheral vein [facility] Start: 10-24-2022 Intrauterine catheterization [facility] Start: 10-24-2022 Introduction of urinary catheter [facility] Start: 10-24-2022 Provision of activity privileges [facility] Start: 10-24-2022 End: 10-24-[address] [facility] Start: 10-24-2022 Nonstress test [facility] Start: 10-24-2022 End: 10-24-2022 Obstetric monitoring [facility] Start: 10-24-2022 Vital signs measurements [facility] CBC W Auto Different ial panel - Blood [facility] Work Phone: CBC W Auto Different ial panel - Blood [facility] Erythrocyte mean corpuscular volume determination [facility] Hematocrit [Volume Fraction] of Blood [facility] Hemoglobin [Mass/vol ume] in Blood [facility] Hepatitis B surface antigen measurement [facility] Work Phone: Hepatitis C antibody measurement [facility] Work Phone: HIV 1+2 Ab+HIV1 p24 Ag [Presence] in Serum or Plasma by Immunoassay [facility] Work Phone: Leukocytes [#/volume ] in Blood [facility] Mean corpuscular hem oglobin concentration determination [facility] Mean corpuscular hem oglobin determination [facility] Measurement of gluco se 2 hours after glucose challenge for glucose tolerance test [facility] Neutrophil count [facility] Neutrophil percent differential count [facility] Patient Education [facility] Work Phone: Patient referral [facility] Work Phone: Platelets [#/volume] in Blood [facility] Red blood cell count [facility] Red cell distributio n width determination [facility] Rubella IgG measurement [facility] Work Phone: Serologic test for syphilis [facility] Streptococcus agalac tiae [Presence] in Unspecified specimen by Organism specific culture [facility] Treponema sp Ab [Pre sence] in Serum [facility] Work Phone: [facility] Immunizations Immunization Date Immunization Notes Care Provider Fa cility 02-21-2025 tetanus toxoid, redu alexis diphtheria toxoid, and acellular pertussis vaccine, adsorbed Dr. Connor Blank DO Work Phone: [facility] 08-15-2022 influenza, injectabl e, quadrivalent, preservative free Dr. Connor Blank DO Work Phone: [facility] 08-15-2022 influenza, seasonal, injectable [facility] 08-02-2022 tetanus toxoid, redu alexis diphtheria toxoid, and acellular pertussis vaccine, adsorbed [facility] 07-06-2020 tetanus toxoid, redu alexis diphtheria toxoid, and acellular pertussis vaccine, adsorbed [facility] 04-27-2020 Influenza virus vaccine [facility] Payers Date Payer Category Payer Unknown [id number] 2024 Self-pay [id number] 2024 Unknown [id number] 2017 Unknown [id number] 1990 Unknown [id number] 2.16. [id number] 1990 Unknown [id number] .. [id number] 1990 Unknown [id number] 2.16. [id number] Unknown [id number] Unknown [id number] 2.16.8 40.1.623092.3.579.2.462 Unknown [id number] 2.16.8 40.1.630791.3.579.2.462 Unknown [id number] 2.16.8 40.1.810690.3.579.2.462 Unknown [id number] 2.16.8 40.1.003699.3.579.2.462 Unknown [id number] 2.16.8 40.1.566764.3.579.2.462 Unknown [id number] 2.16.8 40.1.459313.3.579.2.462 Unknown [id number] 2.16.8 40.1.813361.3.579.2.462 Unknown [id number] 2.16.8 40.1.055138.3.579.2.462 Unknown [id number] 2.16.8 40.1.776988.3.579.2.462 Unknown [id number] 2.16.8 40.1.727749.3.579.2.462 Unknown [id number] 2.16.8 40.1.162067.3.579.2.462 Unknown [id number] 2.16.8 40.1.878187.3.579.2.462 Unknown [id number] 2.16.8 40.1.921017.3.579.2.462 Unknown [id number] 2.16.8 40.1.808343.3.579.2.462 Unknown [id number] 2.16.8 40.1.040871.3.579.2.462 Unknown [id number] 2.16.8 40.1.893694.3.579.2.462 Unknown [id number] 2.16.8 40.1.561327.3.579.2.462 Unknown [id number] 2.16.8 40.1.090548.3.579.2.462 Unknown [id number] 2.16.8 40.1.276300.3.579.2.462 Unknown [id number] 2.16.8 40.1.131006.3.579.2.462 Unknown [id number] 2.16.8 40.1.233598.3.579.2.462 Unknown [id number] 2.16.8 40.1.023987.3.579.2.462 Social History Date Type Detail Facility Start: 03-24-2022 End: 10-24-2022 Tobacco smoking status NHIS Unknown if ever smoked [facility] Start: 1990 Sex Assigned At Female [facility] Start: 09-13-2024 [facility] Start: 10-10-2024 Sex Female (finding) [facility] Sex Female [facility] Goals Date Patient Goal Desired Activity /State Clinical Notes 10-24-2022 to 05-01-2025 Note Date & Type Note Facility 05-01-2025 Progress note [facility] 05-01-2025 Radiology Diagnostic study note [facility] Services [address] [place] [address] OB Limited With Biometrics MR#: [id number] Acct: [id number] Name: RAMYA GOEL Rep #: [id number] : 1990 F 34 From: Elida Little MD PCP: Dr. Connor Blank, DO Status: RE G CLI Study:OB Limited With Biometrics Date of Exam : 05/01/25 Exam# [id number] Ordering Dr: Mary Heath MD PROCEDURE: OB LIMITED WITH BIOMETRICS 05/01/2025 REASON FOR EXAM: GROWTH TECHNIQUE: Procedure Code: USOBGROWTH Modality: US Procedure: OB LIMITED WITH BIOMETRICS COMPARISON: 825 FINDINGS Number: 1 Position: Vertex Placental Position: Posterior Placental Abnormalities: No evidence of previa. DIMENSIONS: Biparietal Diameter: 9.3 cm/37 weeks 5 days Head Circumference: 33.5 cm/38 weeks 2 days Abdominal Circumference: 35.3 cm/39 weeks 1 day Femur Length: 7.3 cm/37 weeks 1 day ESTIMATED WEIGHT: 3521 g ESTIMATED WEIGHT PERCENTILE (24+ weeks): 41.9% tile ESTIMATED GESTATIONAL AGE: Baseline: 40 weeks 0 days By Ultrasound: 38 weeks 0 days ESTIMATED DATE OF DELIVERY: Baseline: 05/01/2025 By Ultrasound: 05/15/2025 BIOPHYSICAL ASSESSMENT: Amniotic Fluid Volume: 4.2 Amniotic Fluid Index: 11.7 (8-24 cm normal range) Cardiac Motion: 157 beats per minute (average) Trunk and Limb Motion: Present. MATERNAL ANATOMY: Adnexa: Neither maternal ovary is successfully identified. US/OB Limited With Biometrics IMPRESSION: Single live IUP in cephalic presentation with a estimated gestational age by ultrasound of 38 weeks 0 days and estimated delivery date of 05/15/2025. Reading Location: [place] [address] CC: Dr. Connor Blank DO; Dr. Mary Gonzalez MD ~ Set Rider: Signed [facility] 04-23-2025 Progress note [facility] 04-18-2025 Progress note [facility] 04-11-2025 Progress note [facility] 04-03-2025 Progress note [facility] 03-20-2025 Progress note [facility] 03-20-2025 Progress note Note Date/Time March 20, 2025 2:59pm [facility] [facility] [address] [place] [address], [address] [place] [address] OFFICE VISIT Date of Service: 03/20/25 MR#: [id number] Acct: [id number] Name: RAMYA GOEL Rep #: [id number] : 1990 Provider: Dr. Rafal Gonzalez MD Age/Sex: 34/F Location: [facility] Status: Signed Intake Vital Signs 02/06/25 09:08 03/07/25 10:01 03/20/25 14:45 Height 5 ft 7 in 5 ft 7 in 5 ft 7 in Weight: 152 lb 4 oz BMI 23.8 BP 119/74 Intake Visit Reasons: 34wk ob Director Of Institutional Giving Required: No Is patient in pain?: No Allergies No Known Allergies Allergy (Verified 03/20/25 14:45) Medications ?Medication ?Instructions ?Recorded ?Confirmed ?Type multivitamin no.47-iron fum 27 cap PO 09/13/24 5 History mg-folate no.1 1 mg-dha 300 mg capsule (PNV-DHA) magnesium 250 mg tablet 250 mg PO QDAY 11/19/2403/01 History Last Menstrual Period: 07/25/24 Zika: Zika [...] 2 current occupational status: employed current occupation: [employer] current occupational exposures/hazards: No pets and [...] none frequency: 3-4 times per week taryn/religious: Zoroastrian seatbelt use: always do you feel safe at home: Yes 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 Date Name GA/Weeks Outcome Route Bth Weight Gen Labor Lgth Anesthesia Del Locatn Provider FOB 09/18/20 [place] 40 live - full term 7# Male [facility] Sameer 10/24/22 Perla 40 live - full term 8#11 Female epi dural [facility] Mary Gonzalez Bud Delivery Date: 09/18/20 Last Updated by: Pebbles Hardin admitted in active labor. normal vaginal delivery Delivery Date: 10/24/22 Last Updated by: Alyssa Rizo see problem list for complications, and ial 40 sm. HPI 34wk ob Details: RAMYA GOEL is a 34 year old who presents for routine OB visit. OB Visit OTTO Calculator Estimated Delivery Date Method Current WG Current Estimate 05/01/25 LMP (Certain) 34w 0d Other Estimates 05/04/25 Ultrasound #1 33w 4d Expected Delivery Route/Plan Labor Preferences- CB/BF classes: no labor support person: Bud labor intervention preferences: [] pain management options preferred: wants limited. cut cord/dad catch: no : yes PP control planned: discussed discussed possible routes of delivery and associated risks: [] special requests: [] Specific Issue/Plans Covid status: [] Flu vaccine: [] Tdap vaccine: given Rhogam: NA LARC form signed: yes Problem list reviewed [...] 8 oz (+8 oz) 124/83 -?-?-?-?-?-?-?-?-?-?-?-?- 169 -?-?-?-?-?--?-?-?-?-?-?-?- KW- CRL cons wit h dates. Declines [...] 8 oz (+10 lb 8 oz) 116/74 Negative -?-?-?-?-?-?-?-?-?-?-?-?- Negative 150 -?-?-?-?-?-?-?-?-?-?-?--?- SM- no vb lof go od fm no regular ctx discussed anatomy findings, declines NIPT 01/16/25 -?-?-?-?-?-?-?-?-?-?-?-?- 25w 0d 140 lb 8 oz (+14 lb 8 oz) 97/65 Negative -?-?-?-?-?-?-?-?-?-?-?-?- Negative 155 25 -?-?-?-?-?-?-?-?-?-?-?-?- KW- no vb/crampi ng. good fm. glucose discussed. umbilical hernia discussed and may want surgical consult after delivery 02/06/25 -?-?-?-?-?-?-?-?-?-?-?-?- 28w 0d 147 lb 2 oz (+21 lb 2 oz) 102/60 Negative -?-?-?-?-?-?-?-?-?-?-?-?- Negative 141 27 -?-?-?-?-?-?-?-?-?-?-?-?- MH-No Vb, LOF. G ood Fm. Larc. 28 wk labs pending. Tdap next visit 02/21/25 -?-?-?-?-?-?-?-?-?-?-?-?- 30w 1d 147 lb (+21 lb) 111/69 -?-?-?-?-?-?-?-?-?-?-?-?- 144 30 -?-?-?-?-?-?-?-?-?-?-?-?- LC- no vb/ctx/lo f. good fm. tdap today. 03/07/25 -?-?-?-?-?-?-?-?-?-?-?-?- 32w 1d 148 lb 6 oz (+22 lb 6 oz) 104/69 Negative -?-?-?-?-?-?-?-?-?-?-?-?- Negative 154 32 -?-?-?-?-?-?-?-?-?-?-?-?- LC- no vb/ctx/lo f. has not felt baby move yet today. nst obtained. LC- no vb/ctx/lof. has not f elt baby move yet today. nst obtained. non-reactive nst with variables. sent to for extended monitoring and LC- no vb/ctx/lof. has not f elt baby move yet today. nst obtained. non-reactive nst with variables. sent to for extended monitoring and BPP 03/20/25 -?-?-?-?-?-?-?-?-?-?-?-?- 34w 0d 152 lb 4 oz (+26 lb 4 oz) 119/74 -?-?-?-?-?-?-?-?-?-?-?-?- 160 34 -?-?-?-?-?-?-?-?-?-?-?-?- SM- no vb lof go od fm no regular ctx SM- no vb lof feels the mini mum fm but it is irregular- discussed formal kick counts and provided instructions to call no regular ctx ACOG First Trimester First Trimester: Desire for [...] Pain Management Plans, Labor support person(s), Immediate Larc, Circumcision preference, Signs and Symptoms of Preeclampsia, Infant Feeding No and Family Medical Leave or Disability Forms Coding Level of Care Code OB Routine Diagnoses Choroid plexus cyst of fetus Encounter for supervision of other normal in third trimester Z34.83 Normal : other normal Trimester: third trimester 34 weeks gestation of Z3A.34 Weeks of gestation: 34 weeks Anxiety F41.9 Assessment and Plan Assessment and Plan (1) Choroid plexus cyst of fetus: Status: Acute Comment: offer NIPT declined (2) Supervision of normal : Status: Acute Qualifiers: Normal : other normal Trimester: third trimester Qualified Code(s): Z34.83 - Encounter for supervision of other normal , third trimester Comment: PRR, , OTTO 05/01/25, [facility] Perla Haas, Bud (3) : Status: Acute Qualifiers: Weeks of gestation: 34 weeks Qualified Code(s): Z3A.34 - 34 weeks gestation of Comment: declined NIPT & Carrier testing. anatomy scan normal. (4) Anxiety: Status: Acute Comment: stable. no meds. 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 Orders: Orders POC Urinalysis 2 Dip (Clinic) Today 03/20/25 4191 <Electronically signed by Mary leahy MD> Date _ Mary Gonzalez MD [facility] Signature: Date (if applicable) CC: ~ [facility] Work Phone: 1(235) 428-822607-25-2025 [facility] [address], [address] [place] [address] OFFICE VISIT Date of Service: 02/21/25 MR#: [id number] Acct: [id number] Name: RAMYA GOEL Rep #: [id number] : 1990 Provider: MIKI Petersen Age/Sex: 34/F Location: [facility] Status: Signed Intake Vital Signs 12/19/24 11:48 02/06/25 09:08 02/21/25 10:11 Height 5 ft 7 in 5 ft 7 in 5 ft 7 in Weight: 147 lb BMI 23.0 BP 111/69 Intake Visit Reasons: 30wk ob Director Of Institutional Giving Required: No Is patient in pain?: No Allergies No Known Allergies Allergy (Verified 02/21/25 10:12) Medications ?Medication ?Instructions ?Recorded ?Confirmed ?Type multivitamin no.47-iron fum 27 cap PO 09/13/24 5 History mg-folate no.1 1 mg-dha 300 mg capsule (PNV-DHA) magnesium 250 mg tablet 250 mg PO QDAY 11/19/2401/29 History Last Menstrual Period: 07/25/24 Zika: Zika virus screening: Negative : Yes Have you fallen in the past year?: No PFSH PFSH Medical History Vaginal delivery [...] 2 current occupational status: employed current occupation: [employer] current occupational exposures/hazards: No pets and animals: [...] none frequency: 3-4 times per week taryn/religious: Zoroastrian seatbelt use: always do you feel safe at home: Yes 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 Date Name GA/Weeks Outcome Route Bth Weight Gen Labor Lgth Anesthesia Del Locatn Provider FOB 09/18/20 [place] 40 live - full term 7# Male [facility] Sameer 10/24/22 Perla 40 live - full term 8#11 Female epi dural [facility] Mary Gonzalez Bud Delivery Date: 09/18/20 Last Updated by: Pebbles Hardin admitted in active labor. normal vaginal delivery Delivery Date: 10/24/22 Last Updated by: Alyssa Rizo see problem list for complications, and ial 40 sm. HPI 30wk ob Details: RAMYA GOEL is a 34 year old who presents for routine OB visit. OB Visit OTTO Calculator Estimated Delivery Date Method Current WG Current Estimate 05/01/25 LMP (Certain) 30w 1d Other Estimates 05/04/25 Ultrasound #1 29w 5d Expected Delivery Route/Plan Labor Preferences- CB/BF classes: no labor support person: Bud labor intervention preferences: [] pain management options preferred: wants limited. cut cord/dad catch: no : yes PP control planned: discussed discussed possible routes of delivery and associated risks: [] special requests: [] Specific Issue/Plans Covid status: [] Flu vaccine: [] Tdap vaccine: [] Rhogam: NA LARC form signed: yes Problem list reviewed and updated with the most current plan of care details and appropriate ordersplaced. Relevant counseling for the gestational age provided. [...] 155 25 -?-?-?-?-?-?-?-?-?-?-?-?- KW- no vb/crampi ng. ricardo fm. glucose discussed. umbilical hernia discussed and may want surgical consult after delivery 02/06/25 -?-?-?-?-?-?-?-?-?-?-?-?- 28w 0d 147 lb 2 oz (+21 lb 2 oz) 102/60 Negative -?-?-?-?-?-?-?-?-?-?-?-?- Negative 141 27 -?-?-?-?-?-?-?-?-?-?-?-?- MH-No Vb, LOF. G ood Fm. Larc. 28 wk labs pending. Tdap next visit 02/21/25 -?-?-?-?-?-?-?-?-?-?-?-?- 30w 1d 147 lb (+21 lb) 111/69 -?-?-?-?-?-?-?-?-?-?-?-?- 144 30 -?-?-?-?-?-?-?-?-?-?-?-?- LC- no vb/ctx/lo f. good fm. tdap today. ACOG First Trimester First Trimester: Desire for , Alcohol, Tobacco Cessation, Illicit/Recreational Drug/Substance Use, Intimate Partner Violence, Barriers to care, Unstable Housing, Communication Barriers, Environmental/Work Hazards, Anticipated Course of Care, Toxoplasmosis Precations, Use of Any med ications, Sexual activity, Exercise, Dental Care, Sauna/Hot tub use, Seat Belt use, Childbirth classes/Hospital facilities, , Travel, Indications for Ultrasound and Screening for Aneuploidy Second Trimester Second Trimester: Signs and Symptoms of Labor, Selecting a care provider, Reproductive Life Planning & Contreception, Care Planning, Depression/Anxiety and Intimate Partner Violence Third Trimester Third Trimester: Pain Management Plans, Labor support person(s), Immediate Larc, Circumcision preference, Signs and Symptoms of Preeclampsia, Feeding Yes and Family Medical Leave or Disability Forms ROS Const Reports system reviewed and no additional complaints, except as documented GI Denies nausea and Denies vomiting Denies urinary hesitancy and Denies urinary urgency Exam Const Orientation: alert, awake and oriented x3 Resp Effort & Inspection: normal respiratory effort, able to speak in complete sentences and symmetric chest movement GI Palpation: soft (gravid) OB/External & Speculum: other (fundus appriopriate for GA) Coding Level of Care Code OB Routine Diagnoses Choroid plexus cyst of fetus Encounter for supervision of other normal in third trimester Z34.83 Normal : other normal Trimester: third trimester 30 weeks gestation of Z3A.30 Weeks of gestation: 30 weeks Anxiety F41.9 Assessment and Plan Assessment and Plan (1) Choroid plexus cyst of fetus: Status: Acute Comment: offer NIPT declined (2) Supervision of normal : Status: Acute Qualifiers: Normal : other normal Trimester: third trimester Qualified Code(s): Z34.83 - Encounter for supervision of other normal , third trimester Comment: PRR, , OTTO 05/01/25, [facility] Perla Haas, Bud (3) : Status: Acute Qualifiers: Weeks of gestation: 30 weeks Qualified Code(s): Z3A.30 - 30 weeks gestation of Comment: declined NIPT & Carrier testing. anatomy scan normal. (4) Anxiety: Status: Acute Comment: stable. no meds. 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 Orders: Orders POC Urinalysis 2 Dip (Clinic) Today Tdap Immunization Today Z23 - Encounter for immunization Medications: New Adacel(Tdap Adolesn/Adult)(PF) (diph,pertuss(acel),tet vac(PF)) 0.5 mL IM ONCE 0.5 mL 0RF NS Z23 - Encounter for immunization Plan Details Additional Comments: ACOG trimester education reviewed and updated. see problem list details for updated plan management information and see below for orders placed atthis visit. GA appropriate handout given. Clinical Quality Measures Falls Risk Screening/Assistive Devices Have you fallen in the past year?: No 02/21/25 1028 ns CNM> Date _ Krysta DUKES Cosigner Signature: Date (if applicable) CC: ~ [facility]06-19-2025 Evaluation note* Diagnosis Onset Date Resolution Status Admit Date Anxiety acute January 16 9:31am Choroid plexus cyst of fetus acute January 16, 2025 9:31am acute January 16 9:31am Supervision of normal acute January 16, 2025 9:31am Anxiety acute February 06 9:05am Choroid plexus cyst of fetus acute February 06, 2025 9:05am acute February 06 9:05am Supervision of normal acute February 06, 2025 9:05am Anxiety acute February 21 10:09am Choroid plexus cyst of fetus acute February 21, 2025 10:09am acute February 21 10:09am Supervision of normal acute February 21, 2025 10:09am Anxiety acute March 07 8:34am Choroid plexus cyst of fetus acute March 07, 2025 8:34am acute March 07 8:34am Supervision of normal acute March 07, 2025 8:34am Decreased movement resolved March 07, 2025 8:34am Variable heart rate decelerations, antepartum resolved March 07, 2025 8:34am Anxiety acute March 07 9:45am Choroid plexus cyst of fetus acute March 07, 2025 9:45am acute March 07 9:45am Supervision of normal acute March 07, 2025 9:45am Decreased movement resolved March 07, 2025 9:45am Variable heart rate decelerations, antepartum resolved March 07, 2025 9:45am Anxiety acute March 20, 025 2:42pm Choroid plexus cyst of fetus acute March 20, 2025 2:42pm acute March 20, 025 2:42pm Supervision of normal acute March 20 2:42pm Anxiety acute April 03, 2025 9:22am Choroid plexus cyst of fetus acute April 03, 2025 9:22am acute April 03, 2025 9:22am Supervision of normal acute April 03, 9:22am Anxiety acute March 1:03pm Choroid plexus cyst of fetus acute April 11, 2025 1:03pm acute March 1:03pm Supervision of normal acute April 11, 2025 1:03pm Anxiety acute March 9:27am Choroid plexus cyst of fetus acute April 18, 2025 9:27am acute March 9:27am Supervision of normal acute April 18, 2025 9:27am Anxiety acute March 9:19am Choroid plexus cyst of fetus acute April 23, 2025 9:19am acute March 9:19am Supervision of normal acute April 23, 2025 9:19am [facility] Work Phone: 1(352) 190-335606-19-2025 Evaluation note* Diagnosis Onset Date Resolution Status Admit Date Anxiety acute January 16 9:31am Choroid plexus cyst of fetus acute January 16, 2025 9:31am acute January 16 9:31am Supervision of normal acute January 16, 2025 9:31am Anxiety acute February 06 9:05am Choroid plexus cyst of fetus acute February 06, 2025 9:05am acute February 06 9:05am Supervision of normal acute February 06, 2025 9:05am Anxiety acute February 21 10:09am Choroid plexus cyst of fetus acute February 21, 2025 10:09am acute February 21 10:09am Supervision of normal acute February 21, 2025 10:09am Anxiety acute March 07 8:34am Choroid plexus cyst of fetus acute March 07, 2025 8:34am acute March 07 8:34am Supervision of normal acute March 07, 2025 8:34am Decreased movement resolved March 07, 2025 8:34am Variable heart rate decelerations, antepartum resolved March 07, 2025 8:34am Anxiety acute March 07 9:45am Choroid plexus cyst of fetus acute March 07, 2025 9:45am acute March 07 9:45am Supervision of normal acute March 07, 2025 9:45am Decreased movement resolved March 07, 2025 9:45am Variable heart rate decelerations, antepartum resolved March 07, 2025 9:45am Anxiety acute March 20, 025 2:42pm Choroid plexus cyst of fetus acute March 20, 2025 2:42pm acute March 20, 2 025 2:42pm Supervision of normal acute March 20 2:42pm Anxiety acute April 03, 2025 9:22am Choroid plexus cyst of fetus acute April 03, 2025 9:22am acute April 03, 2025 9:22am Supervision of normal acute April 03, 025 9:22am Anxiety acute March 1:03pm Choroid plexus cyst of fetus acute April 11, 2025 1:03pm acute March 1:03pm Supervision of normal acute April 11, 2025 1:03pm Anxiety acute March 9:27am Choroid plexus cyst of fetus acute April 18, 2025 9:27am acute March 9:27am Supervision of normal acute April 18, 2025 9:27am Anxiety acute March 9:19am Choroid plexus cyst of fetus acute April 23, 2025 9:19am acute March 9:19am Supervision of normal acute April 23, 2025 9:19am Anxiety acute May 01, 025 1:45pm Choroid plexus cyst of fetus acute May 01, 2025 1:45pm acute May 01, 025 1:45pm Supervision of normal acute May 01 1:45pm [facility] Work Phone: 1(369) 819-619106-19-2025 [facility] [address] [place] [address], [address] [place] [address] OFFICE VISIT Date of Service: 01/16/25 MR#: [id number] Acct: [id number] Name: RAMYA GOEL Rep #: [id number] : 1990 Provider: MIKI Acosta Age/Sex: 34/F Location: [facility] [place] Status: Signed Intake Vital Signs 10/23/24 14:30 12/19/24 11:48 01/16/25 09:34 Height 5 ft 7 in 5 ft 7 in 5 ft 7 in Weight: 140 lb 8 oz BMI 21.9 BP 97/65 Intake Visit Reasons: 25wk ob Chief Complaint: 25 Week OB Director Of Institutional Giving Required: No Is patient in pain?: No [...] 2 current occupational status: employed current occupation: [employer] current occupational exposures/hazards: No pets and animals: [...] none frequency: 3-4 times per week taryn/religious: Zoroastrian seatbelt use: always do you feel safe at home: Yes 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 Date Name GA/Weeks Outcome Route Bth Weight Infant Gen Labor Lgth Anesthesia Del Locatn Provider FOB 09/18/20 [place] 40 live - full term 7# Male [facility] Sameer 10/24/22 [place] 40 live - full term 8#11 Female epi dural [facility] Mary Riconajma Bud Delivery Date: 09/18/20 Last Updated by: [...] 05/01/25 LMP (Certain) 25w 0d Other Estimates 10/05/25 Ultrasound #1 24w 4d Expected Delivery Route/Plan [...] current plan of care details and appropriate ordersplaced. Relevant counseling for the gestational age provided. [...] 155 25 -?-?-?-?-?-?-?-?-?-?-?-?- KW- no vb/crampi ng. ricardo fm. glucose discussed. umbilical hernia discussed and may want surgical consult after delivery ACOG First Trimester First Trimester: Desire for , Alcohol, Tobacco Cessation, Illicit/Recreational Drug/Substance Use, Intimate Partner Violence, Barriers to care, Unstable Housing, Communication Barriers, Environmental/Work Hazards, Anticipated Course of Care, Toxoplasmosis Precations, Use of Any med ications, Sexual activity, Exercise, Dental Care, Sauna/Hot tub [...] Encounter for screening for diabetes mellitus, Z34.82 -Encounter for supervision of other normal , second trimester HIV Today Z34.82 - Encounter for supervision of other normal , second trimester Syphilis Antibodies Today Z34.82 - Encounter for supervision of other normal , second trimester Plan Details Additional Comments: ACOG trimester education reviewed and updated. see problem list details for updated plan management information and see below for orders placed atthis visit. GA appropriate handout given. 01/16/25 0951 s MIKI> Date _ Lizy Acosta CNM Cosigner Signature: Date (if applicable) CC: ~ [facility]05-22-2025 Evaluation note* Diagnosis Onset Date Resolution Status Admit Date Anxiety acute December 19, 2024 11:36am Choroid plexus cyst of fetus acute December 19, 2024 11:36am acute December 19, 2024 11:36am Supervision of normal acute December 19, 2024 1 1:36am Anxiety acute January 16 9:31am Choroid plexus cyst of fetus acute January 16, 2025 9:31am acute January 16 9:31am Supervision of normal acute January 16, 2025 9:31am Anxiety acute February 06 9:05am Choroid plexus cyst of fetus acute February 06, 2025 9:05am acute February 06 9:05am Supervision of normal acute February 06, 2025 9:05am Anxiety acute February 21 10:09am Choroid plexus cyst of fetus acute February 21, 2025 10:09am acute February 21 10:09am Supervision of normal acute February 21, 2025 10:09am Anxiety acute March 07 8:34am Choroid plexus cyst of fetus acute March 07, 2025 8:34am acute March 07 8:34am Supervision of normal acute March 07, 2025 8:34am Decreased movement resolved March 07, 2025 8:34am Variable heart rate decelerations, antepartum resolved March 07, 2025 8:34am Anxiety acute March 07 9:45am Choroid plexus cyst of fetus acute March 07, 2025 9:45am acute March 07 9:45am Supervision of normal acute March 07, 2025 9:45am Decreased movement resolved March 07, 2025 9:45am Variable heart rate decelerations, antepartum resolved March 07, 2025 9:45am Anxiety acute March 20, 2 025 2:42pm Choroid plexus cyst of fetus acute March 20, 2025 2:42pm acute March 20, 2 025 2:42pm Supervision of normal acute March 20 2:42pm Anxiety acute April 03, 2025 9:22am Choroid plexus cyst of fetus acute April 03, 2025 9:22am acute April 03, 2025 9:22am Supervision of normal acute April 03, 2 025 9:22am Anxiety acute March 1:03pm Choroid plexus cyst of fetus acute April 11, 2025 1:03pm acute March 1:03pm Supervision of normal acute April 11, 2025 1:03pm [facility] Work Phone: 1(807) 143-276605-11-2025 Evaluation note* Diagnosis Onset Date Resolution Status Admit Date URI (upper respiratory infection) resolved December 08, [...] of normal acute January 16, 2025 9:31am Anxiety acute February 06 9:05am Choroid plexus cyst of fetus acute February 06, 2025 9:05am acute February 06 9:05am Supervision of normal acute February 06, 2025 9:05am Anxiety acute February 21 10:09am Choroid plexus cyst of fetus acute February 21, 2025 10:09am acute February 21 10:09am Supervision of normal acute February 21, 2025 10:09am Anxiety acute March 07 8:34am Choroid plexus cyst of fetus acute March 07, 2025 8:34am acute March 07 8:34am Supervision of normal acute March 07, 2025 8:34am Decreased movement resolved March 07, 2025 8:34am Variable heart rate decelerations, antepartum resolved March 07, 2025 8:34am Anxiety acute March 07 9:45am Choroid plexus cyst of fetus acute March 07, 2025 9:45am acute March 07 9:45am Supervision of normal acute March 07, 2025 9:45am Decreased movement resolved March 07, 2025 9:45am Variable heart rate decelerations, antepartum resolved March 07, 2025 9:45am Anxiety acute March 20, 025 2:42pm Choroid plexus cyst of fetus acute March 20, 2025 2:42pm acute March 20, 025 2:42pm Supervision of normal acute March 20 2:42pm [facility] Work Phone: 1([phone]) 894-538405-11-2025 Evaluation note* Diagnosis Onset Date Resolution Status Admit Date URI (upper respiratory infection) resolved December 08, [...] of normal acute January 16, 2025 9:31am Anxiety acute February 06 9:05am Choroid plexus cyst of fetus acute February 06, 2025 9:05am acute February 06 9:05am Supervision of normal acute February 06, 2025 9:05am Anxiety acute February 21 10:09am Choroid plexus cyst of fetus acute February 21, 2025 10:09am acute February 21 10:09am Supervision of normal acute February 21, 2025 10:09am Anxiety acute March 07 8:34am Choroid plexus cyst of fetus acute March 07, 2025 8:34am acute March 07 8:34am Supervision of normal acute March 07, 2025 8:34am Decreased movement resolved March 07, 2025 8:34am Variable heart rate decelerations, antepartum resolved March 07, 2025 8:34am Anxiety acute March 07 9:45am Choroid plexus cyst of fetus acute March 07, 2025 9:45am acute March 07 9:45am Supervision of normal acute March 07, 2025 9:45am Decreased movement resolved March 07, 2025 9:45am Variable heart rate decelerations, antepartum resolved March 07, 2025 9:45am Anxiety acute March 20, 2 025 2:42pm Choroid plexus cyst of fetus acute March 20, 2025 2:42pm acute March 20, 2 025 2:42pm Supervision of normal acute March 20 2:42pm Anxiety acute April 03, 2025 9:22am Choroid plexus cyst of fetus acute April 03, 2025 9:22am acute April 03, 2025 9:22am Supervision of normal acute April 03, 2 025 9:22am [facility] Work Phone: [phone] [id number] Evaluation note* Diagnosis Onset Date Resolution Status Admit Date Anxiety acute November 19 1:38pm acute November [...] of normal acute January 16, 2025 9:31am Anxiety acute February 06 9:05am Choroid plexus cyst of fetus acute February 06, 2025 9:05am acute February 06 9:05am Supervision of normal acute February 06, 2025 9:05am Anxiety acute February 21 10:09am Choroid plexus cyst of fetus acute February 21, 2025 10:09am acute February 21 10:09am Supervision of normal acute February 21, 2025 10:09am [facility] Work Phone: 1(445) 412-389404-22-2025 Evaluation note* Diagnosis Onset Date Resolution Status Admit Date Anxiety acute November 19 1:38pm acute November [...] of normal acute January 16, 2025 9:31am Anxiety acute February 06 9:05am Choroid plexus cyst of fetus acute February 06, 2025 9:05am acute February 06 9:05am Supervision of normal acute February 06, 2025 9:05am Anxiety acute February 21 10:09am Choroid plexus cyst of fetus acute February 21, 2025 10:09am acute February 21 10:09am Supervision of normal acute February 21, 2025 10:09am Anxiety acute March 07 8:34am Choroid plexus cyst of fetus acute March 07, 2025 8:34am Decreased movement acute March 07, 2025 8:34am acute March 07 8:34am Supervision of normal acute March 07, 2025 8:34am [facility] Work Phone: 1(613) 721-793204-22-2025 Evaluation note* Diagnosis Onset Date Resolution Status Admit Date Anxiety acute November 19 1:38pm acute November [...] of normal acute January 16, 2025 9:31am Anxiety acute February 06 9:05am Choroid plexus cyst of fetus acute February 06, 2025 9:05am acute February 06 9:05am Supervision of normal acute February 06, 2025 9:05am Anxiety acute February 21 10:09am Choroid plexus cyst of fetus acute February 21, 2025 10:09am acute February 21 10:09am Supervision of normal acute February 21, 2025 10:09am Anxiety acute March 07 8:34am Choroid plexus cyst of fetus acute March 07, 2025 8:34am Decreased movement acute March 07, 2025 8:34am acute March 07 8:34am Supervision of normal acute March 07, 2025 8:34am Variable heart rate decelerations, antepartum acute March 07, 2025 8:34am [facility] Work Phone: 1(130) 359-618503-26-2025 Evaluation note* Diagnosis Onset Date Resolution Status Admit Date Anxiety acute October 23 2:17pm acute October [...] of normal acute January 16, 2025 9:31am Anxiety acute February 06 9:05am Choroid plexus cyst of fetus acute February 06, 2025 9:05am acute February 06 9:05am Supervision of normal acute February 06, 2025 9:05am [facility] Work Phone: 1(496) 553-117402-28-2025 Evaluation note* Diagnosis Onset Date Resolution Status Admit Date Anxiety acute September 27, 2024 7:56am acute September 27, 2024 7:56am Supervision of normal acute September 27, 2 025 7:56am [facility] Work Phone: 1(777) 650-258302-28-2025 Evaluation note* Diagnosis Onset Date Resolution Status Admit Date Anxiety acute September 27, 2024 7:56am acute September 27, 2024 7:56am Supervision of normal acute September 27, 2 025 7:56am Anxiety acute October 23 2:17pm [...] of normal acute January 16, 2025 9:31am [facility] Work Phone: 1(849) 993-572803-28-2023 Discharge summary Author Lizy Acosta [facility] October 25, 2022 7:53am Note Date/Time October 25, 2022 7:5 2am [facility] Medical Records Department [address] [place] [address] Instructions for Home/Discharge Instructions 10/25/22 0752 MR#: [id number] Acct: [id number] Name: RAMYA GOEL Rep #:[id number] : 1990 31 From: Lizy Acosta CNM PCP: Connor Blank Status:ADM IN Discharge Instructions Diet Discharge Diet: [...] Provider: Mary Gonzalez Primary Care Provider: Connor Blank OLS Discharge Orders/Prescriptions Prescriptions: No Action Prenate Pixie 10 mg iron- 1 mg-200 mg capsule 1 cap PO DAILY Qty: 30 12RF Referrals / Follow Up: Connor Blank OLS [Primary Care Provider] - Disposition Disposition (needs filled in before D/C Order can be placed): Home, Self Care 10/25/22 0753<Electronically signed by Lizy Acosta CNM>Lizy Acosta CNM CC: Connor Blank ~ Signed [facility] Work Phone: 1(825) 517-732003-28-2023 Progress note Author Lizy Acosta [facility] October 25, 2022 7:52am Note Date/Time October 25, 2022 7:5 2am [facility] Medical Records Department [address] [place] [address] Progress Note - OBGYN 10/25/22 0749 MR#: [id number] Acct: [id number] Name: RAMYA GOEL Rep #:[id number] : 1990 31 From: Lizy Acosta CNM PCP: Connor Blank Status:ADM IN Location: [place] [address] Subjective Subjective Patient doing well without complaints. [...] Assessment & Plan (1) Vaginal delivery: COMMENT: IAL 41 girl Shannansusantashia PLAN: s/p PPD # 1 1. routine [...] Cosigner Signature (if applicable): CC: ~ Signed [facility] Work Phone: 1(642) 215-629503-27-[address] Marcanthony [facility] October 24, 2022 7:39pm Note Date/Time October 24, 2022 7:[address] [facility] Medical Records Department [address] [place] [address] Instructions for Home/Discharge Instructions 10/24/221938 MR#: [id number] Acct: [id number] Name: RAMYA GOEL Rep #:[id number] : 1990 31 From: Mary pederson MD PCP: Connor Blank Status:ADM IN Discharge Instructions Diet Discharge Diet: [...] Provider: Mary Gonzalez Primary Care Provider: Connor Blank Discharge Orders/Prescriptions Prescriptions: No Action Prenate Pixie 10 mg iron- 1 mg-200 mg capsule 1 cap PO DAILY Qty: 30 12RF Referrals / Follow Up: Connor Blank [Primary Care Provider] - 10/24/221938<Electronically signed by Mary Gonzalez MD>Mary Gonzalez MD CC: Connor Blank ~ Signed [facility] Work Phone: 1(239) 518-305903-27-2023 Procedure [facility] 10-24-2022 History and physical note Author Dr. Gonzalez 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 10/24/22 0740 MR#: [id number] Acct: [id number] Name: RAMYA GOEL Rep #:[id number] : 1990 31 From: Mary pederson MD PCP: Connor Blank Status:ADM IN Location: [id number] HPI - General General Date of Admission: [...] house current occupational status: employed current occupation: [employer]- [employer] history of recent travel: No sexually [...] safe at home: Yes 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 Date Name GA/Weeks Outcome Route Bth Weight Infant Gen Labor Lgth Anesthesia Del Rogerioatpari Provider FOB 09/18/20 [place] 40 live - full term Male [facility] Sameer Delivery Date: 09/18/20 Last Updated by: [...] : COMMENT: PRR , OTTO 10/21/21, girl Shannanthalia LEISA Haas, Spouse- Bud (3) cardiac echogenic focus: COMMENT: [...] complications: see a/p [facility] and made any clinically relevant updates. 10/24/22 0743 <Electronically signed by Mary Gonzalez MD> Cosigner Signature (if applicable): CC: Dr. Mary Gonzalez MD; Connor Blank~ Signed [facility] Work Phone: Evaluation note* Diagnosis Onset Date Resolution Status Encounter for routine gynecological examination noneactive acute Supervision of normal acute [facility] Work Phone: Evaluation note* Diagnosis Onset Date Resolution Status Encounter for routine gynecological examination noneactive acute Supervision of normal acute acute Supervision of normal acute acute Supervision of normal [facility] Work Phone: Evaluation note* Diagnosis Onset Date [...] renal pelvis acute Supervision of normal acute [facility] Work Phone: Evaluation note* Diagnosis [...] of membranes) resolved Supervision of normal resolved [facility] Work Phone: Progress note Author Lizy Acosta [facility] Note Date/Time January 16, 2025 9:51 am [facility] [address] [place] [address], [address] [place] [address] OFFICE VISIT Date of Service: 01/16/25 MR#: [id number] Acct: [id number] Name: RAMYA GOEL Rep #: [id number] : 1990 Provider: MIKI Acosta Age/Sex: 34/F Location: [facility] Status: Signed Intake Vital Signs 10/23/24 14:30 12/19/24 11:48 01/16/25 09:34 Height 5 ft 7 in 5 ft 7 in 5 ft 7 in Weight: 140 lb 8 oz BMI 21.9 BP 97/65 Intake Visit Reasons: 25wk ob Chief Complaint: 25 Week OB Director Of Institutional Giving Required: No Is patient in pain?: No [...] 2 current occupational status: employed current occupation: [employer] current occupational exposures/hazards: No pets and [...] none frequency: 3-4 times per week taryn/religious: Zoroastrian seatbelt use: always do you feel safe at home: Yes 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 Date Name GA/Weeks Outcome Route Bth Weight Gen Labor Lgth Anesthesia Del Locatn Provider FOB 09/18/20 [place] 40 live - full term 7# Male [facility] Sameer 10/24/22 [place] 40 live - full term 8#11 Female epi dural [facility] Mary Gonzalez Bud Delivery Date: 09/18/20 Last [...] this visit. GA appropriate handout given. 01/16/25 0951 <Electronically signed by Lizy sorto CNM> Date _ Lizy Acosta CNM Cosigner Signature: Date (if applicable) CC: ~ [facility] Work Phone: Progress note Author Krysta Petersen [facility] Note Date/Time February 21, 2025 10:2 8am [facility] [address], [address] [place] [address] OFFICE VISIT Date of Service: 02/21/25 MR#: [id number] Acct: [id number] Name: RAMYA GOEL Rep #: [id number] : 1990 Provider: MIKI Petersen Age/Sex: 34/F Location[place] [facility] Status: Signed Intake Vital Signs 12/19/24 11:48 02/06/25 09:08 02/21/25 10:11 Height 5 ft 7 in 5 ft 7 in 5 ft 7 in Weight: 147 lb BMI 23.0 BP 111/69 Intake Visit Reasons: 30wk ob Director Of Institutional Giving Required: No Is patient in pain?: No Allergies No Known Allergies Allergy (Verified 02/21/25 10:12) Medications ?Medication ?Instructions ?Recorded ?Confirmed ?Type multivitamin no.47-iron fum 27 cap PO 09/13/24 5 History mg-folate no.1 1 mg-dha 300 mg capsule (PNV-DHA) magnesium 250 mg tablet 250 mg PO QDAY 11/19/2401/29 History Last Menstrual Period: 07/25/24 Zika: Zika virus screening: Negative : Yes Have you fallen in the past year?: No PFSH PFSH Medical History Vaginal delivery [...] 2 current occupational status: employed current occupation: [employer] current occupational exposures/hazards: No pets and [...] none frequency: 3-4 times per week taryn/religious: Zoroastrian seatbelt use: always do you feel safe at home: Yes 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 Date Name GA/Weeks Outcome Route Bth Weight Infant Gen Labor Lgth Anesthesia Del Locatn Provider FOB 09/18/20 [place] 40 live - full term 7# Male [facility] Sameer 10/24/22 [place] 40 live - full term 8#11 Female epi dural [facility] Mary Gonzalez Bud Delivery Date: 09/18/20 Last Updated by: Pebbles Hardin admitted in active labor. normal vaginal delivery Delivery Date: 10/24/22 Last Updated by: Alyssa Rizo see problem list for complications, and ial 40 sm. HPI 30wk ob Details: RAMYA GOEL is a 34 year old who presents for routine OB visit. OB Visit OTTO Calculator Estimated Delivery Date Method Current WG Current Estimate 05/01/25 LMP (Certain) 30w 1d Other Estimates 05/04/25 Ultrasound #1 29w 5d Expected Delivery Route/Plan Labor Preferences- CB/BF classes: no labor support person: Bud labor intervention preferences: [] pain management options preferred: wants limited. cut cord/dad catch: no : yes PP control planned: discussed discussed possible routes of delivery and associated risks: [] special requests: [] Specific Issue/Plans Covid status: [] Flu vaccine: [] Tdap vaccine: [] Rhogam: NA LARC form signed: yes Problem list reviewed [...] and may want surgical consult after delivery 02/06/25 -?-?-?-?-?-?-?-?-?-?-?-?- 28w 0d 147 lb 2 oz (+21 lb 2 oz) 102/60 Negative -?-?-?-?-?-?-?-?-?-?-?-?- Negative 141 27 -?-?-?-?-?-?-?-?-?-?-?-?- MH-No Vb, LOF. G ood Fm. Larc. 28 wk labs pending. Tdap next visit 02/21/25 -?-?-?-?-?-?-?-?-?-?-?-?- 30w 1d 147 lb (+21 lb) 111/69 -?-?-?-?-?-?-?-?-?-?-?-?- 144 30 -?-?-?-?-?-?-?-?-?-?-?-?- LC- no vb/ctx/lo f. good fm. tdap today. ACOG First Trimester First Trimester: Desire for , Alcohol, Tobacco Cessation, Illicit/Recreational Drug/Substance Use, Intimate Partner Violence, Barriers to care, Unstable Housing, Communication Barriers, Environmental/Work Hazards, Anticipated Course of Care, Toxoplasmosis Precations, Use of Any medications, Sexual activity, Exercise, Dental Care, Sauna/Hot tub use, Seat Belt use, Childbirth classes/Hospital facilities, , Travel, Indications for Ultrasound and Screening for Aneuploidy Second Trimester Second Trimester: Signs and Symptoms of Labor, Selecting a care provider, Reproductive Life Planning & Contreception, Care Planning, Depression/Anxiety and Intimate Partner Violence Third Trimester Third Trimester: Pain Management Plans, Labor support person(s), Immediate Larc, Circumcision preference, Signs and Symptoms of Preeclampsia, Infant Feeding Yes and Family Medical Leave or Disability Forms ROS Const Reports system reviewed and no additional complaints, except as documented GI Denies nausea and Denies vomiting Denies urinary hesitancy and Denies urinary urgency Exam Const Orientation: alert, awake and oriented x3 Resp Effort & Inspection: normal respiratory effort, able to speak in complete sentences and symmetric chest movement GI Palpation: soft (gravid) OB/External & Speculum: other (fundus appriopriate for GA) Coding Level of Care Code OB Routine Diagnoses Choroid plexus cyst of fetus Encounter for supervision of other normal in third trimester Z34.83 Normal : other normal Trimester: third trimester 30 weeks gestation of Z3A.30 Weeks of gestation: 30 weeks Anxiety F41.9 Assessment and Plan Assessment and Plan (1) Choroid plexus cyst of fetus: Status: Acute Comment: offer NIPT declined (2) Supervision of normal : Status: Acute Qualifiers: Normal : other normal Trimester: third trimester Qualified Code(s): Z34.83 - Encounter for supervision of other normal , third trimester Comment: PRR, , OTTO 05/01/25, SURPRISE PC Perla Haas, Bud (3) : Status: Acute Qualifiers: Weeks of gestation: 30 weeks Qualified Code(s): Z3A.30 - 30 weeks gestation of Comment: declined NIPT & Carrier testing. anatomy scan normal. (4) Anxiety: Status: Acute Comment: stable. no meds. 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 Orders: Orders POC Urinalysis 2 Dip (Clinic) Today Tdap Immunization Today Z23 - Encounter for immunization Medications: New Adacel(Tdap Adolesn/Adult)(PF) (diph,pertuss(acel),tet vac(PF)) 0.5 mL IM ONCE 0.5 mL 0RF NS Z23 - Encounter for immunization Plan Details Additional Comments: ACOG trimester education reviewed and updated. see problem list details for updated plan management information and see below for orders placed at this visit. GA appropriate handout given. Clinical Quality Measures Falls Risk Screening/Assistive Devices Have you fallen in the past year?: No 02/21/25 1028 <Electronically signed by Krysta de la fuente CNM> Date _ Krysta Petersen CNM Cosigner Signature: Date (if applicable) CC: ~ [facility] Work Phone: Progress note Author Lizy Acosta [facility] Note Date/Time April 03, 2025 9:53am [facility] [address] [place] [address], [address] [place] [address] OFFICE VISIT Date of Service: 04/03/25 MR#: [id number] Acct: [id number] Name: RAMYA GOEL Rep #: [id number] : 1990 Provider: MIKI Acosta Age/Sex: 34/F Location: [facility] Status: Signed Intake Vital Signs 02/06/25 09:08 03/20/25 14:45 04/03/25 09:24 Height 5 ft 7 in 5 ft 7 in 5 ft 7 in Weight: 157 lb 7 oz BMI 24.6 BP 115/74 Intake Visit Reasons: 36wk ob Chief Complaint: 36wk ob Director Of Institutional Giving Required: No Is patient in pain?: No Allergies No Known Allergies Allergy (Verified 04/03/25 09:23) Medications ?Medication ?Instructions ?Recorded ?Confirmed ?Type multivitamin no.47-iron fum 27 cap PO 09/13/24 5 History mg-folate no.1 1 mg-dha 300 mg capsule (PNV-DHA) magnesium 250 mg tablet 250 mg PO QDAY 11/19/2411/22 History Last Menstrual Period: 07/25/24 : No PFSH PFSH Medical History Vaginal [...] 2 current occupational status: employed current occupation: [employer]- [employer] current occupational exposures/hazards: No pets and [...] none frequency: 3-4 times per week taryn/religious: Zoroastrian seatbelt use: always do you feel safe at home: Yes 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 Date Name GA/Weeks Outcome Route Bth Weight Infant Gen Labor Lgth Anesthesia Del Locatn Provider FOB 09/18/20 [place] 40 live - full term 7# Male [facility] Sameer 10/24/22 [place] 40 live - full term 8#11 Female epi dural [facility] Mary Gonzalez Bud Delivery Date: 09/18/20 Last Updated by: Pebbles Hardin admitted in active labor. normal vaginal delivery Delivery Date: 10/24/22 Last Updated by: Alyssa Rizo see problem list for complications, and ial 40 sm. HPI 36wk ob Details: RAMYA GOEL is a 34 year old who presents for routine OB visit. OB Visit OTTO Calculator Estimated Delivery Date Method Current WG Current Estimate 05/01/25 LMP (Certain) 36w 0d Other Estimates 05/04/25 Ultrasound #1 35w 4d Expected Delivery Route/Plan Labor Preferences- CB/BF classes: no labor support person: Bud labor intervention preferences: [] pain management options preferred: wants limited. cut cord/dad catch: no : yes PP control planned: discussed discussed possible routes of delivery and associated risks: [] special requests: [] Specific Issue/Plans Covid status: [] Flu vaccine: [] Tdap vaccine: given Rhogam: NA LARC form signed: yes Problem list reviewed [...] oz (+5 lb 8 oz) 118/80 Negative -?-?-?-?-?-?-?-?-?-?--?-?- Negative 154 -?-?-?-?-?-?-?-?-?-?-?-?- MH-No VB. Feels well. Magnesium helps with headaches 12/19/24 -?-?-?-?-?-?-?-?-?-?-?-?- 21w 0d 136 lb 8 oz (+10 lb 8 oz) 116/74 Negative -?-?-?-?-?-?-?-?-?-?-?-?- Negative 150 -?-?-?-?-?-?-?-?-?-?-?-?- SM- no vb lof go od fm no regular ctx discussed anatomy findings, declines NIPT 01/16/25 -?-?-?-?-?-?-?-?-?-?-?-?- 25w 0d 140 lb 8 oz (+14 lb 8 oz) 97/65 Negative -?-?-?-?-?-?-?-?-?-?-?-?- Negative 155 25 -?-?-?-?-?-?-?-?-?-?-?-?- KW- no vb/crampi ng. good fm. glucose discussed. umbilical hernia discussed and may want surgical consult after delivery 02/06/25 -?-?-?-?-?-?-?-?-?-?-?-?- 28w 0d 147 lb 2 oz (+21 lb 2 oz) 102/60 Negative -?-?-?-?-?-?-?-?-?--?-?-?- Negative 141 27 -?-?-?-?-?-?-?-?-?-?-?-?- MH-No Vb, LOF. G ojean paul Fm. Larc. 28 wk labs pending. Tdap next visit 02/21/25 -?-?-?-?-?-?-?-?-?-?-?-?- 30w 1d 147 lb (+21 lb) 111/69 -?-?-?-?-?-?-?-?-?-?-?-?- 144 30 -?-?-?-?-?-?-?-?-?-?-?-?- LC- no vb/ctx/lo f. good fm. tdap today. 03/07/25 -?-?-?-?-?-?-?-?-?-?-?-?- 32w 1d 148 lb 6 oz (+22 lb 6 oz) 104/69 Negative -?-?-?-?-?-?-?-?-?-?-?-?- Negative 154 32 -?-?-?-?-?-?-?-?-?-?-?-?- LC- no vb/ctx/lo f. has not felt baby move yet today. nst obtained. LC- no vb/ctx/lof. has not f elt baby move yet today. nst obtained. non-reactive nst with variables. sent to for extended monitoring and LC- no vb/ctx/lof. has not f elt baby move yet today. nst obtained. non-reactive nst with variables. sent to for extended monitoring and BPP 03/20/25 -?-?-?-?-?-?-?-?-?-?-?-?- 34w 0d 152 lb 4 oz (+26 lb 4 oz) 119/74 -?-?-?-?-?-?-?-?-?-?-?-?- 160 34 -?-?-?-?-?-?-?-?-?-?-?-?- SM- no vb lof go od fm no regular ctx SM- no vb lof feels the mini mum fm but it is irregular- discussed formal kick counts and provided instructions to call no regular ctx 04/03/25 -?-?-?-?-?-?-?-?-?-?-?-?- 36w 0d 157 lb 7 oz (+31 lb 7 oz) 115/74 Negative -?-?-?-?-?-?-?-?-?-?-?--?- Negative 145 36 -?-?-?-?-?-?-?-?-?-?-?-?- KW- no vb/lof/ct x. good fm GBS today. ACOG First Trimester First Trimester: Desire for [...] Pain Management Plans, Labor support person(s), Immediate Larc, Circumcision preference, Signs and Symptoms of Preeclampsia, Feeding No and Family Medical Leave or Disability Forms ROS Const Reports system reviewed and no [...] Office Urine Glucose Negative Last Edit by Cassie Casas on 04/03/25 09:32 Office Urine Protein Negative Last Edit by Cassie Casas on 04/03/25 09:32 Coding Level of Care Code OB Routine Diagnoses Choroid plexus cyst of fetus Encounter for supervision of other normal in third trimester Z34.83 Normal : other normal Trimester: third trimester 36 weeks gestation of Z3A.36 Weeks of gestation: 36 weeks Anxiety F41.9 Assessment and Plan Assessment and Plan (1) Choroid plexus cyst of fetus: Status: Acute Comment: offer NIPT declined (2) Supervision of normal : Status: Acute Qualifiers: Normal : other normal Trimester: third trimester Qualified Code(s): Z34.83 - Encounter for supervision of other normal , third trimester Comment: PRR, , OTTO 05/01/25, SURPRISE Perla Mora, Bud (3) : Status: Acute Qualifiers: Weeks of gestation: 36 weeks Qualified Code(s): Z3A.36 - 36 weeks gestation of Comment: declined NIPT & Carrier testing. anatomy scan normal. (4) Anxiety: Status: Acute Comment: stable. no meds. 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 Orders: Orders Culture, Group B Streptococcus Today Z34.83 - Encounter for supervision of other normal , third trimester, Z3A.36 - 36 weeks gestation of POC Urinalysis 2 Dip (Clinic) Today Plan Details Additional Comments: ACOG trimester education reviewed and updated. see problem list details for updated plan management information and see below for orders placed at this visit. GA appropriate handout given. 04/03/25 0953 <Electronically signed by Lizy sorto CNM> Date _ Lizy Acosta CNM Cosigner Signature: Date (if applicable) CC: ~ [facility] Work Phone: Progress note Author Mary Gonzalez [facility] Note Date/Time April 11, 2025 1:21pm [facility] [address] [place] [address], [address] [place] [address] OFFICE VISIT Date of Service: 04/11/25 MR#: [id number] Acct: [id number] Name: RAMYA GOEL Rep #: [id number] : 1990 Provider: Dr. Rafal Gonzalez MD Age/Sex: 34/F Location[place] [facility] Status: Signed Intake Vital Signs 03/07/25 08:38 04/03/25 09:24 04/11/25 13:06 04/11/25 13:06 Height 5 ft 7 in 5 ft 7 in 5 ft 7 in 5 ft 7 in Weight: 156 lb 1 oz BMI 24.4 BP 116/71 Intake Visit Reasons: 37wk ob Director Of Institutional Giving Required: No Is patient in pain?: No Allergies No Known Allergies Allergy (Verified 04/11/25 13:05) Medications ?Medication ?Instructions ?Recorded ?Confirmed ?Type multivitamin no.47-iron fum 27 cap PO 09/13/24 5 History mg-folate no.1 1 mg-dha 300 mg capsule (PNV-DHA) magnesium 250 mg tablet 250 mg PO QDAY 11/19/2403/31 History Last Menstrual Period: 07/25/24 Zika: Zika [...] 2 current occupational status: employed current occupation: [employer]- [employer] current occupational exposures/hazards: No pets and [...] none frequency: 3-4 times per week taryn/religious: Zoroastrian seatbelt use: always do you feel safe at home: Yes 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 Date Name GA/Weeks Outcome Route Bth Weight Gen Labor Lgth Anesthesia Del Locatn Provider FOB 09/18/20 [place] 40 live - full term 7# Male [facility] Sameer 10/24/22 Perla 40 live - full term 8#11 Female epi dural [facility] Mary Farrell Delivery Date: 09/18/20 Last Updated by: Pebbles Hardin admitted in active labor. normal vaginal delivery Delivery Date: 10/24/22 Last Updated by: Alyssa Rizo see problem list for complications, and ial 40 sm. HPI 37wk ob Details: RAMYA GOEL is a 34 year old who presents for routine OB visit. OB Visit OTTO Calculator Estimated Delivery Date Method Current WG Current Estimate 05/01/25 LMP (Certain) 37w 1d Other Estimates 05/04/25 Ultrasound #1 36w 5d Expected Delivery Route/Plan Labor Preferences- CB/BF classes: no labor support person: Bud labor intervention preferences: [] pain management options preferred: wants limited. cut cord/dad catch: no : yes PP control planned: discussed discussed possible routes of delivery and associated risks: [] special requests: [] Specific Issue/Plans Covid status: [] Flu vaccine: [] Tdap vaccine: given Rhogam: NA LARC form signed: yes Problem list reviewed [...] 8 oz (+10 lb 8 oz) 116/74 Negative -?-?-?-?-?-?-?-?-?-?-?-?- Negative 150 -?-?-?-?-?-?-?-?-?-?-?-?- SM- no vb lof go od fm no regular ctx discussed anatomy findings, declines NIPT 01/16/25 -?-?-?-?-?-?-?-?-?-?-?-?- 25w 0d 140 lb 8 oz (+14 lb 8 oz) 97/65 Negative -?-?-?-?-?-?-?-?-?-?-?-?- Negative 155 25 -?-?-?-?-?-?-?-?-?-?-?-?- KW- no vb/janett amaro. good fm. glucose discussed. umbilical hernia discussed and may want surgical consult after delivery 02/06/25 -?-?-?-?-?-?-?-?-?-?-?-?- 28w 0d 147 lb 2 oz (+21 lb 2 oz) 102/60 Negative -?-?-?-?-?-?-?-?-?-?-?-?- Negative 141 27 -?-?-?-?-?-?-?-?-?-?-?-?- MH-No Vb, LOF. G ood Fm. Larc. 28 wk labs pending. Tdap next visit 02/21/25 -?-?-?-?-?-?-?-?-?-?-?-?- 30w 1d 147 lb (+21 lb) 111/69 -?-?-?-?-?-?-?-?-?-?-?-?- 144 30 -?-?-?-?-?-?-?-?-?-?-?-?- LC- no vb/ctx/lo f. good fm. tdap today. 03/07/25 -?-?-?-?-?-?-?-?-?-?-?-?- 32w 1d 148 lb 6 oz (+22 lb 6 oz) 104/69 Negative -?-?-?-?-?-?-?-?-?-?-?-?- Negative 154 32 -?-?-?-?-?-?-?-?-?-?-?-?- LC- no vb/ctx/lo f. has not felt baby move yet today. nst obtained. LC- no vb/ctx/lof. has not f elt baby move yet today. nst obtained. non-reactive nst with variables. sent to for extended monitoring and LC- no vb/ctx/lof. has not f elt baby move yet today. nst obtained. non-reactive nst with variables. sent to for extended monitoring and BPP 03/20/25 -?-?-?-?-?-?-?-?-?-?-?-?- 34w 0d 152 lb 4 oz (+26 lb 4 oz) 119/74 -?-?-?-?-?-?-?-?-?-?-?-?- 160 34 -?-?-?-?-?-?-?-?-?-?-?-?- SM- no vb lof go od fm no regular ctx SM- no vb lof feels the mini mum fm but it is irregular- discussed formal kick counts and provided instructions to call no regular ctx 04/03/25 -?-?-?-?-?-?-?-?-?-?-?-?- 36w 0d 157 lb 7 oz (+31 lb 7 oz) 115/74 Negative -?-?-?-?-?-?-?-?-?-?-?-?- Negative 145 36 -?-?-?-?-?-?-?-?-?-?-?-?- KW- no vb/lof/ct x. good fm GBS today. 04/11/25 -?-?-?-?-?-?-?-?-?-?-?-?- 37w 1d 156 lb 1 oz (+30 lb 1 oz) 116/71 Negative -?-?-?-?-?-?-?-?-?-?-?-?- Negative 140 36 Cephalic -?-?-?-?-?-?-?-?-?-?-?-?- SM- no vb lof go od fm no reuglar ctx ACOG First Trimester First Trimester: Desire for [...] Pain Management Plans, Labor support person(s), Immediate Larc, Circumcision preference, Signs and Symptoms of Preeclampsia, Infant Feeding No and Family Medical Leave or Disability Forms Results POC Urinalysis 2 Dip (Clinic) Office Urine Glucose Negative Last Edit by Anahi Sr on 04/11/25 13:11 Office Urine Protein Negative Last Edit by Anahi Sr on 04/11/25 13:11 Coding Level of Care Code OB Routine Diagnoses Choroid plexus cyst of fetus Encounter for supervision of other normal in third trimester Z34.83 Normal : other normal Trimester: third trimester 37 weeks gestation of Z3A.37 Weeks of gestation: 37 weeks Anxiety F41.9 Assessment and Plan Assessment and Plan (1) Choroid plexus cyst of fetus: Status: Acute Comment: offer NIPT declined (2) Supervision of normal : Status: Acute Qualifiers: Normal : other normal Trimester: third trimester Qualified Code(s): Z34.83 - Encounter for supervision of other normal , third trimester Comment: PRR, , OTTO 05/01/25, [facility] Perla Haas, Bud (3) : Status: Acute Qualifiers: Weeks of gestation: 37 weeks Qualified Code(s): Z3A.37 - 37 weeks gestation of Comment: GBS neg, declined NIPT & Carrier testing. anatomy scan normal. (4) Anxiety: Status: Acute Comment: stable. no meds. 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 Orders: Orders POC Urinalysis 2 Dip (Clinic) Today 04/11/25 1321 <Electronically signed by Mary leahy MD> Date _ Mary Gonzalez MD Cosigner Signature: Date (if applicable) CC: ~ [facility] Work Phone: Progress note Author Lizy Acosta [facility] Note Date/Time April 18, 2025 10:10am [facility] [address] [place] [address], [address] [place] [address] OFFICE VISIT Date of Service: 04/18/25 MR#: [id number] Acct: [id number] Name: RAMYA GOEL Rep #: [id number] : 1990 Provider: MIKI Acosta Age/Sex: 34/F Location: [facility] Status: Signed Intake Vital Signs 03/07/25 08:38 04/11/25 13:06 04/18/25 09:32 Height 5 ft 7 in 5 ft 7 in 5 ft 7 in Weight: 159 lb 1 oz BMI 24.9 BP 130/63 H Intake Visit Reasons: 38 WK OB Director Of Institutional Giving Required: No Is patient in pain?: No Allergies No Known Allergies Allergy (Verified 04/18/25 09:33) Medications ?Medication ?Instructions ?Recorded ?Confirmed ?Type multivitamin no.47-iron fum 27 cap PO 09/13/24 5 History mg-folate no.1 1 mg-dha 300 mg capsule (PNV-DHA) magnesium 250 mg tablet 250 mg PO QDAY 11/19/2403/31 History Last Menstrual Period: 07/25/24 Zika: Zika virus screening: Negative : No Have you fallen in the past year?: No PFSH PFSH Medical History Vaginal delivery [...] 2 current occupational status: employed current occupation: [employer]- [employer] current occupational exposures/hazards: No pets and [...] none frequency: 3-4 times per week taryn/religious: Zoroastrian seatbelt use: always do you feel safe at home: Yes 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 Date Name GA/Weeks Outcome Route Bth Weight Infant Gen Labor Lgth Anesthesia Del Locatn Provider FOB 09/18/20 [place] 40 live - full term 7# Male [facility] Sameer 10/24/22 [place] 40 live - full term 8#11 Female epi dural [facility] Mary Gonzalez Bud Delivery Date: 09/18/20 Last Updated by: Pebbles Hardin admitted in active labor. normal vaginal delivery Delivery Date: 10/24/22 Last Updated by: Alyssa Rizo see problem list for complications, and ial 40 sm. HPI 38 WK OB Details: RAMYA GOEL is a 34 year old who presents for routine OB visit. OB Visit OTTO Calculator Estimated Delivery Date Method Current WG Current Estimate 05/01/25 LMP (Certain) 38w 1d Other Estimates 05/04/25 Ultrasound #1 37w 5d Expected Delivery Route/Plan Labor Preferences- CB/BF classes: no labor support person: Bud labor intervention preferences: [] pain management options preferred: wants limited. cut cord/dad catch: no : yes PP control planned: discussed discussed possible routes of delivery and associated risks: [] special requests: [] Specific Issue/Plans Covid status: [] Flu vaccine: [] Tdap vaccine: given Rhogam: NA LARC form signed: yes Problem list reviewed [...] 126 lb 8 oz (+8 oz) 124/83 -?-?-?-?-?-?-?-?-?-?-?--?- 169 -?-?-?-?-?-?-?-?-?-?-?-?- KW- CRL cons wit h [...] 8 oz (+10 lb 8 oz) 116/74 Negative -?-?-?-?-?-?-?-?-?-?-?-?- Negative 150 -?-?-?-?-?-?-?-?-?-?-?-?- SM- no vb lof go od fm no regular ctx discussed anatomy findings, declines NIPT 01/16/25 -?-?-?-?-?-?-?-?-?-?-?-?- 25w 0d 140 lb 8 oz (+14 lb 8 oz) 97/65 Negative -?-?-?-?-?-?-?-?-?-?-?-?- Negative 155 25 -?-?-?-?-?-?-?-?-?-?-?-?- KW- no vb/crampi ng. good fm. glucose discussed. umbilical hernia discussed and may want surgical consult after delivery 02/06/25 -?-?-?-?-?-?-?-?-?-?-?-?- 28w 0d 147 lb 2 oz (+21 lb 2 oz) 102/60 Negative -?-?-?-?-?-?-?-?-?-?-?-?- Negative 141 27 -?-?-?-?-?-?-?-?-?-?-?-?- MH-No Vb, LOF. G ood Fm. Larc. 28 wk labs pending. Tdap next visit 02/21/25 -?-?-?-?-?-?-?-?-?-?-?-?- 30w 1d 147 lb (+21 lb) 111/69 -?-?-?-?-?-?-?-?-?-?-?-?- 144 30 -?-?-?-?-?-?-?-?-?-?-?-?- LC- no vb/ctx/lo f. good fm. tdap today. 03/07/25 -?-?-?-?-?-?-?-?-?-?-?-?- 32w 1d 148 lb 6 oz (+22 lb 6 oz) 104/69 Negative -?-?-?-?-?-?-?-?-?-?-?-?- Negative 154 32 -?-?-?-?-?-?-?-?-?-?-?-?- LC- no vb/ctx/lo f. has not felt baby move yet today. nst obtained. LC- no vb/ctx/lof. has not f elt baby move yet today. nst obtained. non-reactive nst with variables. sent to for extended monitoring and LC- no vb/ctx/lof. has not f elt baby move yet today. nst obtained. non-reactive nst with variables. sent to for extended monitoring and BPP 03/20/25 -?-?-?-?-?-?-?-?-?-?-?-?- 34w 0d 152 lb 4 oz (+26 lb 4 oz) 119/74 -?-?-?-?-?-?-?-?-?-?-?-?- 160 34 -?-?-?-?-?-?-?-?-?-?-?-?- SM- no vb lof go od fm no regular ctx SM- no vb lof feels the mini mum fm but it is irregular- discussed formal kick counts and provided instructions to call no regular ctx 04/03/25 -?-?-?-?-?-?-?-?-?-?-?-?- 36w 0d 157 lb 7 oz (+31 lb 7 oz) 115/74 Negative -?-?-?-?-?-?-?-?-?-?-?-?- Negative 145 36 -?-?-?-?-?-?-?-?-?-?-?-?- KW- no vb/lof/ct x. good fm GBS today. 04/11/25 -?-?-?-?-?-?-?-?-?-?-?-?- 37w 1d 156 lb 1 oz (+30 lb 1 oz) 116/71 Negative -?-?-?-?-?-?-?-?-?-?-?-?- Negative 140 36 Cephalic -?-?-?-?-?-?-?-?-?-?-?-?- SM- no vb lof go od fm no reuglar ctx 04/18/25 -?-?-?-?-?-?-?-?-?-?-?-?- 38w 1d 159 lb 1 oz (+33 lb 1 oz) 130/63 -?-?-?-?-?-?-?-?-?-?-?-?- 145 34 Cephalic 1 -?-?-?-?-?-?-?-?-?-?-?-?- 50 -2 KW- no vb/ lof/ctx. good fm CHERI by JV and 10+ ACOG First Trimester First Trimester: Desire for [...] Pain Management Plans, Labor support person(s), Immediate Larc, Circumcision preference, Signs and Symptoms of Preeclampsia, Feeding No and Family Medical Leave or Disability Forms ROS Const Reports system reviewed and no [...] normal Thought Content: normal Judgment: judgment good Coding Level of Care Code OB Routine Diagnoses Choroid plexus cyst of fetus Encounter for supervision of other normal in third trimester Z34.83 Normal : other normal Trimester: third trimester 38 weeks gestation of Z3A.38 Weeks of gestation: 38 weeks Anxiety F41.9 Assessment and Plan Assessment and Plan (1) Choroid plexus cyst of fetus: Status: Acute Comment: offer NIPT declined (2) Supervision of normal : Status: Acute Qualifiers: Normal : other normal Trimester: third trimester Qualified Code(s): Z34.83 - Encounter for supervision of other normal , third trimester Comment: PRR, , OTTO 05/01/25, [facility] Perla Haas, Bud (3) : Status: Acute Qualifiers: Weeks of gestation: 38 weeks Qualified Code(s): Z3A.38 - 38 weeks gestation of Comment: GBS neg, declined NIPT & Carrier testing. anatomy scan normal. (4) Anxiety: Status: Acute Comment: stable. no meds. 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 Plan Details Additional Comments: ACOG trimester education reviewed and updated. see problem list details for updated plan management information and see below for orders placed at this visit. GA appropriate handout given. Clinical Quality Measures Falls Risk Screening/Assistive Devices Have you fallen in the past year?: No 04/18/25 1010 <Electronically signed by Lizy sorto CNM> Date _ Lizy Acosta CNM Cosigner Signature: Date (if applicable) CC: ~ [facility] Work Phone: Progress note Author Yue Hull [facility] Note Date/Time April 23, 2025 9:43am [facility] [address] [place] [address], [address] [place] [address] OFFICE VISIT Date of Service: 04/23/25 MR#: [id number] Acct: [id number] Name: RAMYA GOEL Rep #: [id number] : 1990 Provider: Dr. Leonarda Sanford DO Age/Sex: 34/F Location: [facility] Status: Signed Intake Vital Signs 03/07/25 08:38 04/03/25 09:24 04/18/25 09:32 04/23/25 09:23 Height 5 ft 7 in 5 ft 7 in 5 ft 7 in 5 ft 7 in Weight: 157 lb 7 oz BMI 24.6 BP 134/86 H Intake Visit Reasons: 39 WK OB Chief Complaint: 39 Week OB Director Of Institutional Giving Required: No Is patient in pain?: No Allergies No Known Allergies Allergy (Verified 04/23/25 09:23) Medications ?Medication ?Instructions ?Recorded ?Confirmed ?Type multivitamin no.47-iron fum 27 cap PO 09/13/24 5 History mg-folate no.1 1 mg-dha 300 mg capsule (PNV-DHA) magnesium 250 mg tablet 250 mg PO QDAY 11/19/2404/01 History Last Menstrual Period: 07/25/24 Zika: Zika [...] 2 current occupational status: employed current occupation: [employer] current occupational exposures/hazards: No pets and animals: [...] none frequency: 3-4 times per week taryn/religious: Zoroastrian seatbelt use: always do you feel safe at home: Yes 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 Date Name GA/Weeks Outcome Route Bth Weight Infant Gen Labor Lgth Anesthesia Del Locatn Provider FOB 09/18/20 [place] 40 live - full term 7# Male [facility] Sameer 10/24/22 [place] 40 live - full term 8#11 Female epi dural [facility] Mary Riconajma Bud Delivery Date: 09/18/20 Last Updated by: Pebbles Hardin admitted in active labor. normal vaginal delivery Delivery Date: 10/24/22 Last Updated by: Alyssa Rizo see problem list for complications, and ial 40 sm. HPI 39 WK OB Details: RAMYA GOEL is a 34 year old who presents for routine OB visit. OB Visit OTTO Calculator Estimated Delivery Date Method Current WG Current Estimate 05/01/25 LMP (Certain) 38w 6d Other Estimates 05/04/25 Ultrasound #1 38w 3d Expected Delivery Route/Plan Labor Preferences- CB/BF classes: no labor support person: Bud labor intervention preferences: [] pain management options preferred: wants limited. cut cord/dad catch: no : yes PP control planned: discussed discussed possible routes of delivery and associated risks: [] special requests: [] Specific Issue/Plans Covid status: [] Flu vaccine: [] Tdap vaccine: given Rhogam: NA LARC form signed: yes Problem list reviewed and updated with the most current plan of care details and appropriate orders placed. Relevant counseling for the gestational age provided. Continue routine care and follow up unless otherwise noted in visit notes/problem list details Initial Weight: 126 lb Date -?-?-?-?-?-?-?-?-?-?-?-?- EGA Weight BP Urine Prot -?-?--?-?-?-?-?-?-?-?-?-?- Glucose FHR FuHt Pres Dilation -?-?-?-?-?-?-?-?--?-?-?-?- Effaced St Visit Note 09/27/24 -?-?-?-?-?-?-?-?-?-?-?-?- 9w 1d 126 lb 8 oz (+8 oz) 124/83 -?-?-?-?-?-?-?-?-?-?-?-?- 169 -?-?-?-?-?-?-?-?-?-?-?-?- KW- CRL cons wit h dates. Declines NIPT 10/23/24 -?-?-?-?-?-?-?-?-?-?-?-?- 12w 6d 129 lb 8 oz (+3 lb 8 oz) 128/80 Negative -?-?-?-?-?-?-?-?-?-?-?-?- Negative 160 -?-?-?-?--?-?-?-?-?-?-?-?- JV- no complaint s today but wants [...] 8 oz (+10 lb 8 oz) 116/74 Negative -?-?-?-?-?-?-?-?-?-?-?-?- Negative 150 -?-?-?-?-?-?-?-?-?-?-?-?- SM- no vb lof go od fm no regular ctx discussed anatomy findings, declines NIPT 01/16/25 -?-?-?-?-?-?-?-?-?-?-?-?- 25w 0d 140 lb 8 oz (+14 lb 8 oz) 97/65 Negative -?-?-?-?-?-?-?-?-?-?-?-?- Negative 155 25 -?-?-?-?-?-?-?-?-?-?-?-?- KW- no vb/crampi ng. good fm. glucose discussed. umbilical hernia discussed and may want surgical consult after delivery 02/06/25 -?-?-?-?-?-?-?-?-?-?-?-?- 28w 0d 147 lb 2 oz (+21 lb 2 oz) 102/60 Negative -?-?-?-?-?-?-?-?-?-?-?-?- Negative 141 27 -?-?-?-?-?-?-?-?-?-?-?-?- MH-No Vb, LOF. G ood Fm. Larc. 28 wk labs pending. Tdap next visit 02/21/25 -?-?-?-?-?-?-?-?-?-?-?-?- 30w 1d 147 lb (+21 lb) 111/69 -?-?-?-?-?-?-?-?-?-?-?-?- 144 30 -?-?-?-?-?-?-?-?-?-?-?-?- LC- no vb/ctx/lo f. good fm. tdap today. 03/07/25 -?-?-?--?-?-?-?-?-?-?-?-?- 32w 1d 148 lb 6 oz (+22 lb 6 oz) 104/69 Negative -?-?-?-?-?-?-?-?-?-?-?-?- Negative 154 32 -?-?-?-?-?-?-?-?-?-?-?-?- LC- no vb/ctx/lo f. has not felt baby move yet today. nst obtained. LC- no vb/ctx/lof. has not f elt baby move yet today. nst obtained. non-reactive nst with variables. sent to for extended monitoring and LC- no vb/ctx/lof. has not f elt baby move yet today. nst obtained. non-reactive nst with variables. sent to for extended monitoring and BPP 03/20/25 -?-?-?-?-?-?-?-?-?-?-?-?- 34w 0d 152 lb 4 oz (+26 lb 4 oz) 119/74 -?-?-?-?-?-?-?-?-?-?-?-?- 160 34 -?-?-?-?-?-?-?-?-?-?-?-?- SM- no vb lof go od fm no regular ctx SM- no vb lof feels the mini mum fm but it is irregular- discussed formal kick counts and provided instructions to call no regular ctx 04/03/25 -?-?-?-?-?-?-?-?-?-?-?-?- 36w 0d 157 lb 7 oz (+31 lb 7 oz) 115/74 Negative -?-?-?-?-?-?-?-?-?-?-?-?- Negative 145 36 -?-?-?-?-?-?-?-?-?-?-?-?- KW- no vb/lof/ct x. good fm GBS today. 04/11/25 -?-?-?-?-?-?-?-?-?-?-?-?- 37w 1d 156 lb 1 oz (+30 lb 1 oz) 116/71 Negative -?-?-?-?-?-?-?-?-?-?-?-?- Negative 140 36 Cephalic -?-?-?-?-?-?-?-?-?-?-?-?- SM- no vb lof go od fm no reuglar ctx 04/18/25 -?-?-?-?-?-?-?-?-?-?-?-?- 38w 1d 159 lb 1 oz (+33 lb 1 oz) 130/63 Negative -?-?-?-?-?-?-?-?-?-?-?-?- Negative 145 34 Cephalic 1 -?-?-?-?-?-?-?-?-?-?-?-?- 50 -2 KW- no vb/ lof/ctx. good fm CHERI by JV and 10+ 04/23/25 -?-?-?-?-?-?-?-?-?-?-?-?- 38w 6d 157 lb 7 oz (+31 lb 7 oz) 134/86 Negative -?-?-?-?-?-?-?-?-?-?-?-?- Negative 151 Cephalic -?-?-?-?-?-?-?-?-?-?-?-?- JV- fluid level is normal again today. incidental bpp 03/07. does not want pelvic exam or induction electively. ACOG First Trimester First Trimester: Desire for [...] Pain Management Plans, Labor support person(s), Immediate Larc, Circumcision preference, Signs and Symptoms of Preeclampsia, Infant Feeding No and Family Medical Leave or Disability Forms Results POC Urinalysis 2 Dip (Clinic) Office Urine Glucose Negative Last Edit by Sheri Mckeon on 04/23/25 09 :28 Office Urine Protein Negative Last Edit by Sheri Mckeon on 04/23/25 09 :28 Coding Level of Care Code OB Routine Diagnoses 38 weeks gestation of Z3A.38 Weeks of gestation: 38 weeks Encounter for supervision of other normal in third trimester Z34.83 Normal : other normal Trimester: third trimester Choroid plexus cyst of fetus Anxiety F41.9 Assessment and Plan Assessment and Plan (1) : Status: Acute Qualifiers: Weeks of gestation: 38 weeks Qualified Code(s): Z3A.38 - 38 weeks gestation of Comment: GBS neg, declined NIPT & Carrier testing. anatomy scan normal. (2) Supervision of normal : Status: Acute Qualifiers: Normal : other normal Trimester: third trimester Qualified Code(s): Z34.83 - Encounter for supervision of other normal , third trimester Comment: PRR, , OTTO 05/01/25, [facility] Perla Haas, Bud (3) Choroid plexus cyst of fetus: Status: Acute Comment: offer NIPT declined (4) Anxiety: Status: Acute Comment: stable. no meds. 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 Orders: Orders POC Urinalysis 2 Dip (Clinic) Today 04/23/25 0946 <Electronically signed by Yue Sim DO> Date _ Yue Sanford DO Cosigner Signature: Date (if applicable) CC: ~ [facility] Work Phone: Progress note Author Mary Gonzalez [facility] Note Date/Time May 01, 2025 4: 04pm [facility] Medical Records Department [address] [place] [address] OB Triage Progress Note 05/01/25 1603 MR#: [id number] Acct: [id number] Name: RAMYA GOEL Rep #:[id number] : 1990 34 From: Mary pederson MD PCP: Dr. Connor Blank DO Status:RE G CLI Y DOS: Location: [place] [address] Progress Notes Date of Service: 05/01/25 Progress Note: Patient presents for triage evaluation secondary to low fundal height FHT: 140 Moderate variability reactive no decelerations category I tracing [place]: no regular Contractions Assessment and plan: 40 weeks uterine size date discrepancy Reactive NST, reassuring maternal and status patient discharged to home to follow-up as scheudled. See problem list details for additional plan information. Charges/Coding Procedures Urinary/Genital 52xxx-59xxx: 92469-96 non-stress test Interp 05/01/25 1604 <Electronically signed by Mary leahy MD> Date _ Mary Gonzalez MD Cosigner Signature (if applicable): Date CC: Dr. Connor Blank DO; Dr. Mary Gonzalez MD ~ Signed [facility] Work Phone: Reason for referral (narrative)No reason for referral information availableWPomerene Hospital Work Phone: Summary Purpose Family History Relationship Condition Age at Onset Recorded Date/T vicki grandfather Hypertension Unknown Cardiac disease Unknown grandmother Malignant neoplasm Unknown aunt Malignant neoplasm of breast Unknown Advance Directives Advance Directive Response Recorded Date/ Time Living Will No September 17 9:38pm Power of Chef Assistant No September 17, 2020 9:38pm Advance Directive Response Recorded Date/ Time Living Will No September 17 8:38pm Power of Chef Assistant No September 17, 2020 8:38pm Advance Directive Response Recorded Date/ Time Living Will No October 24, 2022 4:27am Power of Chef Assistant No October 24 4:27am Chief Complaint and Reason for Visit Chief Complaint Annual (CARRIER PACKER) NOB LMP 01/14 Reason for Visit Encounter for routin e gynecological examination Supervision of normal Chief Complaint Annual (CARRIER PACKER) NOB LMP 01/14 12 WK OB 16wk [...] wk ob December 19, 2024 11:36 am 25wk ob January 16, 2025 9:31 am Reason [...] 9:31 am Supervision of normal December 9:31am Chief Complaint Admit Date 12 wk ob October 23, 2024 2:1 7pm 16 wk ob November 19, 2024 1:3 8pm SORE THROAT, EAR PAIN December 08, 2024 8:5 9am wk ob December 19, 2024 11:36 am 25wk ob January 16, 2025 9:31 am 28wk ob/glucose February 06, 2025 9:05 am Reason for Visit Admit Date Anxiety October 23, 2024 2:1 7pm October [...] 9:31 am Supervision of normal December 9:31am Anxiety February 06, 2025 9:05 am Choroid plexus cyst of fetus February 06, 2025 9:05am February 06, 2025 9:05 am Supervision of normal January 9:05am Chief Complaint Admit Date 16 wk ob November 19, 2024 1:3 8pm SORE THROAT, EAR PAIN December 08, 2024 8:5 9am wk ob December 19, 2024 11:36 am 25wk ob January 16, 2025 9:31 am 28wk ob/glucose February 06, 2025 9:05 am 30wk ob February 21, 2025 10:0 9am Reason for Visit Admit Date Anxiety November 19, 2024 1:3 8pm November 19, 2024 1:3 8pm Supervision of normal November 192024 1:38pm URI (upper respiratory infection) December 082024 8:59am Anxiety December 19, 2024 11:36 am Choroid plexus cyst of fetus December 19, 2 025 11:36am December 19, 2024 11:36 am Supervision of normal November 11:36am Anxiety January 16, 2025 9:31 am Choroid plexus cyst of fetus January 16, 2025 9:31am January 16, 2025 9:31 am Supervision of normal December 9:31am Anxiety February 06, 2025 9:05 am Choroid plexus cyst of fetus February 06, 2025 9:05am February 06, 2025 9:05 am Supervision of normal January 9:05am Anxiety February 21, 2025 10:0 9am Choroid plexus cyst of fetus February 21, 2025 10:09am February 21, 2025 10:0 9am Supervision of normal January 10:09am Chief Complaint Admit Date 16 wk ob November 19, 2024 1:3 8pm SORE THROAT, EAR PAIN December 08, 2024 8:5 9am wk ob December 19, 2024 11:36 am 25wk ob January 16, 2025 9:31 am 28wk ob/glucose February 06, 2025 9:05 am 30wk ob February 21, 2025 10:0 9am 32wk ob March 07, 2025 8:3 4am Reason for Visit Admit Date Anxiety November 19, 2024 1:3 8pm November 19, 2024 1:3 8pm Supervision of normal November 192024 1:38pm URI (upper respiratory infection) December 082024 8:59am Anxiety December 19, 2024 11:36 am Choroid plexus cyst of fetus December 19, 2 025 11:36am December 19, 2024 11:36 am Supervision of normal November 11:36am Anxiety January 16, 2025 9:31 am Choroid plexus cyst of fetus January 16, 2025 9:31am January 16, 2025 9:31 am Supervision of normal December 9:31am Anxiety February 06, 2025 9:05 am Choroid plexus cyst of fetus February 06, 2025 9:05am February 06, 2025 9:05 am Supervision of normal January 9:05am Anxiety February 21, 2025 10:0 9am Choroid plexus cyst of fetus February 21, 2025 10:09am February 21, 2025 10:0 9am Supervision of normal January 10:09am Anxiety March 07, 2025 8:3 4am Choroid plexus cyst of fetus March 07, 2025 8:34am Decreased movement March 07 8:34am March 07, 2025 8:3 4am Supervision of normal March 072024 8:34am Chief Complaint Admit Date 16 wk ob November 19, 2024 1:3 8pm SORE THROAT, EAR PAIN December 08, 2024 8:5 9am wk ob December 19, 2024 11:36 am 25wk ob January 16, 2025 9:31 am 28wk ob/glucose February 06, 2025 9:05 am 30wk ob February 21, 2025 10:0 9am 32wk ob March 07, 2025 8:3 4am R/O LABOR March 07, 2025 9:4 5am Reason for Visit Admit Date Anxiety November 19, 2024 1:3 8pm November 19, 2024 1:3 8pm Supervision of normal November 192024 1:38pm URI (upper respiratory infection) December 082024 8:59am Anxiety December 19, 2024 11:36 am Choroid plexus cyst of fetus December 19, 2 025 11:36am December 19, 2024 11:36 am Supervision of normal November 11:36am Anxiety January 16, 2025 9:31 am Choroid plexus cyst of fetus January 16, 2025 9:31am January 16, 2025 9:31 am Supervision of normal December 9:31am Anxiety February 06, 2025 9:05 am Choroid plexus cyst of fetus February 06, 2025 9:05am February 06, 2025 9:05 am Supervision of normal January 9:05am Anxiety February 21, 2025 10:0 9am Choroid plexus cyst of fetus February 21, 2025 10:09am February 21, 2025 10:0 9am Supervision of normal January 10:09am Anxiety March 07, 2025 8:3 4am Choroid plexus cyst of fetus March 07, 2025 8:34am Decreased movement March 07 8:34am March 07, 2025 8:3 4am Supervision of normal March 072024 8:34am Variable heart rate decelerations, antepartum March 07, 2025 8:34am Chief Complaint Admit Date SORE THROAT, EAR PAIN December 08, 2024 8:5 9am 21wk ob December 19, 2024 11:36 am 25wk ob January 16, 2025 9:31 am 28wk ob/glucose February 06, 2025 9:05 am 30wk ob February 21, 2025 10:0 9am 32wk ob March 07, 2025 8:3 4am R/O LABOR March 07, 2025 9:4 5am R/O LABOR March 07, 2025 1:0 8pm 34wk ob March 20, 2025 2: 42pm Reason for Visit Admit Date URI (upper respiratory infection) December 082024 8:59am Anxiety December 19, 2024 11:36 am Choroid plexus cyst of fetus December 19, 025 11:36am December 19, 2024 11:36 am Supervision of normal November 11:36am Anxiety January 16, 2025 9:31 am Choroid plexus cyst of fetus January 16, 2025 9:31am January 16, 2025 9:31 am Supervision of normal December 9:31am Anxiety February 06, 2025 9:05 am Choroid plexus cyst of fetus February 06, 2025 9:05am February 06, 2025 9:05 am Supervision of normal January 9:05am Anxiety February 21, 2025 10:0 9am Choroid plexus cyst of fetus February 21, 2025 10:09am February 21, 2025 10:0 9am Supervision of normal January 10:09am Anxiety March 07, 2025 8:3 4am Choroid plexus cyst of fetus March 07, 2025 8:34am March 07, 2025 8:3 4am Supervision of normal March 072024 8:34am Decreased movement March 07 8:34am Variable heart rate decelerations, antepartum March 07, 2025 8:34am Anxiety March 07, 2025 9:4 5am Choroid plexus cyst of fetus March 07, 2025 9:45am March 07, 2025 9:4 5am Supervision of normal March 072024 9:45am Decreased movement March 07 9:45am Variable heart rate decelerations, antepartum March 07, 2025 9:45am Anxiety March 20, 2025 2: 42pm Choroid plexus cyst of fetus February 2:42pm March 20, 2025 2: 42pm Supervision of normal March 012024 2:42pm Chief Complaint Admit Date SORE THROAT, EAR PAIN December 08, 2024 8:5 9am 21wk ob December 19, 2024 11:36 am 25wk ob January 16, 2025 9:31 am 28wk ob/glucose February 06, 2025 9:05 am 30wk ob February 21, 2025 10:0 9am 32wk ob March 07, 2025 8:3 4am R/O LABOR March 07, 2025 9:4 5am R/O LABOR March 07, 2025 1:0 8pm 34wk ob March 20, 2025 2: 42pm 36wk ob April 03, 2025 9:22am Reason for Visit Admit Date URI (upper respiratory infection) December 082024 8:59am Anxiety December 19, 2024 11:36 am Choroid plexus cyst of fetus December 19, 2 025 11:36am December 19, 2024 11:36 am Supervision of normal November 11:36am Anxiety January 16, 2025 9:31 am Choroid plexus cyst of fetus January 16, 2025 9:31am January 16, 2025 9:31 am Supervision of normal December 9:31am Anxiety February 06, 2025 9:05 am Choroid plexus cyst of fetus February 06, 2025 9:05am February 06, 2025 9:05 am Supervision of normal January 9:05am Anxiety February 21, 2025 10:0 9am Choroid plexus cyst of fetus February 21, 2025 10:09am February 21, 2025 10:0 9am Supervision of normal January 10:09am Anxiety March 07, 2025 8:3 4am Choroid plexus cyst of fetus March 07, 2025 8:34am March 07, 2025 8:3 4am Supervision of normal March 072024 8:34am Decreased movement March 07 8:34am Variable heart rate decelerations, antepartum March 07, 2025 8:34am Anxiety March 07, 2025 9:4 5am Choroid plexus cyst of fetus March 07, 2025 9:45am March 07, 2025 9:4 5am Supervision of normal March 072024 9:45am Decreased movement March 07 9:45am Variable heart rate decelerations, antepartum March 07, 2025 9:45am Anxiety March 20, 2025 2: 42pm Choroid plexus cyst of fetus February 2:42pm March 20, 2025 2: 42pm Supervision of normal March 012024 2:42pm Anxiety April 03, 2025 9:22am Choroid plexus cyst of fetus April 032024 9:22am April 03, 2025 9:22am Supervision of normal [email or web address] 9:22am Chief Complaint Admit Date wk ob December 19, 2024 11:36 am 25wk ob January 16, 2025 9:31 am 28wk ob/glucose February 06, 2025 9:05 am 30wk ob February 21, 2025 10:0 9am 32wk ob March 07, 2025 8:3 4am R/O LABOR March 07, 2025 9:4 5am R/O LABOR March 07, 2025 1:0 8pm 34wk ob March 20, 2025 2: 42pm 36wk ob April 03, 2025 9:22am 37wk ob April 11, 2025 1:03pm Reason for Visit Admit Date Anxiety December 19, 2024 11:36 am Choroid plexus cyst of fetus December 19, 2 025 11:36am December 19, 2024 11:36 am Supervision of normal November 11:36am Anxiety January 16, 2025 9:31 am Choroid plexus cyst of fetus January 16, 2025 9:31am January 16, 2025 9:31 am Supervision of normal December 9:31am Anxiety February 06, 2025 9:05 am Choroid plexus cyst of fetus February 06, 2025 9:05am February 06, 2025 9:05 am Supervision of normal January 9:05am Anxiety February 21, 2025 10:0 9am Choroid plexus cyst of fetus February 21, 2025 10:09am February 21, 2025 10:0 9am Supervision of normal January 10:09am Anxiety March 07, 2025 8:3 4am Choroid plexus cyst of fetus March 07, 2025 8:34am March 07, 2025 8:3 4am Supervision of normal March 072024 8:34am Decreased movement March 07 8:34am Variable heart rate decelerations, antepartum March 07, 2025 8:34am Anxiety March 07, 2025 9:4 5am Choroid plexus cyst of fetus March 07, 2025 9:45am March 07, 2025 9:4 5am Supervision of normal March 072024 9:45am Decreased movement March 07 9:45am Variable heart rate decelerations, antepartum March 07, 2025 9:45am Anxiety March 20, 2025 2: 42pm Choroid plexus cyst of fetus February 2:42pm March 20, 2025 2: 42pm Supervision of normal March 012024 2:42pm Anxiety April 03, 2025 9:22am Choroid plexus cyst of fetus April 032024 9:22am April 03, 2025 9:22am Supervision of normal Septembe 2024 9:22am Anxiety April 11, 2025 1:03pm Choroid plexus cyst of fetus March 312024 1:03pm April 11, 2025 1:03pm Supervision of normal Septembe r 2024 1:03pm Chief Complaint Admit Date 25wk ob January 16, 2025 9:31 am 28wk ob/glucose February 06, 2025 9:05 am 30wk ob February 21, 2025 10:0 9am 32wk ob March 07, 2025 8:3 4am R/O LABOR March 07, 2025 9:4 5am R/O LABOR March 07, 2025 1:0 8pm 34wk ob March 20, 2025 2: 42pm 36wk ob April 03, 2025 9:22am 37wk ob April 11, 2025 1:03pm 38 WK OB April 18, 2025 9:27am 39 WK OB April 23, 2025 9:19am Reason for Visit Admit Date Anxiety January 16, 2025 9:31 am Choroid plexus cyst of fetus January 16, 2025 9:31am January 16, 2025 9:31 am Supervision of normal December 9:31am Anxiety February 06, 2025 9:05 am Choroid plexus cyst of fetus February 06, 2025 9:05am February 06, 2025 9:05 am Supervision of normal January 9:05am Anxiety February 21, 2025 10:0 9am Choroid plexus cyst of fetus February 21, 2025 10:09am February 21, 2025 10:0 9am Supervision of normal January 10:09am Anxiety March 07, 2025 8:3 4am Choroid plexus cyst of fetus March 07, 2025 8:34am March 07, 2025 8:3 4am Supervision of normal March 072024 8:34am Decreased movement March 07 8:34am Variable heart rate decelerations, antepartum March 07, 2025 8:34am Anxiety March 07, 2025 9:4 5am Choroid plexus cyst of fetus March 07, 2025 9:45am March 07, 2025 9:4 5am Supervision of normal March 072024 9:45am Decreased movement March 07 9:45am Variable heart rate decelerations, antepartum March 07, 2025 9:45am Anxiety March 20, 2025 2: 42pm Choroid plexus cyst of fetus February 2:42pm March 20, 2025 2: 42pm Supervision of normal March 012024 2:42pm Anxiety April 03, 2025 9:22am Choroid plexus cyst of fetus April 032024 9:22am April 03, 2025 9:22am Supervision of normal Septembe r 2024 9:22am Anxiety April 11, 2025 1:03pm Choroid plexus cyst of fetus March 312024 1:03pm April 11, 2025 1:03pm Supervision of normal Septembe r 2024 1:03pm Anxiety April 18, 2025 9:27am Choroid plexus cyst of fetus March 312024 9:27am April 18, 2025 9:27am Supervision of normal Septembe r 2024 9:27am Anxiety April 23, 2025 9:19am Choroid plexus cyst of fetus April 012024 9:19am April 23, 2025 9:19am Supervision of normal Septembe r 2024 9:19am Chief Complaint Admit Date 25wk ob January 16, 2025 9:31 am 28wk ob/glucose February 06, 2025 9:05 am 30wk ob February 21, 2025 10:0 9am 32wk ob March 07, 2025 8:3 4am R/O LABOR March 07, 2025 9:4 5am R/O LABOR March 07, 2025 1:0 8pm 34wk ob March 20, 2025 2: 42pm 36wk ob April 03, 2025 9:22am 37wk ob April 11, 2025 1:03pm 38 WK OB April 18, 2025 9:27am 39 WK OB April 23, 2025 9:19am 40 WK OB *HAPPY DUE DATE May 01 1:45pm Reason for Visit Admit Date Anxiety January 16, 2025 9:31 am Choroid plexus cyst of fetus January 16, 2025 9:31am January 16, 2025 9:31 am Supervision of normal December 9:31am Anxiety February 06, 2025 9:05 am Choroid plexus cyst of fetus February 06, 2025 9:05am February 06, 2025 9:05 am Supervision of normal January 9:05am Anxiety February 21, 2025 10:0 9am Choroid plexus cyst of fetus February 21, 2025 10:09am February 21, 2025 10:0 9am Supervision of normal January 10:09am Anxiety March 07, 2025 8:3 4am Choroid plexus cyst of fetus March 07, 2025 8:34am March 07, 2025 8:3 4am Supervision of normal March 072024 8:34am Decreased movement March 07 8:34am Variable heart rate decelerations, antepartum March 07, 2025 8:34am Anxiety March 07, 2025 9:4 5am Choroid plexus cyst of fetus March 07, 2025 9:45am March 07, 2025 9:4 5am Supervision of normal March 072024 9:45am Decreased movement March 07 9:45am Variable heart rate decelerations, antepartum March 07, 2025 9:45am Anxiety March 20, 2025 2: 42pm Choroid plexus cyst of fetus February 2:42pm March 20, 2025 2: 42pm Supervision of normal March 012024 2:42pm Anxiety April 03, 2025 9:22am Choroid plexus cyst of fetus April 032024 9:22am April 03, 2025 9:22am Supervision of normal Septembe r 2024 9:22am Anxiety April 11, 2025 1:03pm Choroid plexus cyst of fetus March 312024 1:03pm April 11, 2025 1:03pm Supervision of normal Septembe r 2024 1:03pm Anxiety April 18, 2025 9:27am Choroid plexus cyst of fetus March 312024 9:27am April 18, 2025 9:27am Supervision of normal Septembe r 2024 9:27am Anxiety April 23, 2025 9:19am Choroid plexus cyst of fetus April 012024 9:19am April 23, 2025 9:19am Supervision of normal Septembe r 2024 9:19am Anxiety May 01, 2025 1: 45pm Choroid plexus cyst of fetus April 1:45pm May 01, 2025 1: 45pm Supervision of normal May 01, 2025 1:45pm Chief Complaint Admit Date 25wk ob January 16, 2025 9:31 am 28wk ob/glucose February 06, 2025 9:05 am 30wk ob February 21, 2025 10:0 9am 32wk ob March 07, 2025 8:3 4am R/O LABOR March 07, 2025 9:4 5am R/O LABOR March 07, 2025 1:0 8pm 34wk ob March 20, 2025 2: 42pm 36wk ob April 03, 2025 9:22am 37wk ob April 11, 2025 1:03pm 38 WK OB April 18, 2025 9:27am 39 WK OB April 23, 2025 9:19am 40 WK OB *HAPPY DUE DATE May 01 1:45pm GROWTH SCAN May 01, 2025 2: 25pm GROWTH SCAN May 01, 2025 4: 03pm Additional Source Comments INFORMATION SOURCE (unrecogn ized section and content) DATE CREATED AUTHOR 01/23/2018 [facility] ([place]) DATE CREATED AUTHOR AUTHOR'S ORGANIZ ATION 01/04/2025 [facility] DATE CREATED AUTHOR AUTHOR'S ORGANIZ ATION 05/02/2025 [facility] Goals (unrecognized section and content) Type Care Experience SVDLabor Preferences -CB/BF classes: virtuallabor support person: Codylabor intervention preferences: open to standard interventionspain management options: wants to try natural, open to epiduralcut cord/dad catch: nobreastfeeding: yesPP control planned: []discussed possible routes of delivery and associated risks: discussed possible delivery modalities and possible indications for each including R/B/A of , VAVD, FAVD, and CS. questions answered.special requests: [] Care Experience svdlabor Preferences -CB/BF classes: nolabor support person:Codylabor intervention preferences: []pain management options preferred: epidural if neededcut cord/dad catch: nobreastfeeding: yesPP control planned: discusseddiscussed possible routes of delivery and associated risks: []special requests: [] Care Experience Labor Preferences-CB /BF classes: nolabor support person: Codylabor intervention preferences: []pain management options preferred: wants limited. cut cord/dad catch: nobreastfeeding: yesPP control planned: discusseddiscussed possible routes of delivery and associated risks: []special requests: [] Type Detail Care Experience SVDLabor Preferences -CB/BF classes: virtuallabor support person: Codylabor intervention preferences: open to standard interventionspain management options: wants to try natural, open to epiduralcut cord/dad catch: nobreastfeeding: yesPP control planned: []discussed possible routes of delivery and associated risks: discussed possible delivery modalities and possible indications for each including R/B/A of , VAVD, FAVD, and CS. questions answered.special requests: [] Care Experience svdlabor Preferences -CB/BF classes: nolabor support person:Codylabor intervention preferences: []pain management options preferred: epidural if neededcut cord/dad catch: nobreastfeeding: yesPP control planned: discusseddiscussed possible routes of delivery and associated risks: []special requests: [] Care Experience Lsvdlabor Preference s-CB/BF classes: nolabor support person: Codylabor intervention preferences: []pain management options preferred: wants limited. cut cord/dad catch: nobreastfeeding: yesPP control planned: discusseddiscussed possible routes of delivery and associated risks: []special requests: [] Care Teams (unrecognized sec tion and content) Team Status: Active Member Role Status Dates [facility] Primary Care Provider Active Team Status: Inactive Member Role Status [facility] Primary Care Provider, Referring Provi marv Active Anahi Riojas SHOW JUMPING INSTRUCTOR, SHOW JUMPING INSTRUCTOR-C Attending Provider Active Team Status: Inactive Member Role Status [facility] Primary Care Provider, Referring Provi marv Active Dr. Mary Gonzalez MD Attending Provider Active Team Status: Inactive Member Role Status [facility] Primary Care Provider, Referring Provi marv Active Dr. Yue Sanford DO Attending Provider Activ e Team Status: Inactive Member Role Status [facility] Primary Care Provider Active Dr. Mary Gonzalez MD Attending Provider, Referr ing Provider Active Team Status: Inactive Member Role Status [facility] Primary Care Provider Active Dr. Yue Sanford DO Attending Provider Activ e Team Status: Active Member Role Status [facility] Primary Care Provider Active Team Status: Inactive Member Role Status Dates Connor [facility] Primary Care Provider, Referring P rovider Active Dr. Mary Gonzalez MD Attending Provider Active Team Status: Inactive Member Role Status Dates Connor WITT Primary Care Provider, Referring P rovider Active Anahi Riojas SHOW JUMPING INSTRUCTOR, SHOW JUMPING INSTRUCTOR-C Attending Provider Active Team Status: Inactive Member Role Status Dates Connor WITT Primary Care Provider, Referring P rovider Active [...] Active Member Role Status Dates Dr. Connor Blank DO Primary Care Provider Active Team Status: Inactive Member Role Status Dates Dr. Connor Blank DO Primary Care Provider Active Start: September 27, 2024 End: September 27, 2024 Dr. Connor Blank DO Referring Provider Active Start: September 27, 2024 End: September 27, 2024 Lizy Acosta CNM Attending Provider Active S tart: September 27, 2024 End: September 27, 2024 Team Status: Inactive Member Role Status Dates Dr. Connor Blank DO Primary Care Provider Active Start: September 27, 2024 End: September 27, 2024 Lizy Acosta CNM Attending Provider Active S tart: September 27, 2024 End: September 27, 2024 Lizy Acosta CNM Referring Provider Active S tart: September 27, 2024 End: September 27, 2024 Team Status: Inactive Member Role Status Dates Dr. Connor Blank DO Primary Care Provider Active Start: October 23, 2024 End: October 23, 2024 Dr. Connor Blank DO Referring Provider Active Start: October 23, 2024 End: October 23, 2024 Dr. Yue Sanford DO Attending Provider Activ e Start: October 23, 2024 End: October 23, 2024 Team Status: Inactive Member Role Status Dates Dr. Connor Blank DO Primary Care Provider Active Start: November 19, 2024 End: November 19, 2024 Dr. Connor Blank DO Referring Provider Active Start: November 19, 2024 End: November 19, 2024 Anahi Riojas SHOW JUMPING INSTRUCTOR, SHOW JUMPING INSTRUCTOR-C Attending Provider Active Start: November 19, 2024 End: November 19, 2024 Team Status: Inactive Member Role Status Dates Dr. Connor Blank DO Primary Care Provider Active Start: December 08, 2024 End: December 08, 2024 Dr. Connor Blank DO Referring Provider Active Start: December 08, 2024 End: December 08, 2024 [facility] Attending Provider Active Start: December 08, 2024 End: December 08, 2024 Team Status: Inactive Member Role Status Dates Dr. Connor Blank DO Primary Care Provider Active Start: December 19, 2024 End: December 19, 2024 Dr. Connor Blank DO Referring Provider Active Start: December 19, 2024 End: December 19, 2024 Dr. Mary Gonzalez MD Attending Provider Active Start: December 19, 2024 End: December 19, 2024 Team Status: Inactive Member Role Status Dates Dr. Connor Blank DO Primary Care Provider Active Start: January 16, 2025 End: January 16, 2025 Dr. Connor Blank DO Referring Provider Active Start: January 16, 2025 End: January 16, 2025 Lizy Acosta CNM Attending Provider Active S tart: January 16, 2025 End: January 16, 2025 Team Status: Active Member Role/Relationship Status Dates Dr. Connor Blank DO Primary Care Provider Active Team Status: Inactive Member Role/Relationship Status Dates Dr. Connor Blank DO Primary Care Provider Active Start: October 23, 2024 End: October 23, 2024 Dr. Connor Blank DO Referring Provider Active Start: October 23, 2024 End: October 23, 2024 Dr. Yue Sanford DO Attending Provider Activ e Start: October 23, 2024 End: October 23, 2024 Team Status: Inactive Member Role/Relationship Status Dates Dr. Connor Blank DO Primary Care Provider Active Start: November 19, 2024 End: November 19, 2024 Dr. Connor Blank DO Referring Provider Active Start: November 19, 2024 End: November 19, 2024 Anahi Riojas SHOW JUMPING INSTRUCTOR, SHOW JUMPING INSTRUCTOR-C Attending Provider Active Start: November 19, 2024 End: November 19, 2024 Team Status: Inactive Member Role/Relationship Status Dates Dr. Connor Blank DO Primary Care Provider Active Start: December 08, 2024 End: December 08, 2024 Dr. Connor Blank DO Referring Provider Active Start: December 08, 2024 End: December 08, 2024 [facility] Attending Provider Active Start: December 08, 2024 End: December 08, 2024 Team Status: Inactive Member Role/Relationship Status Dates Dr. Connor Blank DO Primary Care Provider Active Start: December 19, 2024 End: December 19, 2024 Dr. Connor Blank DO Referring Provider Active Start: December 19, 2024 End: December 19, 2024 Dr. Mary Gonzalez MD Attending Provider Active Start: December 19, 2024 End: December 19, 2024 Team Status: Inactive Member Role/Relationship Status Dates Dr. Connor Blank DO Primary Care Provider Active Start: January 16, 2025 End: January 16, 2025 Dr. Connor Blank DO Referring Provider Active Start: January 16, 2025 End: January 16, 2025 Lizy Acosta CNM Attending Provider Active S tart: January 16, 2025 End: January 16, 2025 Team Status: Inactive Member Role/Relationship Status Dates Dr. Connor Blank DO Primary Care Provider Active Start: February 06, 2025 End: February 06, 2025 Dr. Connor Blank DO Referring Provider Active Start: February 06, 2025 End: February 06, 2025 Anahi Riojas SHOW JUMPING INSTRUCTOR, SHOW JUMPING INSTRUCTOR-C Attending Provider Active Start: February 06, 2025 End: February 06, 2025 Team Status: Active Member Role/Relationship Status Dates Dr. Connor Blank DO Primary Care Provider Active Start: February 06, 2025 Lizy Acosta CNM Attending Provider Active S tart: February 06, 2025 Team Status: Inactive Member Role/Relationship Status Dates Dr. Connor Blank DO Primary Care Provider Active Start: February 06, 2025 End: February 06, 2025 Lizy Acosta CNM Attending Provider Active S tart: February 06, 2025 End: February 06, 2025 Team Status: Inactive Member Role/Relationship Status Dates Dr. Connor Blank DO Primary Care Provider Active Start: November 19, 2024 End: November 19, 2024 Dr. Connor Blank DO Referring Provider Active Start: November 19, 2024 End: November 19, 2024 Anahi Riojas SHOW JUMPING INSTRUCTOR, SHOW JUMPING INSTRUCTOR-C Attending Provider Active Start: November 19, 2024 End: November 19, 2024 Team Status: Inactive Member Role/Relationship Status Dates Dr. Connor Blank DO Primary Care Provider Active Start: December 08, 2024 End: December 08, 2024 Dr. Connor Blank DO Referring Provider Active Start: December 08, 2024 End: December 08, 2024 Nick Ziegler SHOW JUMPING INSTRUCTOR, SHOW JUMPING INSTRUCTOR-C Attending Provider Active S tart: December 08, 2024 End: December 08, 2024 Team Status: Inactive Member Role/Relationship Status Dates Dr. Connor Blank DO Primary Care Provider Active Start: December 19, 2024 End: December 19, 2024 Dr. Connor Blank DO Referring Provider Active Start: December 19, 2024 End: December 19, 2024 Dr. Mary Gonzalez MD Attending Provider Active Start: December 19, 2024 End: December 19, 2024 Team Status: Inactive Member Role/Relationship Status Dates Dr. Connor Blnak DO Primary Care Provider Active Start: January 16, 2025 End: January 16, 2025 Dr. Connor Blank DO Referring Provider Active Start: January 16, 2025 End: January 16, 2025 Lizy Acosta CNM Attending Provider Active S tart: January 16, 2025 End: January 16, 2025 Team Status: Inactive Member Role/Relationship Status [facility]ates Dr. Connor Blank DO Primary Care Provider Active Start: February 06, 2025 End: February 06, 2025 Dr. Connor Blank DO Referring Provider Active Start: February 06, 2025 End: February 06, 2025 Anahi Riojas SHOW JUMPING INSTRUCTOR, SHOW JUMPING INSTRUCTOR-C Attending Provider Active Start: February 06, 2025 End: February 06, 2025 Team Status: Inactive Member Role/Relationship Status Dates Dr. Connor Blank DO Primary Care Provider Active Start: February 06, 2025 End: February 06, 2025 Lizy Acosta CNM Attending Provider Active S tart: February 06, 2025 End: February 06, 2025 Team Status: Inactive Member Role/Relationship Status Dates Dr. Connor Blank DO Primary Care Provider Active Start: February 21, 2025 End: February 21, 2025 Dr. Connor Blank DO Referring Provider Active Start: February 21, 2025 End: February 21, 2025 Krysta Petersen CNM Attending Provider Active Start: February 21, 2025 End: February 21, 2025 Team Status: Inactive Member Role/Relationship Status Dates Dr. Connor Blank DO Primary Care Provider Active Start: March 07, 2025 End: March 07, 2025 Dr. Connor Blank DO Referring Provider Active Start: March 07, 2025 End: March 07, 2025 Krysta Petersen CNM Attending Provider Active Start: March 07, 2025 End: March 07, 2025 Team Status: Inactive Member Role/Relationship Status Dates Dr. Connor Blank DO Primary Care Provider Active Start: March 07, 2025 End: March 07, 2025 Lizy Acosta CNM Attending Provider Active S tart: March 07, 2025 End: March 07, 2025 Lizy Acosta CNM Referring Provider Active S tart: March 07, 2025 End: March 07, 2025 Team Status: Inactive Member Role/Relationship Status Dates Dr. Connor Blank DO Primary Care Provider Active Start: December 08, 2024 End: December 08, 2024 Dr. Connor Blank DO Referring Provider Active Start: December 08, 2024 End: December 08, 2024 Nick Ziegler NP, SHOW JUMPING INSTRUCTOR-C Attending Provider Active S tart: December 08, 2024 End: December 08, 2024 Team Status: Inactive Member Role/Relationship Status Dates Dr. Connor Blank DO Primary Care Provider Active Start: December 19, 2024 End: December 19, 2024 Dr. Connor Blank DO Referring Provider Active Start: December 19, 2024 End: December 19, 2024 Dr. Mary Gonzalez MD Attending Provider Active Start: December 19, 2024 End: December 19, 2024 Team Status: Inactive Member Role/Relationship Status Dates Dr. Connor Blank DO Primary Care Provider Active Start: January 16, 2025 End: January 16, 2025 Dr. Connor Blank DO Referring Provider Active Start: January 16, 2025 End: January 16, 2025 Lizy Acosta CNM Attending Provider Active S tart: January 16, 2025 End: January 16, 2025 Team Status: Inactive Member Role/Relationship Status Dates Dr. Connor Blank DO Primary Care Provider Active Start: February 06, 2025 End: February 06, 2025 Dr. Connor Blank DO Referring Provider Active Start: February 06, 2025 End: February 06, 2025 Anahi Riojas SHOW JUMPING INSTRUCTOR, SHOW JUMPING INSTRUCTOR-C Attending Provider Active Start: February 06, 2025 End: February 06, 2025 Team Status: Inactive Member Role/Relationship Status Dates Dr. Connor Blank DO Primary Care Provider Active Start: February 06, 2025 End: February 06, 2025 Lizy Acosta CNM Attending Provider Active S tart: February 06, 2025 End: February 06, 2025 Team Status: Inactive Member Role/Relationship Status Dates Dr. Connor Blank DO Primary Care Provider Active Start: February 21, 2025 End: February 21, 2025 Dr. Connor Blank DO Referring Provider Active Start: February 21, 2025 End: February 21, 2025 Krysta Petersen CNM Attending Provider Active Start: February 21, 2025 End: February 21, 2025 Team Status: Inactive Member Role/Relationship Status Dates Dr. Connor Blank DO Primary Care Provider Active Start: March 07, 2025 End: March 07, 2025 Dr. oCnnor Blank DO Referring Provider Active Start: March 07, 2025 End: March 07, 2025 Krysta Petersen CNM Attending Provider Active Start: March 07, 2025 End: March 07, 2025 Team Status: Inactive Member Role/Relationship Status Dates Dr. Connor Blank DO Primary Care Provider Active Start: March 07, 2025 End: March 07, 2025 Lizy Acosta CNM Attending Provider Active S tart: March 07, 2025 End: March 07, 2025 Lizy Acosta CNM Referring Provider Active S tart: March 07, 2025 End: March 07, 2025 Team Status: Active Member Role/Relationship Status Dates Dr. Connor Blank DO Primary Care Provider Active Start: March 07, 2025 Lizy Acosta CNM Attending Provider Active S tart: March 07, 2025 Lizy Acosta CNM Referring Provider Active S tart: March 07, 2025 Lizy Acosta CNM Other Provider Active Start : March 07, 2025 Team Status: Inactive Member Role/Relationship Status Dates Dr. Connor Blank DO Primary Care Provider Active Start: March 20, 2025 End: March 20, 2025 Dr. Connor Blank DO Referring Provider Active Start: March 20, 2025 End: March 20, 2025 Dr. Mary Gonzalez MD Attending Provider Active Start: March 20, 2025 End: March 20, 2025 Team Status: Inactive Member Role/Relationship Status Dates Dr. Connor Blank DO Primary Care Provider Active Start: April 03, 2025 End: April 03, 2025 Dr. Connor Blank DO Referring Provider Active Start: April 03, 2025 End: April 03, 2025 Lizy Acosta CNM Attending Provider Active S tart: April 03, 2025 End: April 03, 2025 Team Status: Inactive Member Role/Relationship Status Dates Dr. Connor Blank DO Primary Care Provider Active Start: December 19, 2024 End: December 19, 2024 Dr. Connor Blank DO Referring Provider Active Start: December 19, 2024 End: December 19, 2024 Dr. Mary Gonzalez MD Attending Provider Active Start: December 19, 2024 End: December 19, 2024 Team Status: Inactive Member Role/Relationship Status Dates Dr. Connor Blank DO Primary Care Provider Active Start: January 16, 2025 End: January 16, 2025 Dr. Connor Blank DO Referring Provider Active Start: January 16, 2025 End: January 16, 2025 Lizy Acosta CNM Attending Provider Active S tart: January 16, 2025 End: January 16, 2025 Team Status: Inactive Member Role/Relationship Status Dates Dr. Connor Blank DO Primary Care Provider Active Start: February 06, 2025 End: February 06, 2025 Dr. Connor Blank DO Referring Provider Active Start: February 06, 2025 End: February 06, 2025 Anahi Riojas SHOW JUMPING INSTRUCTOR, SHOW JUMPING INSTRUCTOR-C Attending Provider Active Start: February 06, 2025 End: February 06, 2025 Team Status: Inactive Member Role/Relationship Status Dates Dr. Connor Blank DO Primary Care Provider Active Start: February 06, 2025 End: February 06, 2025 Lizy Acosta CNM Attending Provider Active S tart: February 06, 2025 End: February 06, 2025 Team Status: Inactive Member Role/Relationship Status Dates Dr. Connor Blank DO Primary Care Provider Active Start: February 21, 2025 End: February 21, 2025 Dr. Connor Blank DO Referring Provider Active Start: February 21, 2025 End: February 21, 2025 Krysta Petersen CNM Attending Provider Active Start: February 21, 2025 End: February 21, 2025 Team Status: Inactive Member Role/Relationship Status Dates Dr. Connor Blank DO Primary Care Provider Active Start: March 07, 2025 End: March 07, 2025 Dr. Connor Blank DO Referring Provider Active Start: March 07, 2025 End: March 07, 2025 Krysta Petersen CNM Attending Provider Active Start: March 07, 2025 End: March 07, 2025 Team Status: Inactive Member Role/Relationship Status Dates Dr. Connor Blank DO Primary Care Provider Active Start: March 07, 2025 End: March 07, 2025 Lizy Acosta CNM Attending Provider Active S tart: March 07, 2025 End: March 07, 2025 Lizy Acosta CNM Referring Provider Active S tart: March 07, 2025 End: March 07, 2025 Team Status: Active Member Role/Relationship Status Dates Dr. Connor Blank DO Primary Care Provider Active Start: March 07, 2025 Lizy Acosta CNM Attending Provider Active S tart: March 07, 2025 Lizy Acosta CNM Referring Provider Active S tart: March 07, 2025 Lizy Acosta CNM Other Provider Active Start : March 07, 2025 Team Status: Inactive Member Role/Relationship Status Dates Dr. Connor Blank DO Primary Care Provider Active Start: March 20, 2025 End: March 20, 2025 Dr. Connor Blank DO Referring Provider Active Start: March 20, 2025 End: March 20, 2025 Dr. Mary Gonzalez MD Attending Provider Active Start: March 20, 2025 End: March 20, 2025 Team Status: Inactive Member Role/Relationship Status Dates Dr. Connor Blank DO Primary Care Provider Active Start: April 03, 2025 End: April 03, 2025 Dr. Connor Blank DO Referring Provider Active Start: April 03, 2025 End: April 03, 2025 Lizy Acosta CNM Attending Provider Active S tart: April 03, 2025 End: April 03, 2025 Team Status: Active Member Role/Relationship Status Dates Dr. Connor Blank DO Primary Care Provider Active Start: April 03, 2025 Lizy Acosta CNM Attending Provider Active S tart: April 03, 2025 Team Status: Inactive Member Role/Relationship Status Dates Dr. Connor Blank DO Primary Care Provider Active Start: April 11, 2025 End: April 11, 2025 Dr. Connor Blank DO Referring Provider Active Start: April 11, 2025 End: April 11, 2025 Dr. Mary Gonzalez MD Attending Provider Active Start: April 11, 2025 End: April 11, 2025 Team Status: Active Member Role/Relationship Status Dates Dr. Connor Blank DO Primary care physician Active Team Status: Inactive Member Role/Relationship Status Dates Dr. Connor Blank DO Primary care physician Active Start: January 16, 2025 End: January 16, 2025 Dr. Connor Blank DO Referring Provider Active Start: January 16, 2025 End: January 16, 2025 Lizy Acosta CNM Attending physician Active Start: January 16, 2025 End: January 16, 2025 Team Status: Inactive Member Role/Relationship Status Dates Dr. Connor Blank DO Primary care physician Active Start: February 06, 2025 End: February 06, 2025 Dr. Connor Blank DO Referring Provider Active Start: February 06, 2025 End: February 06, 2025 Anahi Riojas NP, SHOW JUMPING INSTRUCTOR-C Attending physician Active Start: February 06, 2025 End: February 06, 2025 Team Status: Inactive Member Role/Relationship Status Dates Dr. Connor Blank DO Primary care physician Active Start: February 06, 2025 End: February 06, 2025 Lizy Acosta CNM Attending physician Active Start: February 06, 2025 End: February 06, 2025 Team Status: Inactive Member Role/Relationship Status Dates Dr. Connor Blank DO Primary care physician Active Start: February 21, 2025 End: February 21, 2025 Dr. Connor Blank DO Referring Provider Active Start: February 21, 2025 End: February 21, 2025 Krysta Petersen CNM Attending physician Active Start: February 21, 2025 End: February 21, 2025 Team Status: Inactive Member Role/Relationship Status Dates Dr. Connor Blank DO Primary care physician Active Start: March 07, 2025 End: March 07, 2025 Dr. Connor Blank DO Referring Provider Active Start: March 07, 2025 End: March 07, 2025 Krysta Petersen CNM Attending physician Active Start: March 07, 2025 End: March 07, 2025 Team Status: Inactive Member Role/Relationship Status Dates Dr. Connor Blank DO Primary care physician Active Start: March 07, 2025 End: March 07, 2025 Lizy Acosta CNM Attending physician Active Start: March 07, 2025 End: March 07, 2025 Lizy Acosta CNM Referring Provider Active S tart: March 07, 2025 End: March 07, 2025 Team Status: Active Member Role/Relationship Status Dates Dr. Connor Blank DO Primary care physician Active Start: March 07, 2025 Lizy Acosta CNM Attending physician Active Start: March 07, 2025 Lizy Acosta CNM Referring Provider Active S tart: March 07, 2025 Lizy Acosta CNM Nurse Practitioner Active S tart: March 07, 2025 Team Status: Inactive Member Role/Relationship Status Dates Dr. Connor Blank DO Primary care physician Active Start: March 20, 2025 End: March 20, 2025 Dr. Connor Blank DO Referring Provider Active Start: March 20, 2025 End: March 20, 2025 Dr. Mary Gonzalez MD Attending physician Active Start: March 20, 2025 End: March 20, 2025 Team Status: Inactive Member Role/Relationship Status Dates Dr. Connor Blank DO Primary care physician Active Start: April 03, 2025 End: April 03, 2025 Dr. Connor Blank DO Referring Provider Active Start: April 03, 2025 End: April 03, 2025 Lizy Acosta CNM Attending physician Active Start: April 03, 2025 End: April 03, 2025 Team Status: Inactive Member Role/Relationship Status Dates Dr. Connor Blank DO Primary care physician Active Start: April 03, 2025 End: April 03, 2025 Lizy Acosta CNM Attending physician Active Start: April 03, 2025 End: April 03, 2025 Team Status: Inactive Member Role/Relationship Status Dates Dr. Connor Blank DO Primary care physician Active Start: April 11, 2025 End: April 11, 2025 Dr. Connor Blank DO Referring Provider Active Start: April 11, 2025 End: April 11, 2025 Dr. Mary Gonzalez MD Attending physician Active Start: April 11, 2025 End: April 11, 2025 Team Status: Inactive Member Role/Relationship Status Dates Dr. Connor Blank DO Primary care physician Active Start: April 18, 2025 End: April 18, 2025 Dr. Connor Blank DO Referring Provider Active Start: April 18, 2025 End: April 18, 2025 Lizy Acosta CNM Attending physician Active Start: April 18, 2025 End: April 18, 2025 Team Status: Inactive Member Role/Relationship Status Dates Dr. Connor Blank DO Primary care physician Active Start: April 23, 2025 End: April 23, 2025 Dr. Connor Blank DO Referring Provider Active Start: April 23, 2025 End: April 23, 2025 Dr. Yue Sanford DO Attending physician Active Start: March End: April 23, 2025 Team Status: Inactive Member Role/Relationship Status Dates Dr. Connor Blank DO Primary care physician Active Start: May 01, 2025 End: May 01, 2025 Dr. Connor Blank DO Referring Provider Active Start: May 01, 2025 End: May 01, 2025 Dr. Mary Gonzalez MD Attending physician Active Start: May 01, 2025 End: May 01, 2025 Team Status: Inactive Member Role/Relationship Status Dates Dr. Connor Blank DO Primary care physician Active Start: May 01, 2025 End: May 01, 2025 Dr. Mary Gonzalez MD Attending physician Active Start: May 01, 2025 End: May 01, 2025 Dr. Mary Gonzalez MD Referring Provider Active Start: May 01, 2025 End: May 01, 2025 Team Status: Active Member Role/Relationship Status Dates Dr. Connor Blank DO Primary care physician Active Start: May 01, 2025 Dr. Mary Gonzalez MD Attending physician Active Start: May 01, 2025 Dr. Mary Gonzalez MD Referring Provider Active Start: May 01, 2025 Dr. Mary Gonzalez MD Nurse Practitioner Active Start: May 01, 2025 FOR RECORDS PERTAINING TO PATIENTS WHO [...] BE BASED ON THE PRIMARY CLINICAL RECORDS. [facility]. provides no warranty or guarantee of the accuracy or completeness of information in this document.
--- OUTSIDE RECORDS SUMMARY | 2025-05-04 03:29 | XMS RPT_ITS | CCD ---
Author Organization [facility] Care Team Providers Care Licensed Weigher Name Role Phone NAVEEN ARGUELLO Unavailable Unavailable PHYSICIAN, NONE Unavailable Unavailable Connor Blank Primary Care Provider Unavailab Connor Gilbert Referring Provider Unavailable Beulah MANAGER STARS, RICHARD Christian Attending Provider [phone] Dr. Mary Gonzalez Attending Provider [phone] Dr. Yue Sanford Attending Provider [phone] Connor Blank Primary Care Provider Unavailab Connor Gilbert Referring Provider Unavailable RICAHRD Riojas NP Attending Provider [phone] Dr. [...] Provider Dr. Connor Blank DO Referring Provider Lizy Acosta CNM Attending Provider [phone] Lizy Acosta CNM Referring Provider [phone] YUE HERMAN Referring Unavailab ASHELY Guardado Attending Unavailable CONNOR BLANK L Primary Care Unavailable YUE HERMAN Referring Unavailab ASHELY Guardado Attending Unavailable CONNOR BLANK L Primary Care Unavailable BLANKCONNOR L Primary Care Unavailable RUFINO SHELDON Attending Unavailable YUE HERMAN Referring Unavailab teto Sanford DO, Dr. Turner Attending Provider Beulah MANAGER STARS-CAnahi Attending Provider Self Schedule, [facility] Attending Provider Lesli michoacano Gonzalez MD, Dr. Hernandez Attending Provider [phone] Abhay RAE, Dr. Ryan Primary Care Provider Dr. Connor Blank DO Referring Provider Lizy Acosta CNM Attending Provider Dr. Connor Blank DO Primary Care Provider Dr. Connor Blank DO Referring Provider Toney ADAM-Nick Martinez Attending Provider Kyrsta Petersen CNM Attending Provider Lizy Acosta CNM Referring Provider Dr. Connor Blank DO Primary Care Provider Dr. Connor Blank DO Referring Provider Anahi [...] Referring Provider Lizy Acosta CNM Attending Physician [phone] Beulah ADAM-CAnahi Attending Physician [phone] Krysta Petersen CNM Attending Physician [phone] Lizy Acosta CNM Nurse Practitioner [phone] Lisa FIGUEROA, Dr. Hernandez Attending Physician Dr. Yue Sanford DO Attending Physician Lisa FIGUEROA, Dr. Hernandez Referring Provider Lisa FIGUEROA, Dr. Hernandez Nurse Practitioner Medications [...] PO daily November 19, 2024 12:00am Multivit 88-Nepz-Bibxfb 1-Dh a (Pnv-Dha) 27 mg iron-1 mg [...] 2024 1:00am Start: 01-24-2020 End: 04-11-2022 Multivit 79-Lvhl-Hivaco 1-Dh a (Pnv-Dha) 27 mg iron-1 mg -300 mg capsule Discontinued 1 NMA PO DAILY January 24, 2020 12:00am April 11, 2022 11:52am Start: 01-24-2020 End: 04-11-2022 Multivit 39-Izrz-Jexlvw 1-Dh a (Pnv-Dha) 27 mg iron-1 mg -300 mg capsule Discontinued 1 NMA PO DAILY January 24, 2020 12:00am April 11, 2022 11:52am Start: 01-24-2020 End: 04-11-2022 take 1 capsule by mouth once daily Multivit 56-Rjku-Ffxbqb 1-Dha (Pnv-Dha) 27 mg iron-1 mg -300 mg capsule Discontinued 1 CAP PO DAILY January 23, 2020 11:00pm April 11, 2022 10:52am Start: 01-24-2020 End: 04-11-2022 take 1 capsule by mouth once daily Multivit 63-Jgmv-Semgwl 1-Dha (Pnv-Dha) 27 mg iron-1 mg -300 mg capsule Discontinued 1 CAP PO DAILY January 24, 2020 12:00am April 11, 2022 11:52am Start: 01-24-2020 take 1 capsule by [facility] once daily Multivit 49-Drvd-Vyrthk 1-Dha (Pnv-Dha) 27 mg iron-1 mg -300 [...] Discontinued 1 NMA PO DAILY 30 12 Timnath 25th, 2022 12:00am September 13, 2024 2:42pm Start: 03-24-2022 End: 09-13-2024 take 1 capsule by mouth once daily Vit 85-Iron-Fa 1-Dha (Prenate Pixie) 10 mg iron- 1 mg-200 mg capsule Discontinued 1 NMA PO DAILY March 24, 2022 12:00am September 13, 2024 2:42pm Start: 03-24-2022 take 1 capsule by mo [facility] once daily Vit 85-Iron-Fa 1-Dha (Prenate Pixie) [...] system] 09-16-2022 Chronic Comment on above: Rpt [facility] 08/09/22: stable. Weekly BPP and growth Q4wk. [...] eccentric cord insertion. Serial growth recommended @ [facility] @ 4 wks Neg GBS. anatomy [...] With [employer] 05-01-2025 OB Limited With Biometrics [facility] [address] [place], [place] [id number] OB Limited With Biometrics MR#: [id number] Acct: [id number] Name: RAMYA GOEL Rep #: [id number] : 1990 F 34 From: Jr Little MD PCP: Dr. Connor Blank DO Status: REG CLI Study: OB Limited With Biometrics Date of Exam: 05/01 Exam# [id number] Ordering Dr: Mary Gonzalez PROCEDURE: OB LIMITED [...] estimated delivery date of 05/15/2025. Reading Location: [place] [address] CC: Dr. Connor Blank DO; Dr. 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 Connor Blank DO Status:REG CLI Y DOS: Location: [place] [address] Progress Notes Date of Service: 05/01/25 Progress Note: Patient presents for triage evaluation secondary to low fundal height FHT: 140 Moderate variability reactive no decelerations category I tracing [place]: no regular Contractions Assessment and plan: 40 weeks uterine size date discrepancy Reactive NST, reassuring maternal and status patient discharged to home to follow-up as scheudled. See problem list details for additional plan information. Charges/Coding Procedures Urinary/Genital 52xxx-59xxx: 53728-48 non-stress test Interp 05/01/25 1604 Date Mary Gonzalez MD Cosign Signature (if applicable): Date CC: Dr. Connor Blank DO; Dr. Mary Gonzalez MD Signed Normal [facility] Manufacturing Engineer Assembly Office Visit Reporton 05-01-2025 Manufacturing Engineer Assembly Office Visit Report [facility] [address], [address] [place] [address] OFFICE VISIT Date of Service: 05/01/25 MR#: [id number] Acct: [id number] Name: RAMYA GOEL Rep #: [id number] : 1990 Provider: Dr. 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: No Is patient in pain?: No [...] 2 current occupational status: employed current occupation: [employer] current occupational exposures/hazards: No pets and animals: [...] in: none frequency: 3-4 times per week taryn/tenriism: Hoahaoism seatbelt use: always do you feel safe at home: Yes 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 Date Name GA/Weeks Outcome Route Bth Weight Gen Labor Lgth Anesthesia Del Locatn Provider FOB 09/18/20 Waldo 40 live - full term 7# Male [facility] Proko p 10/24/22 Perla 40 live - full term 8#11 Female epidural [facility] Sh liliana Lisa Bud Delivery Date: [...] CRL con (more content not included)... Normal [facility] Laboratory - Chemistry and C hemistry - challengeOrdered By: Yue Hull on 04-23-2025 Glucose Ql (U) Negative [facility] Laboratory - UrinalysisOrder ed By: Yue Hull on 04-23-2025 Protein Ql (U) Negative [facility] Manufacturing Engineer Assembly Office Visit Reporton 04-23-2025 Manufacturing Engineer Assembly Office Visit Report [facility]'s [address], [address] [place] [address] OFFICE VISIT Date of Service: 04/23/25 MR#: [id number] Acct: [id number] Name: RAMYA GOEL Rep #: [id number] : 1990 Provider: Dr. 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 Date Name GA/Weeks Outcome Route Bth Weight Infant Gen Labor Lgth Anesthesia Del Locatn Provider FOB 09/18/20 Waldo 40 live - full term 7# Male [facility] Proko p 10/24/22 Perla 40 live - full term 8#11 Female epidural [facility] Sh liliana Lisa Bud Delivery Date: 09/18/20 Last Updated by: Pbebles Hardin admitted in active labor. normal vaginal [...] with geoff (more content not included)... Normal [facility] Laboratory - Chemistry and C hemistry - challengeOrdered By: Lizy Acosta on 04-18-2025 Glucose Ql (U) Negative [facility] Laboratory - UrinalysisOrder ed By: Lizy Acosta on 04-18-2025 Protein Ql (U) Negative [facility] Manufacturing Engineer Assembly Office Visit Reporton 04-18-2025 Manufacturing Engineer Assembly Office Visit Report [facility]'s [address], [address] [place] [address] OFFICE VISIT Date of Service: 04/18/25 MR#: [id number] Acct: [id number] Name: RAMYA GOEL Rep #: [id number] : 1990 Provider: MIKI Bryan ams Age/Sex: 34/F [place] [facility] [place]: Signed Intake Vital Signs 03/07/25 08:38 04/11/25 13:06 04/18/25 09:32 Height 5 ft 7 in 5 ft 7 in 5 ft 7 in Weight: 159 lb 1 oz BMI 24.9 BP 130/63 H Intake Visit Reasons: 38 WK 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 Required: No Is patient in pain?: No [...] 2 current occupational status: employed current occupation: [employer] current occupational exposures/hazards: No pets and animals: [...] in: none frequency: 3-4 times per week taryn/tenriism: Hoahaoism seatbelt use: always do you feel safe at home: Yes 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 Date Name GA/Weeks Outcome Route Bth Weight Infant Gen Labor Lgth Anesthesia Del Locatn Provider FOB 09/18/20 Waldo 40 live - full term 7# Male [facility] Proko p 10/24/22 Perla 40 live - full term 8#11 Female epidural [facility] Demi Gonzalez Bud Delivery Date: 09/18/20 [...] 10/23/24 -???-???-???-? (more content not included)... Normal [facility] Laboratory - Chemistry and C hemistry - challengeOrdered By: Mary Gonzalez on 04-11-2025 Glucose Ql (U) Negative [facility] Laboratory - UrinalysisOrder ed By: Mary Gonzalez on 04-11-2025 Protein Ql (U) Negative [facility] Manufacturing Engineer Assembly Office Visit Reporton 04-11-2025 Manufacturing Engineer Assembly Office Visit Report [facility] [address], [address] [place] [address] OFFICE VISIT Date of Service: 04/11/25 MR#: [id number] Acct: [id number] Name: RAMYA GOEL Rep #: [id number] : 1990 Provider: Dr. 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 Shaft Sinking Required: No Is patient in pain?: No [...] 2 current occupational status: employed current occupation: [employer] current occupational exposures/hazards: No pets and animals: [...] in: none frequency: 3-4 times per week taryn/tenriism: Hoahaoism seatbelt use: always do you feel safe at home: Yes 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 Date Name GA/Weeks Outcome Route Bth Weight Gen Labor Lgth Anesthesia Del Locatn Provider FOB 09/18/20 Sharon 40 live - full term 7# Male [facility] Proko p 10/24/22 Perla 40 live - full term 8#11 Female epidural [facility] Demi Gonzalez Bud Delivery Date: 09/18/20 [...] 10/23/24 -???-???-???-?? (more content not included)... Normal [facility] Rule out Beta Strep (Grp. B) on 04-05-2025 ERVIN Group B Beta Streptococcus is not isolated. Normal [facility] Comment on above: Performed By: #### M 100.3400 #### [facility] [address] [place], [address] Laboratory - Chemistry and C hemistry - challengeOrdered By: Lizy Acosta on 04-03-2025 Glucose Ql (U) Negative [facility] Laboratory - UrinalysisOrder ed By: Lizy Acosta on 04-03-2025 Protein Ql (U) Negative [facility] Manufacturing Engineer Assembly Office Visit Reporton 04-03-2025 Manufacturing Engineer Assembly Office Visit Report [facility]'s [address], [address] [place] [address] OFFICE VISIT Date of Service: 04/03/25 MR#: [id number] Acct: [id number] Name: RAMYA GOEL Rep #: [id number] : 1990 Provider: MIKI Bryan ams Age/Sex: 34/F [place] [facility] [place]: Signed Intake Vital Signs 02/06/25 09:08 03/20/25 14:45 04/03/25 09:24 Height 5 ft 7 in 5 ft 7 in 5 ft 7 in Weight: 157 lb 7 oz BMI 24.6 BP 115/74 Intake Visit Reasons: 36wk ob 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 Date Name GA/Weeks Outcome Route Bth Weight Gen Labor Lgth Anesthesia Del Locatn Provider FOB 09/18/20 Waldo 40 live - full term 7# Male [facility] Proko p 10/24/22 Perla 40 live - full term 8#11 Female epidural [facility] Demi Gonzalez Bud Delivery Date: 09/18/20 [...] oz ( (more content not included)... Normal [facility] Screening beta-hemolytic Str eptococcus cultureOrdered By: Lizy Acosta on 04-03-2025 Beta-hemolytic Streptococcus culture Group B Beta Streptococcus is not isolated. [facility] Manufacturing Engineer Assembly Office Visit Reporton 03-20-2025 Manufacturing Engineer Assembly Office Visit Report [facility] [address], [address] [place] [address] OFFICE VISIT Date of Service: 03/20/25 MR#: [id number] Acct: [id number] Name: RAMYA GOEL Rep #: [id number] : 1990 Provider: Dr. 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 Required: No Is patient in pain?: No [...] 2 current occupational status: employed current occupation: [employer] current occupational exposures/hazards: No pets and animals: [...] in: none frequency: 3-4 times per week taryn/tenriism: Hoahaoism seatbelt use: always do you feel safe at home: Yes 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 Date Name GA/Weeks Outcome Route Bth Weight Infant Gen Labor Lgth Anesthesia Del Locatn Provider FOB 09/18/20 Waldo 40 live - full term 7# Male [facility] Proko p 10/24/22 Pelra 40 live - full term 8#11 Female epidural [facility] Demi Gonzalez Bud Delivery Date: 09/18/20 [...] -???-???-???-???-???-?? ?-???-???-???-???-? (more content not included)... Normal [facility] Laboratory - Chemistry and C hemistry - challengeOrdered By: Krysta Petersen on 03-07-2025 Glucose Ql (U) Negative [facility] Laboratory - UrinalysisOrder ed By: Krysta Petersen on 03-07-2025 Protein Ql (U) Negative [facility] OB Biophysical Prof W/O NSTo n 03-07-2025 OB Biophysical Prof W/O NST [facility] [address] [place] [address] OB Biophysical Prof W/O NST MR#: [id number] Acct: [id number] Name: RAMYA GOEL Rep #: [id number] : 1990 F 34 From: Delano bejarano MD PCP: Dr. Connor Blank, DO Status: DEP CLI Study: OB Biophysical Prof W/O NST Date of Exam: 03/24 Exam# [id number] Ordering Dr: Lizy Acosta CNM PROCEDURE: OB [...] NST IMPRESSION: Normal biophysical profile. Reading Location: [id number] CC: MIKI Acosta; Dr. 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 Connor Blank, Status:DEP CLI Y DOS: Location: [facility] Progress Notes Date of Service: 03/07/25 Progress Note: Patient presents for triage evaluation secondary to nonreassuring NST at 32 weeks gestation FHT: 135 Moderate variability reactive no decelerations category I tracing [place]: rare Contractions Assessment and plan: BPP 03/07, Reactive NST, reassuring maternal and status patient discharged to home to follow-up in office. See problem list details for additional plan information. Charges/Coding Multi Select Codes Urinary/Genital Urinary/Genital CPT Codes: 62600-78 non-stress test Interp Assessment Plan (1) Variable [...] Acosta; Dr. Connor Blank, DO Signed Normal [facility] Manufacturing Engineer Assembly Office Visit Reporton 03-07-2025 Manufacturing Engineer Assembly Office Visit Report [facility] [address], [address] [place] [address] OFFICE VISIT Date of Service: 03/07/25 MR#: [id number] Acct: [id number] Name: RAMYA GOEL Rep #: [id number] : 1990 Provider: MIKI kinsey Age/Sex: 34/F Location[place] [facility] [place]: Signed Intake Vital Signs 12/19/24 11:48 02/06/25 09:08 02/21/25 10:11 03/07/25 08:38 Height 5 ft 7 in 5 ft 7 in 5 ft 7 in 5 ft 7 in Weight: 147 lb 2 oz 147 lb 148 lb 6 oz BMI 23.0 23.0 23.2 BP 102/60 111/69 104/69 Intake Visit 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 Sinking Required: No Is patient in pain?: No [...] 2 current occupational status: employed current occupation: [employer] current occupational exposures/hazards: No pets and animals: [...] in: none frequency: 3-4 times per week taryn/tenriism: Hoahaoism seatbelt use: always do you feel safe at home: Yes 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 Date Name GA/Weeks Outcome Route Bth Weight Gen Labor Lgth Anesthesia Del Locatn Provider FOB 09/18/20 Waldo 40 live - full term 7# Male [facility] Proko p 10/24/22 Perla 40 live - full term 8#11 Female epidural [facility] Demi Gonzalez Bud Delivery Date: 09/18/20 [...] 169 -???-???-???-???-??? (more content not included)... Normal [facility] Manufacturing Engineer Assembly Office Visit Reporton 02-21-2025 Manufacturing Engineer Assembly Office Visit Report [address], [address] [place] [address] OFFICE VISIT Date of Service: 02/21/25 MR#: [id number] Acct: [id number] Name: RAMYA GOEL Rep #: [id number] : 1990 Provider: MIKI kinsey Age/Sex: 34/F [place] [facility] Status: Signed with Addenda ADDENDUM by Ruby Esteban on 02/21/25 at 1032 Office Procedure Documentation entered by Ruby Esteban 02/21/25 10:32: Immunizations Adacel(Tdap Adolesn/Adult)(PF) 2 Lf-(2.5-5-3-5)-5 Lf/0.5 mL IM syringe Performing Provider: Krysta Petersen CNM Performing Location: [facility] Administered by: Ruby Esteban on 02/21/25 10:32 Dose Route Admin Location Dispensed Lot Number Expiration Date NDC Man ufacturer 0.5 mL IM Left Arm (SQ) 0.5 mL [id number] 12/29/26 21936-063-04 SANOFI- PASTEUR VIS Given Date VIS Provided VIS Publication Date 02/21/25 Single Vaccine 24 Eligibility Eligibility Date Funding Source Not Applicable Date cc: * Signed Intake Vital Signs 12/19/24 11:48 02/06/25 09:08 02/21/25 10:11 Height 5 ft 7 in 5 ft 7 in 5 ft 7 in Weight: 147 lb BMI 23.0 BP 111/69 Intake Visit 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 Shaft Sinking Required: No Is patient in pain?: No [...] 2 current occupational status: employed current occupation: [employer] current occupational exposures/hazards: No pets and animals: [...] in: none frequency: 3-4 times per week taryn/tenriism: Hoahaoism seatbelt use: always do you feel safe at home: Yes 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 Date Name GA/Weeks Outcome Route Bth Weight Gen Labor Lgth Anesthesia Del Locatn Provider FOB 09/18/20 Waldo 40 live - full term 7# Male [facility] Proko p 10/24/22 Perla 40 live - full term 8#11 Female epidural [facility] Demi Gonzalez Bud Delivery Date: 09/18/20 [...] plan of (more content not included)... Normal [facility] Absolute lymphocyte countOrd ered By: Lizy Acosta on 02-06-2025 Lymphocytes Auto (Unsp spec) [#/Vol] 1.17 10*3/uL 0.83-4.51 [facility] Absolute neutrophil countOrd ered By: Lizy Acosta on 02-06-2025 Neutrophils (Bld) [#/Vol] 4.7 10*3/uL 2.0-7.7 [facility] Automated lymphocyte count a s percentage of total leukocytesOrdered By: Lizy Acosta on 02-06-2025 Lymphocytes/100 WBC Auto (Unsp spec) 18.5 % Low 19-41 [facility] Basophil percentageOrdered B y: Lizy Acosta on 02-06-2025 Basophils/100 WBC (Bld) 0.6 % 0-1 [facility] CBC W/Diff, Automatedon 01-28 Absolute Lymph 1.17 X10 3/uL Normal 0.83-4.51 [facility] Comment on above: Performed By: #### L 501.0250, L3890.6006, L509.8002, L100.0100 #### [facility] [address] [place], [address] Absolute Neut 4.7 X10 3/uL Normal 2.0-7.7 [facility] Comment on above: Performed By: #### L 501.0250, L3890.6006, L509.8002, L100.0100 #### [facility] [address] [place], [address] Basophils/100 WBC (Bld) 0.6 % Normal 0-1 [facility] Comment on above: Performed By: #### L 501.0250, L3890.6006, L509.8002, L100.0100 #### [facility] [address] [place], [address] Eosinophils/100 WBC (Bld) 0.3 % Normal 0-5 [facility] Comment on above: Performed By: #### L 501.0250, L3890.6006, L509.8002, L100.0100 #### [facility] [address] [place], [address] Erythrocyte distribution width (RBC) [Ratio] 13.3 % Normal 11.6-14.6 [facility] Comment on above: Performed By: #### L 501.0250, L3890.6006, L509.8002, L100.0100 #### [facility] [address] [place], [address] Hematocrit (Bld) [Volume fraction] 37.9 % Normal 37-47 [facility] Comment on above: Performed By: #### L 501.0250, L3890.6006, L509.8002, L100.0100 #### [facility] [address] [place], [address] Hemoglobin (Bld) [Mass/Vol] 12.6 g/dL Normal 12.0-15.0 [facility] Comment on above: Performed By: #### L 501.0250, L3890.6006, L509.8002, L100.0100 #### [facility] [address] [place], [address] IG% 0.800 Normal 0.0-0.9 [facility] Comment on above: Result Comment: IG% - Immature Granulocytes (promyelocytes, myelocytes and metamyelocytes) > 1% indicates that a LEFT SHIFT is Present. Performed By: #### L 501.0250, L3890.6006, L509.8002, L100.0100 #### [facility] [address] [place], [address] Lymphocytes/100 WBC (Bld) 18.5 % Low 19-41 [facility] Comment on above: Performed By: #### L 501.0250, L3890.6006, L509.8002, L100.0100 #### [facility] [address] [place], [address] MCH (RBC) [Entitic mass] 30.1 pg Normal 27.0-32.0 [facility] Comment on above: Performed By: #### L 501.0250, L3890.6006, L509.8002, L100.0100 #### [facility] [address] [place], [address] MCHC (RBC) [Mass/Vol] 33.2 g/dL Normal 32-36 [facility] Comment on above: Performed By: #### L 501.0250, L3890.6006, L509.8002, L100.0100 #### [facility] [address] [place], [address] MCV (RBC) [Entitic vol] 90.7 fL Normal 81-99 [facility] Comment on above: Performed By: #### L 501.0250, L3890.6006, L509.8002, L100.0100 #### [facility] [address] [place], [address] Monocytes/100 WBC (Bld) 5.5 % Normal 0-10 [facility] Comment on above: Performed By: #### L 501.0250, L3890.6006, L509.8002, L100.0100 #### [facility] [address] [place], [address] Neutrophils/100 WBC (Bld) 74.3 % High 47-70 [facility] Comment on above: Performed By: #### L 501.0250, L3890.6006, L509.8002, L100.0100 #### [facility] [address] [place], [address] Nucleated RBC (Bld) [#/Vol] 0 10*3/uL Normal 0-5 [facility] Comment on above: Performed By: #### L 501.0250, L3890.6006, L509.8002, L100.0100 #### [facility] [address] [place], [address] Platelet mean volume (Bld) [Entitic vol] 10.9 fL Normal 6.2-12.0 [facility] Comment on above: Performed By: #### L 501.0250, L3890.6006, L509.8002, L100.0100 #### [facility] [address] [place], [address] Platelets (Bld) [#/Vol] 169 10*3/uL Normal 150-450 [facility] Comment on above: Performed By: #### L 501.0250, L3890.6006, L509.8002, L100.0100 #### [facility] [address] [place], [address] RBC (Bld) [#/Vol] 4.18 10*6/uL Low 4.2-5.4 [facility] Comment on above: Performed By: #### L 501.0250, L3890.6006, L509.8002, L100.0100 #### [facility] [address] [place], [address] RDW SD 44.1 fl High 35.1-43.9 [facility] Comment on above: Performed By: #### L 501.0250, L3890.6006, L509.8002, L100.0100 #### [facility] [address] [place], [address] WBC (Bld) [#/Vol] 6.3 10*3/uL Normal 4.4-11.[address] [facility] Comment on above: Performed By: #### L 501.0250, L3890.6006, L509.8002, L100.0100 #### [facility] [address] [place], [address] Eosinophil percentageOrdered By: Lizy Acosta on 02-06-2025 Eosinophils/100 WBC (Bld) 0.3 % 0-5 [facility] Erythrocyte distribution wid th ratioOrdered By: Lizy Acosta on 02-06-2025 Erythrocyte distribution width (RBC) [Ratio] 13.3 % 11.6-14.6 [facility] Erythrocyte distribution wid th standard deviationOrdered By: Lizy Acosta on 02-06-2025 Erythrocyte distribution width (RBC) [Ratio] 44.1 fl High 35.1-43.9 [facility] Glucose Challenge Gest 1H 50 allan 02-06-2025 GLU GEST 50g 1H 80 mg/dL Normal 70-140 [facility] Comment on above: Performed By: #### L 501.0250, L3890.6006, L509.8002, L100.0100 ####[facility] [address] [place], [address] Glucose measurement at 2 kym rs post-dose gestational glucose tolerance testOrdered By: Lizy Acosta on 02-06-2025 Glucose [Mass/Vol] 80 mg/dL 70-[address] [facility] HIVon 02-06-2025 HIV Non-Reactive Normal Nonreactive [facility] Comment on above: Result Comment: Non- Reactive Reactive Repeatedly reactive samples must be confirmed according to CDC recommended confirmatory algorithms. The subresults for either HIVAG or AHIV can be used as an aid in the selection of the confirmation algorithm for reactive samples. Send out specimens with Reactive results to [facility] for confirmation. Order the HIV antibody detection and differentiation: lc#[id number] Performed By: #### L 501.0250, L3890.6006, L509.8002, L100.0100 ####[facility] [address] [place], [address] Hematocrit Auto (Bld) [Volum e fraction]Ordered By: Lizy Acosta on 02-06-2025 Hematocrit (Bld) [Volume fraction] 37.9 % 37-47 [facility] Hemoglobin measurementOrdere d By: Lizy Acosta on 02-06-2025 Hemoglobin (Bld) [Mass/Vol] 12.6 g/dL 12.0-15.0 [facility] Immature granulocytes/100 WB C Auto (Bld)Ordered By: Lizy Acosta on 02-06-2025 Immature granulocytes/100 WBC (Bld) 0.800 % 0.0-0.9 [facility] Comment on above: IG% - Immature Granu locytes (promyelocytes, myelocytes and metamyelocytes) > 1% indicates that a LEFT SHIFT is Present. Laboratory - Chemistry and C hemistry - challengeOrdered By: Anahi Riojas on 02-06-2025 Glucose Ql (U) Negative [facility] - UrinalysisOrder ed By: Anahi Riojas on 02-06-2025 Protein Ql (U) Negative [facility] MCV (mean corpuscular volume ) determinationOrdered By: Lizy Acosta on 02-06-2025 MCV (RBC) [Entitic vol] 90.7 fL 81-99 [facility] Mean corpuscular hemoglobin (MCH) determinationOrdered By: Lizy Acosta on 02-06-2025 MCH (RBC) [Entitic mass] 30.1 pg 27.0-32.0 [facility] Mean corpuscular hemoglobin concentration (MCHC) determinationOrdered By: Lizy Acosta on 02-06-2025 MCHC (RBC) [Mass/Vol] 33.2 g/dL 32-36 [facility] Mean platelet volume determi nationOrdered By: Lizy Acosta on 02-06-2025 Platelet mean volume (Bld) [Entitic vol] 10.9 fL 6.2-12.0 [facility] Monocyte percentageOrdered B y: Lizy Acosta on 02-06-2025 Monocytes/100 WBC (Bld) 5.5 % 0-10 [facility] Neutrophil percentageOrdered By: Lizy Acosta on 02-06-2025 Neutrophils/100 WBC (Bld) 74.3 % High 47-70 [facility] No Panel InformationOrdered By: Lizy Acosta on 02-06-2025 HIV (1&2) Antibody Non-Reactive Nonreactive [facility] Comment on above: Non-ReactiveReactive Repeatedly reactive samples must be confirmed according to CDC recommended confirmatory algorithms. The subresults for either HIVAG or AHIV can be used as an aid in the selection of the confirmation algorithm for reactive samples.Send out specimens with Reactive results to [facility] for confirmation.Order the HIV antibody detection and differentiation: #[id number] Nucleated red blood cell per centageOrdered By: Lizy Acosta on 02-06-2025 Nucleated RBC/100 WBC (Bld) [Ratio] 0 % 0-5 [facility] [employer] Visit Reporton 02-06-2025 Manufacturing Engineer Assembly Office Visit Report [facility] [address], [address] [place] [address] OFFICE VISIT Date of Service: 02/06/25 MR#: [id number] Acct: [id number] Name: RAMYA GOEL Rep #: [id number] : 1990 Provider: RICHARD griffiths Age/Sex: 34/F [place] [facility] [place]: Signed Intake Vital Signs 12/19/24 11:48 01/16/25 09:34 02/06/25 09:08 Height 5 ft 7 in 5 ft 7 in 5 ft 7 in Weight: 140 lb 8 oz 147 lb 2 oz BMI 21.9 23.0 BP 97/65 102/60 Intake Visit Reasons: 28wk ob/glucose 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 Date Name GA/Weeks Outcome Route Bth Weight Gen Labor Lgth Anesthesia Del Locatn Provider FOB 09/18/20 Sharon 40 live - full term 7# Male [facility] Proko p 10/24/22 Perla 40 live - full term 8#11 Female epidural [facility] Sh liliana Gonzalez Bud Delivery Date: 09/18/20 [...] cons wit (more content not included)... Normal [facility] Platelet countOrdered By: Beto Acosta on 02-06-2025 Platelets (Bld) [#/Vol] 169 10*3/uL 150-450 [facility] RBC Auto (Bld) [#/Vol]Ordere d By: Lizy Acosta on 02-06-2025 RBC (Bld) [#/Vol] 4.18 10*6/uL Low 4.2-5.4 [facility] Syphilis Antibodieson 2024 Syphilis Abs Non-Reactive Normal Nonreactive [facility] Comment on above: Performed By: #### L 501.0250, L3890.6006, L509.8002, L100.0100 ####[facility] [address] [place], [place], [id number] White blood cell (WBC) count Ordered By: Lizy Acosta on 02-06-2025 WBC (Bld) [#/Vol] 6.3 10*3/uL 4.4-11.[address] [facility] Laboratory - Chemistry and C hemistry - challengeOrdered By: Lizy Acosta on 01-16-2025 Glucose Ql (U) Negative [facility] - UrinalysisOrder ed By: Lizy Acosta on 01-16-2025 Protein Ql (U) Negative [facility] [employer] Visit Reporton 01-16-2025 Manufacturing Engineer Assembly Office Visit Report [facility] [address], [address] [place] [address] OFFICE VISIT Date of Service: 01/16/25 MR#: [id number] Acct: [id number] Name: RAMYA GOEL Rep #: [id number] : 1990 Provider: MIKI Bryan ams Age/Sex: 34/F [place] [facility] [place]: Signed Intake Vital Signs 10/23/24 14:30 12/19/24 11:48 01/16/25 09:34 Height 5 ft 7 in 5 ft 7 in 5 ft 7 in Weight: 140 lb 8 oz BMI 21.9 BP 97/65 Intake Visit Reasons: 25wk ob 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 Date Name GA/Weeks Outcome Route Bth Weight Gen Labor Lgth Anesthesia Del Locatn Provider FOB 09/18/20 Sharon 40 live - full term 7# Male [facility] Proko p 10/24/22 Masusanlyn 40 live - full term 8#11 Female epidural [facility] Sh liliana Lisa Bud Delivery Date: [...] -???-???-???-???-???-?? ?-???-???-?? (more content not included)... Normal [facility] Progress Noteon 01-03-2025 Student Counselor Authentication Interface Message Text Note opened in error Normal [facility] Student Counselor Authentication Interface Message Text [facility] Perinatology Antepartum Consult Note I had the [...] needed. No follow-up has been scheduled in [facility]. Thank you for the opportunity to participate in the care of Ramya Goel. I would be happy to see her again for her care this . Please feel free to contact me if you have any questions. My final recommendations will be communicated back to the requesting physician by way of shared medical record or fax. Solange Howard MD Normal [facility] Laboratory - Chemistry and C hemistry - challengeOrdered By: Mary Gonzalez on 12-19-2024 Glucose Ql (U) Negative [facility] - UrinalysisOrder ed By: Mary Gonzalez on 12-19-2024 Protein Ql (U) Negative [facility] Manufacturing [employer] Office Visit Reporton 12-19-2024 Manufacturing Engineer Assembly Office Visit Report [facility]'s [address], [address] [place] [address] OFFICE VISIT Date of Service: 12/19/24 MR#: [id number] Acct: [id number] Name: RAMYA GOEL Rep #: [id number] : 1990 Provider: Dr. 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 Date Name GA/Weeks Outcome Route Bth Weight Gen Labor Lgth Anesthesia Del Locatn Provider FOB 09/18/20 Sharon 40 live - full term 7# Male [facility] Proko p 10/24/22 Perla 40 live - full term 8#11 Female epidural [facility] liliana Farrell Delivery Date: 09/18/20 Last Updated [...] -???-???-???-???-???-?? ?-???-???-???-???- (more content not included)... Normal [facility] Rapid group A Streptococcus antigen assay at point of careOrdered By: Nick Ziegler on 12-08-2024 S. pyogenes Ag IA.rapid Ql (Throat) Negative [facility] Urgent Care Visit Reporton 0 12-08-2024 Urgent Care Visit Report [facility] [address], [address] [place] [address] OFFICE VISIT Date of Service: 12/08/24 MR#: [id number] Acct: [id number] Name: RAMYA GOEL Rep #: [id number] : 1990 Provider: [facility] Self Schedule Age/Sex: 33/F Location: [facility] Status: Signed Intake Vital Signs [...] throat, swollen glands in neck, ear pain Laborer Shaft Sinking Required: No Accompanied by: Self Is patient [...] 2 current occupational status: employed current occupation: [employer] current occupational exposures/hazards: No pets and animals: [...] in: none frequency: 3-4 times per week taryn/tenriism: Hoahaoism seatbelt use: always do you feel safe at home: Yes 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 Normal [facility] - Chemistry and C hemistry - challengeOrdered By: Anahi Riojas on 11-19-2024 Glucose Ql (U) Negative [facility] - UrinalysisOrder ed By: Anahi Riojas on 11-19-2024 Protein Ql (U) Negative [facility] Manufacturing [employer] Office Visit Reporton 11-19-2024 Manufacturing Engineer Assembly Office Visit Report [facility] [address], [address] [place] [address] OFFICE VISIT Date of Service: 11/19/24 MR#: [id number] Acct: [id number] Name: RAMYA GOEL Rep #: [id number] : 1990 Provider: RICHARD griffiths Age/Sex: 33/F [place] [facility] Status: Signed Intake Vital Signs 09/27/24 08:02 10/23/24 14:30 11/19/24 13:40 Height 5 ft 7 in 5 ft 7 in 5 ft 7 in Weight: 131 lb 8 oz BMI 20.5 BP 118/80 Intake Visit Reasons: 16 wk ob Chief Complaint: 16 Week 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 Required: No Is patient in pain?: No [...] 2 current occupational status: employed current occupation: [employer] current occupational exposures/hazards: No pets and animals: [...] in: none frequency: 3-4 times per week taryn/tenriism: Hoahaoism seatbelt use: always do you feel safe at home: Yes 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 Date Name GA/Weeks Outcome Route Bth Weight Gen Labor Lgth Anesthesia Del Locatn Provider FOB 09/18/20 Sharon 40 live - full term 7# Male [...] -???-???-???-???-???-?? ?-???-?? (more content not included)... Normal [facility] - Chemistry and C hemistry - challengeOrdered By: Yue Hull on 10-23-2024 Glucose Ql (U) Negative [facility] - UrinalysisOrder ed By: Yue Hull on 10-23-2024 Protein Ql (U) Negative [facility] Manufacturing Engineer [employer] Office Visit Reporton 10-23-2024 Manufacturing Engineer Assembly Office Visit Report [facility] [address], [address] [place] [address] OFFICE VISIT Date of Service: 10/23/24 MR#: [id number] Acct: [id number] Name: RAMYA GOEL Rep #: [id number] : 1990 Provider: Dr. Yue Lopez DO Age/Sex: 33/F [place] [facility] Status: Signed Intake Vital Signs 01/01/24 10:54 09/27/24 08:02 10/23/24 14:30 10/23/24 14:30 Height 5 ft 7 in 5 ft 7 in 5 ft 7 in 5 ft 7 in Weight: 129 lb 8 oz BMI 20.2 BP 128/80 H Intake Visit Reasons: 12 wk ob Laborer Shaft Sinking Required: No Is patient in pain?: No [...] 2 current occupational status: employed current occupation: [employer] current occupational exposures/hazards: No pets and animals: [...] in: none frequency: 3-4 times per week taryn/tenriism: Hoahaoism seatbelt use: always do you feel safe at home: Yes 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 Date Name GA/Weeks Outcome Route Bth Weight Infant Gen Labor Lgth Anesthesia Del Locatn Provider FOB 09/18/20 Sharon 40 live - full term 7# Male [facility] Proko p 10/24/22 ePrla 40 live - full term 8#11 Female epidural [facility] Sh liliana Lisa Bud Delivery Date: [...] 128/80 Negati (more content not included)... Normal [facility] Chlamydia/GC ITZEL aptimaon CHLAMY,NUC ACID Negative Normal Negative [facility] Comment on above: Performed By: #### M 100.2200, L7000.1800 ####[facility] [address] [place], [place], [id number] GC BY NUC ACID Negative Normal Negative [facility] Comment on above: Result Comment: Perf ormed at: =G - [facility] [address] [place], [place] [id number] Registered Respiratory Technician: Lizzie Lezama MD, Phone: [phone] Performed By: #### M 100.2200, L7000.1800 ####[facility] [address] [place], [place], [id number] Urine Cultureon 09-28-2024 URC Culture exhibits no growth. Normal [facility] Comment on above: Performed By: #### M 100.2200, L7000.1800 ####[facility] [address] [place], [place], [id number] Absolute lymphocyte countOrd ered By: Lizy Acosta on 09-27-2024 Lymphocytes Auto (Unsp spec) [#/Vol] 0.97 10*3/uL 0.83-4.51 [facility] Absolute neutrophil countOrd ered By: Lizy Acosta on 09-27-2024 Neutrophils (Bld) [#/Vol] 4.3 10*3/uL 2.0-7.7 [facility] Automated lymphocyte count a s percentage of total leukocytesOrdered By: Lizy Acosta on 09-27-2024 Lymphocytes/100 WBC Auto (Unsp spec) 16.9 % Low 19-41 [facility] Basophil percentageOrdered B y: Lizy Acosta on 09-27-2024 Basophils/100 WBC (Bld) 0.5 % 0-1 [facility] C. trachomatis rRNA ITZEL+prob e Ql (Unsp spec)Ordered By: Lizy Acosta on 09-27-2024 Chlamydia DNA (IZTEL) Negative Negative [facility] CBC W/Diff, Automatedon 09-01 Absolute Lymph 0.97 X10 3/uL Normal 0.83-4.51 [facility] Comment on above: Performed By: #### L 3890.6301, BTS, L3890.6102, L509.8002, L3890.6006, L100.0100, L509.4006 ####[facility] [address] [place], [address] Absolute Neut 4.3 X10 3/uL Normal 2.0-7.7 [facility] Comment on above: Performed By: #### L 3890.6301, BTS, L3890.6102, L509.8002, L3890.6006, L100.0100, L509.4006 ####[facility] [address] [place], [address] Basophils/100 WBC (Bld) 0.5 % Normal 0-1 [facility] Comment on above: Performed By: #### L 3890.6301, BTS, L3890.6102, L509.8002, L3890.6006, L100.0100, L509.4006 ####[facility] [address] [place], [address] Eosinophils/100 WBC (Bld) 0.2 % Normal 0-5 [facility] Comment on above: Performed By: #### L 3890.6301, BTS, L3890.6102, L509.8002, L3890.6006, L100.0100, L509.4006 ####[facility] [address] [place], [address] Erythrocyte distribution width (RBC) [Ratio] 14.0 % Normal 11.6-14.6 [facility] Comment on above: Performed By: #### L 3890.6301, BTS, L3890.6102, L509.8002, L3890.6006, L100.0100, L509.4006 ####[facility] [address] [place], [address] Hematocrit (Bld) [Volume fraction] 38.3 % Normal 37-47 [facility] Comment on above: Performed By: #### L 3890.6301, BTS, L3890.6102, L509.8002, L3890.6006, L100.0100, L509.4006 ####[facility] [address] [place], [address] Hemoglobin (Bld) [Mass/Vol] 12.8 g/dL Normal 12.0-15.0 [facility] Comment on above: Performed By: #### L 3890.6301, BTS, L3890.6102, L509.8002, L3890.6006, L100.0100, L509.4006 ####[facility] [address] [place], [address] IG% 0.200 Normal 0.0-0.9 [facility] Comment on above: Result Comment: IG% - Immature Granulocytes (promyelocytes, myelocytes and metamyelocytes) > 1% indicates that a LEFT SHIFT is Present. Performed By: #### L 3890.6301, BTS, L3890.6102, L509.8002, L3890.6006, L100.0100, L509.4006 ####[facility] [address] [place], [address] Lymphocytes/100 WBC (Bld) 16.9 % Low 19-41 [facility] Comment on above: Performed By: #### L 3890.6301, BTS, L3890.6102, L509.8002, L3890.6006, L100.0100, L509.4006 ####[facility] [address] [place], [address] MCH (RBC) [Entitic mass] 27.5 pg Normal 27.0-32.0 [facility] Comment on above: Performed By: #### L 3890.6301, BTS, L3890.6102, L509.8002, L3890.6006, L100.0100, L509.4006 ####[facility] [address] [place], [address] MCHC (RBC) [Mass/Vol] 33.4 g/dL Normal 32-36 [facility] [facility] Comment on above: Performed By: #### L 3890.6301, BTS, L3890.6102, L509.8002, L3890.6006, L100.0100, L509.4006 ####[facility] [address] [place], [address] MCV (RBC) [Entitic vol] 82.4 fL Normal 81-99 [facility] Comment on above: Performed By: #### L 3890.6301, BTS, L3890.6102, L509.8002, L3890.6006, L100.0100, L509.4006 ####[facility] [address] [place], [address] Monocytes/100 WBC (Bld) 8.0 % Normal 0-10 [facility] Comment on above: Performed By: #### L 3890.6301, BTS, L3890.6102, L509.8002, L3890.6006, L100.0100, L509.4006 ####[facility] [address] [place], [address] Neutrophils/100 WBC (Bld) 74.2 % High 47-70 [facility] Comment on above: Performed By: #### L 3890.6301, BTS, L3890.6102, L509.8002, L3890.6006, L100.0100, L509.4006 ####[facility] [address] [place], [address] Nucleated RBC (Bld) [#/Vol] 0 10*3/uL Normal 0-5 [facility] Comment on above: Performed By: #### L 3890.6301, BTS, L3890.6102, L509.8002, L3890.6006, L100.0100, L509.4006 ####[facility] [address] [place], [address] Platelet mean volume (Bld) [Entitic vol] 11.1 fL Normal 6.2-12.0 [facility] Comment on above: Performed By: #### L 3890.6301, BTS, L3890.6102, L509.8002, L3890.6006, L100.0100, L509.4006 ####[facility] [address] [place], [address] Platelets (Bld) [#/Vol] 154 10*3/uL Normal 150-450 [facility] Comment on above: Performed By: #### L 3890.6301, BTS, L3890.6102, L509.8002, L3890.6006, L100.0100, L509.4006 ####[facility] [address] [place], [address] RBC (Bld) [#/Vol] 4.65 10*6/uL Normal 4.2-5.4 [facility] Comment on above: Performed By: #### L 3890.6301, BTS, L3890.6102, L509.8002, L3890.6006, L100.0100, L509.4006 ####[facility] [address] [place], [address] RDW SD 41.2 fl Normal 35.1-43.9 [facility] Comment on above: Performed By: #### L 3890.6301, BTS, L3890.6102, L509.8002, L3890.6006, L100.0100, L509.4006 ####[facility] [address] [place], [address] WBC (Bld) [#/Vol] 5.7 10*3/uL Normal 4.4-11.[address] [facility] Comment on above: Performed By: #### L 3890.6301, BTS, L3890.6102, L509.8002, L3890.6006, L100.0100, L509.4006 ####[facility] [address] [place], [address] Chlamydia trachomatis rRNA d etection by probe and target amplification methodOrdered By: Lizy Acosta on 09-27-2024 C. trachomatis rRNA ITZEL+probe Ql (Unsp spec) Negative Negative [facility] Eosinophil percentageOrdered By: Lizy Acosta on 09-27-2024 Eosinophils/100 WBC (Bld) 0.2 % 0-5 [facility] Erythrocyte distribution wid th ratioOrdered By: Lizy Acosta on 09-27-2024 Erythrocyte distribution width (RBC) [Ratio] 14.0 % 11.6-14.6 [facility] Erythrocyte distribution wid th standard deviationOrdered By: Lizy Acosta on 09-27-2024 Erythrocyte distribution width (RBC) [Entitic vol] 41.2 fL 35.1-43.9 [facility] Erythrocyte distribution width (RBC) [Ratio] 41.2 fl 35.1-43.9 [facility] HBV surface Ag Ql (S)Ordered By: Lizy Acosta on 09-27-2024 Hepatitis B Surface Antigen Non-Reactive Nonreactive [facility] Comment on above: Reactive: Presumptiv e evidence of HBV. Repeatedly reactive samples must be confirmed using a neutralization test ([employer] HBsAg Confirmatory Test)Non-Reactive: HBsAg not detected; does not exclude the possibility of exposure to HBV Hematocrit Auto (Bld) [Volum e fraction]Ordered By: Lizy Acosta on 09-27-2024 Hematocrit (Bld) [Volume fraction] 38.3 % 37-47 [facility] Hemoglobin measurementOrdere d By: Lizy Acosta on 09-27-2024 Hemoglobin (Bld) [Mass/Vol] 12.8 g/dL 12.0-15.0 [facility] Hepatitis C antibodyOrdered By: Lizy Acosta on 09-27-2024 Hepatitis C Antibody Non-Reactive Nonreactive [facility] Comment on above: Reactive: Presumptiv e evidence of antibodies to HCV. Follow CDC recommendations for supplemental testing.Non-Reactive: Antibodies to HCV were not detected; does not exclude the possibility of exposure to HCVReactive Results are presumptive evidence of antibodies to HCV. Follow CDC recommendations for supplemental testing.Order confirmation testing: HCV Quant by PCR testing - HCVPCR #[id number] Non Reactive: < 0.8 Equivocal: >/= 0.8 to < 1.0 Reactive: >/= 1.0The CDC requires that a reactive/equivocal HCV antibody result be sent out for confirmation. HCV Quant by PCR testing. Immature granulocytes/100 WB C Auto (Bld)Ordered By: Lizy Acosta on 09-27-2024 Immature granulocytes/100 WBC (Bld) 0.200 % 0.0-0.9 [facility] Comment on above: IG% - Immature Granu locytes (promyelocytes, myelocytes and metamyelocytes) > 1% indicates that a LEFT SHIFT is Present. L3890.6006on 09-27-2024 HIV Non-Reactive Normal Nonreactive [facility] Comment on above: Result Comment: Non- Reactive Reactive Repeatedly reactive samples must be confirmed according to CDC recommended confirmatory algorithms. The subresults for either HIVAG or AHIV can be used as an aid in the selection of the confirmation algorithm for reactive samples. Send out specimens with Reactive results to [facility] for confirmation. Order the HIV antibody detection and differentiation: lc#[id number] Performed By: #### L 3890.6301, BTS, L3890.6102, L509.8002, L3890.6006, L100.0100, L509.4006 ####[facility] [address] [place], [place], [id number] L3890.6102on 09-27-2024 HEP B Surf Ag Non-Reactive Normal Nonreactive [facility] Comment on above: Result Comment: Reac tive: Presumptive evidence of HBV. Repeatedly reactive samples must be confirmed using a neutralization test ([employer] HBsAg Confirmatory Test) Non-Reactive: HBsAg not detected; does not exclude the possibility of exposure to HBV Performed By: #### L 3890.6301, BTS, L3890.6102, L509.8002, L3890.6006, L100.0100, L509.4006 ####[facility] [address] [facility]. [place], [place], [address] L3890.6301on 09-27-2024 Hepatitis C Ab Non-Reactive Normal Nonreactive [facility] Comment on above: Result Comment: Reac tive: Presumptive evidence of antibodies to HCV. Follow CDC recommendations for supplemental testing. Non-Reactive: Antibodies to HCV were not detected; does not exclude the possibility of exposure to HCV Reactive Results are presumptive evidence of antibodies to HCV. Follow CDC recommendations for supplemental testing. Order confirmation testing: HCV Quant by PCR testing - HCVPCR #[id number] Non Reactive: < 0.8 Equivocal: >/= 0.8 to < 1.0 Reactive: >/= 1.0 The CDC requires that a reactive/equivocal HCV antibody result be sent out for confirmation. HCV Quant by PCR testing. Performed By: #### L 3890.6301, BTS, L3890.6102, L509.8002, L3890.6006, L100.0100, L509.4006 ####[facility] [address] [place], [address] L509.4006on 09-27-2024 Rubella IgG REAC Normal Nonreactive [facility] Comment on above: Result Comment: Anti body Result: Interpretation Non-Reactive: Non-Immune Reactive: Immune The following results were obtained with the [employer] Rubella IgG assay. Results from assays of other manufacturers cannot be used interchangeably. Performed By: #### L 3890.6301, BTS, L3890.6102, L509.8002, L3890.6006, L100.0100, L509.4006 ####[facility] [address] [place], [place], [address] L509.8002on 09-27-2024 Syphilis Abs Non-Reactive Normal Nonreactive [facility] Comment on above: Performed By: #### L 3890.6301, BTS, L3890.6102, L509.8002, L3890.6006, L100.0100, L509.4006 ####[facility] [address] [facility]. [place], [place], [id number] Laboratory - Microbiology an d Antimicrobial susceptibilityOrdered By: Lizy Acosta on 09-27-2024 HBV surface Ag Ql (S) Non-Reactive Nonreactive [facility] Comment on above: Reactive: Presumptiv e evidence of HBV. Repeatedly reactive samples must be confirmed using a neutralization test ([employer] HBsAg Confirmatory Test)Non-Reactive: HBsAg not detected; does not exclude the possibility of exposure to HBV Lymphocytes Auto (Unsp spec) [#/Vol]Ordered By: Lizy Acosta on 09-27-2024 Lymphocytes (Bld) [#/Vol] 0.97 10*3/uL 0.83-4.51 [facility] Lymphocytes/100 WBC Auto (Un sp spec)Ordered By: Lizy Acosta on 09-27-2024 Lymphocytes/100 WBC (Bld) 16.9 % Low 19-41 [facility] MCV (mean corpuscular volume ) determinationOrdered By: Lizy Acosta on 09-27-2024 MCV (RBC) [Entitic vol] 82.4 fL 81-99 [facility] Mean corpuscular hemoglobin (MCH) determinationOrdered By: Lizy Acosta on 09-27-2024 MCH (RBC) [Entitic mass] 27.5 pg 27.0-32.0 [facility] Mean corpuscular hemoglobin concentration (MCHC) determinationOrdered By: Lizy Acosta on 09-27-2024 MCHC (RBC) [Mass/Vol] 33.4 g/dL 32-36 [facility] Mean platelet volume determi nationOrdered By: Lizy Acosta on 09-27-2024 Platelet mean volume (Bld) [Entitic vol] 11.1 fL 6.2-12.0 [facility] Monocyte percentageOrdered B y: Lizy Acosta on 09-27-2024 Monocytes/100 WBC (Bld) 8.0 % 0-10 [facility] Neisseria gonorrhoeae nuclei c acid detection by amplified probe techniqueOrdered By: Lizy Acosta on 09-27-2024 N. gonorrhoeae DNA ITZEL+probe Ql (Unsp spec) Negative Negative [facility] Comment on above: Performed at: =[facility] [address] [id number] Director: Lizzie Lezama MD, Phone: [phone] Neutrophil percentageOrdered By: Lizy Acosta on 09-27-2024 Neutrophils/100 WBC (Bld) 74.2 % High 47-70 [facility] No Panel InformationOrdered By: Lizy Acosta on 09-27-2024 HIV (1&2) Antibody Non-Reactive Nonreactive [facility] Comment on above: Non-ReactiveReactive Repeatedly reactive samples must be confirmed according to CDC recommended confirmatory algorithms. The subresults for either HIVAG or AHIV can be used as an aid in the selection of the confirmation algorithm for reactive samples.Send out specimens with Reactive results to [facility] for confirmation.Order the HIV antibody detection and differentiation: #[id number] Syphilis Total Antibody Non-Reactive Nonreactiv e [facility] Nucleated red blood cell per centageOrdered By: Lizy Acosta on 09-27-2024 Nucleated RBC/100 WBC (Bld) [Ratio] 0 % 0-5 [facility] Manufacturing Engineer [employer] Office Visit Reporton 09-27-2024 Manufacturing Engineer Assembly Office Visit Report [facility] [address], [address] [place] [address] OFFICE VISIT Date of Service: 09/27/24 MR#: [id number] Acct: [id number] Name: RAMYA GOEL Rep #: [id number] 20 : 1990 Provider: MIKI Bryan ams Age/Sex: 33/F Location: [facility] Status: Signed Intake Vital Signs 01/01/24 10:54 09/27/24 08:02 Height 5 ft 7 in 5 ft 7 in Weight: 126 lb 8 oz BMI 19.8 BP 124/83 H Intake Visit Reasons: NOB LMP 07/25 Chief Complaint: NOB LMP 07/25 [employer]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 [place] Required: No Is patient in pain?: No [...] No current occupational status: employed current occupation: [employer] current occupational exposures/hazards: No pets and animals: [...] in: none frequency: 3-4 times per week taryn/tenriism: Hoahaoism seatbelt use: always do you feel safe at home: Yes 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 Date Name GA/Weeks Outcome Route Bth Weight Infant Gen Labor Lgth Anesthesia Del Locatn Provider FOB 09/18/20 Sharon 40 live - full term 7# Male [facility] Proko p 10/24/22 Perla 40 live - full term 8#11 Female epidural [facility] liliana Gonzalez Bud Delivery Date: 09/18/20 [...] Declines NIPT (more content not included)... Normal [facility] Platelet countOrdered By: Beto Acosta on 09-27-2024 Platelets (Bld) [#/Vol] 154 10*3/uL 150-450 [facility] RBC Auto (Bld) [#/Vol]Ordere d By: Lizy Acosta on 09-27-2024 RBC (Bld) [#/Vol] 4.65 10*6/uL 4.2-5.4 [facility] Rubella immune status determ ination by IgG antibody assayOrdered By: Lizy Acosta on 09-27-2024 Rubella IgG Antibody REAC Nonreactive [facility] Comment on above: Antibody Result: Int erpretationNon-Reactive: Non-ImmuneReactive: ImmuneThe following results were obtained with the [employer] Rubella IgG assay. Results from assays of other manufacturers cannot be used interchangeably. Type AND Screenon 09-27-2024 ABO and Rh group Nom (Bld) Blood group O Rh(D) positive Normal [facility] Comment on above: Order Comment: PN Performed By: #### L 3890.6301, BTS, L3890.6102, L509.8002, L3890.6006, L100.0100, L509.4006 ####[facility] [address] [place], [address] Urine cultureOrdered By: Manuel Acosta on 09-27-2024 Bacteria identified Cx Nom (U) Culture exhibits no growth. [facility] White blood cell (WBC) count Ordered By: Lizy Acosta on 09-27-2024 WBC (Bld) [#/Vol] 5.7 10*3/uL 4.4-11.[address] [facility] Absolute lymphocyte countOrd ered By: Dr. Gonzalez on 10-24-2022 Lymphocytes Auto (Unsp spec) [#/Vol] 1.57 10*3/uL 0.83-4.51 [facility] Basophil percentageOrdered B y: Dr. Gonzalez on 10-24-2022 Basophils/100 WBC (Bld) 0.3 % 0-1 [facility] Eosinophils/100 WBC (Bld) 0.3 % 0-5 [facility] Neutrophils (Bld) [#/Vol] 5.0 10*3/uL 2.0-7.7 [facility] Neutrophils/100 WBC (Bld) 69.8 % 47-70 [facility] WBC (Bld) [#/Vol] 7.2 10*3/uL 4.4-11.[address] [facility] Blood erythrocytes count (nu mber/volume)Ordered By: Dr. Gonzalez on 10-24-2022 RBC (Bld) [#/Vol] 4.22 10*6/uL 4.2-5.4 [facility] Blood hemoglobin measurement (mass/volume)Ordered By: Dr. Gonzalez on 10-24-2022 Hemoglobin (Bld) [Mass/Vol] 9.7 g/dL 12.0-15.0 [facility] Blood lymphocytes/100 leukoc ytesOrdered By: Dr. Gonzalez on 10-24-2022 Lymphocytes/100 WBC (Bld) 21.7 % 19-41 [facility] Blood monocytes/100 leukocyt esOrdered By: Dr. Gonzalez on 10-24-2022 Monocytes/100 WBC (Bld) 7.2 % 0-10 [facility] Blood platelet mean volumeOr dered By: Dr. Gonzalez on 10-24-2022 Platelet mean volume (Bld) [Entitic vol] 11.5 fL 6.2-12.0 [facility] Determination of erythrocyte mean corpuscular volume (MCV)Ordered By: Dr. Gonzalez on 10-24-2022 MCV (RBC) [Entitic vol] 76.5 fL 81-99 [facility] Hematocrit Auto (Bld) [Volum e fraction]Ordered By: Dr. Gonzalez on 10-24-2022 Hematocrit (Bld) [Volume fraction] 32.3 % 37-47 [facility] Laboratory - Hematology and Cell countsOrdered By: Dr. Gonzalez on 10-24-2022 Erythrocyte distribution width (RBC) [Entitic vol] 39.8 fL 35.1-43.9 [facility] Erythrocyte distribution width (RBC) [Ratio] 14.6 % 11.6-14.6 [facility] Immature granulocytes/100 WBC (Bld) 0.700 % 0.0-0.9 [facility] Comment on above: IG% - Immature Granu locytes (promyelocytes, myelocytes and metamyelocytes) > 1% indicates that a LEFT SHIFT is Present. MCH (RBC) [Entitic mass] 23.0 pg 27.0-32.0 [facility] Nucleated RBC/100 WBC (Bld) [Ratio] 0 % 0-5 [facility] MCHC Auto (RBC) [Mass/Vol]Or dered By: Dr. Gonzalez on 10-24-2022 MCHC (RBC) [Mass/Vol] 30.0 g/dL 32-36 [facility] No Panel InformationOrdered By: Dr. Gonzalez on 10-24-2022 Vaginal Amniotic Fluid Detection Positive Negative [facility] Comment on above: Amniotic fluid prese nt indicates rupture of Membranes. RESULTS CALLED TO PHILLY MENDEZ 10/24/22 0435 Ryder Stewart.REPORT READ BACK BY SAME. Platelets bldOrdered By: Dr. Gonzalez on 10-24-2022 Platelets (Bld) [#/Vol] 144 10*3/uL 150-450 [facility] Serum Treponema species anti body detectionOrdered By: Dr. Gonzalez on 10-24-2022 Treponema sp Ab Ql (S) Non-Reactive [facility] Laboratory - Chemistry and C hemistry - challengeon 10-20-2022 Glucose Ql (U) Negative [facility] Laboratory - Urinalysison Protein Ql (U) Negative [facility] Laboratory - Chemistry and C hemistry - challengeon 10-13-2022 Glucose Ql (U) Negative [facility] Laboratory - Urinalysison Protein Ql (U) Negative [facility] Laboratory - Chemistry and C hemistry - challengeon 10-06-2022 Glucose Ql (U) Negative [facility] Laboratory - Urinalysison Protein Ql (U) Negative [facility] No Panel InformationOrdered By: Dr. Hull on 10-01-2022 Group B Streptococcus Culture Group B Beta Streptococcus is not isolated. [facility] Laboratory - Chemistry and C hemistry - challengeon 09-29-2022 Glucose Ql (U) Negative [facility] Laboratory - Urinalysison Protein Ql (U) Negative [facility] Laboratory - Chemistry and C hemistry - challengeon 09-16-2022 Glucose Ql (U) Negative [facility] Laboratory - Urinalysison Protein Ql (U) Negative [facility] Laboratory - Chemistry and C hemistry - challengeon 08-15-2022 Glucose Ql (U) Negative [facility] Laboratory - Urinalysison Protein Ql (U) Negative [facility] Absolute lymphocyte countOrd ered By: Dr. Gonzalez on 08-02-2022 Lymphocytes Auto (Unsp spec) [#/Vol] 1.59 10*3/uL 0.83-4.51 [facility] Basophil percentageOrdered B y: Dr. Gonzalez on 08-02-2022 Basophils/100 WBC (Bld) 0.4 % 0-1 [facility] Eosinophils/100 WBC (Bld) 0.6 % 0-5 [facility] Neutrophils (Bld) [#/Vol] 4.6 10*3/uL 2.0-7.7 [facility] Neutrophils/100 WBC (Bld) 67.8 % 47-70 [facility] WBC (Bld) [#/Vol] 6.7 10*3/uL 4.4-11.[address] [facility] Blood erythrocytes count (nu mber/volume)Ordered By: Dr. Gonzalez on 08-02-2022 RBC (Bld) [#/Vol] 3.74 10*6/uL 4.2-5.4 [facility] Blood hemoglobin measurement (mass/volume)Ordered By: Dr. Gonzalez on 08-02-2022 Hemoglobin (Bld) [Mass/Vol] 11.0 g/dL 12.0-15.0 [facility] Blood lymphocytes/100 leukoc ytesOrdered By: Dr. Gonzalez on 08-02-2022 Lymphocytes/100 WBC (Bld) 23.7 % 19-41 [facility] Blood monocytes/100 leukocyt esOrdered By: Dr. Gonzalez on 08-02-2022 Monocytes/100 WBC (Bld) 6.9 % 0-10 [facility] Blood platelet mean volumeOr dered By: Dr. Gonzalez on 08-02-2022 Platelet mean volume (Bld) [Entitic vol] 9.5 fL 6.2-12.0 [facility] Determination of erythrocyte mean corpuscular volume (MCV)Ordered By: Dr. Gonzalez on 08-02-2022 MCV (RBC) [Entitic vol] 87.7 fL 81-99 [facility] Gestational diabetes screen 1-hour screen with 50g oral glucose loadOrdered By: Dr. Gonzalez on 08-02-2022 Glucose 1 Hr post 50 g glucose PO [Mass/Vol] 102 mg/dL 70-140 [facility] HIV 1 and HIV-2 antibody ass ay with HIV-1 p24 antigen detectionOrdered By: Dr. Gonzalez on 08-02-2022 HIV 1+2 Ab+HIV1 p24 Ag IA Ql Non-Reactive Nonreactive [facility] Hematocrit Auto (Bld) [Volum e fraction]Ordered By: Dr. Gonzalez on 08-02-2022 Hematocrit (Bld) [Volume fraction] 32.8 % 37-47 [facility] Laboratory - Chemistry and C hemistry - challengeon 08-02-2022 Glucose Ql (U) Negative [facility] Laboratory - Hematology and Cell countsOrdered By: Dr. Gonzalez on 08-02-2022 Erythrocyte distribution width (RBC) [Entitic vol] 38.3 fL 35.1-43.9 [facility] Erythrocyte distribution width (RBC) [Ratio] 11.9 % 11.6-14.6 [facility] Immature granulocytes/100 WBC (Bld) 0.600 % 0.0-0.9 [facility] Comment on above: IG% - Immature Granu locytes (promyelocytes, myelocytes and metamyelocytes) > 1% indicates that a LEFT SHIFT is Present. MCH (RBC) [Entitic mass] 29.4 pg 27.0-32.0 [facility] Nucleated RBC/100 WBC (Bld) [Ratio] 0 % 0-5 [facility] Laboratory - Urinalysison Protein Ql (U) Negative [facility] MCHC Auto (RBC) [Mass/Vol]Or dered By: Dr. Gonzalez on 08-02-2022 MCHC (RBC) [Mass/Vol] 33.5 g/dL 32-36 [facility] Platelets bldOrdered By: Dr. Gonzalez on 08-02-2022 Platelets (Bld) [#/Vol] 190 10*3/uL 150-450 [facility] Serum Treponema species anti body detectionOrdered By: Dr. Gonzalez on 08-02-2022 Treponema sp Ab Ql (S) Non-Reactive [facility] Laboratory - Chemistry and C hemistry - challengeon 06-09-2022 Glucose Ql (U) Negative [facility] Laboratory - Urinalysison Protein Ql (U) Negative [facility] Absolute lymphocyte counton 05-12-2022 Lymphocytes Auto (Unsp spec) [#/Vol] 1.49 10*3/uL 0.83-4.51 [facility] Work Phone: Basophil percentageon 2021 Basophils/100 WBC (Bld) 0.3 % 0-1 [facility] Work Phone: Eosinophils/100 WBC (Bld) 0.8 % 0-5 [facility] Work Phone: Neutrophils (Bld) [#/Vol] 4.1 10*3/uL 2.0-7.7 [facility] Work Phone: Neutrophils/100 WBC (Bld) 67.0 % 47-70 [facility] Work Phone: WBC (Bld) [#/Vol] 6.1 10*3/uL 4.4-11.[address] [facility] Work Phone: Blood erythrocytes count (nu mber/volume)on 05-12-2022 RBC (Bld) [#/Vol] 3.98 10*6/uL 4.2-5.4 [facility] Work Phone: Blood hemoglobin measurement (mass/volume)on 05-12-2022 Hemoglobin (Bld) [Mass/Vol] 12.0 g/dL 12.0-15.0 [facility] Work Phone: Blood lymphocytes/100 leukoc yteson 05-12-2022 Lymphocytes/100 WBC (Bld) 24.6 % 19-41 [facility] Work Phone: Blood monocytes/100 leukocyt eson 05-12-2022 Monocytes/100 WBC (Bld) 6.8 % 0-10 [facility] Work Phone: Blood platelet mean volumeon 05-12-2022 Platelet mean volume (Bld) [Entitic vol] 10.1 fL 6.2-12.0 [facility] Work Phone: Determination of erythrocyte mean corpuscular volume (MCV)on 05-12-2022 MCV (RBC) [Entitic vol] 88.7 fL 81-99 [facility] Work Phone: HIV 1 and HIV-2 antibody ass ay with HIV-1 p24 antigen detectionon 05-12-2022 HIV 1+2 Ab+HIV1 p24 Ag IA Ql Non-Reactive Nonreactive [facility] Work Phone: Hematocrit Auto (Bld) [Volum e fraction]on 05-12-2022 Hematocrit (Bld) [Volume fraction] 35.3 % 37-47 [facility] Work Phone: Laboratory - Chemistry and C hemistry - challengeon 05-12-2022 Glucose Ql (U) Negative [facility] Work Phone: Laboratory - Hematology and Cell countson 05-12-2022 Erythrocyte distribution width (RBC) [Entitic vol] 42.8 fL 35.1-43.9 [facility] Work Phone: Erythrocyte distribution width (RBC) [Ratio] 13.2 % 11.6-14.6 [facility] Work Phone: Immature granulocytes/100 WBC (Bld) 0.500 % 0.0-0.9 [facility] Work Phone: Comment on above: IG% - Immature Granu locytes (promyelocytes, myelocytes and metamyelocytes) > 1% indicates that a LEFT SHIFT is Present. MCH (RBC) [Entitic mass] 30.2 pg 27.0-32.0 [facility] Work Phone: Nucleated RBC/100 WBC (Bld) [Ratio] 0 % 0-5 [facility] Work Phone: Laboratory - Urinalysison Protein Ql (U) Negative [facility] Work Phone: MCHC Auto (RBC) [Mass/Vol]on 05-12-2022 MCHC (RBC) [Mass/Vol] 34.0 g/dL 32-36 [facility] [facility] Work Phone: No Panel Informationon 05-12 Hepatitis B Surface Antigen Non-Reactive Nonreactive [facility] Work Phone: Hepatitis C Antibody Non-Reactive Nonreactive [facility] Work Phone: Comment on above: Non Reactive: < 0.8 Equivocal: >/= 0.8 to < 1.0 Reactive: >/= 1.0The CDC recommends that a reactive/equivocal HCV antibody result be followed up by the HCV Nucleic Acid Amplificationtest (445145) Rubella IgG Antibody Reactive Nonreactive [facility] Work Phone: Comment on above: Antibody Results Int erpretation of Immune Status Non Reactive Presumed Non-Immune Equivocal Equivocal Reactive Presumed Immune Platelets bldon 05-12-2022 Platelets (Bld) [#/Vol] 161 10*3/uL 150-450 [facility] Work Phone: Serum Treponema species anti body detectionon 05-12-2022 Treponema sp Ab Ql (S) Non-Reactive [facility] Work Phone: Laboratory - Chemistry and C hemistry - challengeon 04-11-2022 Glucose Ql (U) Negative [facility] Work Phone: Laboratory - Urinalysison Protein Ql (U) Negative [facility] Work Phone: Chlamydia trachomatis rRNA d etection by probe and target amplification methodon 03-24-2022 C. trachomatis rRNA ITZEL+probe Ql (Unsp spec) Negative Negative [facility] Work Phone: Laboratory - Drug toxicology on 03-24-2022 Amphetamines Ql (U) Negative <1000 ng/mL [facility] Work Phone: Benzodiazepines Ql (U) Negative < 200 ng/mL [facility] Work Phone: Cannabinoids Screen Ql (U) Negative < 50 ng/mL [facility] Work Phone: Cocaine Ql (U) Negative < 300 ng/mL [facility] Work Phone: Opiates Ql (U) Negative < 300 ng/mL [facility] Work Phone: Laboratory - Microbiology an d Antimicrobial susceptibilityon 03-24-2022 N. gonorrhoeae DNA ITZEL+probe Ql (Unsp spec) Negative Negative [facility] Work Phone: Comment on above: Performed at: =[address] [id number] Director: Lizzie Lezama MD, Phone: [phone] No Panel Informationon 03-24 MDMA (Ecstasy) Screen Negative < 500 ng/mL [facility] Work Phone: Urine Barbiturates Screen Negative < 200 ng/mL [facility] Work Phone: Urine Drug Screen Comment [facility] Work Phone: Comment on above: CONFIRMATORY TESTING [...] Urine Methadone Screen Negative < 300 ng/mL [facility] Work Phone: Urine phencyclidine (PCP) de tectionon 03-24-2022 Phencyclidine Ql (U) Negative < 25 ng/mL [facility] Work Phone: Senior Project Engineer Cytology Reporton 2016 Senior Project Engineer Cytology Report . Pathology ReportsAccession: Collected Date/Time: Received Date/Time: Pathologist:[id number] 21 05/31/2017 17:14 EDT 06/01/2017 18:00 EDT Senior Project Engineer Cytology ReportSPECIMEN:Specimen Description: Liquid Prep Reflex ASCUSSpecimen: Cervical/EndocervicalSc reening or Diagnostic: ScreeningRELEVANT HISTORY:LMP: 50-04-50Gydbn Control: [id number] ADEQUACY:SATISFACTORY FOR EVALUATIONENDOCERVICAL/ TRANSFORMATIONAL ZONE COMPONENT PRESENTINTERPRETATION/R ESULTS:NEGATIVE FOR INTRAEPITHELIAL LESION OR MALIGNANCYORGANISMS:FUN GAL ORGANISMS MORPHOLOGICALLY CONSISTENT WITH NANDO SPECIES.Electronically Signed byPathology report verified by Premier Healthcreened by: NGUYENElectronically signed by Monica POLO (ASCP)Sign-Out Date: 06/06/2017 15:23Performing Lab: [address]Disnew eng[facility]acon[facility] hospitalThe Pap test is a screening test for cervical cancer. As evidenced by published data, it is subject to both inherent false negative and false positive results. Your patient's results should be interpreted in context with pertinent clinical history including gynecological examination. Normal [facility] ([place]) Comment on above: Performed By: #### G YCR ####[place] [address] CTPCRon 06-02-2017 C. trachomatis Interp C. trachomatis DNA not detected. Specimen is presumptive negative for C. trachomatis. A negative result does not preclude C. trachomatis infection because results depend on adequate specimen collection, absence of inhibitors, and sufficient DNA to be detected. [facility] ([place]) Comment on above: Performed By: #### C TPCR, NGPCR1 ####[place] [address] C.trachomatis PCR Negative [facility] ([place]) Comment on above: Result Comment: Farideh amin (PCR) assay performed on the Nubia Amanda 4800 system. Performed By: #### C TPCR, NGPCR1 ####[address] [address] Chlam Source Cervix Normal [facility] ([place]) Comment on above: Performed By: #### C TPCR, NGPCR1 ####[address] [address] NGPCRon 06-02-2017 GC PCR Source Cervix Normal [facility] ([place]) Comment on above: Performed By: #### C TPCR, NGPCR1 ####[address] [address] N. gonorrhoeae (PCR) Negative [facility] ([place]) Comment on above: Result Comment: Mole cular (PCR) assay performed on the Nubia Amanda 4800 System. Performed By: #### C TPCR, NGPCR1 ####[address] [address] N. gonorrhoeae Interp N. gonorrhoeae DNA not detected. Specimen is presumptive negative for N. gonorrhoeae. A negative result does not preclude Neisseria gonorrhoeae infection because results depend on adequate specimen collection, absence of inhibitors, and sufficient DNA to be detected. [facility] ([place]) Comment on above: Performed By: #### C TPCR, NGPCR1 ####[address] [address] Culture, urine Bacteria identified Cx Nom (U) Positive [facility] Work Phone: Vital Signs Date Time Vital Sign Value Performing Clinician Faci lity 05-01-2025 14:40-0400 Body height 170.[address] Connor Blank DO Work Phone: [facility] 05-01-2025 14:40-0400 Body mass index (BMI) [Ratio] 24.7 kg/m2 Dr. Connor Blank DO Work Phone: [facility] 05-01-2025 14:40-0400 Body weight 71.[address] Connor Blank DO Work Phone: [facility] 05-01-2025 14:32-0400 Body temperature 98.2 [degF] Dr. Connor Blank DO Work Phone: 9(056)530-456243 [place] [address] 05-01-2025 14:31-0400 Diastolic blood pressure 73 mm[Hg] Dr. Connor Blank DO Work Phone: 1(701)817-987043 [place] [address] 05-01-2025 14:31-0400 Heart rate 72 /min Dr. Connor Blank DO Work Phone: 3(959)991-489943 [place] [address] 05-01-2025 14:31-0400 Systolic blood pressure 116 mm[Hg] Dr. Connor Blank DO Work Phone: 1(354)885-393943 [place] [address] 05-01-2025 13:56-0400 Body height 170.[address] Connor Blank DO Work Phone: 8(676)411-389443 [place] [address] 05-01-2025 13:56-0400 Body mass index (BMI) [Ratio] 24.9 kg/m2 Dr. Connor Blank DO Work Phone: 1(182)941-142143 [place] [address] 05-01-2025 13:56-0400 Body weight 72.[address] Connor Blank DO Work Phone: 1(896)291-333143 [place] [address] 05-01-2025 13:56-0400 Diastolic blood pressure 81 mm[Hg] Dr. Connor Blank DO Work Phone: 0(604)042-333243 [place] [address] 05-01-2025 13:56-0400 Systolic blood pressure 130 mm[Hg] Dr. Connor Blank DO Work Phone: 2(969)261-104243 [place] [address] 04-23-2025 09:23-0400 Body height 170.[address] Connor Blank DO Work Phone: 3(271)195-789943 [place] [address] 04-23-2025 09:23-0400 Body mass index (BMI) [Ratio] 24.6 kg/m2 Dr. Connor Blank DO Work Phone: 7(113)936-389643 [place] [address] 04-23-2025 09:23-0400 Body weight 71.[address] Connor Blank DO Work Phone: 2(569)202-602143 [place] [address] 04-23-2025 09:23-0400 Diastolic blood pressure 86 mm[Hg] Dr. Connor Blank DO Work Phone: 0(411)616-183743 [place] [address] 04-23-2025 09:23-0400 Systolic blood pressure 134 mm[Hg] Dr. Connor Blank DO Work Phone: 4(504)497-399243 [place] [address] 04-18-2025 09:32-0400 Body mass index (BMI) [Ratio] 24.9 kg/m2 Dr. Connor Blank DO Work Phone: 1(328)422-459243 [place] [address] 04-18-2025 09:32-0400 Body weight 72.[address] Connor Blank DO Work Phone: 5(855)994-703443 [place] [address] 04-18-2025 09:32-0400 Diastolic blood pressure 63 mm[Hg] Dr. Connor Blank DO Work Phone: 7(154)316-325043 [place] [address] 04-18-2025 09:32-0400 Systolic blood pressure 130 mm[Hg] Dr. Connor Blank DO Work Phone: 1(037)178-580643 [place] [address] 04-11-2025 13:06-0400 Body height 170.[address] Connor Blank DO Work Phone: 9(899)919-734043 [place] [address] 04-11-2025 13:06-0400 Body mass index (BMI) [Ratio] 24.4 kg/m2 Dr. Connor Blank DO Work Phone: 6(507)641-257543 [place] [address] 04-11-2025 13:06-0400 Body weight 70.[address] Connor Blank DO Work Phone: 9(202)074-237743 [place] [address] 04-11-2025 13:06-0400 Diastolic blood pressure 71 mm[Hg] Dr. Connor Blank DO Work Phone: 6(040)389-141943 [place] [address] 04-11-2025 13:06-0400 Systolic blood pressure 116 mm[Hg] Dr. Connor Blank DO Work Phone: 5(871)238-812443 [place] [address] 04-03-2025 09:24-0400 Body height 170.[address] Connor Blank DO Work Phone: 3(621)736-726843 [place] [address] 04-03-2025 09:24-0400 Body mass index (BMI) [Ratio] 24.6 kg/m2 Dr. Connor Blank DO Work Phone: 4(939)403-701843 [place] [address] 04-03-2025 09:24-0400 Body weight 71.[address] Connor Blank DO Work Phone: 2(987)862-666143 [place] [address] 04-03-2025 09:24-0400 Diastolic blood pressure 74 mm[Hg] Dr. Connor Blank DO Work Phone: 3(130)974-299443 [place] [address] 04-03-2025 09:24-0400 Systolic blood pressure 115 mm[Hg] Dr. Connor Blank DO Work Phone: 3(291)155-177243 [place] [address] 03-20-2025 14:45-0400 Body height 170.[address] Connor Blank DO Work Phone: 4(834)632-307643 [place] [address] 03-20-2025 14:45-0400 Body mass index (BMI) [Ratio] 23.8 kg/m2 Dr. Connor Blank DO Work Phone: 3(742)352-364143 [place] [address] 03-20-2025 14:45-0400 Body weight 69.[address] Connor Blank DO Work Phone: 5(585)952-153943 [place] [address] 03-20-2025 14:45-0400 Diastolic blood pressure 74 mm[Hg] Dr. Connor Balnk DO Work Phone: 5(212)273-115243 [place] [address] 03-20-2025 14:45-0400 Systolic blood pressure 119 mm[Hg] Dr. Connor Blank DO Work Phone: 9(325)364-372643 [place] [address] 03-07-2025 10:01-0400 Body height 170.[address] Connor Blank DO Work Phone: 7(723)468-827643 [place] [address] 03-07-2025 10:01-0400 Body mass index (BMI) [Ratio] 23.1 kg/m2 Dr. Connor Blank DO Work Phone: 2(077)725-082743 [place] [address] 03-07-2025 10:01-0400 Body weight 67.[address] Connor Blank DO Work Phone: 7(446)143-840043 [place] [address] 03-07-2025 09:56-0400 Body temperature 97.7 [degF] Dr. Connor Blank DO Work Phone: 8(977)486-061043 [place] [address] 03-07-2025 09:56-0400 Diastolic blood pressure 62 mm[Hg] Dr. Connor Blank DO Work Phone: 1(124)105-989843 [place] [address] 03-07-2025 09:56-0400 Heart rate 79 /min Dr. Connor Blank DO Work Phone: 3(027)518-639043 [place] [address] 03-07-2025 09:56-0400 Respiratory rate 16 /min Dr. Connor Blank DO Work Phone: 4(045)633-782743 [place] [address] 03-07-2025 09:56-0400 Systolic blood pressure 109 mm[Hg] Dr. Connor Blank DO Work Phone: 6(193)662-534743 [place] [address] 03-07-2025 08:38-0400 Body height 170.[address] Connor Blank DO Work Phone: 2(174)008-055743 [place] [address] 03-07-2025 08:38-0400 Body mass index (BMI) [Ratio] 23.2 kg/m2 Dr. Connor Blank DO Work Phone: 0(544)866-008943 [place] [address] 03-07-2025 08:38-0400 Body weight 67.[address] Connor Blank DO Work Phone: 9(459)758-663743 [place] [address] 03-07-2025 08:38-0400 Diastolic blood pressure 69 mm[Hg] Dr. Connor Blank DO Work Phone: 5(347)585-536743 [place] [address] 03-07-2025 08:38-0400 Systolic blood pressure 104 mm[Hg] Dr. Connor Blank DO Work Phone: 3(103)190-741743 [place] [address] 02-21-2025 10:11-0400 Body height 170.[address] Connor Blank DO Work Phone: 1(497)963-025743 [place] [address] 02-21-2025 10:11-0400 Body mass index (BMI) [Ratio] 23 kg/m2 Dr. Connor Blank DO Work Phone: 0(085)056-106543 [place] [address] 02-21-2025 10:11-0400 Body weight 66.[address] Connor Blank DO Work Phone: 1(053)239-243043 [place] [address] 02-21-2025 10:11-0400 Diastolic blood pressure 69 mm[Hg] Dr. Connor Blank DO Work Phone: 4(881)338-882443 [place] [address] 02-21-2025 10:11-0400 Systolic blood pressure 111 mm[Hg] Dr. Connor Blank DO Work Phone: 0(368)678-753643 [place] [address] 02-06-2025 09:08-0400 Body height 170.[address] Connor Blank DO Work Phone: 0(396)628-693543 [place] [address] 02-06-2025 09:08-0400 Body mass index (BMI) [Ratio] 23 kg/m2 Dr. Connor Blank DO Work Phone: 9(694)263-007243 [place] [address] 02-06-2025 09:08-0400 Body weight 66.[address] Connor Blank DO Work Phone: 7(363)152-594543 [place] [address] 02-06-2025 09:08-0400 Diastolic blood pressure 60 mm[Hg] Dr. Connor Blank DO Work Phone: 2(225)084-930843 [place] [address] 02-06-2025 09:08-0400 Systolic blood pressure 102 mm[Hg] Dr. Connor Blank DO Work Phone: 1(124)085-682343 [place] [address] 01-16-2025 09:34-0400 Body height 170.[address] Connor Blank DO Work Phone: 5(174)537-052143 [place] [address] 01-16-2025 09:34-0400 Body mass index (BMI) [Ratio] 21.9 kg/m2 Dr. Connor Blank DO Work Phone: 3(915)275-723643 [place] [address] 01-16-2025 09:34-0400 Body weight 63.[address] Connor Blank DO Work Phone: 9(500)140-649943 [place] [address] 01-16-2025 09:34-0400 Diastolic blood pressure 65 mm[Hg] Dr. Connor Blank DO Work Phone: 5(878)614-728333 [place] [address] 01-16-2025 09:34-0400 Systolic blood pressure 97 mm[Hg] Dr. Connor Blank DO Work Phone: 2(728)018-848043 [place] [address] 12-19-2024 11:44-0400 Body mass index (BMI) [Ratio] 21.4 kg/m2 Dr. Connor Blank DO Work Phone: 9(255)114-121943 [place] [address] 12-19-2024 11:44-0400 Body weight 61.[address] Connor Blank DO Work Phone: 9(506)782-977943 [place] [address] 12-19-2024 11:44-0400 Diastolic blood pressure 74 mm[Hg] Dr. Connor Blank DO Work Phone: 5(371)905-772743 [place] [address] 12-19-2024 11:44-0400 Systolic blood pressure 116 mm[Hg] Dr. Connor Blank DO Work Phone: 5(724)222-723443 [place] [address] 12-08-2024 09:05-0400 Body mass index (BMI) [Ratio] 5.1 kg/m2 Dr. Connor Blank DO Work Phone: 5(241)232-294543 [place] [address] 12-08-2024 09:05-0400 Body temperature 98.7 [degF] Dr. Connor Blank DO Work Phone: 0(961)842-411243 [place] [address] 12-08-2024 09:05-0400 Body weight 14.[address] Connor Blank DO Work Phone: 0(225)373-538343 [place] [address] 12-08-2024 09:05-0400 Diastolic blood pressure 66 mm[Hg] Dr. Connor Blank DO Work Phone: 0(703)807-858443 [place] [address] 12-08-2024 09:05-0400 Heart rate 91 /min Dr. Connor Blank DO Work Phone: 5(922)389-376243 [place] [address] 12-08-2024 09:05-0400 Respiratory rate 14 /min Dr. Connor Blank DO Work Phone: 4(135)740-818643 [place] [address] 12-08-2024 09:05-0400 SaO2% (BldA) [Mass fraction] 99 % Dr. Connor Blank DO Work Phone: 1(992)244-116543 [place] [address] 12-08-2024 09:05-0400 Systolic blood pressure 105 mm[Hg] Dr. Connor Blank DO Work Phone: 1(748)625-490343 [place] [address] 11-19-2024 13:40-0400 Body mass index (BMI) [Ratio] 20.5 kg/m2 Dr. Connor Blank DO Work Phone: 4(897)413-658243 [place] [address] 11-19-2024 13:40-0400 Body weight 59.[address] Connor Blank DO Work Phone: 5(980)566-621643 [place] [address] 11-19-2024 13:40-0400 Diastolic blood pressure 80 mm[Hg] Dr. Connor Blank DO Work Phone: 4(502)597-570043 [place] [address] 11-19-2024 13:40-0400 Systolic blood pressure 118 mm[Hg] Dr. Connor Blank DO Work Phone: 1(545)933-551243 [place] [address] 10-23-2024 14:30-0400 Body mass index (BMI) [Ratio] 20.2 kg/m2 Dr. Connor Blank DO Work Phone: 5(886)460-586043 [place] [address] 10-23-2024 14:30-0400 Body weight 58.[address] Connor Blank DO Work Phone: 2(741)917-183243 [place] [address] 10-23-2024 14:30-0400 Diastolic blood pressure 80 mm[Hg] Dr. Connor Blank DO Work Phone: 3(452)703-954643 [place] [address] 10-23-2024 14:30-0400 Systolic blood pressure 128 mm[Hg] Dr. Connor Blank DO Work Phone: 6(435)750-007943 [place] [address] 09-27-2024 08:02-0500 Body height 170.[address] Connor Blank DO Work Phone: 3(993)900-366543 [place] [address] 09-27-2024 08:02-0500 Body mass index (BMI) [Ratio] 19.8 kg/m2 Dr. Connor Blank DO Work Phone: [facility] 09-27-2024 08:02-0500 Body weight 57.[address] Connor Blank DO Work Phone: [facility] 09-27-2024 08:02-0500 Diastolic blood pressure 83 mm[Hg] Dr. Connor Blank DO Work Phone: [facility] 09-27-2024 08:02-0500 Systolic blood pressure 124 mm[Hg] Dr. Connor Blank DO Work Phone: [facility] 10-25-2022 12:52-0400 Body temperature 97.6 [degF] [facility] 10-25-2022 12:52-0400 Diastolic blood pressure 73 mm[Hg] [facility] 10-25-2022 12:52-0400 Heart rate 100 /min [facility] 10-25-2022 12:52-0400 Respiratory rate 16 /min [facility] 10-25-2022 12:52-0400 Systolic blood pressure 116 mm[Hg] [facility] 10-25-2022 04:11-0400 SaO2% (BldA) [Mass fraction] 97 % [facility] 10-24-2022 03:54-0400 [facility]-24-[facility] 03:54-0400 Body mass index (BMI) [Ratio] 26.1 kg/m2 [facility] 10-24-2022 03:54-0400 Body [facility] 75.6 [facility] 10-20-2022 13:09-0400 Body mass index (BMI) [Ratio] 26.2 kg/m2 [facility] 10-20-2022 13:09-0400 Body weight 75.86 [facility]-20-2022 13:09-0400 Diastolic blood pressure 70 mm[Hg] [facility] 10-20-2022 13:09-0400 Systolic blood pressure 114 mm[Hg] [facility] 10-13-2022 13:29-0400 Diastolic blood pressure 72 mm[Hg] [facility] 10-13-2022 13:29-0400 Systolic blood pressure 113 mm[Hg] [facility] 10-13-2022 12:58-0400 Body mass index (BMI) [Ratio] 26.3 kg/m2 [facility] 10-13-2022 12:58-0400 Body weight 76.[address] [facility] 10-06-2022 13:34-0500 Body mass index (BMI) [Ratio] 25.5 kg/m2 [facility] 10-06-2022 13:34-0500 Body weight 73.[address] [facility] 10-06-2022 13:34-0500 Diastolic blood pressure 76 mm[Hg] [facility] 10-06-2022 13:34-0500 Systolic blood pressure 112 mm[Hg] [facility] 09-29-2022 13:43-0500 Body height 170.18 cm [facility] 09-29-2022 13:42-0500 Body mass index (BMI) [Ratio] 25.6 kg/m2 [facility] 09-29-2022 13:42-0500 Body weight 74.16 kg [facility] 09-29-2022 13:42-0500 Diastolic blood pressure 69 mm[Hg] [facility] 09-29-2022 13:42-0500 Systolic blood pressure 103 mm[Hg] [facility] 09-16-2022 09:30-0500 Body mass index (BMI) [Ratio] 25.4 kg/m2 [facility] 09-16-2022 09:30-0500 Body weight 73.7 kg [facility] 09-16-2022 09:30-0500 Diastolic blood pressure 71 mm[Hg] [facility] 09-16-2022 09:30-0500 Systolic blood pressure 108 mm[Hg] [facility] 09-01-2022 13:37-0500 Body mass index (BMI) [Ratio] 25.2 kg/m2 [facility] 09-01-2022 13:37-0500 Body weight 73.02 kg [facility] 09-01-2022 13:37-0500 Diastolic blood pressure 75 mm[Hg] [facility] 09-01-2022 13:37-0500 Systolic blood pressure 109 mm[Hg] [facility] 08-15-2022 13:47-0500 Body mass index (BMI) [Ratio] 24.3 kg/m2 [facility] 08-15-2022 13:47-0500 Body weight 70.3 kg [facility] 08-02-2022 09:07-0500 Body mass index (BMI) [Ratio] 23.6 kg/m2 [facility] 08-02-2022 09:07-0500 Body weight 68.6 kg [facility] 08-02-2022 09:07-0500 Diastolic blood pressure 62 mm[Hg] [facility] 08-02-2022 09:07-0500 Systolic blood pressure 96 mm[Hg] [facility] 07-07-2022 13:13-0500 Body mass index (BMI) [Ratio] 22.7 kg/m2 [facility] 07-07-2022 13:13-0500 Body weight 65.77 kg [facility] 07-07-2022 13:13-0500 Diastolic blood pressure 75 mm[Hg] [facility] 07-07-2022 13:13-0500 Systolic blood pressure 117 mm[Hg] [facility] 06-09-2022 14:00-0500 Body mass index (BMI) [Ratio] 21.6 kg/m2 [facility] 06-09-2022 14:00-0500 Body weight 62.59 kg [facility] 06-09-2022 14:00-0500 Diastolic blood pressure 66 mm[Hg] [facility] 06-09-2022 14:00-0500 Systolic blood pressure 102 mm[Hg] [facility] 05-12-2022 13:38-0400 Body height 170.18 cm [facility] Work Phone: 05-12-2022 13:38-0400 Body mass index (BMI) [Ratio] 21 kg/m2 [facility] Work Phone: 05-12-2022 13:38-0400 Body weight 60.95 kg [facility] Work Phone: 05-12-2022 13:38-0400 Diastolic blood pressure 74 mm[Hg] [facility] Work Phone: 05-12-2022 13:38-0400 Systolic blood pressure 107 mm[Hg] [facility] Work Phone: 04-11-2022 11:51-0400 Body mass index (BMI) [Ratio] 19.8 kg/m2 [facility] Work Phone: 04-11-2022 11:51-0400 Body weight 57.6 kg [facility] Work Phone: 04-11-2022 11:51-0400 Diastolic blood pressure 60 mm[Hg] [facility] Work Phone: 04-11-2022 11:51-0400 Systolic blood pressure 104 mm[Hg] [facility] Work Phone: 03-24-2022 09:54-0400 Diastolic blood pressure 72 mm[Hg] [facility] Work Phone: 03-24-2022 09:54-0400 Systolic blood pressure 116 mm[Hg] [facility] Work Phone: 03-24-2022 09:21-0400 Body height 170.18 cm [facility] Work Phone: 03-24-2022 09:20-0400 Body mass index (BMI) [Ratio] 19.1 kg/m2 [facility] Work Phone: 03-24-2022 09:20-0400 Body weight 55.33 kg [facility] Work Phone: 02-08-2022 09:43-0400 Body mass index (BMI) [Ratio] 18.5 kg/m2 [facility] Work Phone: 02-08-2022 09:43-0400 Body weight 53.63 kg [facility] Work Phone: 02-08-2022 09:43-0400 Diastolic blood pressure 78 mm[Hg] [facility] Work Phone: 02-08-2022 09:43-0400 Systolic blood pressure 126 mm[Hg] [facility] Work Phone: Encounters Encounter Date Encounter Type Care Provider Facility Start: 05-01-2025 ambulatory Mary Cagle lity:[facility] Start: 05-01-2025 Non-patient / Non-visit Dr. Mary Gonzalez MD -[facility] Start: 05-01-2025 End: 05-01-[address] Mary Gonzalez MD -[facility] Work Phone: Start: 05-01-2025 End: 05-01-2025 ambulatory Mary Gonzalez Facility:[facility] Start: 04-23-2025 End: 04-23-[address] Yue Sanford DO -[facility] Work Phone: Start: 04-23-2025 End: 04-23-2025 ambulatory Yue Sanford Facility:[facility] Start: 04-18-2025 End: 04-18-2025 Patient encounter procedure Lizy Acosta CNM -[facility] Work Phone: Start: 04-18-2025 End: 04-18-2025 ambulatory Connor Blank Facility:[facility] Start: 04-11-2025 End: 04-11-2025 Patient encounter procedure Dr. Mary Gonzalez MD -[facility] Work Phone: Start: 04-11-2025 End: 04-11-[address] Connor Blank DO Work Phone: -[facility] Start: 04-03-2025 End: 04-03-[address] Connor Blank DO Work Phone: -Laboratory Specimen Start: 04-03-2025 End: 04-03-2025 Patient encounter procedure Lizy Acosta CNM -Laboratory Specimen Work Phone: Start: 04-03-2025 End: 04-03-2025 Patient encounter procedure Lizy Acosta CNM -[facility] Work Phone: Start: 04-03-2025 End: 04-03-[address] Connor Blank DO Work Phone: -[facility] Start: 04-03-2025 End: 04-03-2025 ambulatory Connor Blank Facility:[facility] Start: 03-20-2025 End: 03-20-[address] Mary Gonzalez MD -[facility] Work Phone: Start: 03-20-2025 End: 03-20-[address] Connor Blank DO Work Phone: -[facility] Start: 03-07-2025 ambulatory Connor Blank Facilit y:[facility] Start: 03-07-2025 Non-patient / Non-visit Lizy Acosta CNM -[facility] Start: 03-07-2025 End: 03-07-[address] Connor Blank DO Work Phone: -[facility] Start: 03-07-2025 End: 03-07-2025 Patient encounter procedure Lizy Acosta CN -[facility] Work Phone: Start: 03-07-2025 End: 03-07-2025 Patient encounter procedure Krysta Petersen [facility] -[facility] Work Phone: Start: 03-07-2025 End: 03-07-[address] Connor Blank DO Work Phone: [facility][1] Start: 02-21-2025 End: 02-21-2025 Patient encounter procedure Krysta Petersen [facility] -[facility] Work Phone: Start: 02-21-2025 End: 02-21-[address] Connor Blank DO Work Phone: -[facility] Start: 02-06-2025 End: 02-06-2025 Patient encounter procedure Anahi Riojas MANAGER STARSAbel -[facility] Work Phone: Start: 02-06-2025 End: 02-06-[address] Connor Blank DO Work Phone: [facility][1] Start: 02-06-2025 End: 02-06-2025 ambulatory Connor Blank Facility:[facility] Start: 01-16-2025 End: 01-16-2025 Patient encounter procedure Lizy Acosta [facility] -[facility] Work Phone: Start: 01-16-2025 End: 01-16-[address] Connor Blank DO Work Phone: [facility] Work Phone: Start: 01-03-2025 End: 01-03-2025 ambulatory YUE HERMAN [facility] Start: 12-19-2024 End: 12-19-2024 ambulatory Connor Blank Facility:[facility] Start: 12-19-2024 End: 12-19-[address] Mary Gonzalez MD -[facility] Work Phone: Start: 12-11-2024 End: 12-11-2024 ambulatory CONNOR BLANK [facility] Start: 12-08-2024 End: 12-08-2024 [facility] encounter [facility] Work Phone: Start: 12-08-2024 End: 12-08-2024 ambulatory Connor Moralesrison Facility:[facility] Start: 11-19-2024 End: 11-19-2024 Patient encounter procedure Anahi RAMOS -[facility] Work Phone: Start: 11-19-2024 End: 11-19-2024 ambulatory Connor Blank Facility:[facility] Start: 10-23-2024 End: 10-23-[address] Yue Sanford DO -[facility] Work Phone: Start: 10-23-2024 End: 10-23-2024 ambulatory Connor Blank Facility:[facility] Start: 09-27-2024 End: 09-27-2024 Patient encounter procedure Lizy Acosta CNM -[facility] Work Phone: Start: 09-27-2024 End: 09-27-[address] Connor Blank DO Work Phone: [facility] Work Phone: Start: 09-27-2024 End: 09-27-2024 ambulatory Connor Blank Facility:[facility] Start: 10-25-2022 Non-patient / Non-visit Connor WITT [facility] Start: 10-24-2022 Non-patient / Non-visit Connor Blank [facility] Start: 10-24-2022 End: 10-25-2022 Evaluation and management of inpatient [facility] Start: 10-20-2022 End: 10-20-2022 [facility]: 10-13-2022 End: 10-13-2022 Patient encounter procedure Connor [facility] Start: 10-06-2022 End: 10-06-2022 [facility] Start: 09-29-2022 End: 09-29-2022 ambulatory [facility] Work Phone: Start: 09-29-2022 End: 09-29-2022 Patient encounter procedure [facility], Specimen Start: 09-29-2022 End: 09-29-2022 Patient encounter procedure [facility] Start: 09-16-2022 End: 09-16-2022 Patient encounter procedure [facility] [place] Start: 09-01-2022 End: 09-01-2022 Patient encounter procedure [facility] [place] Start: 08-15-2022 End: 08-15-2022 Patient encounter procedure [facility] [place] Start: 08-02-2022 End: 08-02-2022 Patient encounter procedure [facility] [place] Start: 07-07-2022 End: 07-07-2022 Patient encounter procedure [facility] [place] Start: 06-09-2022 End: 06-09-2022 Patient encounter procedure [facility] [place] Start: 05-12-2022 End: 05-12-2022 ambulatory [facility] Work Phone: Start: 05-12-2022 End: 05-12-2022 Patient encounter procedure [facility] [place] Start: 04-11-2022 End: 04-11-2022 Patient encounter procedure [facility] [place] Start: 03-24-2022 End: 03-24-2022 ambulatory [facility] Work Phone: Start: 03-24-2022 End: 03-24-2022 Patient encounter procedure [facility] Specimen Start: 03-24-2022 End: 03-24-2022 Patient encounter procedure [facility] [place] Start: 02-08-2022 End: 02-08-2022 Patient encounter procedure [facility] [place] Start: 05-31-2017 End: 06-05-2017 Ambulatory NAVEEN ARGUELLO Facility:[facility] Procedures Date Procedure Procedure Detail Performing Clinician Start: 05-01-2025 Ultrasound scan for growth Dr. Connor Blank DO Work Phone: Start: 04-03-2025 Beta-hemolytic Strep tococcus culture Dr. Connor Blank DO Work Phone: Start: 03-07-2025 Ultrasonography for biophysical profile without non-stress testing Dr. Connor Blank DO Work Phone: Start: 02-06-2025 Serologic test for syphilis Dr. Connor lBank DO Work Phone: Start: 09-27-2024 Urine culture [...] HCV Quant by PCR testing - HCVPCR #[id number] Non Reactive: < 0.8 Equivocal: >/= 0.8 [...] Activity Detail Author Start: 05-01-2025 Patient discharge [facility] Start: 04-23-2025 End: 04-23-2025 Patient encounter procedure Anxiety -[facility] Work Phone: Start: 03-20-2025 [facility] Start: 03-07-2025 Nonstress test [facility] Start: 03-07-2025 Obstetric monitoring [facility] Start: 03-07-2025 Vital signs measurements [facility] Start: 03-07-2025 [facility] Start: 03-07-2025 Biophysical profile panel US [facility] Start: 03-07-2025 Ultrasonography for biophysical profile without non-stress testing OB Biophysical Prof W/O NST [facility] Start: 03-07-2025 Patient discharge [facility] Start: 02-21-2025 [facility] Start: 02-06-2025 CBC W Auto Differential panel - Blood [facility] Start: 02-06-2025 Measurement of glucose 2 hours after glucose challenge for glucose tolerance test [facility] Start: 02-06-2025 Serologic test for syphilis [facility] Start: 02-06-2025 [facility] Start: 10-25-2022 Patient discharge [facility] Start: 10-25-2022 Consultation [facility] Start: 10-24-2022 Administration of medication [facility] Start: 10-24-2022 Application of ice collar, cap or bag [facility] Start: 10-24-2022 Catheterization of vein [facility] Start: 10-24-2022 Introduction of urinary catheter [facility] Start: 10-24-2022 Measuring intake and output [facility] Start: 10-24-2022 Notification of physician [facility] Start: 10-24-2022 Procedure discontinued [facility] Start: 10-24-2022 Provision of activity privileges [facility] Start: 10-24-2022 Vital signs measurements [facility] Start: 10-24-2022 [facility] Start: 10-24-2022 Admission procedure [facility] Start: 10-24-2022 Anesthesia consultation [facility] Start: 10-24-2022 acoustic stimulation test [facility] Start: 10-24-2022 Insertion of catheter into peripheral vein [facility] Start: 10-24-2022 Intrauterine catheterization [facility] Start: 10-24-2022 Introduction of urinary catheter [facility] Start: 10-24-2022 Provision of activity privileges [facility] Start: 10-24-2022 End: 10-24-2022 [facility] Start: 10-24-2022 Nonstress test [facility] Start: 10-24-2022 End: 10-24-2022 Obstetric monitoring [facility] Start: 10-24-2022 Vital signs measurements [facility] CBC W Auto Different ial panel - Blood [facility] Work Phone: CBC W Auto Different ial panel - Blood [facility] Erythrocyte mean corpuscular volume determination [facility] Hematocrit [Volume Fraction] of Blood [facility] Hemoglobin [Mass/vol ume] in Blood [facility] Hepatitis B surface antigen measurement [facility] Work Phone: Hepatitis C antibody measurement [facility] Work Phone: HIV 1+2 Ab+HIV1 p24 Ag [Presence] in Serum or Plasma by Immunoassay [facility] Work Phone: Leukocytes [#/volume ] in Blood [facility] Mean corpuscular hem oglobin concentration determination [facility] Mean corpuscular hem oglobin determination [facility] Measurement of gluco se 2 hours after glucose challenge for glucose tolerance test [facility] Neutrophil count [facility] Neutrophil percent differential count [facility] Patient Education [facility] Work Phone: Patient referral [facility] Work Phone: Platelets [#/volume] in Blood [facility] Red blood cell count [facility] Red cell distributio n width determination [facility] Rubella IgG measurement [facility] Work Phone: Serologic test for syphilis [facility] Streptococcus agalac tiae [Presence] in Unspecified specimen by Organism specific culture [facility] Treponema sp Ab [Pre sence] in Serum [facility] Work Phone: [facility] Immunizations Immunization Date Immunization Notes Care Provider Fa cility 02-21-2025 tetanus toxoid, redu alexis diphtheria toxoid, and acellular pertussis vaccine, adsorbed Dr. Connor Blank DO Work Phone: [facility] 08-15-2022 influenza, injectabl e, quadrivalent, preservative free Dr. Connor Blank DO Work Phone: [facility] 08-15-2022 influenza, seasonal, injectable [facility] 08-02-2022 tetanus toxoid, redu alexis diphtheria toxoid, and acellular pertussis vaccine, adsorbed [facility] 07-06-2020 tetanus toxoid, redu alexis diphtheria toxoid, and acellular pertussis vaccine, adsorbed [facility] 04-27-2020 Influenza virus vaccine [facility] Payers Date Payer Category Payer Unknown [id number] 2024 Self-pay [id number] 2024 Unknown [id number] 2017 Unknown [id number] 1990 Unknown [id number] 2.16. [id number] 1990 Unknown [id number] .. [id number] 1990 Unknown [id number] 2.16. 840.1.983387.3.579.2.479 Unknown [id number] Unknown [id number] 2.16.8 40.1.228536.3.579.2.462 Unknown [id number] 2.16.8 40.1.309925.3.579.2.462 Unknown [id number] 2.16.8 40.1.688957.3.579.2.462 Unknown [id number] 2.16.8 40.1.822232.3.579.2.462 Unknown [id number] 2.16.8 40.1.359168.3.579.2.462 Unknown [id number] 2.16.8 40.1.556492.3.579.2.462 Unknown [id number] 2.16.8 40.1.806312.3.579.2.462 Unknown [id number] 2.16.8 40.1.308609.3.579.2.462 Unknown [id number] 2.16.8 40.1.728317.3.579.2.462 Unknown [id number] 2.16.8 40.1.960013.3.579.2.462 Unknown [id number] 2.16.8 40.1.723919.3.579.2.462 Unknown [id number] 2.16.8 40.1.861327.3.579.2.462 Unknown [id number] 2.16.8 40.1.825302.3.579.2.462 Unknown [id number] 2.16.8 40.1.280479.3.579.2.462 Unknown [id number] 2.16.8 40.1.154862.3.579.2.462 Unknown [id number] 2.16.8 40.1.896608.3.579.2.462 Unknown [id number] 2.16.8 40.1.175430.3.579.2.462 Unknown [id number] 2.16.8 40.1.170940.3.579.2.462 Unknown [id number] 2.16.8 40.1.529481.3.579.2.462 Unknown [id number] 2.16.8 40.1.309187.3.579.2.462 Unknown [id number] 2.16.8 40.1.807070.3.579.2.462 Unknown [id number] 2.16.8 40.1.512954.3.579.2.462 Social History Date Type Detail Facility Start: 03-24-2022 End: 10-24-2022 Tobacco smoking status NHIS Unknown if ever smoked [facility] Start: 1990 Sex Assigned At Female [facility] Start: 09-13-2024 [facility] Start: 10-10-2024 Sex Female (finding) [facility] Sex Female [facility] Goals Date Patient Goal Desired Activity /State Clinical Notes 10-24-2022 to 05-01-2025 Note Date & Type Note Facility 05-01-2025 Progress note [facility] 05-01-2025 Radiology Diagnostic study note [facility] [address] [place] [address] OB Limited With Biometrics MR#: [id number] Acct: [id number] Name: RAMYA GOEL Rep #: [id number] : 1990 F 34 From: Elida Little MD PCP: Dr. Connor Blank, DO Status: RE G CLI Study:OB Limited With Biometrics Date of Exam : 05/01/25 Exam# [id number] Ordering Dr: Mary Heath MD PROCEDURE: OB [...] estimated delivery date of 05/15/2025. Reading Location: [place] [address] CC: Dr. Connor Blank DO; Dr. Mary Gonzalez MD ~ [employer] Operator: Signed [facility] 04-23-2025 Progress note [facility] 04-18-2025 Progress note [facility] 04-11-2025 Progress note [facility] 04-03-2025 Progress note [facility] 03-20-2025 Progress note [facility] 03-20-2025 Progress note Note Date/Time March 20, 2025 2:59pm [facility] [address] [place] [address], [address] [place] [address] OFFICE VISIT Date of Service: 03/20/25 MR#: [id number] Acct: [id number] Name: RAMYA GOEL Rep #: [id number] : 1990 Provider: Dr. 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: No Is patient in pain?: No [...] 2 current occupational status: employed current occupation: [employer] current occupational exposures/hazards: No pets and animals: [...] in: none frequency: 3-4 times per week taryn/tenriism: Hoahaoism seatbelt use: always do you feel safe at home: Yes 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 Date Name GA/Weeks Outcome Route Bth Weight Gen Labor Lgth Anesthesia Del Locatn Provider FOB 09/18/20 Waldo 40 live - full term 7# Male [facility] Sameer 10/24/22 Perla 40 live - full term 8#11 Female epi dural [facility] Mary Gonzalez Bud Delivery Date: 09/18/20 [...] POC Urinalysis 2 Dip (Clinic) Today 03/20/25 3095 <Electronically signed by Mary leahy MD> Date _ Mary Gonzalez 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 Date Name GA/Weeks Outcome Route Bth Weight Gen Labor Lgth Anesthesia Del Locatn Provider FOB 09/18/20 Sharon 40 live - full term 7# Male [facility] Sameer 10/24/22 Perla 40 live - full term 8#11 Female epi dural [facility] Mary Gonzalez Bud Delivery Date: 09/18/20 [...] Cosigner Signature: Date (if applicable) CC: ~ [facility] Evaluation note* Diagnosis Onset Date Resolution Status [...] of normal acute April 23, 2025 9:19am [facility] Work Phone: 1(101) 522-208206-19-2025 Evaluation note* Diagnosis Onset Date Resolution Status [...] Supervision of normal acute May 01 1:45pm [facility] Work Phone: 1(698) 562-132206-19-2025 Progress [facility] [address] [place] [address], [address] [place] [address] OFFICE VISIT Date of Service: 01/16/25 MR#: [id number] Acct: [id number] Name: RAMYA GOEL Rep #: [id number] : 1990 Provider: MIKI Acosta Age/Sex: 34/F Location: [facility] Status: Signed Intake Vital Signs 10/23/24 14:30 12/19/24 11:48 01/16/25 09:34 Height 5 ft 7 in 5 ft 7 in 5 ft 7 in Weight: 140 lb 8 oz BMI 21.9 BP 97/65 Intake Visit Reasons: 25wk ob 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 Date Name GA/Weeks Outcome Route Bth Weight Infant Gen Labor Lgth Anesthesia Del Locatn Provider FOB 09/18/20 Sharon 40 live - full term 7# Male [facility] Sameer 10/24/22 Perla 40 live - full term 8#11 Female epi dural [facility] Mary Riconajma Bud Delivery Date: 09/18/20 Last [...] Cosigner Signature: Date (if applicable) CC: ~ [facility]-22-20[facility] Evaluation note* Diagnosis Onset Date Resolution Status [...] of normal acute April 11, 2025 1:03pm [facility] Work Phone: 1(991) 299-232805-11-2025 Evaluation note* Diagnosis Onset Date Resolution Status [...] Supervision of normal acute March 20 2:42pm [facility] Work Phone: 1(455) 475-559405-11-2025 Evaluation note* Diagnosis Onset Date Resolution Status [...] normal acute April 03, [address] [facility] Work Phone: 1(329) 785-250004-22-2025 Evaluation note* Diagnosis Onset Date Resolution Status [...] of normal acute February 21, 2025 10:09am [facility] Work Phone: 1(588) 414-241704-22-2025 Evaluation note* Diagnosis Onset Date Resolution Status [...] of normal acute March 07, 2025 8:34am [facility] Work Phone: 1([phone]) [phone] Evaluation note* Diagnosis Onset Date Resolution Status [...] decelerations, antepartum acute March 07, 2025 8:34am [facility] Work Phone: 1(809) 410-834603-26-2025 Evaluation note* Diagnosis Onset Date Resolution Status [...] of normal acute February 06, 2025 9:05am [facility] Work Phone: 1(580) 336-425702-28-2025 Evaluation note* Diagnosis Onset Date Resolution Status Admit Date Anxiety acute September 27, 2024 7:56am acute September 27, 2024 7:56am Supervision of normal acute September 27, 2 025 7:56am [facility] Work Phone: 1(801) 918-148602-28-2025 Evaluation note* Diagnosis Onset Date Resolution Status [...] of normal acute January 16, 2025 9:31am [facility] [employer] Work Phone: 1([phone]) [phone] Discharge summary Author Lizy Acosta [facility] October 25, 2022 7:53am Note Date/Time October 25, 2022 7:5 2am [facility] Medical Records Department [address] [place] [address] Instructions for Home/Discharge Instructions 10/25/22 0752 MR#: [id number] Acct: [id number] Name: RAMYA GOEL Rep #:[id number] : [...] Acosta CNM CC: Connor Blank ~ Signed [facility] Work Phone: 1(870) 421-220503-28-2023 Progress note Author Lizy Acosta [facility] October 25, 2022 7:52am Note Date/Time October 25, 2022 7:5 2am [facility] Medical Records Department [address] [place] [address] Progress Note - OBGYN 10/25/22 0749 MR#: [id number] Acct: [id number] Name: RAMYA GOEL Rep #:[id number] : 1990 31 From: Lizy Acosta CNM PCP: Connor Blank Status:ADM IN Location: [place] [address] Subjective Subjective Patient doing well without complaints. [...] Cosigner Signature (if applicable): CC: ~ Signed [facility] Work Phone: 1(364) 210-304703-27-[address] Marcanthony [facility] October 24, 2022 7:39pm Note Date/Time October 24, 2022 7:3 9pm [facility] Medical Records Department [address] [place] [address] Instructions for Home/Discharge Instructions 10/24/221938 MR#: [id number] Acct: [id number] Name: RAMYA GOEL Rep #:[id number] : [...] Gonzalez MD CC: Connor Blank ~ Signed [facility] Work Phone: 1(950) 675-388603-27-2023 Procedure [facility] 10-24-2022 History and physical note Author Dr. 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 10/24/22 0740 MR#: [id number] Acct: [id number] Name: RAMYA GOEL Rep #:[id number] : 1990 31 From: Mary pederson MD PCP: Connor Blank Status:ADM IN Location: [id number] HPI - General General Date of Admission: [...] house current occupational status: employed current occupation: [employer] history of recent travel: No sexually active: Yes Smoking Status: Never smoker second hand exposure: No alcohol intake: former details: social substance use type: does not use caffeine: Yes Type: coffee Number of servings: 1 what type of physical activity do you participate in: walking frequency: 3-4 times per week seatbelt use: always do you feel safe at home: Yes 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 Date Name GA/Weeks Outcome Route Bth Weight Infant Gen Labor Lgth Anesthesia Del Rogerioatpari Provider FOB 09/18/20 Waldo 40 live - full term Male [facility] Sameer Delivery Date: 09/18/20 Last Updated [...] complications: see a/p [facility] and made any clinically relevant updates. 10/24/22 0743 <Electronically signed by Mary Gonzalez MD> Cosigner Signature (if applicable): CC: Dr. Mary Gonzalez MD; Connor Blank~ Signed [facility] Work Phone: Evaluation note* Diagnosis Onset Date Resolution Status Encounter for routine gynecological examination noneactive acute Supervision of normal acute [facility] Work Phone: Evaluation note* Diagnosis Onset Date Resolution Status Encounter for routine gynecological examination noneactive acute Supervision of normal acute acute Supervision of normal acute acute Supervision of normal [facility] Work Phone: Evaluation note* Diagnosis Onset Date [...] renal pelvis acute Supervision of normal acute [facility] Work Phone: Evaluation note* Diagnosis Onset Date [...] of membranes) resolved Supervision of normal resolved [facility] Work Phone: Progress note Author Lizy Acosta [facility] Note Date/Time January 16, 2025 9:51 am [facility] [address] [place] [address], [address] [place] [address] OFFICE VISIT Date of Service: 01/16/25 MR#: [id number] Acct: [id number] Name: RAMYA GOEL Rep #: [id number] : 1990 Provider: MIKI Acosta Age/Sex: 34/F Location: [facility] Status: Signed Intake Vital Signs 10/23/24 14:30 12/19/24 11:48 01/16/25 09:34 Height 5 ft 7 in 5 ft 7 in 5 ft 7 in Weight: 140 lb 8 oz BMI 21.9 BP 97/65 Intake Visit Reasons: 25wk ob 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 Date Name GA/Weeks Outcome Route Bth Weight Gen Labor Lgth Anesthesia Del Locatn Provider FOB 09/18/20 Sharon 40 live - full term 7# Male [facility] Sameer 10/24/22 Masusanlyn 40 live - full term 8#11 Female epi dural [facility] Mary Gonzalez Bud Delivery Date: 09/18/20 [...] Cosigner Signature: Date (if applicable) CC: ~ [facility] Work Phone: Progress note Author Krysta Petersen [facility] Note Date/Time February 21, 2025 10:2 8am [facility] [address], [address] [place] [address] OFFICE VISIT Date of Service: 02/21/25 MR#: [id number] Acct: [id number] Name: RAMYA GOEL Rep #: [id number] : 1990 Provider: MIKI Petersen Age/Sex: 34/F [place] [facility] Status: Signed Intake Vital Signs 12/19/24 11:48 02/06/25 09:08 02/21/25 10:11 Height 5 ft 7 in 5 ft 7 in 5 ft 7 in Weight: 147 lb BMI 23.0 BP 111/69 Intake Visit 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 [place] Required: No Is patient in pain?: No [...] 2 current occupational status: employed current occupation: [employer] current occupational exposures/hazards: No pets and animals: [...] in: none frequency: 3-4 times per week taryn/tenriism: Hoahaoism seatbelt use: always do you feel safe at home: Yes 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 Date Name GA/Weeks Outcome Route Bth Weight Infant Gen Labor Lgth Anesthesia Del Locatn Provider FOB 09/18/20 Sharon 40 live - full term 7# Male [facility] Sameer 10/24/22 Perla 40 live - full term 8#11 Female epi dural [facility] Mary Gonzalez Bud Delivery Date: 09/18/20 [...] Cosigner Signature: Date (if applicable) CC: ~ [facility] Work Phone: Progress note Author Lizy Acosta [facility] Note Date/Time April 03, 2025 9:53am [facility] [address] [place] [address], [address] [place] [address] OFFICE VISIT Date of Service: 04/03/25 MR#: [id number] Acct: [id number] Name: RAMYA GOEL Rep #: [id number] : 1990 Provider: MIKI Acosta Age/Sex: 34/F [place] [facility] Status: Signed Intake Vital Signs 02/06/25 09:08 03/20/25 14:45 04/03/25 09:24 Height 5 ft 7 in 5 ft 7 in 5 ft 7 in Weight: 157 lb 7 oz BMI 24.6 BP 115/74 Intake Visit Reasons: 36wk ob Chief Complaint: 36wk ob Laborer Sh[place] Sinking Required: No Is patient in pain?: No [...] 2 current occupational status: employed current occupation: [employer] current occupational exposures/hazards: No pets and animals: [...] in: none frequency: 3-4 times per week taryn/tenriism: Hoahaoism seatbelt use: always do you feel safe at home: Yes 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 Date Name GA/Weeks Outcome Route Bth Weight Infant Gen Labor Lgth Anesthesia Del Locatn Provider FOB 09/18/20 Waldo 40 live - full term 7# Male [facility] Sameer 10/24/22 Perla 40 live - full term 8#11 Female epi dural [facility] Mary Gonzalez Bud Delivery Date: 09/18/20 [...] Cosigner Signature: Date (if applicable) CC: ~ [facility] Work Phone: Progress note Author Mary Gonzalez [facility] Note Date/Time April 11, 2025 1:21pm [facility] [address] [place] [address], [address] [place] [address] OFFICE VISIT Date of Service: 04/11/25 MR#: [id number] Acct: [id number] Name: RAMYA GOEL Rep #: [id number] : 1990 Provider: Dr. Rafal Gonzalez MD Age/Sex: 34/F Location: [facility] Status: Signed Intake Vital Signs 03/07/25 08:38 04/03/25 09:24 04/11/25 13:06 04/11/25 13:06 Height 5 ft 7 in 5 ft 7 in 5 ft 7 in 5 ft 7 in Weight: 156 lb 1 oz BMI 24.4 BP 116/71 Intake Visit Reasons: 37wk ob Laborer Sh[place] S[place] Required: No Is patient in pain?: No [...] 2 current occupational status: employed current occupation: [employer] current occupational exposures/hazards: No pets and animals: [...] in: none frequency: 3-4 times per week taryn/tenriism: Hoahaoism seatbelt use: always do you feel safe at home: Yes 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 Date Name GA/Weeks Outcome Route Bth Weight Gen Labor Lgth Anesthesia Del Locatn Provider FOB 09/18/20 Waldo 40 live - full term 7# Male [facility] Sameer 10/24/22 Perla 40 live - full term 8#11 Female epi dural [facility] Mary Farrell Delivery Date: 09/18/20 Last Updated [...] Cosigner Signature: Date (if applicable) CC: ~ [facility] Work Phone: Progress note Author Lizy Acosta [facility] Note Date/Time April 18, 2025 10:10am [facility] [address] [place] [address], [address] [place] [address] OFFICE VISIT Date of Service: 04/18/25 MR#: [id number] Acct: [id number] Name: RAMYA GOEL Rep #: [id number] : 1990 Provider: MIKI Acosta Age/Sex: 34/F Location: [facility] Status: Signed Intake Vital Signs 03/07/25 08:38 04/11/25 13:06 04/18/25 09:32 Height 5 ft 7 in 5 ft 7 in 5 ft 7 in Weight: 159 lb 1 oz BMI 24.9 BP 130/63 H Intake Visit Reasons: 38 WK 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 Required: No Is patient in pain?: No [...] 2 current occupational status: employed current occupation: [employer] current occupational exposures/hazards: No pets and animals: [...] in: none frequency: 3-4 times per week taryn/tenriism: Hoahaoism seatbelt use: always do you feel safe at home: Yes 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 Date Name GA/Weeks Outcome Route Bth Weight Infant Gen Labor Lgth Anesthesia Del Locatn Provider FOB 09/18/20 Sharon 40 live - full term 7# Male [facility] Sameer 10/24/22 Maislyn 40 live - full term 8#11 Female epi dural [facility] Mary Gonzalez Bud Delivery Date: 09/18/20 [...] , OTTO 05/01/25, [facility] Perla Haas, Ubd (3) : Status: Acute Qualifiers: Weeks of [...] Cosigner Signature: Date (if applicable) CC: ~ [facility] Work Phone: Progress note Author Yue Hull [facility] Note Date/Time April 23, 2025 9:43am [facility] [address] [place] [address], [address] [place] [address] OFFICE VISIT Date of Service: 04/23/25 MR#: [id number] Acct: [id number] Name: RAMYA GOEL Rep #: [id number] : 1990 Provider: Dr. Leonarda Sanford DO Age/Sex: 34/F Location[place] [facility] Status: Signed Intake Vital Signs 03/07/25 08:38 04/03/25 09:24 04/18/25 09:32 04/23/25 09:23 Height 5 ft 7 in 5 ft 7 in 5 ft 7 in 5 ft 7 in Weight: 157 lb 7 oz BMI 24.6 BP 134/86 H Intake Visit Reasons: 39 WK OB Chief Complaint: 39 Week 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 Required: No Is patient in pain?: No [...] 2 current occupational status: employed current occupation: [employer] current occupational exposures/hazards: No pets and animals: [...] in: none frequency: 3-4 times per week taryn/tenriism: Hoahaoism seatbelt use: always do you feel safe at home: Yes 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 Date Name GA/Weeks Outcome Route Bth Weight Infant Gen Labor Lgth Anesthesia Del Locatn Provider FOB 09/18/20 Sharon 40 live - full term 7# Male [facility] Sameer 10/24/22 Masusanlyn 40 live - full term 8#11 Female epi dural [facility] Mary Riconajma Bud Delivery Date: 09/18/20 Last [...] Cosigner Signature: Date (if applicable) CC: ~ [facility] Work Phone: Progress note Author Mary Gonzalez [facility] Note Date/Time May 01, 2025 4: 04pm [facility] Medical Records Department [address] [place] [address] OB Triage Progress Note 05/01/25 1603 MR#: [id number] Acct: [id number] Name: RAMYA GOEL Rep #:[id number] : 1990 34 From: Mary pederson MD PCP: Dr. Connor Blank DO Status:RE G CLI Y DOS: Location: [place] [address] Progress Notes Date of Service: 05/01/25 Progress Note: Patient presents for triage evaluation secondary to low fundal height FHT: 140 Moderate variability reactive no decelerations category I tracing [place]: no regular Contractions Assessment and plan: 40 weeks uterine size date discrepancy Reactive NST, reassuring maternal and status patient discharged to home to follow-up as scheudled. See problem list details for additional plan information. Charges/Coding Procedures Urinary/Genital 52xxx-59xxx: 78323-82 non-stress test Interp 05/01/25 1604 <Electronically signed by Mary leahy MD> Date _ Mary Gonzalez MD Cosigner Signature (if applicable): Date CC: Dr. Connor Blank DO; Dr. Mary Gonzalez MD ~ Signed [facility] Work Phone: Reason for referral (narrative)No reason for referral information [facility] Work Phone: Summary Purpose Family History Relationship Condition Age at Onset Recorded Date/T vicki grandfather Hypertension Unknown Cardiac disease Unknown grandmother Malignant neoplasm Unknown aunt Malignant neoplasm of breast Unknown Advance Directives Advance Directive Response Recorded Date/ Time Living Will No September 17 9:38pm Power of Case Repairer No September 17, 2020 9:38pm Advance Directive Response Recorded Date/ Time Living Will No September 17 8:38pm Power of Case Repairer No September 17, 2020 8:38pm Advance Directive Response Recorded Date/ Time Living Will No October 24, 2022 4:27am Power of Case Repairer No October 24 4:27am Chief Complaint and Reason for Visit Chief Complaint Annual (ANGLE BENDER) NOB LMP 01/14 Reason for Visit Encounter for routin e gynecological examination Supervision of normal Chief Complaint Annual (ANGLE BENDER) NOB LMP 01/14 12 WK OB 16wk [...] section and content) DATE CREATED AUTHOR 01/23/2018 [facility] ([place]) DATE CREATED AUTHOR AUTHOR'S ORGANIZ ATION 01/04/2025 [facility] DATE CREATED AUTHOR AUTHOR'S ORGANIZ ATION 05/02/2025 [facility] Goals (unrecognized section and content) Type Care [...] Team Status: Active Member Role Status Dates [facility] Primary Care Provider Active Team Status: Inactive Member Role Status [facility] Primary Care Provider, Referring Provi marv Active Anahi Riojas MANAGER STARS, MANAGER STARS-C Attending Provider Active Team Status: Inactive Member Role Status [facility] Primary Care Provider, Referring Provi marv Active Dr. Mary Gonzalez MD Attending Provider Active Team Status: Inactive Member Role Status [facility] Primary Care Provider, Referring Provi marv Active Dr. Yue Sanford DO Attending Provider Activ e Team Status: Inactive Member Role Status [facility] Primary Care Provider Active Dr. Mary Gonzalez MD Attending Provider, Referr ing Provider Active Team Status: Inactive Member Role Status [facility] Primary Care Provider Active Dr. Yue Sanford [...] Provider, Referring P rovider Active Anahi Riojas MANAGER STARS, MANAGER STARS-C Attending Provider Active Team Status: Inactive Member [...] 2024 End: November 19, 2024 Anahi Riojas MANAGER STARS, MANAGER STARS-C Attending Provider Active Start: November 19, 2024 [...] 2024 End: November 19, 2024 Anahi Riojas MANAGER STARS, MANAGER STARS-C Attending Provider Active Start: November 19, 2024 [...] 2025 End: February 06, 2025 Anahi Riojas MANAGER STARS, MANAGER STARS-C Attending Provider Active Start: February 06, 2025 [...] 2024 End: November 19, 2024 Anahi Riojas MANAGER STARS, MANAGER STARS-C Attending Provider Active Start: November 19, 2024 End: November 19, 2024 Team Status: Inactive Member Role/Relationship Status Dates Dr. Connor Blank DO Primary Care Provider Active Start: December 08, 2024 End: December 08, 2024 Dr. Connor Blank DO Referring Provider Active Start: December 08, 2024 End: December 08, 2024 Nick Ziegler MANAGER STARS, MANAGER STARS-C Attending Provider Active S tart: December 08, [...] 2025 End: February 06, 2025 Anahi Riojas MANAGER STARS, MANAGER STARS-C Attending Provider Active Start: February 06, 2025 [...] End: December 08, 2024 Nick Ziegler NP, MANAGER STARS-C Attending Provider Active S tart: December 08, [...] 2025 End: February 06, 2025 Anahi Riojas MANAGER STARS, MANAGER STARS-C Attending Provider Active Start: February 06, 2025 [...] Status: Inactive Member Role/Relationship Status Dates Dr. Connro Blank DO Primary Care Provider Active Start: [...] 2025 End: February 06, 2025 Anahi Riojas MANAGER STARS, MANAGER STARS-C Attending Provider Active Start: February 06, 2025 End: February 06, 2025 Team Status: Inactive Member Role/Relationship Status Dates Dr. Connor Blnak DO Primary Care Provider Active Start: February [...] End: February 06, 2025 Anahi Riojas NP, MANAGER STARS-C Attending physician Active Start: February 06, 2025 [...] BE BASED ON THE PRIMARY CLINICAL RECORDS. [facility]. provides no warranty or guarantee of the accuracy or completeness of information in this document.
[2025-05-04] MEDS: Lactated Ringers 1,000 ML 999 ML IV (03:30)
--- OUTSIDE RECORDS SUMMARY | 2025-05-04 03:35 | XMS RPT_ITS | CCD ---
Author Organization [facility] Care Team Providers Care Reliability Manager Name Role Phone NAVEEN ARGUELLO Unavailable Unavailable PHYSICIAN, NONE Unavailable Unavailable Connor Blank Primary Care Provider Unavailab Connor Gilbert Referring Provider Unavailable Beulah CUSTOMER RELATIONSHIP SPECIALIST, RICHARD Christian Attending Provider [phone] Dr. [...] Connor Blank DO Primary Care Provider [phone] Dr. Connor Blank DO Referring Provider Lizy [...] Sanford DO, Dr. Turner Attending Provider Beulah CUSTOMER RELATIONSHIP SPECIALIST-CAnahi Attending Provider Self Schedule, [facility] Attending Provider Lesli michoacano Gonzalez MD, Dr. Hernandez Attending Provider [phone] Abhay RAE, Dr. Ryan Primary Care Provider Dr. Connor Blank DO Referring Provider Lizy Acosta CNM Attending Provider Dr. Connor Blank DO Primary Care Provider Dr. Connor Blank DO Referring Provider Toney ADAM-Nick Martinez Attending Provider Krysta Petersen CNM Attending Provider Lizy Acosta CNM Referring Provider Dr. Connor Blank DO Primary Care Provider [phone] Dr. Connor Blank DO Referring Provider Anhai Meehan Attending Provider Lizy Acosta CNM Other Provider Dr. Connor Blank DO Primary Care Provider Dr. Connor Blank DO Referring Provider Connor Blank Primary Care Unavailable Connor Blank Referring Unavailable Mary Gonzalez Attending Unavailable Connro Blank Referring Unavailable Mary Gonzalez Attending Unavailable [...] Referring Unavailable Lizy Acosta Attending Unavailable Yue Sanfodr Attending Unavailabl e Blank, Connor Referring Unavailable [...] Referring Provider Lizy Acosta CNM Attending Physician [phone] Beulah ADAM-CAnahi Attending Physician [phone] Krysta Petersen CNM Attending Physician [phone] Lizy Acosta CNM Nurse Practitioner [phone] Lisa FIGUEROA, Dr. Hernandez Attending Physician Dr. [...] PO daily November 19, 2024 12:00am Multivit 61-Qgyw-Mwgyma 1-Dh a (Pnv-Dha) 27 mg iron-1 mg [...] 2024 1:00am Start: 01-24-2020 End: 04-11-2022 Multivit 60-Drug-Oqsdak 1-Dh a (Pnv-Dha) 27 mg iron-1 mg -300 mg capsule Discontinued 1 NMA PO DAILY January 24, 2020 12:00am April 11, 2022 11:52am Start: 01-24-2020 End: 04-11-2022 Multivit 19-Jdcz-Qiimcp 1-Dh a (Pnv-Dha) 27 mg iron-1 mg -300 mg capsule Discontinued 1 NMA PO DAILY January 24, 2020 12:00am April 11, 2022 11:52am Start: 01-24-2020 End: 04-11-2022 take 1 capsule by mouth once daily Multivit 34-Mamb-Smrgkq 1-Dha (Pnv-Dha) 27 mg iron-1 mg -300 mg capsule Discontinued 1 CAP PO DAILY January 23, 2020 11:00pm April 11, 2022 10:52am Start: 01-24-2020 End: 04-11-2022 take 1 capsule by mouth once daily Multivit 17-Wmnf-Iwifgd 1-Dha (Pnv-Dha) 27 mg iron-1 mg -300 mg capsule Discontinued 1 CAP PO DAILY January 24, 2020 12:00am April 11, 2022 11:52am Start: 01-24-2020 take 1 capsule by mo [facility] once daily Multivit 70-Nnzk-Duegkv 1-Dha (Pnv-Dha) 27 mg iron-1 mg -300 [...] Discontinued 1 NMA PO DAILY 30 12 [place] 25th, 2022 12:00am September 13, 2024 2:42pm Start: 03-24-2022 End: 09-13-2024 take 1 capsule by mouth once daily Vit 85-Iron-Fa 1-Dha (Prenate Pixie) 10 mg iron- 1 mg-200 mg capsule Discontinued 1 NMA PO DAILY March 24, 2022 12:00am September 13, 2024 2:42pm Start: 03-24-2022 take 1 capsule by mo [facility] once daily Vit 85-Iron-Fa 1-Dha (Prenate Pixie) [...] system] 09-16-2022 Chronic Comment on above: Rpt [facility] 08/09/22: stable. Weekly BPP and growth [...] eccentric cord insertion. Serial growth recommended @ [facility] @ 4 wks Neg GBS. anatomy [...] With Biometricson 05-01-2025 OB Limited With Biometrics [facility] [address] [place], [place] [id number] OB Limited With Biometrics MR#: [id number] Acct: [id number] Name: RAMYA GOEL Rep #: [id number] : 1990 F 34 From: Jr Little MD PCP: Dr. Connor Blank DO Status: REG CLI Study: OB Limited With Biometrics Date of Exam: 05/01 Exam# [id number] Ordering Dr: Mary Gonzalez PROCEDURE: OB LIMITED [...] estimated delivery date of 05/15/2025. Reading Location: [place] [address] CC: Dr. Connor Blank DO; Dr. Mary Gonzalez MD Incident Response Lead: Signed Normal [facility] OB Triage Progress Noteon OB Triage Progress Note [facility] Medical Records Department [address] [place] [address] OB Triage Progress Note 05/01/25 1603 MR#: [id number] Acct: [id number] Name: RAMYA GOEL Rep #: [id number] : 1990 34 From: Mary Gonzalez MD PCP: Dr. Connor Blank DO Status:REG CLI Y DOS: Location: [place] [address] Progress Notes Date of Service: 05/01/25 Progress Note: Patient presents for triage evaluation secondary to low fundal height FHT: 140 Moderate variability reactive no decelerations category I tracing [place]: no regular Contractions Assessment and plan: 40 weeks uterine size date discrepancy Reactive NST, reassuring maternal and status patient discharged to home to follow-up as scheudled. See problem list details for additional plan information. Charges/Coding Procedures Urinary/Genital 52xxx-59xxx: 94569-78 non-stress test Interp 05/01/25 1604 Date Mary Gonzalez MD Cosign Signature (if applicable): Date CC: Dr. Connor Blank DO; Dr. Mary Gonzalez MD Signed Normal [facility] Language Teacher Office Visit Reporton 05-01-2025 Language Teacher Office Visit Report [facility] [address], [address] [place] [address] OFFICE VISIT Date of Service: 05/01/25 MR#: [id number] Acct: [id number] Name: RAMYA GOEL Rep #: [id number] : 1990 Provider: Dr. Mary tan MD Age/Sex: 34/F [place] [facility] [place]: Signed Intake Vital Signs 03/07/25 08:38 04/23/25 09:23 05/01/25 13:56 Height 5 ft 7 in 5 ft 7 in 5 ft 7 in Weight: 159 lb BMI 24.9 BP 130/81 H Intake Visit Reasons: 40 WK OB *HAPPY DUE DATE Circuit Manager Required: No Is patient in pain?: No [...] 2 current occupational status: employed current occupation: [employer] current occupational exposures/hazards: No pets and [...] in: none frequency: 3-4 times per week taryn/taoism: Worship seatbelt use: always do you feel safe at home: Yes 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 Date Name GA/Weeks Outcome Route Bth Weight Gen Labor Lgth Anesthesia Del Locatn Provider FOB 09/18/20 [place] 40 live - full term 7# Male [facility] Proko p 10/24/22 Perla 40 live - full term 8#11 Female epidural [facility] Sh liliana Lisa Bud Delivery Date: [...] CRL con (more content not included)... Normal [facility] Laboratory - Chemistry and C hemistry - challengeOrdered By: Yue Hull on 04-23-2025 Glucose Ql (U) Negative [facility] Laboratory - UrinalysisOrder ed By: Yue Hull on 04-23-2025 Protein Ql (U) Negative [facility] Language Teacher Office Visit Reporton 04-23-2025 Language Teacher Office Visit Report [facility] [address], [address] [place] [address] OFFICE VISIT Date of Service: 04/23/25 MR#: [id number] Acct: [id number] Name: RAMYA GOEL Rep #: [id number] : 1990 Provider: Dr. Yue Lopez DO Age/Sex: 34/F [place] [facility] Status: Signed Intake Vital Signs 03/07/25 08:38 04/03/25 09:24 04/18/25 09:32 04/23/25 09:23 Height 5 ft 7 in 5 ft 7 in 5 ft 7 in 5 ft 7 in Weight: 157 lb 7 oz BMI 24.6 BP 134/86 H Intake Visit Reasons: 39 WK OB Chief Complaint: 39 Week OB Circuit Manager Required: No Is patient in pain?: No [...] 2 current occupational status: employed current occupation: [employer] current occupational exposures/hazards: No pets and [...] in: none frequency: 3-4 times per week taryn/taoism: Worship seatbelt use: always do you feel safe at home: Yes 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 Date Name GA/Weeks Outcome Route Bth Weight Infant Gen Labor Lgth Anesthesia Del Locatn Provider FOB 09/18/20 [place] 40 live - full term 7# Male [facility] Proko p 10/24/22 Perla 40 live - full term 8#11 Female epidural [facility] Sh liliana Lisa Bud Delivery Date: [...] with geoff (more content not included)... Normal [facility] Laboratory - Chemistry and C hemistry - challengeOrdered By: Lizy Acosta on 04-18-2025 Glucose Ql (U) Negative [facility] Laboratory - UrinalysisOrder ed By: Lizy Acosta on 04-18-2025 Protein Ql (U) Negative [facility] Language Teacher Office Visit Reporton 04-18-2025 Language Teacher Office Visit Report [facility] [address], [address] [place] [address] OFFICE VISIT Date of Service: 04/18/25 MR#: [id number] Acct: [id number] Name: RAMYA GOEL Rep #: [id number] : 1990 Provider: MIKI Bryan ams Age/Sex: 34/F Location[place] [facility] Status: Signed Intake Vital Signs 03/07/25 08:38 04/11/25 13:06 04/18/25 09:32 Height 5 ft 7 in 5 ft 7 in 5 ft 7 in Weight: 159 lb 1 oz BMI 24.9 BP 130/63 H Intake Visit Reasons: 38 WK OB Circuit Manager Required: No Is patient in pain?: No [...] 2 current occupational status: employed current occupation: [employer] current occupational exposures/hazards: No pets and [...] in: none frequency: 3-4 times per week taryn/taoism: Worship seatbelt use: always do you feel safe at home: Yes 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 Date Name GA/Weeks Outcome Route Bth Weight Infant Gen Labor Lgth Anesthesia Del Locatn Provider FOB 09/18/20 [place] 40 live - full term 7# Male [facility] Proko p 10/24/22 Perla 40 live - full term 8#11 Female epidural [facility] Demi Gonzalez Bud Delivery Date: 09/18/20 [...] 10/23/24 -???-???-???-? (more content not included)... Normal [facility] Laboratory - Chemistry and C hemistry - challengeOrdered By: Mary Gonzalez on 04-11-2025 Glucose Ql (U) Negative [facility] Laboratory - UrinalysisOrder ed By: Mary Gonzalez on 04-11-2025 Protein Ql (U) Negative [facility] Language Teacher Office Visit Reporton 04-11-2025 Language Teacher Office Visit Report [facility] [address], [address] [place] [address] OFFICE VISIT Date of Service: 04/11/25 MR#: [id number] Acct: [id number] Name: RAMYA GOEL Rep #: [id number] : 1990 Provider: Dr. Mary tan MD Age/Sex: 34/F Location[place] [facility] Status: Signed Intake Vital Signs 03/07/25 08:38 04/03/25 09:24 04/11/25 13:06 04/11/25 13:06 Height 5 ft 7 in 5 ft 7 in 5 ft 7 in 5 ft 7 in Weight: 156 lb 1 oz BMI 24.4 BP 116/71 Intake Visit Reasons: 37wk ob Circuit Manager Required: No Is patient in pain?: No [...] 2 current occupational status: employed current occupation: [employer] current occupational exposures/hazards: No pets and [...] in: none frequency: 3-4 times per week taryn/taoism: Worship seatbelt use: always do you feel safe at home: Yes 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 Date Name GA/Weeks Outcome Route Bth Weight Gen Labor Lgth Anesthesia Del Locatn Provider FOB 09/18/20 [place] 40 live - full term 7# Male [facility] Proko p 10/24/22 Perla 40 live - full term 8#11 Female epidural [facility] Demi Gonzalez Bud Delivery Date: 09/18/20 [...] 10/23/24 -???-???-???-?? (more content not included)... Normal [facility] Rule out Beta Strep (Grp. B) on 04-05-2025 ERVIN Group B Beta Streptococcus is not isolated. Normal [facility] Comment on above: Performed By: #### M 100.3400 #### [facility] Laboratory [address] [place], [address] Laboratory - Chemistry and C hemistry - challengeOrdered By: Lizy Acosta on 04-03-2025 Glucose Ql (U) Negative [facility] Laboratory - UrinalysisOrder ed By: Lizy Acosta on 04-03-2025 Protein Ql (U) Negative [facility] Language Teacher Office Visit Reporton 04-03-2025 Language Teacher Office Visit Report [facility] [address], [address] [place] [address] OFFICE VISIT Date of Service: 04/03/25 MR#: [id number] Acct: [id number] Name: RAMYA GOEL Rep #: [id number] : 1990 Provider: MIKI Bryan ams Age/Sex: 34/F Location[place] [facility] Status: Signed Intake Vital Signs 02/06/25 09:08 03/20/25 14:45 04/03/25 09:24 Height 5 ft 7 in 5 ft 7 in 5 ft 7 in Weight: 157 lb 7 oz BMI 24.6 BP 115/74 Intake Visit Reasons: 36wk ob Chief Complaint: 36wk ob Circuit Manager Required: No Is patient in pain?: No [...] 2 current occupational status: employed current occupation: [employer] current occupational exposures/hazards: No pets and [...] in: none frequency: 3-4 times per week taryn/taoism: Worship seatbelt use: always do you feel safe at home: Yes 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 Date Name GA/Weeks Outcome Route Bth Weight Gen Labor Lgth Anesthesia Del Locatn Provider FOB 09/18/20 [place] 40 live - full term 7# Male [facility] Proko p 10/24/22 Perla 40 live - full term 8#11 Female epidural [facility] Demi Gonzalez Bud Delivery Date: 09/18/20 [...] oz ( (more content not included)... Normal [facility] Screening beta-hemolytic Str eptococcus cultureOrdered By: Lizy Acosta on 04-03-2025 Beta-hemolytic Streptococcus culture Group B Beta Streptococcus is not isolated. [facility] Language Teacher Office Visit Reporton 03-20-2025 Language Teacher Office Visit Report [facility] [address], [address] [place] [address] OFFICE VISIT Date of Service: 03/20/25 MR#: [id number] Acct: [id number] Name: RAMYA GOEL Rep #: [id number] : 1990 Provider: Dr. 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 Date Name GA/Weeks Outcome Route Bth Weight Infant Gen Labor Lgth Anesthesia Del Locatn Provider FOB 09/18/20 [place] 40 live - full term 7# Male [facility] Proko p 10/24/22 Perla 40 live - full term 8#11 Female epidural [facility] Demi Gonzalez Bud Delivery Date: 09/18/20 [...] -???-???-???-???-???-?? ?-???-???-???-???-? (more content not included)... Normal [facility] Laboratory - Chemistry and C hemistry - challengeOrdered By: Krysta Petersen on 03-07-2025 Glucose Ql (U) Negative [facility] Laboratory - UrinalysisOrder ed By: Krysta Petersen on 03-07-2025 Protein Ql (U) Negative [facility] OB Biophysical Prof W/O NSTo n 03-07-2025 OB Biophysical Prof W/O NST [facility] [address] [place] [address] OB Biophysical Prof W/O NST MR#: [id number] Acct: [id number] Name: RAMYA GOEL Rep #: [id number] : 1990 F 34 From: Delano bejarano MD PCP: Dr. Connor Blank, DO Status: DEP CLI Study: OB Biophysical Prof W/O NST Date of Exam: 03/24 Exam# [id number] Ordering Dr: Lizy Acosta CNM PROCEDURE: OB [...] NST IMPRESSION: Normal biophysical profile. Reading Location: [id number] CC: MIKI Acosta; Dr. Connor Blank, Incident Response Lead: Signed Normal [facility] OB Triage Progress Noteon OB Triage Progress Note [facility] Medical Records Department [address] [place] [address] OB Triage Progress Note 03/07/25 1308 MR#: [id number] Acct: [id number] Name: RAMYA GOEL Rep #: [id number] : 1990 34 From: Lizy Acosta CNM PCP: Dr. Connor Blank, Status:DEP CLI Y DOS: Location: [facility] Progress Notes Date of Service: 03/07/25 Progress Note: Patient presents for triage evaluation secondary to nonreassuring NST at 32 weeks gestation FHT: 135 Moderate variability reactive no decelerations category I tracing [place]: rare Contractions Assessment and plan: BPP 03/07, Reactive NST, reassuring maternal and status patient discharged to home to follow-up in office. See problem list details for additional plan information. Charges/Coding Multi Select Codes Urinary/Genital Urinary/Genital CPT Codes: 20967-49 non-stress test Interp Assessment Plan (1) Variable [...] Acosta; Dr. Connor Blank, DO Signed Normal [facility] Language Teacher Office Visit Reporton 03-07-2025 Language Teacher Office Visit Report [facility] [address], [address] [place] [address] OFFICE VISIT Date of Service: 03/07/25 MR#: [id number] Acct: [id number] Name: RAMYA GOEL Rep #: [id number] : 1990 Provider: MIKI kinsey Age/Sex: 34/F Location[place] [facility] Status: Signed Intake Vital Signs 12/19/24 11:48 02/06/25 09:08 02/21/25 10:11 03/07/25 08:38 Height 5 ft 7 in 5 ft 7 in 5 ft 7 in 5 ft 7 in Weight: 147 lb 2 oz 147 lb 148 lb 6 oz BMI 23.0 23.0 23.2 BP 102/60 111/69 104/69 Intake Visit Reasons: 32wk ob Circuit Manager Required: No Is patient in pain?: No [...] 2 current occupational status: employed current occupation: [employer] current occupational exposures/hazards: No pets and [...] in: none frequency: 3-4 times per week taryn/taoism: Worship seatbelt use: always do you feel safe at home: Yes 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 Date Name GA/Weeks Outcome Route Bth Weight Gen Labor Lgth Anesthesia Del Locatn Provider FOB 09/18/20 [place] 40 live - full term 7# Male [facility] Proko p 10/24/22 [place] 40 live - full term 8#11 Female epidural [facility] Demi Gonzalez Bud Delivery Date: 09/18/20 [...] 169 -???-???-???-???-??? (more content not included)... Normal [facility] Language Teacher Office Visit Reporton 02-21-2025 Language Teacher Office Visit Report [address], [address] [place] [address] OFFICE VISIT Date of Service: 02/21/25 MR#: [id number] Acct: [id number] Name: RAMYA GOEL Rep #: [id number] : 1990 Provider: MIKI kinsey Age/Sex: 34/F Location[place] [facility] Status: Signed with Addenda ADDENDUM by Ruby Esteban on 02/21/25 at 1032 Office Procedure Documentation entered by Ruby Esteban 02/21/25 10:32: Immunizations Adacel(Tdap Adolesn/Adult)(PF) 2 Lf-(2.5-5-3-5)-5 Lf/0.5 mL IM syringe Performing Provider: Krysta Petersen CNM Performing Location: [facility] Administered by: Ruby Esteban on 02/21/25 10:32 Dose Route Admin Location Dispensed Lot Number Expiration Date NDC Man ufacturer 0.5 mL IM Left Arm (SQ) 0.5 mL [id number] 12/29/26 93006-237-37 [employer]- PASTEUR VIS Given Date VIS Provided VIS Publication Date 02/21/25 Single Vaccine 24 Eligibility Eligibility Date Funding Source Not Applicable Date cc: * Signed Intake Vital Signs 12/19/24 11:48 02/06/25 09:08 02/21/25 10:11 Height 5 ft 7 in 5 ft 7 in 5 ft 7 in Weight: 147 lb BMI 23.0 BP 111/69 Intake Visit Reasons: 30wk ob Circuit Manager Required: No Is patient in pain?: No [...] 2 current occupational status: employed current occupation: [employer] current occupational exposures/hazards: No pets and [...] in: none frequency: 3-4 times per week taryn/taoism: Worship seatbelt use: always do you feel safe at home: Yes 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 Date Name GA/Weeks Outcome Route Bth Weight Gen Labor Lgth Anesthesia Del Locatn Provider FOB 09/18/20 [place] 40 live - full term 7# Male [facility] Proko p 10/24/22 Per[place] 40 live - full term 8#11 Female epidural [facility] Demi Gonzalez Bud Delivery Date: 09/18/20 [...] plan of (more content not included)... Normal [facility] Absolute lymphocyte countOrd ered By: Lizy Acosta on 02-06-2025 Lymphocytes Auto (Unsp spec) [#/Vol] 1.17 10*3/uL 0.83-4.51 [facility] Absolute neutrophil countOrd ered By: Lizy Acosta on 02-06-2025 Neutrophils (Bld) [#/Vol] 4.7 10*3/uL 2.0-7.7 [facility] Automated lymphocyte count a s percentage of total leukocytesOrdered By: Lizy Acosta on 02-06-2025 Lymphocytes/100 WBC Auto (Unsp spec) 18.5 % Low 19-41 [facility] Basophil percentageOrdered B y: Lizy Acosta on 02-06-2025 Basophils/100 WBC (Bld) 0.6 % 0-1 W [facility] CBC W/Diff, Automatedon 01-28 Absolute Lymph 1.17 X10 3/uL Normal 0.83-4.51 [facility] Comment on above: Performed By: #### L 501.0250, L3890.6006, L509.8002, L100.0100 #### [facility] Laboratory [address] [place], [address] Absolute Neut 4.7 X10 3/uL Normal 2.0-7.7 [facility] Comment on above: Performed By: #### L 501.0250, L3890.6006, L509.8002, L100.0100 #### [facility] [address] [place], [address] Basophils/100 WBC (Bld) 0.6 % Normal 0-1 W [facility] Comment on above: Performed By: #### L 501.0250, L3890.6006, L509.8002, L100.0100 #### [facility] [address] [place], [address] Eosinophils/100 WBC (Bld) 0.3 % Normal 0-5 [facility] Comment on above: Performed By: #### L 501.0250, L3890.6006, L509.8002, L100.0100 #### [facility] [address] [place], [address] Erythrocyte distribution width (RBC) [Ratio] 13.3 % Normal 11.6-14.6 [facility] Comment on above: Performed By: #### L 501.0250, L3890.6006, L509.8002, L100.0100 #### [facility] [address] [place], [address] Hematocrit (Bld) [Volume fraction] 37.9 % Normal 37-47 [facility] Comment on above: Performed By: #### L 501.0250, L3890.6006, L509.8002, L100.0100 #### [facility] [address] [place], [address] Hemoglobin (Bld) [Mass/Vol] 12.6 g/dL Normal 12.0-15.0 [facility] Comment on above: Performed By: #### L 501.0250, L3890.6006, L509.8002, L100.0100 #### [facility] [address] [place], [address] IG% 0.800 Normal 0.0-0.9 [facility] Comment on above: Result Comment: IG% - Immature Granulocytes (promyelocytes, myelocytes and metamyelocytes) > 1% indicates that a LEFT SHIFT is Present. Performed By: #### L 501.0250, L3890.6006, L509.8002, L100.0100 #### [facility] [address] [place], [address] Lymphocytes/100 WBC (Bld) 18.5 % Low 19-41 [facility] Comment on above: Performed By: #### L 501.0250, L3890.6006, L509.8002, L100.0100 #### [facility] [address] [place], [address] MCH (RBC) [Entitic mass] 30.1 pg Normal 27.0-32.0 [facility] Comment on above: Performed By: #### L 501.0250, L3890.6006, L509.8002, L100.0100 #### [facility] [address] [place], [address] MCHC (RBC) [Mass/Vol] 33.2 g/dL Normal 32-36 [facility] Comment on above: Performed By: #### L 501.0250, L3890.6006, L509.8002, L100.0100 #### [facility] [address] [place], [address] MCV (RBC) [Entitic vol] 90.7 fL Normal 81-99 [facility] Comment on above: Performed By: #### L 501.0250, L3890.6006, L509.8002, L100.0100 #### [facility] [address] [place], [address] Monocytes/100 WBC (Bld) 5.5 % Normal 0-10 [facility] Comment on above: Performed By: #### L 501.0250, L3890.6006, L509.8002, L100.0100 #### [facility] [address] [place], [address] Neutrophils/100 WBC (Bld) 74.3 % High 47-70 [facility] Comment on above: Performed By: #### L 501.0250, L3890.6006, L509.8002, L100.0100 #### [facility] [address] [place], [address] Nucleated RBC (Bld) [#/Vol] 0 10*3/uL Normal 0-5 [facility] Comment on above: Performed By: #### L 501.0250, L3890.6006, L509.8002, L100.0100 #### [facility] [address] [place], [address] Platelet mean volume (Bld) [Entitic vol] 10.9 fL Normal 6.2-12.0 [facility] Comment on above: Performed By: #### L 501.0250, L3890.6006, L509.8002, L100.0100 #### [facility] [address] [place], [address] Platelets (Bld) [#/Vol] 169 10*3/uL Normal 150-450 [facility] Comment on above: Performed By: #### L 501.0250, L3890.6006, L509.8002, L100.0100 #### [facility] [address] [place], [address] RBC (Bld) [#/Vol] 4.18 10*6/uL Low 4.2-5.4 [facility] Comment on above: Performed By: #### L 501.0250, L3890.6006, L509.8002, L100.0100 #### [facility] [address] [place], [address] RDW SD 44.1 fl High 35.1-43.9 [facility] Comment on above: Performed By: #### L 501.0250, L3890.6006, L509.8002, L100.0100 #### [facility] [address] [place], [address] WBC (Bld) [#/Vol] 6.3 10*3/uL Normal 4.4-11.0 [facility] Comment on above: Performed By: #### L 501.0250, L3890.6006, L509.8002, L100.0100 #### [facility] [address] [place], [address] Eosinophil percentageOrdered By: Lizy Acosta on 02-06-2025 Eosinophils/100 WBC (Bld) 0.3 % 0-5 [facility] Erythrocyte distribution wid th ratioOrdered By: Lizy Acosta on 02-06-2025 Erythrocyte distribution width (RBC) [Ratio] 13.3 % 11.6-14.6 [facility] Erythrocyte distribution wid th standard deviationOrdered By: Lizy Acosta on 02-06-2025 Erythrocyte distribution width (RBC) [Ratio] 44.1 fl High 35.1-43.9 [facility] Glucose Challenge Gest 1H 50 allan 02-06-2025 GLU GEST 50g 1H 80 mg/dL Normal 70-140 [facility] Comment on above: Performed By: #### L 501.0250, L3890.6006, L509.8002, L100.0100 ####[facility] [address] [place], [address] Glucose measurement at 2 kym rs post-dose gestational glucose tolerance testOrdered By: Lizy Acosta on 02-06-2025 Glucose [Mass/Vol] 80 mg/dL 70-140 [facility] HIVon 02-06-2025 HIV Non-Reactive Normal Nonreactive [facility] Comment on above: Result Comment: Non- Reactive Reactive Repeatedly reactive samples must be confirmed according to CDC recommended confirmatory algorithms. The subresults for either HIVAG or AHIV can be used as an aid in the selection of the confirmation algorithm for reactive samples. Send out specimens with Reactive results to [facility] for confirmation. Order the HIV antibody detection and differentiation: lc#[id number] Performed By: #### L 501.0250, L3890.6006, L509.8002, L100.0100 ####[facility] [address] [place], [address] Hematocrit Auto (Bld) [Volum e fraction]Ordered By: Lizy Acosta on 02-06-2025 Hematocrit (Bld) [Volume fraction] 37.9 % 37-47 [facility] Hemoglobin measurementOrdere d By: Lizy Acosta on 02-06-2025 Hemoglobin (Bld) [Mass/Vol] 12.6 g/dL 12.0-15.0 [facility] Immature granulocytes/100 WB C Auto (Bld)Ordered By: Lizy Acosta on 02-06-2025 Immature granulocytes/100 WBC (Bld) 0.800 % 0.0-0.9 [facility] Comment on above: IG% - Immature Granu locytes (promyelocytes, myelocytes and metamyelocytes) > 1% indicates that a LEFT SHIFT is Present. Laboratory - Chemistry and C hemistry - challengeOrdered By: Anahi Riojas on 02-06-2025 Glucose Ql (U) Negative [facility] - UrinalysisOrder ed By: Anahi Riojas on 02-06-2025 Protein Ql (U) Negative [facility] MCV (mean corpuscular volume ) determinationOrdered By: Lizy Acosta on 02-06-2025 MCV (RBC) [Entitic vol] 90.7 fL 81-99 [facility] Mean corpuscular hemoglobin (MCH) determinationOrdered By: Lizy Acosta on 02-06-2025 MCH (RBC) [Entitic mass] 30.1 pg 27.0-32.0 [facility] Mean corpuscular hemoglobin concentration (MCHC) determinationOrdered By: Lizy Acosta on 02-06-2025 MCHC (RBC) [Mass/Vol] 33.2 g/dL 32-36 [facility] Mean platelet volume determi nationOrdered By: Lizy Acosta on 02-06-2025 Platelet mean volume (Bld) [Entitic vol] 10.9 fL 6.2-12.0 [facility] Monocyte percentageOrdered B y: Lizy Acosta on 02-06-2025 Monocytes/100 WBC (Bld) 5.5 % 0-10 [facility] Neutrophil percentageOrdered By: Lizy Acosta on 02-06-2025 Neutrophils/100 WBC (Bld) 74.3 % High 47-70 [facility] No Panel InformationOrdered By: Lizy Acosta on 02-06-2025 HIV (1&2) Antibody Non-Reactive Nonreactive [facility] Comment on above: Non-ReactiveReactive Repeatedly reactive samples must be confirmed according to CDC recommended confirmatory algorithms. The subresults for either HIVAG or AHIV can be used as an aid in the selection of the confirmation algorithm for reactive samples.Send out specimens with Reactive results to [facility] for confirmation.Order the HIV antibody detection and differentiation: #[id number] Nucleated red blood cell per centageOrdered By: Lizy Acosta on 02-06-2025 Nucleated RBC/100 WBC (Bld) [Ratio] 0 % 0-5 [facility] Language Teacher Office Visit Reporton 02-06-2025 Language Teacher Office Visit Report [facility] [address], [address] [place] [address] OFFICE VISIT Date of Service: 02/06/25 MR#: [id number] Acct: [id number] Name: RAMYA GOEL Rep #: [id number] : 1990 Provider: RICHARD griffiths Age/Sex: 34/F [place] [facility] [place]: Signed Intake Vital Signs 12/19/24 11:48 01/16/25 09:34 02/06/25 09:08 Height 5 ft 7 in 5 ft 7 in 5 ft 7 in Weight: 140 lb 8 oz 147 lb 2 oz BMI 21.9 23.0 BP 97/65 102/60 Intake Visit Reasons: 28wk ob/glucose Chief Complaint: 28 Week OB/Glucose Circuit Manager Required: No Is patient in pain?: No [...] 2 current occupational status: employed current occupation: [employer] current occupational exposures/hazards: No pets and [...] in: none frequency: 3-4 times per week taryn/taoism: Worship seatbelt use: always do you feel safe at home: Yes 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 Date Name GA/Weeks Outcome Route Bth Weight Gen Labor Lgth Anesthesia Del Locatn Provider FOB 09/18/20 [place] 40 live - full term 7# Male [facility] Proko p 10/24/22 [place] 40 live - full term 8#11 Female epidural [facility] Sh liliana Gonzalez Bud Delivery Date: [...] cons wit (more content not included)... Normal [facility] Platelet countOrdered By: Beto Acosta on 02-06-2025 Platelets (Bld) [#/Vol] 169 10*3/uL 150-450 [facility] RBC Auto (Bld) [#/Vol]Ordere d By: Lizy Acosta on 02-06-2025 RBC (Bld) [#/Vol] 4.18 10*6/uL Low 4.2-5.4 [facility] Syphilis Antibodieson 2024 Syphilis Abs Non-Reactive Normal Nonreactive [facility] Comment on above: Performed By: #### L 501.0250, L3890.6006, L509.8002, L100.0100 ####[facility] [address] [place], [place], [id number] White blood cell (WBC) count Ordered By: Lizy Acosta on 02-06-2025 WBC (Bld) [#/Vol] 6.3 10*3/uL 4.4-11.0 [facility] - Chemistry and C hemistry - challengeOrdered By: Lizy Acosta on 01-16-2025 Glucose Ql (U) Negative [facility] - UrinalysisOrder ed By: Lizy Acosta on 01-16-2025 Protein Ql (U) Negative [facility] Language Teacher Office Visit Reporton 01-16-2025 Language Teacher Office Visit Report [facility] [address], [address] [place] [address] OFFICE VISIT Date of Service: 01/16/25 MR#: [id number] Acct: [id number] Name: RAMYA GOEL Rep #: [id number] : 1990 Provider: MIKI Bryan ams Age/Sex: 34/F [place] [facility]: Signed Intake Vital Signs 10/23/24 14:30 12/19/24 11:48 01/16/25 09:34 Height 5 ft 7 in 5 ft 7 in 5 ft 7 in Weight: 140 lb 8 oz BMI 21.9 BP 97/65 Intake Visit Reasons: 25wk ob Chief Complaint: 25 Week OB Circuit Manager Required: No Is patient in pain?: No [...] 2 current occupational status: employed current occupation: [employer] current occupational exposures/hazards: No pets and [...] in: none frequency: 3-4 times per week taryn/taoism: Worship seatbelt use: always do you feel safe at home: Yes 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 Date Name GA/Weeks Outcome Route Bth Weight Gen Labor Lgth Anesthesia Del Locatn Provider FOB 09/18/20 [place] 40 live - full term 7# Male [facility] Proko p 10/24/22 [place] 40 live - full term 8#11 Female epidural [facility] Sh liliana Lisa Bud Delivery Date: [...] -???-???-???-???-???-?? ?-???-???-?? (more content not included)... Normal [facility] Progress Noteon 01-03-2025 [employer] Supervisor Authentication Interface Message Text Note opened in error Normal [facility] [employer] Supervisor Authentication Interface Message Text [facility] Perinatology Antepartum Consult Note [...] needed. No follow-up has been scheduled in [facility]. Thank you for the opportunity to participate in the care of Ramya Goel. I would be happy to see her again for her care this . Please feel free to contact me if you have any questions. My final recommendations will be communicated back to the requesting physician by way of shared medical record or fax. Solange Howard MD Normal [facility] - Chemistry and C hemistry - challengeOrdered By: Mary Gonzalez on 12-19-2024 Glucose Ql (U) Negative [facility] - UrinalysisOrder ed By: Mary Gonzalez on 12-19-2024 Protein Ql (U) Negative [facility] Language Teacher Office Visit Reporton 12-19-2024 Language Teacher Office Visit Report [facility] [address], [address] [place] [address] OFFICE VISIT Date of Service: 12/19/24 MR#: [id number] Acct: [id number] Name: RAMYA GOEL Rep #: [id number] : 1990 Provider: Dr. 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 Date Name GA/Weeks Outcome Route Bth Weight Gen Labor Lgth Anesthesia Del Locatn Provider FOB 09/18/20 [place] 40 live - full term 7# Male [facility] Proko p 10/24/22 [place] 40 live - full term 8#11 Female epidural [facility] liliana Farrell Delivery Date: 09/18/20 Last Updated [...] -???-???-???-???-???-?? ?-???-???-???-???- (more content not included)... Normal [facility] Rapid group A Streptococcus antigen assay at point of careOrdered By: Nick Ziegler on 12-08-2024 S. pyogenes Ag IA.rapid Ql (Throat) Negative [facility] Urgent Care Visit Reporton 0 12-08-2024 Urgent Care Visit Report [facility] [address], [address] [place] [address] OFFICE VISIT Date of Service: 12/08/24 MR#: [id number] Acct: [id number] Name: RAMYA GOEL Rep #: [id number] : 1990 Provider: [facility] Self Schedule Age/Sex: 33/F Location: [facility] [place] [place] Status: Signed Intake Vital Signs 11/19/24 13:40 [...] throat, swollen glands in neck, ear pain Circuit Manager Required: No Accompanied by: Self Is patient [...] 2 current occupational status: employed current occupation: [employer] current occupational exposures/hazards: No pets and [...] in: none frequency: 3-4 times per week taryn/taoism: Worship seatbelt use: always do you feel safe at home: Yes 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 Normal [facility] - Chemistry and C hemistry - challengeOrdered By: Anahi Riojas on 11-19-2024 Glucose Ql (U) Negative [facility] - UrinalysisOrder ed By: Anahi Riojas on 11-19-2024 Protein Ql (U) Negative [facility] Language Teacher Office Visit Reporton 11-19-2024 Language Teacher Office Visit Report [facility] [address], [address] [place] [address] OFFICE VISIT Date of Service: 11/19/24 MR#: [id number] Acct: [id number] Name: RAMYA GOEL Rep #: [id number] : 1990 Provider: RICHARD griffiths Age/Sex: 33/F [place] [facility] [place]: Signed Intake Vital Signs 09/27/24 08:02 10/23/24 14:30 11/19/24 13:40 Height 5 ft 7 in 5 ft 7 in 5 ft 7 in Weight: 131 lb 8 oz BMI 20.5 BP 118/80 Intake Visit Reasons: 16 wk ob Chief Complaint: 16 Week OB Circuit Manager Required: No Is patient in pain?: No [...] 2 current occupational status: employed current occupation: [email or web address] current occupational exposures/hazards: No pets and [...] in: none frequency: 3-4 times per week taryn/taoism: Worship seatbelt use: always do you feel safe at home: Yes 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 Date Name GA/Weeks Outcome Route Bth Weight Gen Labor Lgth Anesthesia Del Locatn Provider FOB 09/18/20 [place] 40 live - full term 7# Male [...] -???-???-???-???-???-?? ?-???-?? (more content not included)... Normal [facility] - Chemistry and C hemistry - challengeOrdered By: Yue Hull on 10-23-2024 Glucose Ql (U) Negative [facility] - UrinalysisOrder ed By: Yue Hull on 10-23-2024 Protein Ql (U) Negative [facility] Language Teacher Office Visit Reporton 10-23-2024 Language Teacher Office Visit Report [facility] [address], [address] [place] [address] OFFICE VISIT Date of Service: 10/23/24 MR#: [id number] Acct: [id number] Name: RAMYA GOEL Rep #: [id number] : 1990 Provider: Dr. Yue Lopez DO Age/Sex: 33/F [place] [facility] [place]: Signed Intake Vital Signs 01/01/24 10:54 09/27/24 08:02 10/23/24 14:30 10/23/24 14:30 Height 5 ft 7 in 5 ft 7 in 5 ft 7 in 5 ft 7 in Weight: 129 lb 8 oz BMI 20.2 BP 128/80 H Intake Visit Reasons: 12 wk ob Circuit Manager Required: No Is patient in pain?: No [...] 2 current occupational status: employed current occupation: [employer] current occupational exposures/hazards: No pets and [...] in: none frequency: 3-4 times per week taryn/taoism: Worship seatbelt use: always do you feel safe at home: Yes 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 Date Name GA/Weeks Outcome Route Bth Weight Infant Gen Labor Lgth Anesthesia Del Locatn Provider FOB 09/18/20 [place] 40 live - full term 7# Male [facility] Proko p 10/24/22 [place] 40 live - full term 8#11 Female epidural [facility] Sh liliana Lisa Bud Delivery Date: [...] 128/80 Negati (more content not included)... Normal [facility] Chlamydia/GC ITZEL aptimaon CHLAMY,NUC ACID Negative Normal Negative [facility] Comment on above: Performed By: #### M 100.2200, L7000.1800 ####[facility] [address] [place], [place], [id number] GC BY NUC ACID Negative Normal Negative [facility] Comment on above: Result Comment: Perf ormed at: =G - [facility] [address] [place], [place] [id number] Soda Jerker: Lizzie Lezama MD, Phone: [phone] Performed By: #### M 100.2200, L7000.1800 ####[facility] [address] [place], [place], [id number] Urine Cultureon 09-28-2024 URC Culture exhibits no growth. Normal [facility] Comment on above: Performed By: #### M 100.2200, L7000.1800 ####[facility] [address] [place], [place], [id number] Absolute lymphocyte countOrd ered By: Lizy Acosta on 09-27-2024 Lymphocytes Auto (Unsp spec) [#/Vol] 0.97 10*3/uL 0.83-4.51 [facility] Absolute neutrophil countOrd ered By: Lizy Acosta on 09-27-2024 Neutrophils (Bld) [#/Vol] 4.3 10*3/uL 2.0-7.7 [facility] Automated lymphocyte count a s percentage of total leukocytesOrdered By: Lizy Acosta on 09-27-2024 Lymphocytes/100 WBC Auto (Unsp spec) 16.9 % Low 19-41 [facility] Basophil percentageOrdered B y: Lizy Acosta on 09-27-2024 Basophils/100 WBC (Bld) 0.5 % 0-1 W [facility] C. trachomatis rRNA ITZEL+prob e Ql (Unsp spec)Ordered By: Lizy Acosta on 09-27-2024 Chlamydia DNA (ITZEL) Negative Negative [facility] CBC W/Diff, Automatedon 09-01 Absolute Lymph 0.97 X10 3/uL Normal 0.83-4.51 [facility] Comment on above: Performed By: #### L 3890.6301, BTS, L3890.6102, L509.8002, L3890.6006, L100.0100, L509.4006 ####[facility] [address] [place], [address] Absolute Neut 4.3 X10 3/uL Normal 2.0-7.7 [facility] Comment on above: Performed By: #### L 3890.6301, BTS, L3890.6102, L509.8002, L3890.6006, L100.0100, L509.4006 ####[facility] [address] [place], [address] Basophils/100 WBC (Bld) 0.5 % Normal 0-1 W [facility] Comment on above: Performed By: #### L 3890.6301, BTS, L3890.6102, L509.8002, L3890.6006, L100.0100, L509.4006 ####[facility] [address] [place], [address] Eosinophils/100 WBC (Bld) 0.2 % Normal 0-5 [facility] Comment on above: Performed By: #### L 3890.6301, BTS, L3890.6102, L509.8002, L3890.6006, L100.0100, L509.4006 ####[facility] [address] [place], [address] Erythrocyte distribution width (RBC) [Ratio] 14.0 % Normal 11.6-14.6 [facility] Comment on above: Performed By: #### L 3890.6301, BTS, L3890.6102, L509.8002, L3890.6006, L100.0100, L509.4006 ####[facility] [address] [place], [address] Hematocrit (Bld) [Volume fraction] 38.3 % Normal 37-47 [facility] Comment on above: Performed By: #### L 3890.6301, BTS, L3890.6102, L509.8002, L3890.6006, L100.0100, L509.4006 ####[facility] [address] [place], [address] Hemoglobin (Bld) [Mass/Vol] 12.8 g/dL Normal 12.0-15.0 [facility] Comment on above: Performed By: #### L 3890.6301, BTS, L3890.6102, L509.8002, L3890.6006, L100.0100, L509.4006 ####[facility] [address] [place], [address] IG% 0.200 Normal 0.0-0.9 [facility] Comment on above: Result Comment: IG% - Immature Granulocytes (promyelocytes, myelocytes and metamyelocytes) > 1% indicates that a LEFT SHIFT is Present. Performed By: #### L 3890.6301, BTS, L3890.6102, L509.8002, L3890.6006, L100.0100, L509.4006 ####[facility] [address] [place], [address] Lymphocytes/100 WBC (Bld) 16.9 % Low 19-41 [facility] Comment on above: Performed By: #### L 3890.6301, BTS, L3890.6102, L509.8002, L3890.6006, L100.0100, L509.4006 ####[facility] [address] [place], [address] MCH (RBC) [Entitic mass] 27.5 pg Normal 27.0-32.0 [facility] Comment on above: Performed By: #### L 3890.6301, BTS, L3890.6102, L509.8002, L3890.6006, L100.0100, L509.4006 ####[facility] [address] [place], [address] MCHC (RBC) [Mass/Vol] 33.4 g/dL Normal 32-36 [facility] Comment on above: Performed By: #### L 3890.6301, BTS, L3890.6102, L509.8002, L3890.6006, L100.0100, L509.4006 ####[facility] [address] [place], [address] MCV (RBC) [Entitic vol] 82.4 fL Normal 81-99 W [facility] Comment on above: Performed By: #### L 3890.6301, BTS, L3890.6102, L509.8002, L3890.6006, L100.0100, L509.4006 ####[facility] [address] [place], [address] Monocytes/100 WBC (Bld) 8.0 % Normal 0-10 [facility] Comment on above: Performed By: #### L 3890.6301, BTS, L3890.6102, L509.8002, L3890.6006, L100.0100, L509.4006 ####[facility] [address] [place], [address] Neutrophils/100 WBC (Bld) 74.2 % High 47-70 [facility] Comment on above: Performed By: #### L 3890.6301, BTS, L3890.6102, L509.8002, L3890.6006, L100.0100, L509.4006 ####[facility] [address] [place], [address] Nucleated RBC (Bld) [#/Vol] 0 10*3/uL Normal 0-5 [facility] Comment on above: Performed By: #### L 3890.6301, BTS, L3890.6102, L509.8002, L3890.6006, L100.0100, L509.4006 ####[facility] [address] [place], [address] Platelet mean volume (Bld) [Entitic vol] 11.1 fL Normal 6.2-12.0 [facility] Comment on above: Performed By: #### L 3890.6301, BTS, L3890.6102, L509.8002, L3890.6006, L100.0100, L509.4006 ####[facility] [address] [place], [address] Platelets (Bld) [#/Vol] 154 10*3/uL Normal 150-450 [facility] Comment on above: Performed By: #### L 3890.6301, BTS, L3890.6102, L509.8002, L3890.6006, L100.0100, L509.4006 ####[facility] [address] [place], [address] RBC (Bld) [#/Vol] 4.65 10*6/uL Normal 4.2-5.4 [facility] Comment on above: Performed By: #### L 3890.6301, BTS, L3890.6102, L509.8002, L3890.6006, L100.0100, L509.4006 ####[facility] [address] [place], [address] RDW SD 41.2 fl Normal 35.1-43.9 [facility] Comment on above: Performed By: #### L 3890.6301, BTS, L3890.6102, L509.8002, L3890.6006, L100.0100, L509.4006 ####[facility] [address] [place], [address] WBC (Bld) [#/Vol] 5.7 10*3/uL Normal 4.4-11.0 [facility] Comment on above: Performed By: #### L 3890.6301, BTS, L3890.6102, L509.8002, L3890.6006, L100.0100, L509.4006 ####[facility] [address] [place], [address] Chlamydia trachomatis rRNA d etection by probe and target amplification methodOrdered By: Lizy Acosta on 09-27-2024 C. trachomatis rRNA ITZEL+probe Ql (Unsp spec) Negative Negative [facility] Eosinophil percentageOrdered By: Lizy Acosta on 09-27-2024 Eosinophils/100 WBC (Bld) 0.2 % 0-5 [facility] Erythrocyte distribution wid th ratioOrdered By: Lizy Acosta on 09-27-2024 Erythrocyte distribution width (RBC) [Ratio] 14.0 % 11.6-14.6 [facility] Erythrocyte distribution wid th standard deviationOrdered By: Lizy Acosta on 09-27-2024 Erythrocyte distribution width (RBC) [Entitic vol] 41.2 fL 35.1-43.9 [facility] Erythrocyte distribution width (RBC) [Ratio] 41.2 fl 35.1-43.9 [facility] HBV surface Ag Ql (S)Ordered By: Lizy Acosta on 09-27-2024 Hepatitis B Surface Antigen Non-Reactive Nonreactive [facility] Comment on above: Reactive: Presumptiv e evidence of HBV. Repeatedly reactive samples must be confirmed using a neutralization test (ElecTeaMobis HBsAg Confirmatory Test)Non-Reactive: HBsAg not detected; does not exclude the possibility of exposure to HBV Hematocrit Auto (Bld) [Volum e fraction]Ordered By: Lizy Acosta on 09-27-2024 Hematocrit (Bld) [Volume fraction] 38.3 % 37-47 [facility] Hemoglobin measurementOrdere d By: Lizy Acosta on 09-27-2024 Hemoglobin (Bld) [Mass/Vol] 12.8 g/dL 12.0-15.0 [facility] Hepatitis C antibodyOrdered By: Lizy Acosta on 09-27-2024 Hepatitis C Antibody Non-Reactive Nonreactive [facility] Comment on above: Reactive: Presumptiv e evidence of antibodies to HCV. Follow CDC recommendations for supplemental testing.Non-Reactive: Antibodies to HCV were not detected; does not exclude the possibility of exposure to HCVReactive Results are presumptive evidence of antibodies to HCV. Follow CDC recommendations for supplemental testing.Order confirmation testing: HCV Quant by PCR testing - HCVPCR #[id number] Non Reactive: < 0.8 Equivocal: >/= 0.8 to < 1.0 Reactive: >/= 1.0The CDC requires that a reactive/equivocal HCV antibody result be sent out for confirmation. HCV Quant by PCR testing. Immature granulocytes/100 WB C Auto (Bld)Ordered By: Lizy Acosta on 09-27-2024 Immature granulocytes/100 WBC (Bld) 0.200 % 0.0-0.9 [facility] Comment on above: IG% - Immature Granu locytes (promyelocytes, myelocytes and metamyelocytes) > 1% indicates that a LEFT SHIFT is Present. L3890.6006on 09-27-2024 HIV Non-Reactive Normal Nonreactive [facility] Comment on above: Result Comment: Non- Reactive Reactive Repeatedly reactive samples must be confirmed according to CDC recommended confirmatory algorithms. The subresults for either HIVAG or AHIV can be used as an aid in the selection of the confirmation algorithm for reactive samples. Send out specimens with Reactive results to [facility] for confirmation. Order the HIV antibody detection and differentiation: lc#[id number] Performed By: #### L 3890.6301, BTS, L3890.6102, L509.8002, L3890.6006, L100.0100, L509.4006 ####[facility] [address] [place], [place], [id number] L3890.6102on 09-27-2024 HEP B Surf Ag Non-Reactive Normal Nonreactive [facility] Comment on above: Result Comment: Reac tive: Presumptive evidence of HBV. Repeatedly reactive samples must be confirmed using a neutralization test ([employer]ys HBsAg Confirmatory Test) Non-Reactive: HBsAg not detected; does not exclude the possibility of exposure to HBV Performed By: #### L 3890.6301, BTS, L3890.6102, L509.8002, L3890.6006, L100.0100, L509.4006 ####[facility] [address] [facility] [place], [place], [id number] L3890.6301on 09-27-2024 Hepatitis C Ab Non-Reactive Normal Nonreactive [facility] Comment on above: Result Comment: Reac tive: Presumptive evidence of antibodies to HCV. Follow CDC recommendations for supplemental testing. Non-Reactive: Antibodies to HCV were not detected; does not exclude the possibility of exposure to HCV Reactive Results are presumptive evidence of antibodies to HCV. Follow CDC recommendations for supplemental testing. Order confirmation testing: HCV Quant by PCR testing - HCVPCR #[id number] Non Reactive: < 0.8 Equivocal: >/= 0.8 to < 1.0 Reactive: >/= 1.0 The CDC requires that a reactive/equivocal HCV antibody result be sent out for confirmation. HCV Quant by PCR testing. Performed By: #### L 3890.6301, BTS, L3890.6102, L509.8002, L3890.6006, L100.0100, L509.4006 ####[facility] [address] [place], [address] L509.4006on 09-27-2024 Rubella IgG REAC Normal Nonreactive [facility] Comment on above: Result Comment: Anti body Result: Interpretation Non-Reactive: Non-Immune Reactive: Immune The following results were obtained with the Elecsys Rubella IgG assay. Results from assays of other manufacturers cannot be used interchangeably. Performed By: #### L 3890.6301, BTS, L3890.6102, L509.8002, L3890.6006, L100.0100, L509.4006 ####[facility] [address] [place], [place], [address] L509.8002on 09-27-2024 Syphilis Abs Non-Reactive Normal Nonreactive [facility] Comment on above: Performed By: #### L 3890.6301, BTS, L3890.6102, L509.8002, L3890.6006, L100.0100, L509.4006 ####[facility] [address] [facility] [place], [place], [id number] Laboratory - Microbiology an d Antimicrobial susceptibilityOrdered By: Lizy Acosta on 09-27-2024 HBV surface Ag Ql (S) Non-Reactive Nonreactive [facility] Comment on above: Reactive: Presumptiv e evidence of HBV. Repeatedly reactive samples must be confirmed using a neutralization test (Elecsys HBsAg Confirmatory Test)Non-Reactive: HBsAg not detected; does not exclude the possibility of exposure to HBV Lymphocytes Auto (Unsp spec) [#/Vol]Ordered By: Lizy Acosta on 09-27-2024 Lymphocytes (Bld) [#/Vol] 0.97 10*3/uL 0.83-4.51 [facility] Lymphocytes/100 WBC Auto (Un sp spec)Ordered By: Lizy Acosta on 09-27-2024 Lymphocytes/100 WBC (Bld) 16.9 % Low 19-41 [facility] MCV (mean corpuscular volume ) determinationOrdered By: Lizy Acosta on 09-27-2024 MCV (RBC) [Entitic vol] 82.4 fL 81-99 [facility] Mean corpuscular hemoglobin (MCH) determinationOrdered By: Lizy Acosta on 09-27-2024 MCH (RBC) [Entitic mass] 27.5 pg 27.0-32.0 [facility] Mean corpuscular hemoglobin concentration (MCHC) determinationOrdered By: Lizy Acosta on 09-27-2024 MCHC (RBC) [Mass/Vol] 33.4 g/dL 32-36 [facility] Mean platelet volume determi nationOrdered By: Lizy Acosta on 09-27-2024 Platelet mean volume (Bld) [Entitic vol] 11.1 fL 6.2-12.0 [facility] Monocyte percentageOrdered B y: Lizy Acosta on 09-27-2024 Monocytes/100 WBC (Bld) 8.0 % 0-10 W [facility] Neisseria gonorrhoeae nuclei c acid detection by amplified probe techniqueOrdered By: Lizy Acosta on 09-27-2024 N. gonorrhoeae DNA ITZEL+probe Ql (Unsp spec) Negative Negative [facility] Comment on above: Performed at: =[facility] [address] [id number] Director: Lizzie Lezama MD, Phone: [phone] Neutrophil percentageOrdered By: Lizy Acosta on 09-27-2024 Neutrophils/100 WBC (Bld) 74.2 % High 47-70 [facility] No Panel InformationOrdered By: Lizy Acosta on 09-27-2024 HIV (1&2) Antibody Non-Reactive Nonreactive [facility] Comment on above: Non-ReactiveReactive Repeatedly reactive samples must be confirmed according to CDC recommended confirmatory algorithms. The subresults for either HIVAG or AHIV can be used as an aid in the selection of the confirmation algorithm for reactive samples.Send out specimens with Reactive results to [facility] for confirmation.Order the HIV antibody detection and differentiation: #[id number] Syphilis Total Antibody Non-Reactive Nonreactiv e [facility] Nucleated red blood cell per centageOrdered By: Lizy Acosta on 09-27-2024 Nucleated RBC/100 WBC (Bld) [Ratio] 0 % 0-5 [facility] Language Teacher Office Visit Reporton 09-27-2024 Language Teacher Office Visit Report 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 Date Name GA/Weeks Outcome Route Bth Weight Infant Gen Labor Lgth Anesthesia Del Locatn Provider FOB 09/18/20 [place] 40 live - full term 7# Male [facility] Proko p 10/24/22 [place] 40 live - full term 8#11 Female epidural [facility] liliana Gonzalez Bud Delivery Date: 09/18/20 Last [...] Declines NIPT (more content not included)... Normal [facility] Platelet countOrdered By: Beto Acosta on 09-27-2024 Platelets (Bld) [#/Vol] 154 10*3/uL 150-450 [facility] RBC Auto (Bld) [#/Vol]Ordere d By: Lizy Acosta on 09-27-2024 RBC (Bld) [#/Vol] 4.65 10*6/uL 4.2-5.4 [facility] Rubella immune status determ ination by IgG antibody assayOrdered By: Lizy Acosta on 09-27-2024 Rubella IgG Antibody REAC Nonreactive [facility] Comment on above: Antibody Result: Int erpretationNon-Reactive: Non-ImmuneReactive: ImmuneThe following results were obtained with the [employer] Rubella IgG assay. Results from assays of other manufacturers cannot be used interchangeably. Type AND Screenon 09-27-2024 ABO and Rh group Nom (Bld) Blood group O Rh(D) positive Normal [facility] Comment on above: Order Comment: PN Performed By: #### L 3890.6301, BTS, L3890.6102, L509.8002, L3890.6006, L100.0100, L509.4006 ####[facility] [id number] [place], [address] Urine cultureOrdered By: Manuel Acosta on 09-27-2024 Bacteria identified Cx Nom (U) Culture exhibits no growth. [facility] White blood cell (WBC) count Ordered By: Lizy Acosta on 09-27-2024 WBC (Bld) [#/Vol] 5.7 10*3/uL 4.4-11.0 [facility] Absolute lymphocyte countOrd ered By: Dr. Gonzalez on 10-24-2022 Lymphocytes Auto (Unsp spec) [#/Vol] 1.57 10*3/uL 0.83-4.51 [facility] Basophil percentageOrdered B y: Dr. Gonzalez on 10-24-2022 Basophils/100 WBC (Bld) 0.3 % 0-1 W [facility] Eosinophils/100 WBC (Bld) 0.3 % 0-5 [facility] Neutrophils (Bld) [#/Vol] 5.0 10*3/uL 2.0-7.7 [facility] Neutrophils/100 WBC (Bld) 69.8 % 47-70 [facility] WBC (Bld) [#/Vol] 7.2 10*3/uL 4.4-11.0 [facility] Blood erythrocytes count (nu mber/volume)Ordered By: Dr. Gonzalez on 10-24-2022 RBC (Bld) [#/Vol] 4.22 10*6/uL 4.2-5.4 [facility] Blood hemoglobin measurement (mass/volume)Ordered By: Dr. Gonzalez on 10-24-2022 Hemoglobin (Bld) [Mass/Vol] 9.7 g/dL 12.0-15.0 [facility] Blood lymphocytes/100 leukoc ytesOrdered By: Dr. Gonzalez on 10-24-2022 Lymphocytes/100 WBC (Bld) 21.7 % 19-41 [facility] Blood monocytes/100 leukocyt esOrdered By: Dr. Gonzalez on 10-24-2022 Monocytes/100 WBC (Bld) 7.2 % 0-10 W [facility] Blood platelet mean volumeOr dered By: Dr. Gonzalez on 10-24-2022 Platelet mean volume (Bld) [Entitic vol] 11.5 fL 6.2-12.0 [facility] Determination of erythrocyte mean corpuscular volume (MCV)Ordered By: Dr. Gonzalez on 10-24-2022 MCV (RBC) [Entitic vol] 76.5 fL 81-99 [facility] Hematocrit Auto (Bld) [Volum e fraction]Ordered By: Dr. Gonzalez on 10-24-2022 Hematocrit (Bld) [Volume fraction] 32.3 % 37-47 [facility] Laboratory - Hematology and Cell countsOrdered By: Dr. Gonzalez on 10-24-2022 Erythrocyte distribution width (RBC) [Entitic vol] 39.8 fL 35.1-43.9 [facility] Erythrocyte distribution width (RBC) [Ratio] 14.6 % 11.6-14.6 [facility] Immature granulocytes/100 WBC (Bld) 0.700 % 0.0-0.9 [facility] Comment on above: IG% - Immature Granu locytes (promyelocytes, myelocytes and metamyelocytes) > 1% indicates that a LEFT SHIFT is Present. MCH (RBC) [Entitic mass] 23.0 pg 27.0-32.0 [facility] Nucleated RBC/100 WBC (Bld) [Ratio] 0 % 0-5 [facility] MCHC Auto (RBC) [Mass/Vol]Or dered By: Dr. Gonzalez on 10-24-2022 MCHC (RBC) [Mass/Vol] 30.0 g/dL 32-36 [facility] No Panel InformationOrdered By: Dr. Gonzalez on 10-24-2022 Vaginal Amniotic Fluid Detection Positive Negative [facility] Comment on above: Amniotic fluid prese nt indicates rupture of Membranes. RESULTS CALLED TO PHILLY MENDEZ 10/24/22 0435 Ryder Stewart.REPORT READ BACK BY SAME. Platelets bldOrdered By: Dr. Gonzalez on 10-24-2022 Platelets (Bld) [#/Vol] 144 10*3/uL 150-450 [facility] Serum Treponema species anti body detectionOrdered By: Dr. Gonzalez on 10-24-2022 Treponema sp Ab Ql (S) Non-Reactive [facility] Laboratory - Chemistry and C hemistry - challengeon 10-20-2022 Glucose Ql (U) Negative [facility] Laboratory - Urinalysison Protein Ql (U) Negative [facility] Laboratory - Chemistry and C hemistry - challengeon 10-13-2022 Glucose Ql (U) Negative [facility] Laboratory - Urinalysison Protein Ql (U) Negative [facility] Laboratory - Chemistry and C hemistry - challengeon 10-06-2022 Glucose Ql (U) Negative [facility] Laboratory - Urinalysison Protein Ql (U) Negative [facility] No Panel InformationOrdered By: Dr. Hull on 10-01-2022 Group B Streptococcus Culture Group B Beta Streptococcus is not isolated. [facility] Laboratory - Chemistry and C hemistry - challengeon 09-29-2022 Glucose Ql (U) Negative [facility] Laboratory - Urinalysison Protein Ql (U) Negative [facility] Laboratory - Chemistry and C hemistry - challengeon 09-16-2022 Glucose Ql (U) Negative [facility] Laboratory - Urinalysison Protein Ql (U) Negative [facility] Laboratory - Chemistry and C hemistry - challengeon 08-15-2022 Glucose Ql (U) Negative [facility] Laboratory - Urinalysison Protein Ql (U) Negative [facility] Absolute lymphocyte countOrd ered By: Dr. Gonzalez on 08-02-2022 Lymphocytes Auto (Unsp spec) [#/Vol] 1.59 10*3/uL 0.83-4.51 [facility] Basophil percentageOrdered B y: Dr. Gonzalez on 08-02-2022 Basophils/100 WBC (Bld) 0.4 % 0-1 W [facility] Eosinophils/100 WBC (Bld) 0.6 % 0-5 [facility] Neutrophils (Bld) [#/Vol] 4.6 10*3/uL 2.0-7.7 [facility] Neutrophils/100 WBC (Bld) 67.8 % 47-70 [facility] WBC (Bld) [#/Vol] 6.7 10*3/uL 4.4-11.0 [facility] Blood erythrocytes count (nu mber/volume)Ordered By: Dr. Gonzalez on 08-02-2022 RBC (Bld) [#/Vol] 3.74 10*6/uL 4.2-5.4 [facility] Blood hemoglobin measurement (mass/volume)Ordered By: Dr. Gonzalez on 08-02-2022 Hemoglobin (Bld) [Mass/Vol] 11.0 g/dL 12.0-15.0 [facility] Blood lymphocytes/100 leukoc ytesOrdered By: Dr. Gonzalez on 08-02-2022 Lymphocytes/100 WBC (Bld) 23.7 % 19-41 [facility] Blood monocytes/100 leukocyt esOrdered By: Dr. Gonzalez on 08-02-2022 Monocytes/100 WBC (Bld) 6.9 % 0-10 W [facility] Blood platelet mean volumeOr dered By: Dr. Gonzalez on 08-02-2022 Platelet mean volume (Bld) [Entitic vol] 9.5 fL 6.2-12.0 [facility] Determination of erythrocyte mean corpuscular volume (MCV)Ordered By: Dr. Gonzalez on 08-02-2022 MCV (RBC) [Entitic vol] 87.7 fL 81-99 W [facility] Gestational diabetes screen 1-hour screen with 50g oral glucose loadOrdered By: Dr. Gonzalez on 08-02-2022 Glucose 1 Hr post 50 g glucose PO [Mass/Vol] 102 mg/dL 70-140 [facility] HIV 1 and HIV-2 antibody ass ay with HIV-1 p24 antigen detectionOrdered By: Dr. Gonzalez on 08-02-2022 HIV 1+2 Ab+HIV1 p24 Ag IA Ql Non-Reactive Nonreactive [facility] Hematocrit Auto (Bld) [Volum e fraction]Ordered By: Dr. Gonzalez on 08-02-2022 Hematocrit (Bld) [Volume fraction] 32.8 % 37-47 [facility] Laboratory - Chemistry and C hemistry - challengeon 08-02-2022 Glucose Ql (U) Negative [facility] Laboratory - Hematology and Cell countsOrdered By: Dr. Gonzalez on 08-02-2022 Erythrocyte distribution width (RBC) [Entitic vol] 38.3 fL 35.1-43.9 [facility] Erythrocyte distribution width (RBC) [Ratio] 11.9 % 11.6-14.6 [facility] Immature granulocytes/100 WBC (Bld) 0.600 % 0.0-0.9 [facility] Comment on above: IG% - Immature Granu locytes (promyelocytes, myelocytes and metamyelocytes) > 1% indicates that a LEFT SHIFT is Present. MCH (RBC) [Entitic mass] 29.4 pg 27.0-32.0 [facility] Nucleated RBC/100 WBC (Bld) [Ratio] 0 % 0-5 [facility] Laboratory - Urinalysison Protein Ql (U) Negative [facility] MCHC Auto (RBC) [Mass/Vol]Or dered By: Dr. Gonzalez on 08-02-2022 MCHC (RBC) [Mass/Vol] 33.5 g/dL 32-36 [facility] Platelets bldOrdered By: Dr. Gonzalez on 08-02-2022 Platelets (Bld) [#/Vol] 190 10*3/uL 150-450 [facility] Serum Treponema species anti body detectionOrdered By: Dr. Gonzalez on 08-02-2022 Treponema sp Ab Ql (S) Non-Reactive [facility] Laboratory - Chemistry and C hemistry - challengeon 06-09-2022 Glucose Ql (U) Negative [facility] Laboratory - Urinalysison Protein Ql (U) Negative [facility] Absolute lymphocyte counton 05-12-2022 Lymphocytes Auto (Unsp spec) [#/Vol] 1.49 10*3/uL 0.83-4.51 [facility] Work Phone: Basophil percentageon 2021 Basophils/100 WBC (Bld) 0.3 % 0-1 W [facility] Work Phone: Eosinophils/100 WBC (Bld) 0.8 % 0-5 [facility] Work Phone: Neutrophils (Bld) [#/Vol] 4.1 10*3/uL 2.0-7.7 [facility] Work Phone: Neutrophils/100 WBC (Bld) 67.0 % 47-70 [facility] Work Phone: WBC (Bld) [#/Vol] 6.1 10*3/uL 4.4-11.0 [facility] Work Phone: Blood erythrocytes count (nu mber/volume)on 05-12-2022 RBC (Bld) [#/Vol] 3.98 10*6/uL 4.2-5.4 [facility] Work Phone: Blood hemoglobin measurement (mass/volume)on 05-12-2022 Hemoglobin (Bld) [Mass/Vol] 12.0 g/dL 12.0-15.0 [facility] Work Phone: Blood lymphocytes/100 leukoc yteson 05-12-2022 Lymphocytes/100 WBC (Bld) 24.6 % 19-41 [facility] Work Phone: Blood monocytes/100 leukocyt eson 05-12-2022 Monocytes/100 WBC (Bld) 6.8 % 0-10 W [facility] Work Phone: Blood platelet mean volumeon 05-12-2022 Platelet mean volume (Bld) [Entitic vol] 10.1 fL 6.2-12.0 [facility] Work Phone: Determination of erythrocyte mean corpuscular volume (MCV)on 05-12-2022 MCV (RBC) [Entitic vol] 88.7 fL 81-99 W [facility] Work Phone: HIV 1 and HIV-2 antibody ass ay with HIV-1 p24 antigen detectionon 05-12-2022 HIV 1+2 Ab+HIV1 p24 Ag IA Ql Non-Reactive Nonreactive [facility] Work Phone: Hematocrit Auto (Bld) [Volum e fraction]on 05-12-2022 Hematocrit (Bld) [Volume fraction] 35.3 % 37-47 [facility] Work Phone: Laboratory - Chemistry and C hemistry - challengeon 05-12-2022 Glucose Ql (U) Negative [facility] Work Phone: Laboratory - Hematology and Cell countson 05-12-2022 Erythrocyte distribution width (RBC) [Entitic vol] 42.8 fL 35.1-43.9 [facility] Work Phone: Erythrocyte distribution width (RBC) [Ratio] 13.2 % 11.6-14.6 [facility] Work Phone: Immature granulocytes/100 WBC (Bld) 0.500 % 0.0-0.9 [facility] Work Phone: Comment on above: IG% - Immature Granu locytes (promyelocytes, myelocytes and metamyelocytes) > 1% indicates that a LEFT SHIFT is Present. MCH (RBC) [Entitic mass] 30.2 pg 27.0-32.0 [facility] Work Phone: Nucleated RBC/100 WBC (Bld) [Ratio] 0 % 0-5 [facility] Work Phone: Laboratory - Urinalysison Protein Ql (U) Negative [facility] Work Phone: MCHC Auto (RBC) [Mass/Vol]on 05-12-2022 MCHC (RBC) [Mass/Vol] 34.0 g/dL 32-36 [facility] Work Phone: No Panel Informationon 05-12 Hepatitis B Surface Antigen Non-Reactive Nonreactive [facility] Work Phone: Hepatitis C Antibody Non-Reactive Nonreactive [facility] Work Phone: Comment on above: Non Reactive: < 0.8 Equivocal: >/= 0.8 to < 1.0 Reactive: >/= 1.0The CDC recommends that a reactive/equivocal HCV antibody result be followed up by the HCV Nucleic Acid Amplificationtest (140595) Rubella IgG Antibody Reactive Nonreactive [facility] Work Phone: Comment on above: Antibody Results Int erpretation of Immune Status Non Reactive Presumed Non-Immune Equivocal Equivocal Reactive Presumed Immune Platelets bldon 05-12-2022 Platelets (Bld) [#/Vol] 161 10*3/uL 150-450 [facility] Work Phone: Serum Treponema species anti body detectionon 05-12-2022 Treponema sp Ab Ql (S) Non-Reactive [facility] Work Phone: Laboratory - Chemistry and C hemistry - challengeon 04-11-2022 Glucose Ql (U) Negative [facility] Work Phone: Laboratory - Urinalysison Protein Ql (U) Negative [facility] Work Phone: Chlamydia trachomatis rRNA d etection by probe and target amplification methodon 03-24-2022 C. trachomatis rRNA ITZEL+probe Ql (Unsp spec) Negative Negative [facility] Work Phone: Laboratory - Drug toxicology on 03-24-2022 Amphetamines Ql (U) Negative <1000 ng/mL [facility] Work Phone: Benzodiazepines Ql (U) Negative < 200 ng/mL [facility] Work Phone: Cannabinoids Screen Ql (U) Negative < 50 ng/mL [facility] Work Phone: Cocaine Ql (U) Negative < 300 ng/mL [facility] Work Phone: Opiates Ql (U) Negative < 300 ng/mL [facility] Work Phone: Laboratory - Microbiology an d Antimicrobial susceptibilityon 03-24-2022 N. gonorrhoeae DNA ITZEL+probe Ql (Unsp spec) Negative Negative [facility] Work Phone: Comment on above: Performed at: =[address] [id number] Director: Lizzie Lezama MD, Phone: [phone] No Panel Informationon 03-24 MDMA (Ecstasy) Screen Negative < 500 ng/mL [facility] Work Phone: Urine Barbiturates Screen Negative < 200 ng/mL [facility] Work Phone: Urine Drug Screen Comment [facility] Work Phone: Comment on above: CONFIRMATORY TESTING [...] Urine Methadone Screen Negative < 300 ng/mL [facility] Work Phone: Urine phencyclidine (PCP) de tectionon 03-24-2022 Phencyclidine Ql (U) Negative < 25 ng/mL [facility] Work Phone: [facility] Cytology Reporton 2016 [facility] Cytology Report . Pathology ReportsAccession: Collected Date/Time: Received Date/Time: Pathologist:[id number] 05/31/2017 17:14 EDT 06/01/2017 18:00 EDT [facility] Cytology ReportSPECIMEN:Specimen Description: Liquid Prep Reflex ASCUSSpecimen: Cervical/EndocervicalSc reening or Diagnostic: ScreeningRELEVANT HISTORY:LMP: 28-29-83Qykax Control: [id number] ADEQUACY:SATISFACTORY FOR EVALUATIONENDOCERVICAL/ TRANSFORMATIONAL ZONE COMPONENT PRESENTINTERPRETATION/R ESULTS:NEGATIVE FOR INTRAEPITHELIAL LESION OR MALIGNANCYORGANISMS:FUN GAL ORGANISMS MORPHOLOGICALLY CONSISTENT WITH NANDO SPECIES.Electronically Signed byPathology report verified by [facility]Healthcreened by: NGUYENElectronically signed by Monica POLO (ASCP)Sign-Out Date: 06/06/2017 15:23Performing Lab: [address]Disburbank hospitalThe Pap test is a screening test for cervical cancer. As evidenced by published data, it is subject to both inherent false negative and false positive results. Your patient's results should be interpreted in context with pertinent clinical history including gynecological examination. Normal [facility] ([place]) Comment on above: Performed By: #### G YCR ####[place] [address] CTPCRon 06-02-2017 C. trachomatis Interp C. trachomatis DNA not detected. Specimen is presumptive negative for C. trachomatis. A negative result does not preclude C. trachomatis infection because results depend on adequate specimen collection, absence of inhibitors, and sufficient DNA to be detected. Normal [facility] ([place]) Comment on above: Performed By: #### C TPCR, NGPCR1 ####[place] [address] C.trachomatis PCR Negative Normal [facility] ([place]) Comment on above: Result Comment: Farideh amin (PCR) assay performed on the N[employer] Amanda 4800 system. Performed By: #### C TPCR, NGPCR1 ####[address] [address] Chlam Source Cervix Normal [facility] ([place]) Comment on above: Performed By: #### C TPCR, NGPCR1 ####[address] [address] NGPCRon 06-02-2017 GC PCR Source Cervix Normal [facility] ([place]) Comment on above: Performed By: #### C TPCR, NGPCR1 ####[address] [address] N. gonorrhoeae (PCR) Negative [facility] ([place]) Comment on above: Result Comment: Mole cular (PCR) assay performed on the N[employer]ia Amanda 4800 System. Performed By: #### C TPCR, NGPCR1 ####[address] [address] N. gonorrhoeae Interp N. gonorrhoeae DNA not detected. Specimen is presumptive negative for N. gonorrhoeae. A negative result does not preclude Neisseria gonorrhoeae infection because results depend on adequate specimen collection, absence of inhibitors, and sufficient DNA to be detected. [facility] ([place]) Comment on above: Performed By: #### C TPCR, NGPCR1 ####[address] [address] Culture, urine Bacteria identified Cx Nom (U) Positive [facility] Work Phone: Vital Signs Date Time Vital Sign Value Performing Clinician Faci lity 05-01-2025 14:40-0400 Body height 170.[address] Connor Blank DO Work Phone: [facility] 05-01-2025 14:40-0400 Body mass index (BMI) [Ratio] 24.7 kg/m2 Dr. Connor Blank DO Work Phone: [facility] 05-01-2025 14:40-0400 Body weight 71.[address] Connor Blank DO Work Phone: [facility] 05-01-2025 14:32-0400 Body temperature 98.2 [degF] Dr. Connor Blank DO Work Phone: 6(514)423-508393 [place] [address] 05-01-2025 14:31-0400 Diastolic blood pressure 73 mm[Hg] Dr. Connor Blank DO Work Phone: 3(384)424-830693 [place] [address] 05-01-2025 14:31-0400 Heart rate 72 /min Dr. Connor Blank DO Work Phone: 7(294)711-098593 [place] [address] 05-01-2025 14:31-0400 Systolic blood pressure 116 mm[Hg] Dr. Connor Blank DO Work Phone: 9(684)947-470493 [place] [address] 05-01-2025 13:56-0400 Body height 170.[address] Connor Blank DO Work Phone: 0(285)857-472793 [place] [address] 05-01-2025 13:56-0400 Body mass index (BMI) [Ratio] 24.9 kg/m2 Dr. Connor Blank DO Work Phone: 6(696)112-666593 [place] [address] 05-01-2025 13:56-0400 Body weight 72.[address] Connor Blank DO Work Phone: 6(847)981-871393 [place] [address] 05-01-2025 13:56-0400 Diastolic blood pressure 81 mm[Hg] Dr. Connor Blank DO Work Phone: 8(799)300-018493 [place] [address] 05-01-2025 13:56-0400 Systolic blood pressure 130 mm[Hg] Dr. Connor Blank DO Work Phone: 2(682)624-593293 [place] [address] 04-23-2025 09:23-0400 Body height 170.[address] Connor Blank DO Work Phone: 2(584)634-013193 [place] [address] 04-23-2025 09:23-0400 Body mass index (BMI) [Ratio] 24.6 kg/m2 Dr. Connor Blank DO Work Phone: 2(212)796-696293 [place] [address] 04-23-2025 09:23-0400 Body weight 71.[address] Connor Blank DO Work Phone: 1(926)860-229593 [place] [address] 04-23-2025 09:23-0400 Diastolic blood pressure 86 mm[Hg] Dr. Connor Blank DO Work Phone: 2(905)358-847393 [place] [address] 04-23-2025 09:23-0400 Systolic blood pressure 134 mm[Hg] Dr. Connor Blank DO Work Phone: 2(135)770-692893 [place] [address] 04-18-2025 09:32-0400 Body mass index (BMI) [Ratio] 24.9 kg/m2 Dr. Connor Blank DO Work Phone: 5(966)012-257793 [place] [address] 04-18-2025 09:32-0400 Body weight 72.[address] Connor Blank DO Work Phone: 9(656)371-272593 [place] [address] 04-18-2025 09:32-0400 Diastolic blood pressure 63 mm[Hg] Dr. Connor Blank DO Work Phone: 9(944)257-520293 [place] [address] 04-18-2025 09:32-0400 Systolic blood pressure 130 mm[Hg] Dr. Connor Blank DO Work Phone: 7(576)253-519193 [place] [address] 04-11-2025 13:06-0400 Body height 170.[address] Connor Blank DO Work Phone: 3(173)199-750993 [place] [address] 04-11-2025 13:06-0400 Body mass index (BMI) [Ratio] 24.4 kg/m2 Dr. Connor Blank DO Work Phone: 3(181)810-458393 [place] [address] 04-11-2025 13:06-0400 Body weight 70.[address] Connor Blank DO Work Phone: 1(258)256-601293 [place] [address] 04-11-2025 13:06-0400 Diastolic blood pressure 71 mm[Hg] Dr. Connor Blank DO Work Phone: 3(569)618-775693 [place] [address] 04-11-2025 13:06-0400 Systolic blood pressure 116 mm[Hg] Dr. Connor Blank DO Work Phone: 5(451)781-533693 [place] [address] 04-03-2025 09:24-0400 Body height 170.[address] Connor Blank DO Work Phone: 0(087)619-505593 [place] [address] 04-03-2025 09:24-0400 Body mass index (BMI) [Ratio] 24.6 kg/m2 Dr. Connor Blank DO Work Phone: 8(874)869-611893 [place] [address] 04-03-2025 09:24-0400 Body weight 71.[address] Connor Blank DO Work Phone: 8(646)564-053893 [place] [address] 04-03-2025 09:24-0400 Diastolic blood pressure 74 mm[Hg] Dr. Connor Blank DO Work Phone: 5(239)039-653193 [place] [address] 04-03-2025 09:24-0400 Systolic blood pressure 115 mm[Hg] Dr. Connor Blank DO Work Phone: 9(877)752-690593 [place] [address] 03-20-2025 14:45-0400 Body height 170.[address] Connor Blank DO Work Phone: 5(589)724-897393 [place] [address] 03-20-2025 14:45-0400 Body mass index (BMI) [Ratio] 23.8 kg/m2 Dr. Connor Blank DO Work Phone: 7(431)938-022493 [place] [address] 03-20-2025 14:45-0400 Body weight 69.[address] Connor Blank DO Work Phone: 8(950)077-415393 [place] [address] 03-20-2025 14:45-0400 Diastolic blood pressure 74 mm[Hg] Dr. Connor Blank DO Work Phone: 8(186)633-883193 [place] [address] 03-20-2025 14:45-0400 Systolic blood pressure 119 mm[Hg] Dr. Connor Blank DO Work Phone: 3(410)251-981893 [place] [address] 03-07-2025 10:01-0400 Body height 170.[address] Connor Blank DO Work Phone: 2(905)947-469993 [place] [address] 03-07-2025 10:01-0400 Body mass index (BMI) [Ratio] 23.1 kg/m2 Dr. Connor Blank DO Work Phone: 8(411)269-969093 [place] [address] 03-07-2025 10:01-0400 Body weight 67.[address] Connor Blank DO Work Phone: 5(825)850-189493 [place] [address] 03-07-2025 09:56-0400 Body temperature 97.7 [degF] Dr. Connor Blank DO Work Phone: 6(804)195-370593 [place] [address] 03-07-2025 09:56-0400 Diastolic blood pressure 62 mm[Hg] Dr. Connor Blank DO Work Phone: 6(416)487-989193 [place] [address] 03-07-2025 09:56-0400 Heart rate 79 /min Dr. Connor Blank DO Work Phone: 8(128)793-441493 [place] [address] 03-07-2025 09:56-0400 Respiratory rate 16 /min Dr. Connor Blank DO Work Phone: 4(602)059-301093 [place] [address] 03-07-2025 09:56-0400 Systolic blood pressure 109 mm[Hg] Dr. Connor Blank DO Work Phone: 5(782)510-645193 [place] [address] 03-07-2025 08:38-0400 Body height 170.[address] Connor Blank DO Work Phone: 3(643)823-706093 [place] [address] 03-07-2025 08:38-0400 Body mass index (BMI) [Ratio] 23.2 kg/m2 Dr. Connor Blank DO Work Phone: 6(886)313-188493 [place] [address] 03-07-2025 08:38-0400 Body weight 67.[address] Connor Blank DO Work Phone: 3(665)055-154093 [place] [address] 03-07-2025 08:38-0400 Diastolic blood pressure 69 mm[Hg] Dr. Connor Blank DO Work Phone: 7(120)198-798493 [place] [address] 03-07-2025 08:38-0400 Systolic blood pressure 104 mm[Hg] Dr. Connor Blank DO Work Phone: 0(143)351-404493 [place] [address] 02-21-2025 10:11-0400 Body height 170.[address] Connor Blank DO Work Phone: 9(110)469-968793 [place] [address] 02-21-2025 10:11-0400 Body mass index (BMI) [Ratio] 23 kg/m2 Dr. Connor Blank DO Work Phone: 2(026)540-183793 [place] [address] 02-21-2025 10:11-0400 Body weight 66.[address] Connor Blank DO Work Phone: 9(184)245-735793 [place] [address] 02-21-2025 10:11-0400 Diastolic blood pressure 69 mm[Hg] Dr. Connor Blank DO Work Phone: 7(751)200-592693 [place] [address] 02-21-2025 10:11-0400 Systolic blood pressure 111 mm[Hg] Dr. Connor Blank DO Work Phone: 4(858)613-052893 [place] [address] 02-06-2025 09:08-0400 Body height 170.[address] Connor Blank DO Work Phone: 3(697)555-543893 [place] [address] 02-06-2025 09:08-0400 Body mass index (BMI) [Ratio] 23 kg/m2 Dr. Connor Blank DO Work Phone: 5(603)370-417893 [place] [address] 02-06-2025 09:08-0400 Body weight 66.[address] Connor Blank DO Work Phone: 8(953)943-869693 [place] [address] 02-06-2025 09:08-0400 Diastolic blood pressure 60 mm[Hg] Dr. Connor Blank DO Work Phone: 6(449)603-226693 [place] [address] 02-06-2025 09:08-0400 Systolic blood pressure 102 mm[Hg] Dr. Connor Blank DO Work Phone: 0(818)581-329993 [place] [address] 01-16-2025 09:34-0400 Body height 170.[address] Connor Blank DO Work Phone: 1(121)829-440993 [place] [address] 01-16-2025 09:34-0400 Body mass index (BMI) [Ratio] 21.9 kg/m2 Dr. Connor Blank DO Work Phone: 3(861)265-333993 [place] [address] 01-16-2025 09:34-0400 Body weight 63.[address] Connor Blank DO Work Phone: 0(677)856-893893 [place] [address] 01-16-2025 09:34-0400 Diastolic blood pressure 65 mm[Hg] Dr. Connor Blank DO Work Phone: 2(188)217-961466 [place] [address] 01-16-2025 09:34-0400 Systolic blood pressure 97 mm[Hg] Dr. Connor Blank DO Work Phone: 5(319)010-233793 [place] [address] 12-19-2024 11:44-0400 Body mass index (BMI) [Ratio] 21.4 kg/m2 Dr. Connor Blank DO Work Phone: 5(241)462-559293 [place] [address] 12-19-2024 11:44-0400 Body weight 61.[address] Connor Blank DO Work Phone: 8(116)615-808093 [place] [address] 12-19-2024 11:44-0400 Diastolic blood pressure 74 mm[Hg] Dr. Connor Blank DO Work Phone: 1(474)797-638593 [place] [address] 12-19-2024 11:44-0400 Systolic blood pressure 116 mm[Hg] Dr. Connor Blank DO Work Phone: 7(091)875-917093 [place] [address] 12-08-2024 09:05-0400 Body mass index (BMI) [Ratio] 5.1 kg/m2 Dr. Connor Blank DO Work Phone: 1(852)739-485093 [place] [address] 12-08-2024 09:05-0400 Body temperature 98.7 [degF] Dr. Connor Blank DO Work Phone: 5(405)961-011993 [place] [address] 12-08-2024 09:05-0400 Body weight 14.[address] Connor Blank DO Work Phone: 5(494)150-835393 [place] [address] 12-08-2024 09:05-0400 Diastolic blood pressure 66 mm[Hg] Dr. Connor Blank DO Work Phone: 3(828)094-556793 [place] [address] 12-08-2024 09:05-0400 Heart rate 91 /min Dr. Connor Blank DO Work Phone: 6(841)432-469793 [place] [address] 12-08-2024 09:05-0400 Respiratory rate 14 /min Dr. Connor Blank DO Work Phone: 7(136)483-717393 [place] [address] 12-08-2024 09:05-0400 SaO2% (BldA) [Mass fraction] 99 % Dr. Connor Blank DO Work Phone: 3(224)449-152693 [place] [address] 12-08-2024 09:05-0400 Systolic blood pressure 105 mm[Hg] Dr. Connor Blank DO Work Phone: 9(575)631-837093 [place] [address] 11-19-2024 13:40-0400 Body mass index (BMI) [Ratio] 20.5 kg/m2 Dr. Connor Blank DO Work Phone: 6(283)966-030993 [place] [address] 11-19-2024 13:40-0400 Body weight 59.[address] Connor Blank DO Work Phone: 7(870)059-849893 [place] [address] 11-19-2024 13:40-0400 Diastolic blood pressure 80 mm[Hg] Dr. Connor Blank DO Work Phone: 8(937)899-855693 [place] [address] 11-19-2024 13:40-0400 Systolic blood pressure 118 mm[Hg] Dr. Connor Blank DO Work Phone: 1(371)454-039393 [place] [address] 10-23-2024 14:30-0400 Body mass index (BMI) [Ratio] 20.2 kg/m2 Dr. Connor Blank DO Work Phone: 3(015)756-175893 [place] [address] 10-23-2024 14:30-0400 Body weight 58.[address] Connor Blank DO Work Phone: 6(989)320-880193 [place] [address] 10-23-2024 14:30-0400 Diastolic blood pressure 80 mm[Hg] Dr. Connor Blank DO Work Phone: 8(681)632-878393 [place] [address] 10-23-2024 14:30-0400 Systolic blood pressure 128 mm[Hg] Dr. Connor Blank DO Work Phone: 0(482)137-638493 [place] [address] 09-27-2024 08:02-0500 Body height 170.[address] Connor Blank DO Work Phone: 4(999)224-040093 [place] [address] 09-27-2024 08:02-0500 Body mass index (BMI) [Ratio] 19.8 kg/m2 Dr. Connor Blank DO Work Phone: [facility] 09-27-2024 08:02-0500 Body weight 57.[address] Connor Blank DO Work Phone: [facility] 09-27-2024 08:02-0500 Diastolic blood pressure 83 mm[Hg] Dr. Connor Blank DO Work Phone: [facility] 09-27-2024 08:02-0500 Systolic blood pressure 124 mm[Hg] Dr. Connor Blank DO Work Phone: [facility] 10-25-2022 12:52-0400 Body temperature 97.6 [degF] [facility] 10-25-2022 12:52-0400 Diastolic blood pressure 73 mm[Hg] [facility] 10-25-2022 12:52-0400 Heart rate 100 /min [facility] 10-25-2022 12:52-0400 Respiratory rate 16 /min [facility] 10-25-2022 12:52-0400 Systolic blood pressure 116 mm[Hg] [facility] 10-25-2022 04:11-0400 SaO2% (BldA) [Mass fraction] 97 % [facility] 10-24-2022 03:54-0400 [facility] height [facility].18 [facility]-24-2022 03:54-0400 Body mass index (BMI) [Ratio] 26.1 kg/m2 [facility] 10-24-2022 03:54-0400 Body weight 75.6 kg [facility] 10-20-2022 13:09-0400 Body mass index (BMI) [Ratio] 26.2 kg/m2 [facility] 10-20-2022 13:09-0400 Body weight 75.86 [facility] 10-20-2022 13:09-0400 Diastolic blood pressure 70 mm[Hg] [facility] 10-20-2022 13:09-0400 Systolic blood pressure 114 mm[Hg] [facility] 10-13-2022 13:29-0400 Diastolic blood pressure 72 mm[Hg] [facility] 10-13-2022 13:29-0400 Systolic blood pressure 113 mm[Hg] [facility] 10-13-2022 12:58-0400 Body mass index (BMI) [Ratio] 26.3 kg/m2 [facility] 10-13-2022 12:58-0400 Body weight 76.26 kg [facility] 10-06-2022 13:34-0500 Body mass index (BMI) [Ratio] 25.5 kg/m2 [facility] 10-06-2022 13:34-0500 Body weight 73.93 kg [facility] 10-06-2022 13:34-0500 Diastolic blood pressure 76 mm[Hg] [facility] 10-06-2022 13:34-0500 Systolic blood pressure 112 mm[Hg] [facility] 09-29-2022 13:43-0500 Body height 170.[address] [facility] 09-29-2022 13:42-0500 Body mass index (BMI) [Ratio] 25.6 kg/m2 [facility] 09-29-2022 13:42-0500 Body weight 74.[address] [facility] 09-29-2022 13:42-0500 Diastolic blood pressure 69 mm[Hg] [facility] 09-29-2022 13:42-0500 Systolic blood pressure 103 mm[Hg] [facility] 09-16-2022 09:30-0500 Body mass index (BMI) [Ratio] 25.4 kg/m2 [facility] 09-16-2022 09:30-0500 Body weight 73.[address] [facility] 09-16-2022 09:30-0500 Diastolic blood pressure 71 mm[Hg] [facility] 09-16-2022 09:30-0500 Systolic blood pressure 108 mm[Hg] [facility] 09-01-2022 13:37-0500 Body mass index (BMI) [Ratio] 25.2 kg/m2 [facility] 09-01-2022 13:37-0500 Body weight 73.[address] 09-01-2022 13:37-0500 Diastolic blood pressure 75 mm[Hg] [facility] 09-01-2022 13:37-0500 Systolic blood pressure 109 mm[Hg] [facility] 08-15-2022 13:47-0500 Body mass index (BMI) [Ratio] 24.3 kg/m2 [facility] 08-15-2022 13:47-0500 Body weight 70.[address] [facility] 08-02-2022 09:07-0500 Body mass index (BMI) [Ratio] 23.6 kg/m2 [facility] 08-02-2022 09:07-0500 Body weight 68.[address] [facility] 08-02-2022 09:07-0500 Diastolic blood pressure 62 mm[Hg] [facility] 08-02-2022 09:07-0500 Systolic blood pressure 96 mm[Hg] [facility] 07-07-2022 13:13-0500 Body mass index (BMI) [Ratio] 22.7 kg/m2 [facility] 07-07-2022 13:13-0500 Body weight 65.[address] [facility] 07-07-2022 13:13-0500 Diastolic blood pressure 75 mm[Hg] [facility] 07-07-2022 13:13-0500 Systolic blood pressure 117 mm[Hg] [facility] 06-09-2022 14:00-0500 Body mass index (BMI) [Ratio] 21.6 kg/m2 [facility] 06-09-2022 14:00-0500 Body weight 62.[address] 06-09-2022 14:00-0500 Diastolic blood pressure 66 mm[Hg] [facility] 06-09-2022 14:00-0500 Systolic blood pressure 102 mm[Hg] [facility] 05-12-2022 13:38-0400 Body height 170.[address] [facility] Work Phone: 05-12-2022 13:38-0400 Body mass index (BMI) [Ratio] 21 kg/m2 [facility] Work Phone: 05-12-2022 13:38-0400 Body weight 60.[address] Work Phone: 05-12-2022 13:38-0400 Diastolic blood pressure 74 mm[Hg] [facility] Work Phone: 05-12-2022 13:38-0400 Systolic blood pressure 107 mm[Hg] [facility] Work Phone: 04-11-2022 11:51-0400 Body mass index (BMI) [Ratio] 19.8 kg/m2 [facility] Work Phone: 04-11-2022 11:51-0400 Body weight 57.[address] Work Phone: 04-11-2022 11:51-0400 Diastolic blood pressure 60 mm[Hg] [facility] Work Phone: 04-11-2022 11:51-0400 Systolic blood pressure 104 mm[Hg] [facility] Work Phone: 03-24-2022 09:54-0400 Diastolic blood pressure 72 mm[Hg] [facility] Work Phone: 03-24-2022 09:54-0400 Systolic blood pressure 116 mm[Hg] [facility] Work Phone: 03-24-2022 09:21-0400 Body height 170.[address] [facility] Work Phone: 03-24-2022 09:20-0400 Body mass index (BMI) [Ratio] 19.1 kg/m2 [facility] Work Phone: 03-24-2022 09:20-0400 Body weight 55.[address] Work Phone: 02-08-2022 09:43-0400 Body mass index (BMI) [Ratio] 18.5 kg/m2 [facility] Work Phone: 02-08-2022 09:43-0400 Body weight 53.[address] Work Phone: 02-08-2022 09:43-0400 Diastolic blood pressure 78 mm[Hg] [facility] Work Phone: 02-08-2022 09:43-0400 Systolic blood pressure 126 mm[Hg] [facility] Work Phone: Encounters Encounter Date Encounter Type Care Provider Facility Start: 05-01-2025 ambulatory Mary Cagle lity:[facility] Start: 05-01-2025 Non-patient / Non-visit Dr. Mary Gonzalez MD -[facility] Start: 05-01-2025 End: 05-01-[address] Mary Gonzalez MD -[facility] Work Phone: Start: 05-01-2025 End: 05-01-2025 ambulatory Mary Gonzalez Facility:[facility] Start: 04-23-2025 End: 04-23-[address] Yue Sanford DO -[facility] Work Phone: Start: 04-23-2025 End: 04-23-2025 ambulatory Yue Sanford Facility:[facility] Start: 04-18-2025 End: 04-18-2025 Patient encounter procedure Lizy Acosta CNM -[facility] Work Phone: Start: 04-18-2025 End: 04-18-2025 ambulatory Connor Blank Facility:[facility] [place] [place] Start: 04-11-2025 End: 04-11-[address] Mary Gonzalez MD -[facility] Work Phone: Start: 04-11-2025 End: 04-11-[address] Connor Blank DO Work Phone: -[facility] Start: 04-03-2025 End: 04-03-[address] Connor Blank DO Work Phone: -Laboratory Specimen Start: 04-03-2025 End: 04-03-2025 Patient encounter procedure Lizy Acosta CNM -[facility] Work Phone: Start: 04-03-2025 End: 04-03-2025 Patient encounter procedure Lizy Acosta CNM -[facility] Work Phone: Start: 04-03-2025 End: 04-03-[address] Connor Blank DO Work Phone: -[facility] Start: 04-03-2025 End: 04-03-2025 ambulatory Connor Blank Facility:[facility] Start: 03-20-2025 End: 03-20-[address] Mary Gonzalez MD -[facility] Work Phone: Start: 03-20-2025 End: 03-20-[address] Connor Blank DO Work Phone: -[facility] Start: 03-07-2025 ambulatory Connor Blank Facilit y:[facility] Start: 03-07-2025 Non-patient / Non-visit Lizy Acosta CNM -[facility] Start: 03-07-2025 End: 03-07-[address] Connor Blank DO Work Phone: -[facility] Start: 03-07-2025 End: 03-07-2025 Patient encounter procedure Lizy Acosta CN [facility] Work Phone: Start: 03-07-2025 End: 03-07-2025 Patient encounter procedure Krysta Petersen [facility] -[facility] Work Phone: Start: 03-07-2025 End: 03-07-[address] Connor Blank DO Work Phone: [facility] Start: 02-21-2025 End: 02-21-2025 Patient encounter procedure Krysta Petersen [facility] -[facility] Work Phone: Start: 02-21-2025 End: 02-21-[address] Connor Blank DO Work Phone: -[facility] Start: 02-06-2025 End: 02-06-2025 Patient encounter procedure Anahi Riojas [employer]el -[facility] Work Phone: Start: 02-06-2025 End: 02-06-[address] Connor Blank DO Work Phone: [facility] Start: 02-06-2025 End: 02-06-2025 ambulatory Connor Blank Facility:[facility] Start: 01-16-2025 End: 01-16-2025 Patient encounter procedure Lizy Acosta [facility] -[facility] Work Phone: Start: 01-16-2025 End: 01-16-[address] Connor Blank DO Work Phone: [facility] Work Phone: Start: 01-03-2025 End: 01-03-2025 ambulatory YUE HERMAN [facility] Start: 12-19-2024 End: 12-19-2024 ambulatory Connor Blank Facility:[facility] [place] [place] Start: 12-19-2024 End: 12-19-[address] Mary Gonzalez MD -[facility] Work Phone: Start: 12-11-2024 End: 12-11-2024 ambulatory CONNOR BLANK [facility] Start: 12-08-2024 End: 12-08-2024 [facility] Work Phone: Start: 12-08-2024 End: 12-08-2024 ambulatory Connor Moralesrison Facility:[facility] Start: 11-19-2024 End: 11-19-2024 Patient encounter procedure Anahi RAMOS -[facility] Work Phone: Start: 11-19-2024 End: 11-19-2024 ambulatory Connor Blank Facility:[facility] Start: 10-23-2024 End: 10-23-[address] Yue Sanford DO -[facility] Work Phone: Start: 10-23-2024 End: 10-23-2024 ambulatory Connor Blank Facility:[facility] Start: 09-27-2024 End: 09-27-2024 Patient encounter procedure Lizy Acosta CNM -[facility] Work Phone: Start: 09-27-2024 End: 09-27-[address] Connor Blank DO Work Phone: [facility] Work Phone: Start: 09-27-2024 End: 09-27-2024 ambulatory Connor Blank Facility:[facility] Start: 10-25-2022 Non-patient / Non-visit Connor WITT [facility] Start: 10-24-2022 Non-patient / Non-visit Connor Blank [facility] Start: 10-24-2022 End: 10-25-2022 Evaluation and management of inpatient [facility] Start: 10-20-2022 End: 10-20-2022 [facility] Start: 10-13-2022 End: 10-13-2022 Patient encounter procedure Connor [facility] Start: 10-06-2022 End: 10-06-[address] [facility] Start: 09-29-2022 End: 09-29-2022 ambulatory [facility] Work Phone: Start: 09-29-2022 End: 09-29-2022 Patient encounter procedure [facility] Spec[facility] Start: 09-29-2022 End: 09-29-2022 Patient encounter procedure [facility] Start: 09-16-2022 End: 09-16-2022 Patient encounter procedure [facility] Start: 09-01-2022 End: 09-01-2022 Patient encounter procedure [facility] Start: 08-15-2022 End: 08-15-2022 Patient encounter procedure [facility] Start: 08-02-2022 End: 08-02-2022 Patient encounter procedure [facility] Start: 07-07-2022 End: 07-07-2022 Patient encounter procedure [facility] Start: 06-09-2022 End: 06-09-2022 Patient encounter procedure [facility] Start: 05-12-2022 End: 05-12-2022 ambulatory [facility] Work Phone: Start: 05-12-2022 End: 05-12-2022 Patient encounter procedure [facility] Start: 04-11-2022 End: 04-11-2022 Patient encounter procedure [facility] Start: 03-24-2022 End: 03-24-2022 ambulatory [facility] Work Phone: Start: 03-24-2022 End: 03-24-2022 Patient encounter procedure [facility] Start: 03-24-2022 End: 03-24-2022 Patient encounter procedure [facility] Start: 02-08-2022 End: 02-08-2022 Patient encounter procedure [facility] Start: 05-31-2017 End: 06-05-2017 Ambulatory NAVEEN ARGUELLO Facility:[facility] Procedures Date Procedure Procedure Detail Performing Clinician [...] HCV Quant by PCR testing - HCVPCR #[id number] Non Reactive: < 0.8 Equivocal: >/= 0.8 [...] used interchangeably. Group B Streptococcu s Culture Cnonor Blank Urine culture Connor yañez Plan of Treatment Date Care Activity Detail Author Start: 05-01-2025 Patient discharge [facility] Start: 04-23-2025 End: 04-23-2025 Patient encounter procedure Anxiety [facility] Work Phone: Start: 03-20-2025 [facility] Start: 03-07-2025 Nonstress test [facility] Start: 03-07-2025 Obstetric monitoring [facility] Start: 03-07-2025 Vital signs measurements [facility] Start: 03-07-2025 [facility] Start: 03-07-2025 Biophysical profile panel US [facility] Start: 03-07-2025 Ultrasonography for biophysical profile without non-stress testing OB Biophysical Prof W/O NST [facility] Start: 03-07-2025 Patient discharge [facility] Start: 02-21-2025 [facility] Start: 02-06-2025 CBC W Auto Differential panel - Blood [facility] Start: 02-06-2025 Measurement of glucose 2 hours after glucose challenge for glucose tolerance test [facility] Start: 02-06-2025 Serologic test for syphilis [facility] Start: 02-06-2025 [facility] Start: 10-25-2022 Patient discharge [facility] Start: 10-25-2022 Consultation [facility] Start: 10-24-2022 Administration of medication [facility] Start: 10-24-2022 Application of ice collar, cap or bag [facility] Start: 10-24-2022 Catheterization of vein [facility] Start: 10-24-2022 Introduction of urinary catheter [facility] Start: 10-24-2022 Measuring intake and output [facility] Start: 10-24-2022 Notification of physician [facility] Start: 10-24-2022 Procedure discontinued [facility] Start: 10-24-2022 Provision of activity privileges [facility] Start: 10-24-2022 Vital signs measurements [facility] Start: 10-24-2022 [facility] Start: 10-24-2022 Admission procedure [facility] Start: 10-24-2022 Anesthesia consultation [facility] Start: 10-24-2022 acoustic stimulation test [facility] Start: 10-24-2022 Insertion of catheter into peripheral vein [facility] Start: 10-24-2022 Intrauterine catheterization [facility] Start: 10-24-2022 Introduction of urinary catheter [facility] Start: 10-24-2022 Provision of activity privileges [facility] Start: 10-24-2022 End: 10-24-2022 [facility] Start: 10-24-2022 Nonstress test [facility] Start: 10-24-2022 End: 10-24-2022 Obstetric monitoring [facility] Start: 10-24-2022 Vital signs measurements [facility] CBC W Auto Different ial panel - Blood [facility] Work Phone: CBC W Auto Different ial panel - Blood [facility] Erythrocyte mean corpuscular volume determination [facility] Hematocrit [Volume Fraction] of Blood [facility] Hemoglobin [Mass/vol ume] in Blood [facility] Hepatitis B surface antigen measurement [facility] Work Phone: Hepatitis C antibody measurement [facility] Work Phone: HIV 1+2 Ab+HIV1 p24 Ag [Presence] in Serum or Plasma by Immunoassay [facility] Work Phone: Leukocytes [#/volume ] in Blood [facility] Mean corpuscular hem oglobin concentration determination [facility] Mean corpuscular hem oglobin determination [facility] Measurement of gluco se 2 hours after glucose challenge for glucose tolerance test [facility] Neutrophil count [facility] Neutrophil percent differential count [facility] Patient Education [facility] Work Phone: Patient referral [facility] Work Phone: Platelets [#/volume] in Blood [facility] Red blood cell count [facility] Red cell distributio n width determination [facility] Rubella IgG measurement [facility] Work Phone: Serologic test for syphilis [facility] Streptococcus agalac tiae [Presence] in Unspecified specimen by Organism specific culture [facility] Treponema sp Ab [Pre sence] in Serum [facility] Work Phone: [facility] Immunizations Immunization Date Immunization Notes Care Provider Fa cility 02-21-2025 tetanus toxoid, redu alexis diphtheria toxoid, and acellular pertussis vaccine, adsorbed Dr. Connor Blank DO Work Phone: [facility] 08-15-2022 influenza, injectabl e, quadrivalent, preservative free Dr. Connor Blank DO Work Phone: [facility] 08-15-2022 influenza, seasonal, injectable [facility] 08-02-2022 tetanus toxoid, redu alexis diphtheria toxoid, and acellular pertussis vaccine, adsorbed [facility] 07-06-2020 tetanus toxoid, redu alexis diphtheria toxoid, and acellular pertussis vaccine, adsorbed [facility] 04-27-2020 Influenza virus vaccine [facility] Payers Date Payer Category Payer Unknown [id number] 2024 Self-pay [id number] 2024 Unknown [id number] 2017 Unknown [id number] 1990 Unknown [id number] 2.16. [id number] 1990 Unknown [id number] .. [id number] 1990 Unknown [id number] 2.16. 840.1.029652.3.579.2.479 Unknown [id number] Unknown [id number] 2.16.8 40.1.231788.3.579.2.462 Unknown [id number] 2.16.8 40.1.084396.3.579.2.462 Unknown [id number] 2.16.8 40.1.367046.3.579.2.462 Unknown [id number] 2.16.8 40.1.449723.3.579.2.462 Unknown [id number] 2.16.8 40.1.740197.3.579.2.462 Unknown [id number] 2.16.8 40.1.876208.3.579.2.462 Unknown [id number] 2.16.8 40.1.972963.3.579.2.462 Unknown [id number] 2.16.8 40.1.796796.3.579.2.462 Unknown [id number] 2.16.8 40.1.005491.3.579.2.462 Unknown [id number] 2.16.8 40.1.984364.3.579.2.462 Unknown [id number] 2.16.8 40.1.912104.3.579.2.462 Unknown [id number] 2.16.8 40.1.606024.3.579.2.462 Unknown [id number] 2.16.8 40.1.814579.3.579.2.462 Unknown [id number] 2.16.8 40.1.619997.3.579.2.462 Unknown [id number] 2.16.8 40.1.366954.3.579.2.462 Unknown [id number] 2.16.8 40.1.392484.3.579.2.462 Unknown [id number] 2.16.8 40.1.798701.3.579.2.462 Unknown [id number] 2.16.8 40.1.128719.3.579.2.462 Unknown [id number] 2.16.8 40.1.946491.3.579.2.462 Unknown [id number] 2.16.8 40.1.790001.3.579.2.462 Unknown [id number] 2.16.8 40.1.226696.3.579.2.462 Unknown [id number] 2.16.8 40.1.392070.3.579.2.462 Social History Date Type Detail Facility Start: 03-24-2022 End: 10-24-2022 Tobacco smoking status NHIS Unknown if ever smoked [facility] Start: 1990 Sex Assigned At Female W [facility] Start: 09-13-2024 [facility] Start: 10-10-2024 Sex Female (finding) [facility] Sex Female [facility] Goals Date Patient Goal Desired Activity /State Clinical Notes 10-24-2022 to 05-01-2025 Note Date & Type Note Facility 05-01-2025 Progress note [facility] 05-01-2025 Radiology Diagnostic study note [facility] [address] [place] [address] OB Limited With Biometrics MR#: [id number] Acct: [id number] Name: RAMYA GOEL Rep #: [id number] : 1990 F 34 From: Elida Little MD PCP: Dr. Connor Blank, DO Status: RE G CLI Study:OB Limited With Biometrics Date of Exam : 05/01/25 Exam# [id number] Ordering Dr: Mary Heath MD PROCEDURE: OB [...] estimated delivery date of 05/15/2025. Reading Location: [place] [address] CC: Dr. Connor Blank DO; Dr. Mary Gonzalez MD ~ Incident Response Lead: Signed [facility] 04-23-2025 Progress note [facility] 04-18-[address] [facility] 04-11-2025 Progress note [facility] 04-03-[address] [facility] 03-20-[address] [facility] 03-20-2025 Progress note Note Date/Time March 20, 2025 2:59pm [facility] [address] [place] [address], [address] [place] [address] OFFICE VISIT Date of Service: 03/20/25 MR#: [id number] Acct: [id number] Name: RAMYA GOEL Rep #: [id number] : 1990 Provider: Dr. 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 Date Name GA/Weeks Outcome Route Bth Weight Gen Labor Lgth Anesthesia Del Locatn Provider FOB 09/18/20 Wal[place] 40 live - full term 7# Male [facility] Sameer 10/24/22 Perla 40 live - full term 8#11 Female epi dural [facility] Mary Gonzalez Bud Delivery Date: 09/18/20 [...] POC Urinalysis 2 Dip (Clinic) Today 03/20/25 1235 <Electronically signed by Mary leahy MD> Date _ [facility] Signature: Date (if applicable) CC: ~ [facility] Work Phone: 1(559) 399-135907-25-2025 [facility] [address], [address] [place] [address] OFFICE VISIT Date of Service: 02/21/25 MR#: [id number] Acct: [id number] Name: RAMYA GOEL Rep #: [id number] : 1990 Provider: MIKI Petersen Age/Sex: 34/F [place] [facility] [place]: Signed Intake Vital Signs 12/19/24 11:48 02/06/25 09:08 02/21/25 10:11 Height 5 ft 7 in 5 ft 7 in 5 ft 7 in Weight: 147 lb BMI 23.0 BP 111/69 Intake Visit Reasons: 30wk ob Circuit Manager Required: No Is patient in pain?: No [...] 2 current occupational status: employed current occupation: [employer] current occupational exposures/hazards: No pets and animals: [...] in: none frequency: 3-4 times per week taryn/taoism: Worship seatbelt use: always do you feel safe at home: Yes 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 Date Name GA/Weeks Outcome Route Bth Weight Gen Labor Lgth Anesthesia Del Locatn Provider FOB 09/18/20 [place] 40 live - full term 7# Male [facility] Sameer 10/24/22 Perla 40 live - full term 8#11 Female epi dural [facility] Mary Gonzalez Bud Delivery Date: 09/18/20 [...] Signature: Date (if applicable) CC: ~ [facility]-19-2025 Evaluation note* Diagnosis Onset Date [...] of normal acute April 23, 2025 9:19am [facility] Work Phone: 1(494) 435-925306-19-2025 Evaluation note* Diagnosis Onset Date Resolution Status [...] Supervision of normal acute May 01 1:45pm [facility] Work Phone: 1(279) 659-641306-19-2025 [facility] [address] [place] [address], [address] [place] [address] OFFICE VISIT Date of Service: 01/16/25 MR#: [id number] Acct: [id number] Name: RAMYA GOEL Rep #: [id number] : 1990 Provider: MIKI Acosta Age/Sex: 34/F [place] [facility] Status: Signed Intake Vital Signs 10/23/24 14:30 12/19/24 11:48 01/16/25 09:34 Height 5 ft 7 in 5 ft 7 in 5 ft 7 in Weight: 140 lb 8 oz BMI 21.9 BP 97/65 Intake Visit Reasons: 25wk ob Chief Complaint: 25 Week OB Circuit Manager Required: No Is patient in pain?: No [...] 2 current occupational status: employed current occupation: [employer] current occupational exposures/hazards: No pets and animals: [...] in: none frequency: 3-4 times per week taryn/taoism: Worship seatbelt use: always do you feel safe at home: Yes 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 Date Name GA/Weeks Outcome Route Bth Weight Infant Gen Labor Lgth Anesthesia Del Locatn Provider FOB 09/18/20 [place] 40 live - full term 7# Male [facility] Sameer 10/24/22 Perla 40 live - full term 8#11 Female epi dural [facility] Mary Riconajma Bud Delivery Date: 09/18/20 [...] Signature: Date (if applicable) CC: ~ [facility]05-22-2025 Evaluation note* Diagnosis Onset Date [...] of normal acute April 11, 2025 1:03pm [facility] Work Phone: 1(259) 313-594005-11-2025 Evaluation note* Diagnosis Onset Date Resolution Status [...] normal acute March 20 2:42pm [facility] Work Phone: 1(353) 224-711305-11-2025 Evaluation note* Diagnosis Onset Date Resolution Status [...] April 03, [address] [facility] Work Phone: 1(994) 768-617204-22-2025 Evaluation note* Diagnosis Onset Date Resolution Status [...] acute February 21, 2025 10:09am [facility] Work Phone: 1(186) 444-758904-22-2025 Evaluation note* Diagnosis Onset Date Resolution Status [...] acute March 07, 2025 8:34am [facility] Work Phone: 1([phone]) 898-393304-22-2025 Evaluation note* Diagnosis Onset Date Resolution Status [...] decelerations, antepartum acute March 07, 2025 8:34am [facility] Work Phone: 1(722) [phone] Evaluation note* Diagnosis Onset Date Resolution Status [...] of normal acute February 06, 2025 9:05am [facility] Work Phone: 1(518) 395-158702-28-2025 Evaluation note* Diagnosis Onset Date Resolution Status Admit Date Anxiety acute September 27, 2024 7:56am acute September 27, 2024 7:56am Supervision of normal acute September 27, 2 025 7:56am [facility] Work Phone: 1(325) [phone] Evaluation note* Diagnosis Onset Date Resolution Status [...] of normal acute January 16, 2025 9:31am [facility] Work Phone: 1(783) 611-569303-28-2023 Discharge summary Author Lizy Acosta [facility] October 25, 2022 7:53am Note Date/Time October 25, 2022 7:5 2am [facility] Medical Records Department [address] [place] [address] Instructions for Home/Discharge Instructions 10/25/22 0752 MR#: [id number] Acct: [id number] Name: RAMYA GOEL Rep #:[id number] : [...] Acosta CNM CC: Connor Blank ~ Signed [facility] Work Phone: 1(683) 902-426503-28-2023 Progress note Author Lizy Acosta [facility] October 25, 2022 7:52am Note Date/Time October 25, 2022 7:5 2am [facility] Medical Records Department [address] [place] [address] Progress Note - OBGYN 10/25/22 0749 MR#: [id number] Acct: [id number] Name: RAMYA GOEL Rep #:[id number] : 1990 31 From: Lizy Acosta CNM PCP: Connor Blank Status:ADM IN Location: [place] [address] Subjective Subjective Patient doing well without complaints. [...] Cosigner Signature (if applicable): CC: ~ Signed [facility] Work Phone: 1(908) 458-565103-27-[address] Marcanthony [facility] October 24, 2022 7:39pm Note Date/Time October 24, 2022 7:3 9pm [facility] Medical Records Department [address] [place] [address] Instructions for Home/Discharge Instructions 10/24/221938 MR#: [id number] Acct: [id number] Name: RAMYA GOEL Rep #:[id number] : [...] Gonzalez MD CC: Connor Blank ~ Signed [facility] Work Phone: 1([phone]) 541-128303-27-2023 Procedure [facility] 10-24-2022 History and physical note Author Dr. 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 Date Name GA/Weeks Outcome Route Bth Weight Infant Gen Labor Lgth Anesthesia Del Rogerioatpari Provider FOB 09/18/20 [place] 40 live - full term Male [facility] Sameer Delivery Date: 09/18/20 Last Updated [...] complications: see a/p [facility] and made any clinically relevant updates. 10/24/22 0743 <Electronically signed by Mary Gonzalez MD> Cosigner Signature (if applicable): CC: Dr. Mary Gonzalez MD; Connor Blank~ Signed [facility] Work Phone: Evaluation note* Diagnosis Onset Date Resolution Status Encounter for routine gynecological examination noneactive acute Supervision of normal acute [facility] Work Phone: Evaluation note* Diagnosis Onset Date Resolution Status Encounter for routine gynecological examination noneactive acute Supervision of normal acute acute Supervision of normal acute acute Supervision of normal [facility] Work Phone: Evaluation note* Diagnosis Onset [...] renal pelvis acute Supervision of normal acute [facility] Work Phone: Evaluation note* Diagnosis Onset Date [...] of membranes) resolved Supervision of normal resolved [facility] Work Phone: Progress note Author Lizy Acosta [facility] Note Date/Time January 16, 2025 9:51 am [facility] [address] [place] [address], [address] [place] [address] OFFICE VISIT Date of Service: 01/16/25 MR#: [id number] Acct: [id number] Name: RAMYA GOEL Rep #: [id number] : 1990 Provider: MIKI Acosta Age/Sex: 34/F Location: [facility] [place] [place] Status: Signed Intake Vital Signs 10/23/24 14:30 12/19/24 11:48 01/16/25 09:34 Height 5 ft 7 in 5 ft 7 in 5 ft 7 in Weight: 140 lb 8 oz BMI 21.9 BP 97/65 Intake Visit Reasons: 25wk ob Chief Complaint: 25 Week OB Circuit Manager Required: No Is patient in pain?: No [...] 2 current occupational status: employed current occupation: [employer] current occupational exposures/hazards: No pets and [...] in: none frequency: 3-4 times per week taryn/taoism: Worship seatbelt use: always do you feel safe at home: Yes 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 Date Name GA/Weeks Outcome Route Bth Weight Gen Labor Lgth Anesthesia Del Locatn Provider FOB 09/18/20 [place] 40 live - full term 7# Male [facility] Sameer 10/24/22 [place] 40 live - full term 8#11 Female epi dural [facility] Mary Gonzalez Bud Delivery Date: 09/18/20 [...] Cosigner Signature: Date (if applicable) CC: ~ [facility] Work Phone: Progress note Author Krysta Petersen [facility] Note Date/Time February 21, 2025 10:2 8am [facility] [address], [address] [place] [address] OFFICE VISIT Date of Service: 02/21/25 MR#: [id number] Acct: [id number] Name: RAMYA GOEL Rep #: [id number] : 1990 Provider: MIKI Petersen Age/Sex: 34/F [place] [facility] [place]: Signed Intake Vital Signs 12/19/24 11:48 02/06/25 09:08 02/21/25 10:11 Height 5 ft 7 in 5 ft 7 in 5 ft 7 in Weight: 147 lb BMI 23.0 BP 111/69 Intake Visit Reasons: 30wk ob Circuit Manager Required: No Is patient in pain?: No [...] 2 current occupational status: employed current occupation: [employer] current occupational exposures/hazards: No pets and [...] in: none frequency: 3-4 times per week taryn/taoism: Worship seatbelt use: always do you feel safe at home: Yes 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 Date Name GA/Weeks Outcome Route Bth Weight Infant Gen Labor Lgth Anesthesia Del Locatn Provider FOB 09/18/20 [place] 40 live - full term 7# Male [facility] Sameer 10/24/22 [place] 40 live - full term 8#11 Female epi dural [facility] Mary Gonzalez Bud Delivery Date: 09/18/20 [...] Cosigner Signature: Date (if applicable) CC: ~ [facility] Work Phone: Progress note Author Lizy Acosta [facility] Note Date/Time April 03, 2025 9:53am [facility] [address] [place] [address], [address] [place] [address] OFFICE VISIT Date of Service: 04/03/25 MR#: [id number] Acct: [id number] Name: RAMYA GOEL Rep #: [id number] : 1990 Provider: MIKI Acosta Age/Sex: 34/F [place] [facility] Status: Signed Intake Vital Signs 02/06/25 09:08 03/20/25 14:45 04/03/25 09:24 Height 5 ft 7 in 5 ft 7 in 5 ft 7 in Weight: 157 lb 7 oz BMI 24.6 BP 115/74 Intake Visit Reasons: 36wk ob Chief Complaint: 36wk ob Circuit Manager Required: No Is patient in pain?: No [...] 2 current occupational status: employed current occupation: [employer] current occupational exposures/hazards: No pets and [...] in: none frequency: 3-4 times per week taryn/taoism: Worship seatbelt use: always do you feel safe at home: Yes 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 Date Name GA/Weeks Outcome Route Bth Weight Infant Gen Labor Lgth Anesthesia Del Locatn Provider FOB 09/18/20 [place] 40 live - full term 7# Male [facility] Sameer 10/24/22 [place] 40 live - full term 8#11 Female epi dural [facility] Mary Gonzalez Bud Delivery Date: 09/18/20 [...] Date (if applicable) CC: ~ [facility] Work Phone: Progress note Author Mary Gonzalez [facility] Note Date/Time April 11, 2025 1:21pm [facility] [address] [place] [address], [address] [place] [address] OFFICE VISIT Date of Service: 04/11/25 MR#: [id number] Acct: [id number] Name: RAMYA GOEL Rep #: [id number] : 1990 Provider: Dr. Rafal Gonzalez MD Age/Sex: 34/F [place] [facility] Status: Signed Intake Vital Signs 03/07/25 08:38 04/03/25 09:24 04/11/25 13:06 04/11/25 13:06 Height 5 ft 7 in 5 ft 7 in 5 ft 7 in 5 ft 7 in Weight: 156 lb 1 oz BMI 24.4 BP 116/71 Intake Visit Reasons: 37wk ob Circuit Manager Required: No Is patient in pain?: No [...] 2 current occupational status: employed current occupation: [employer] current occupational exposures/hazards: No pets and [...] in: none frequency: 3-4 times per week taryn/taoism: Worship seatbelt use: always do you feel safe at home: Yes 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 Date Name GA/Weeks Outcome Route Bth Weight Gen Labor Lgth Anesthesia Del Locatn Provider FOB 09/18/20 [place] 40 live - full term 7# Male [facility] Sameer 10/24/22 [place] 40 live - full term 8#11 Female epi dural [facility] Mary Farrell Delivery Date: 09/18/20 Last [...] Signature: Date (if applicable) CC: ~ [facility] Work Phone: Progress note Author Lizy Acosta [facility] Note Date/Time April 18, 2025 10:10am [facility] [address] [place] [address], [address] [place] [address] OFFICE VISIT Date of Service: 04/18/25 MR#: [id number] Acct: [id number] Name: RAMYA GOEL Rep #: [id number] : 1990 Provider: MIKI Acosta Age/Sex: 34/F Location: [facility] [place] [place] Status: Signed Intake Vital Signs 03/07/25 08:38 04/11/25 13:06 04/18/25 09:32 Height 5 ft 7 in 5 ft 7 in 5 ft 7 in Weight: 159 lb 1 oz BMI 24.9 BP 130/63 H Intake Visit Reasons: 38 WK OB Circuit Manager Required: No Is patient in pain?: No [...] 2 current occupational status: employed current occupation: [employer] current occupational exposures/hazards: No pets and [...] in: none frequency: 3-4 times per week taryn/taoism: Worship seatbelt use: always do you feel safe at home: Yes 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 Date Name GA/Weeks Outcome Route Bth Weight Infant Gen Labor Lgth Anesthesia Del Locatn Provider FOB 09/18/20 [place] 40 live - full term 7# Male [facility] Sameer 10/24/22 [place] 40 live - full term 8#11 Female epi dural [facility] Mary Gonzalez Bud Delivery Date: 09/18/20 [...] Cosigner Signature: Date (if applicable) CC: ~ [facility] Work Phone: Progress note Author Yue Hull [facility] Note Date/Time April 23, 2025 9:43am [facility] [address] [place] [address], [address] [place] [address] OFFICE VISIT Date of Service: 04/23/25 MR#: [id number] Acct: [id number] Name: RAMYA GOEL Rep #: [id number] : 1990 Provider: Dr. Leonarda Sanford DO Age/Sex: 34/F [place] [facility] Status: Signed Intake Vital Signs 03/07/25 08:38 04/03/25 09:24 04/18/25 09:32 04/23/25 09:23 Height 5 ft 7 in 5 ft 7 in 5 ft 7 in 5 ft 7 in Weight: 157 lb 7 oz BMI 24.6 BP 134/86 H Intake Visit Reasons: 39 WK OB Chief Complaint: 39 Week OB Circuit Manager Required: No Is patient in pain?: No [...] 2 current occupational status: employed current occupation: [email or web address] current occupational exposures/hazards: No pets and animals: [...] in: none frequency: 3-4 times per week taryn/taoism: Worship seatbelt use: always do you feel safe at home: Yes 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 Date Name GA/Weeks Outcome Route Bth Weight Infant Gen Labor Lgth Anesthesia Del Locatn Provider FOB 09/18/20 [place] 40 live - full term 7# Male [facility] Sameer 10/24/22 [place] 40 live - full term 8#11 Female epi dural [facility] Mary Riconajma Bud Delivery Date: 09/18/20 [...] Signature: Date (if applicable) CC: ~ [facility] Work Phone: Progress note Author Mary Gonzalez [facility] Note Date/Time May 01, 2025 4: 04pm [facility] Medical Records Department [address] [place] [address] OB Triage Progress Note 05/01/25 1603 MR#: [id number] Acct: [id number] Name: RAMYA GOEL Rep #:[id number] : 1990 34 From: Mary pederson MD PCP: Dr. Connor Blank DO Status:RE G CLI Y DOS: Location: [place] [address] Progress Notes Date of Service: 05/01/25 Progress Note: Patient presents for triage evaluation secondary to low fundal height FHT: 140 Moderate variability reactive no decelerations category I tracing [place]: no regular Contractions Assessment and plan: 40 weeks uterine size date discrepancy Reactive NST, reassuring maternal and status patient discharged to home to follow-up as scheudled. See problem list details for additional plan information. Charges/Coding Procedures Urinary/Genital 52xxx-59xxx: 12297-60 non-stress test Interp 05/01/25 1604 <Electronically signed by Mary leahy MD> Date _ Mary Gonzalez MD Cosigner Signature (if applicable): Date CC: Dr. Connor Blank DO; Dr. Mary Gonzalez MD ~ Signed [facility] Work Phone: Reason for referral (narrative)No reason for referral information availableWSumma Health [facility] Work Phone: Summary Purpose Family History Relationship Condition Age at Onset Recorded Date/T vicki grandfather Hypertension Unknown Cardiac disease Unknown grandmother Malignant neoplasm Unknown aunt Malignant neoplasm of breast Unknown Advance Directives Advance Directive Response Recorded Date/ Time Living Will No September 17 9:38pm Power of Core Dipper No September 17, 2020 9:38pm Advance Directive Response Recorded Date/ Time Living Will No September 17 8:38pm Power of Core Dipper No September 17, 2020 8:38pm Advance Directive Response Recorded Date/ Time Living Will No October 24, 2022 4:27am Power of Core Dipper No October 24 4:27am Chief Complaint and Reason for Visit Chief Complaint Annual (SCRAP BREAKER) NOB LMP 01/14 Reason for Visit Encounter for routin e gynecological examination Supervision of normal Chief Complaint Annual (SCRAP BREAKER) NOB LMP 01/14 12 WK OB 16wk [...] section and content) DATE CREATED AUTHOR 01/23/[address] [facility] ([place]) DATE CREATED AUTHOR AUTHOR'S ORGANIZ ATION 01/04/2025 [facility] DATE CREATED AUTHOR AUTHOR'S ORGANIZ ATION 05/02/2025 [facility] Goals (unrecognized section and content) Type Care [...] Team Status: Active Member Role Status Dates [facility] Primary Care Provider Active Team Status: Inactive Member Role Status [facility] Primary Care Provider, Referring Provi marv Active Anahi Riojas CUSTOMER RELATIONSHIP SPECIALIST, CUSTOMER RELATIONSHIP SPECIALIST-C Attending Provider Active Team Status: Inactive Member Role Status [facility] Primary Care Provider, Referring Provi marv Active Dr. Mary Gonzalez MD Attending Provider Active Team Status: Inactive Member Role Status [facility] Primary Care Provider, Referring Provi marv Active Dr. Yue Sanford DO Attending Provider Activ e Team Status: Inactive Member Role Status [facility] Primary Care Provider Active Dr. Mary Gonzalez MD Attending Provider, Referr ing Provider Active Team Status: Inactive Member Role Status [facility] Primary Care Provider Active Dr. Yue Sanford [...] Provider, Referring P rovider Active Anahi Riojas CUSTOMER RELATIONSHIP SPECIALIST, CUSTOMER RELATIONSHIP SPECIALIST-C Attending Provider Active Team Status: Inactive Member [...] 2024 End: November 19, 2024 Anahi Riojas CUSTOMER RELATIONSHIP SPECIALIST, CUSTOMER RELATIONSHIP SPECIALIST-C Attending Provider Active Start: November 19, 2024 [...] 2024 End: November 19, 2024 Anahi Riojas CUSTOMER RELATIONSHIP SPECIALIST, CUSTOMER RELATIONSHIP SPECIALIST-C Attending Provider Active Start: November 19, 2024 [...] 2025 End: February 06, 2025 Anahi Riojas CUSTOMER RELATIONSHIP SPECIALIST, CUSTOMER RELATIONSHIP SPECIALIST-C Attending Provider Active Start: February 06, 2025 [...] 2024 End: November 19, 2024 Anahi Riojas CUSTOMER RELATIONSHIP SPECIALIST, CUSTOMER RELATIONSHIP SPECIALIST-C Attending Provider Active Start: November 19, 2024 End: November 19, 2024 Team Status: Inactive Member Role/Relationship Status Dates Dr. Connor Blank DO Primary Care Provider Active Start: December 08, 2024 End: December 08, 2024 Dr. Connor Blank DO Referring Provider Active Start: December 08, 2024 End: December 08, 2024 Nick Ziegler CUSTOMER RELATIONSHIP SPECIALIST, CUSTOMER RELATIONSHIP SPECIALIST-C Attending Provider Active S tart: December 08, [...] 2025 End: February 06, 2025 Anahi Riojas CUSTOMER RELATIONSHIP SPECIALIST, CUSTOMER RELATIONSHIP SPECIALIST-C Attending Provider Active Start: February 06, 2025 [...] End: December 08, 2024 Nick Ziegler NP, CUSTOMER RELATIONSHIP SPECIALIST-C Attending Provider Active S tart: December 08, [...] 2025 End: February 06, 2025 Anahi Riojas CUSTOMER RELATIONSHIP SPECIALIST, CUSTOMER RELATIONSHIP SPECIALIST-C Attending Provider Active Start: February 06, 2025 [...] 2025 End: February 06, 2025 Anahi Riojas CUSTOMER RELATIONSHIP SPECIALIST, CUSTOMER RELATIONSHIP SPECIALIST-C Attending Provider Active Start: February 06, 2025 [...] End: February 06, 2025 Anahi Riojas NP, CUSTOMER RELATIONSHIP SPECIALIST-C Attending physician Active Start: February 06, 2025 [...] BE BASED ON THE PRIMARY CLINICAL RECORDS. [employer] [facility]. provides no warranty or guarantee of the accuracy or completeness of information in this document.
[2025-05-04 03:48] LABS: Hematocrit 38.9 % (37-47); Hemoglobin 13.4 g/dL (12.0-15.0); Immature Granulocytes Count 0.040 X10^3/uL (0.0-0.0); Mean Corp Hgb Conc 34.4 g/dL (32-36); Mean Corpuscular Volume 86.4 fL (81-99); Mean Platelet Vol. 11.0 fl (6.2-12.0); NRBC Flagged by Analyzer 0 % (0-5); Platelet Count 134 K/mm3 (150-450); RBC Distribution Width CV 13.4 % (11.6-14.6); RBC Distribution Width SD 41.8 fl (35.1-43.9); Red Blood Count 4.50 M/mm3 (4.2-5.4); White Blood Count 7.1 K/mm3 (4.4-11.0)
[2025-05-04 04:29] LABS: Syphilis Antibodies Nonreactive (Nonreactive)
[2025-05-04] MEDS: Oxytocin 15 Units/NS 250ml 15 UNITS/250 ML IV.SOLN 334 UNITS IV (04:31)
--- NOTE | 2025-05-04 04:44 | HP.PCM.OB_ITS ---
HPI - General General Date of Admission: 05/04/25 HPI Narrative JOSEY CHÁVEZ, is a 34 F G3, P2 who presents to labor and delivery in active labor. care has been uneventful. Maternal Data Information OTTO Calculator Estimated Delivery Date Method Current WG Current Estimate 05/01/25 LMP (Certain) 40w 3d Other Estimates 05/04/25 Ultrasound #1 40w 0d [place] Doctor Who Attended Delivery: Jewel Causey [facility] Medical History Vaginal delivery cardiac echogenic focus Low-lying placenta in second trimester No significant medical problems Home Medications ?Medication ?Instructions ?Recorded ?Last Taken ?Type multivitamin no.47-iron fum 27 1 cap PO 09/13/2405/03 23:00 History mg-folate no.1 1 mg-dha 300 mg capsule (PNV-DHA) magnesium 250 mg tablet 250 mg PO QDAY 11/19/24 10/0 11/22 23:00 History Allergy/AdvReac Type Severity Reaction Status Date / Time No Known Allergies Allergy Verified 05/04/25 03:26 Family History Grandfather Hypertension Heart disease Grandmother Cancer Aunt Breast cancer Maternal Surgical History History of cataract surgery H/O foot surgery H/O wisdom tooth extraction Social History adopted: No household members: spouse and children housing: house number of children: 2 current occupational status: employed current occupation: [employer]- [employer] current occupational exposures/hazards: No pets and animals: Yes pets and animals: dog(s) history of recent travel: No sexually active: Yes Smoking Status: Never smoker second hand exposure: No alcohol intake: former details: social- Not while substance use type: does not use well-balanced diet: daily or most days caffeine: Yes Type: coffee Number of servings: 1 eating out: rarely or never during the past year weight has: remained stable what type of physical activity do you participate in: none frequency: 3-4 times per week taryn/christianity: Faith seatbelt use: always do you feel safe at home: Yes additional social history: 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 Date Name GA/Weeks Outcome Route Bth Weight Infant Gen Labor Lgth Anesthesia Del Locatn Provider FOB 09/18/20 Waldo 40 live - full term 7# Male [facility] Sameer 10/24/22 Perla 40 live - full term 8#11 Female epi dural [facility] Mary Gonzalez Bud Delivery Date: 09/18/20 Last Updated by: Pebbles Hardin admitted in active labor. normal vaginal delivery Delivery Date: 10/24/22 Last Updated by: Alyssa Rizo see problem list for complications, and ial 40 sm. Visit Details Expected Delivery Route/Plan Lsvd labor Preferences- CB/BF classes: no labor support person: Bud labor intervention preferences: [] pain management options preferred: wants limited. cut cord/dad catch: no : yes PP control planned: discussed discussed possible routes of delivery and associated risks: [] special requests: [] Plans Covid status: [] Flu vaccine: [] Tdap vaccine: given Rhogam: NA LARC form signed: yes movement and labor precautions reviewed. Problem list reviewed and updated with the most current plan of care details and appropriate orders placed. Relevant counseling for the gestational age provided. Continue routine care and follow up unless otherwise noted in visit notes/problem list details OB Flowsheet Initial Weight: 126 lb Date -?-?-?-?-?-?-?-?-?-?-?-?- EGA Weight BP Urine Prot -?-?-?-?-?-?-?-?-?-?-?-?- Glucose FHR FuHt Pres Dilation -?-?-?-?-?-?-?-?-?-?-?-?- Effaced St Visit Note 09/27/24 -?-?-?-?-?-?-?-?-?-?-?-?- 9w 1d 126 lb 8 oz (+8 oz) 124/83 -?-?-?-?-?-?-?-?-?-?-?-?- 169 -?-?-?-?-?-?-?-?-?-?-?-?- KW- CRL cons wit h dates. Declines NIPT 10/23/24 -?-?-?-?-?-?-?-?-?-?-?-?- 12w 6d 129 lb 8 oz (+3 lb 8 oz) 128/80 Negative -?-?-?-?-?-?-?-?-?-?-?-?- Negative 160 -?-?-?-?-?-?-?-?-?-?-?-?- JV- no complaint s today but wants a full vitamin work up. we discussed lack of necessity and all questions answered. healthy diet and pnv discussion today. 11/19/24 -?-?-?-?-?-?-?-?-?-?-?-?- 16w 5d 131 lb 8 oz (+5 lb 8 oz) 118/80 Negative -?-?-?-?-?-?-?-?-?-?-?-?- Negative 154 -?-?-?-?-?-?-?-?-?-?-?-?- MH-No VB. Feels well. Magnesium helps with headaches 12/19/24 -?-?-?-?-?-?-?-?-?-?-?-?- 21w 0d 136 lb 8 oz (+10 lb 8 oz) 116/74 Negative -?-?-?-?-?-?-?-?-?-?-?-?- Negative 150 -?-?-?-?-?-?-?-?-?-?-?-?- SM- no vb lof go od fm no regular ctx discussed anatomy findings, declines NIPT 01/16/25 -?-?-?-?-?-?-?-?-?-?-?-?- 25w 0d 140 lb 8 oz (+14 lb 8 oz) 97/65 Negative -?-?-?-?-?-?-?-?-?-?-?-?- Negative 155 25 -?-?-?-?-?-?-?-?-?-?-?-?- KW- no vb/crampi ng. good fm. glucose discussed. umbilical hernia discussed and may want surgical consult after delivery 02/06/25 -?-?-?-?-?-?-?-?-?-?-?-?- 28w 0d 147 lb 2 oz (+21 lb 2 oz) 102/60 Negative -?-?-?-?-?-?-?-?-?-?-?-?- Negative 141 27 -?-?-?-?-?-?-?-?-?-?-?-?- MH-No Vb, LOF. G ood Fm. Larc. 28 wk labs pending. Tdap next visit 02/21/25 -?-?-?-?-?-?-?-?-?-?-?-?- 30w 1d 147 lb (+21 lb) 111/69 -?-?-?-?-?-?-?-?-?-?-?-?- 144 30 -?-?-?-?-?-?-?-?-?-?-?-?- LC- no vb/ctx/lo f. good fm. tdap today. 03/07/25 -?-?-?-?-?-?-?-?-?-?-?-?- 32w 1d 148 lb 6 oz (+22 lb 6 oz) 104/69 Negative -?-?-?-?-?-?-?-?-?-?-?-?- Negative 154 32 -?-?-?-?-?-?-?-?-?-?-?-?- LC- no vb/ctx/lo f. has not felt baby move yet today. nst obtained. LC- no vb/ctx/lof. has not f elt baby move yet today. nst obtained. non-reactive nst with variables. sent to for extended monitoring and LC- no vb/ctx/lof. has not f elt baby move yet today. nst obtained. non-reactive nst with variables. sent to for extended monitoring and BPP 03/20/25 -?-?-?-?-?-?-?-?-?-?-?-?- 34w 0d 152 lb 4 oz (+26 lb 4 oz) 119/74 -?-?-?-?-?-?-?-?-?-?-?-?- 160 34 -?-?-?-?-?-?-?-?-?-?-?-?- SM- no vb lof go od fm no regular ctx SM- no vb lof feels the mini mum fm but it is irregular- discussed formal kick counts and provided instructions to call no regular ctx 04/03/25 -?-?-?-?-?-?-?-?-?-?-?-?- 36w 0d 157 lb 7 oz (+31 lb 7 oz) 115/74 Negative -?-?-?-?-?-?-?-?-?-?-?-?- Negative 145 36 -?-?-?-?-?-?-?-?-?-?-?-?- KW- no vb/lof/ct x. good fm GBS today. 04/11/25 -?-?-?-?-?-?-?-?-?-?-?-?- 37w 1d 156 lb 1 oz (+30 lb 1 oz) 116/71 Negative -?-?-?-?-?-?-?-?-?-?-?-?- Negative 140 36 Cephalic -?-?-?-?-?-?-?-?-?-?-?-?- SM- no vb lof go od fm no reuglar ctx 04/18/25 -?-?-?-?-?-?-?-?-?-?-?-?- 38w 1d 159 lb 1 oz (+33 lb 1 oz) 130/63 Negative -?-?-?-?-?-?-?-?-?-?-?-?- Negative 145 34 Cephalic 1 -?-?-?-?-?-?-?-?-?-?-?-?- 50 -2 KW- no vb/ lof/ctx. good fm CHERI by TRACY and 10+ 04/23/25 -?-?-?-?-?-?-?-?-?-?-?-?- 38w 6d 157 lb 7 oz (+31 lb 7 oz) 134/86 Negative -?-?-?-?-?-?-?-?-?-?-?-?- Negative 151 Cephalic -?-?-?-?-?-?-?-?-?-?-?-?- JV- fluid level is normal again today. incidental bpp 03/07. does not want pelvic exam or induction electively. 05/01/25 -?-?-?-?-?-?-?-?-?-?-?-?- 40w 0d 159 lb (+33 lb) 130/81 Negative -?-?-?-?-?-?-?-?-?-?-?-?- Negative 150 37 Cephalic 1 .5 -?-?-?--?-?-?-?-?-?-?-?-?- 40 -3 SM- to l a nd d for growth US no vb lof good fm no regular ctx Vital Signs Vital Signs Vital Signs: Afebrile, vital signs stable 05/04/25 03:07 05/04/25 03:07 05/04/25 03:07 Temperature 97.9 F Temperature Source Pulse Rate 66 Respiratory Rate Blood Pressure 134/81 H BP Systolic 134 BP Diastolic 81 Pulse Ox 05/04/25 03:07 05/04/25 03:07 05/04/25 03:08 Temperature Temperature Source Temporal Pulse Rate 69 Respiratory Rate Blood Pressure BP Systolic BP Diastolic Pulse Ox 97 05/04/25 03:08 05/04/25 03:08 05/04/25 03:08 Temperature 97.8 F Temperature Source Pulse Rate Respiratory Rate 16 Blood Pressure BP Systolic BP Diastolic Pulse Ox 97 05/04/25 04:41 05/04/25 04:41 05/04/25 04:41 Temperature 96.6 F L Temperature Source Pulse Rate 85 Respiratory Rate Blood Pressure 129/68 H BP Systolic 129 BP Diastolic 68 Pulse Ox 05/04/25 04:41 05/04/25 04:41 05/04/25 04:42 Temperature Temperature Source Temporal Pulse Rate 75 Respiratory Rate Blood Pressure BP Systolic BP Diastolic Pulse Ox 99 05/04/25 04:42 Temperature Temperature Source Pulse Rate Respiratory Rate 16 Blood Pressure BP Systolic BP Diastolic Pulse Ox Weight Weight: 158 lb Body Mass Index (BMI) 24.7 Physical Exam Const alert, oriented x3 and no apparent distress Constitutional Narrative: In active labor General Appearance: cooperative HEENT normocephalic Neck full ROM Resp normal respiratory effort and no retractions Cardio regular rate and regular rhythm Extremity normal to inspection and full ROM Neuro moves all extremities Psych mental status grossly normal Labs Labs Labs: Blood Type O POSITIVE Antibody Screen NEGATIVE Hct, (37-47) 38.9 % Hgb, (12.0-15.0) 13.4 g/dL Pap Smear Negative Obstetrics Ultrasound Syphilis Total Ab, (Nonreactive) Nonreactive Rubella IgG Antibody, (Nonreactive) REAC Hep Bs Antigen, (Nonreactive) Nonreactive Hepatitis C Antibody, (Nonreactive) Nonreactive Chlamydia DNA (ITZEL), (Negative) Negative N.gonorrhoeae DNA (ITZEL), (Negative) Negative HIV 1&2 Antibody, (Nonreactive) Nonreactive Glucose 1 Hr 50 gm, (70-140) 80 mg/dL Gest Glucose Tolerance MG/DL Rhogam given: No Assessment & Plan (1) : QUALIFIERS: Weeks of gestation: 40 weeks Qualified Code(s): Z3A.40 - 40 weeks gestation of COMMENT: GBS neg, declined NIPT & Carrier testing. anatomy scan normal. PLAN: In active labor. Expect spontaneous vaginal delivery.
--- NOTE | 2025-05-04 04:49 | EX.PCM.OBVAG ---
Maternal Data Information OTTO Calculator Estimated Delivery Date Method Current WG Current Estimate 05/01/25 LMP (Certain) 40w 3d Other Estimates 05/04/25 Ultrasound #1 40w 0d Vaginal Delivery Maternal Presentation Maternal Presentation: Active Labor Vaginal Delivery Information Procedure Performed: Spontaneous Vaginal Delivery Surgeon/Practitioner: Nick Borrero Date of Procedure: 05/04/25 Pre-Procedure Diagnosis: Term Intrauterine in Labor Post-Procedure Diagnosis: Term Intrauterine in Labor Type of anesthesia: None Estimated Blood Loss: 250 cc Time of Delivery: 04:27 Findings Description of procedure: Spontaneous vaginal delivery of a viable female infant with Apgars of 9/9 from an occiput anterior presentation with lightly stained meconium amniotic fluid and normal three-vessel placenta. No episiotomy or lacerations noted. Delivery physician: Nick Borrero MD. Procedure findings: Viable female with Apgars of 9/9 with light meconium stained fluid. Normal three-vessel placenta. Presentation: Vertex Amniotic Membrane Rupture Type: Spontaneous Amniotic Fluid Description: Lightly stained meconium Placental Delivery Description: Spontaneous Placenta Disposition: [facility] Cord Vessel Description: 3 Vessels Cord Entanglement: None A Gender: Female (1 minute): 9 (5 minute): 9 Delayed Cord Clamping: Yes Post Vaginal Deli Medications given after delivery: IV Pitocin Episiotomy Description: None Laceration: None Complication Complications: No
[2025-05-04] MEDS: Oxytocin 15 Units/NS 250ml 15 UNITS/250 ML IV.SOLN 83 UNITS IV (05:01)
--- NOTE | 2025-05-04 10:47 | PN.OBGYN_ITS ---
Subjective Subjective Doing well day 0 status post routine spontaneous vaginal delivery earlier this morning. Breast-feeding going well. Minimal bleeding reported. Objective Data Objective Data Vital Signs: Vital Signs Temp Pulse Resp BP Pulse Ox 97.8 F 64 16 115/74 98 05/04/25 06:41 05/04/25 06:56 05/04/25 06:41 05/04/25 06:56 05/04/25 06:11 Weight: 158 lb Body Mass Index (BMI) 24.7 Intake & Output: Intake and Output for Last 24 Hours 05/02/25 05/03/25 05/04/25 23:59 23:59 23:59 Intake Total 1366.05 / 1366.05 Output Total 500 / 500 Balance 866.05 / 866.05 Lab / Micro Data 05/04/25 03:30 Labs: Laboratory Results - last 24 hr 05/04/25 03:30: WBC 7.1, RBC 4.50, Hgb 13.4, Hct 38.9, MCV 86.4, MCH 29.8, MCHC 34.4, RDW Std Deviation 41.8, RDW Coeff of [place] 13.4, Plt Count 134 L, MPV 11.0, Immature Gran % (Auto) 0.600, Neut % (Auto) 69.6, Lymph % (Auto) 21.7, [place] % (Auto) 7.5, Eos % (Auto) 0.3, Baso % (Auto) 0.3, Absolute Neuts (auto) 5.0, Absolute Lymphs (auto) 1.54, Nucleated RBC % 0, Syphilis Total Ab Nonreactive, Blood Type O POSITIVE, Antibody Screen NEGATIVE Assessment & Plan (1) Spontaneous vaginal delivery: PLAN: Doing well day of delivery. Continuing present care. Anticipate release home tomorrow if good progress continues.
[2025-05-05 02:00] VITALS: BP 122/81; PULSE 99; RESP 16; TEMP 36.6; O2SAT 99
[2025-05-05 04:00] VITALS: BP 102/63; PULSE 83; RESP 16; TEMP 36.4; O2SAT 98
--- NOTE | 2025-05-05 07:50 | PN.OBGYN_ITS ---
Subjective Subjective Patient doing well without complaints. Tolerating PO. Ambulating and voiding without difficulty. Feeding well. Denies chest pain, shortness of breath, calf pain/swelling, fevers, chills, lightheadedness. Objective Data Objective Data Vital Signs: Vital Signs Temp Pulse Resp BP Pulse Ox O2 Del Method 97.6 F L 83 16 102/63 98 Room Air 05/05/25 04:00 05/05/25 04:00 05/05/25 04:00 05/05/25 04:00 05/05/25 04:00 05/05/25 04:00 Oxygen Delivery Method Room Air Weight: 158 lb Body Mass Index (BMI) 24.7 Intake & Output: Intake and Output for Last 24 Hours 05/03/25 05/04/25 05/05/25 23:59 23:59 23:59 Intake Total 1366.05 / 1366.05 Output Total 500 / 500 Balance 866.05 / 866.05 Lab / Micro Data Attestation: I reviewed the patient's lab results. 05/04/25 03:30 ROS Constitutional Constitutional: Reports systems reviewed and no addt'l complaints, except as documented; Denies anorexia or headache(s) Cardiovascular Cardiovascular: Reports systems reviewed and no addt'l complaints, except as documented; Denies dizziness, dyspnea, nausea or tachypnea Respiratory/Chest Respiratory/Chest: Reports systems reviewed and no addt'l complaints, except as documented; Denies cough, dyspnea, shortness of breath at rest or tachypnea Gastrointestinal Gastrointestinal: Reports systems reviewed and no addt'l complaints, except as documented; Denies abdominal pain, constipation or nausea Genitourinary Genitourinary: Reports systems reviewed and no addt'l complaints, except as documented; Denies burning urination, difficulty urinating, dysuria, urinary frequency or urinary incontinence Musculoskeletal Musculoskeletal: Reports systems reviewed and no addt'l complaints, except as documented Integumentary Integumentary: Reports systems reviewed and no addt'l complaints, except as documented Neurologic Neurologic: Reports systems reviewed and no addt'l complaints, except as documented; Denies abnormal speech, dizziness or headache(s) Psychiatric Psychiatric: Reports systems reviewed and no addt'l complaints, except as documented Endocrine Endocrinology: Reports systems reviewed and no addt'l complaints, except as documented Hematologic/Lymphatic Hematologic/Lymphatic: Reports systems reviewed and no addt'l complaints, except as documented Physical Exam Const alert, oriented x3 and no apparent distress Neck full ROM Resp normal respiratory effort, normal air movement and no retractions Effort and Inspection: able to speak in complete sentences and symmetric chest movement GI soft to palpation Bladder / Kidney Exam: bladder normal to palpation Uterus Palpation: uterus fundus firm Extremity normal to inspection and full ROM Psych mental status grossly normal, thought process normal and cooperative Assessment & Plan (1) Spontaneous vaginal delivery: COMMENT: ULISSES PLAN: s/p PPD # 2 1. routine post delivery care 2. breast feeding- support given 3. rh positive 4. rubella immune 5. discharge home (2) Choroid plexus cyst of fetus: COMMENT: offer NIPT declined (3) Supervision of normal : QUALIFIERS: Normal : other normal T rimester: third trimester Qualified Code(s): Z34.83 - Encounter for supervision of other normal , third trimester COMMENT: PRR, , OTTO 05/01/25, [facility] Perla Haas, Bud (4) : QUALIFIERS: Weeks of gestation: 40 weeks Qualified Code(s): Z 3A.40 - 40 weeks gestation of COMMENT: GBS neg, declined NIPT & Carrier testing. anatomy scan normal. (5) Anxiety: COMMENT: stable. no meds. 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 Charges/Coding Multi Select Codes Urinary/Genital Urinary/Genital CPT Codes: No Charge
--- NOTE | 2025-05-05 07:59 | DCINST_ITS ---
Discharge Instructions DC O2, CPAP, BIPAP needs Home O2 Discharge instructions: No Dressing / Incision Discharge Activity: Return to Normal Activity May resume sexual activity in: 6-8 weeks Dressing / Incision Call your doctor if you observe: Fever of 101 or Higher, Coldness, Increased Pain, Numbness or Tingling, Change in Color, Inability to urinate, Inability to have a bowel movement, Using more than 1 pad per hour, Shortness of breath, Dizziness, Fainting spells, Swelling in the ankles, Chest pain, Increased palpitations (irregular heartbeat), Calf discomfort and Uncontrolled pain Follow Up Care Please Follow Up With: Lizy Acosta CNM When: Please call the office to schedule your follow up appointment in 6 weeks. If you had high blood pressure please call to schedule an appointment in 2 weeks. Test Results: Test results from this visit will be discussed in further detail at your follow- up appointment, if applicable. Discharge Plan Admission Admit Date/Time: 05/04/25 03:20 Attending Provider: Nick Borrero Primary Care Provider: Connor Blank Discharge Orders/Prescriptions Prescriptions: No Action PNV-DHA 27 mg iron-1 mg -300 mg capsule 1 cap PO magnesium 250 mg tablet 250 mg PO QDAY Referrals / Follow Up: Connor Blank, [Primary Care Provider, Medical]
[2025-05-05 08:50] VITALS: BP 119/77; PULSE 63; RESP 14; TEMP 36.2; O2SAT 98
[2025-05-05 11:31] VITALS: RESP 16
--- NOTE | 2025-05-06 15:21 | CASEMGMT ---
Social Work Assessment Labor and Delivery Unit Patient Address:[address] [place] [id number] Phone number: [phone] Date of Referral: 05/05/25 Time of Referral:? 1109 Referred By: Dr. Borrero Date of Intervention: ??05/05/25 Time of Intervention:? 1030 Reason for Referral:? mental health Sw completed chart review and acknowledges social work consult. Sw presented to bedside and introduced self to mother of baby (MOB) Ramya and father of baby (FOB) Bud. Sw explained reason for sw involvement and completed psychosocial assessment. History obtained from: medical records, MOB and FOB Household composition:Currently residing in the family home is JAZMIN, FOSia, their two older children: Waldo (4), Perla (2) and baby when ready for discharge. Parents deny any housing concerns, reporting their home is safe and secure. Patient's parent/guardian status:? Parents report that they met in 2017 when they were attending the same school. They have been together for 8 years. [place] baby is their third child together. No concerns reported of domestic violence or intimate partner violence. ? Medical History: ?JAZMIN is 34 year old female who is 3, para 2- now 3 following labor and delivery of . JAZMIN received routine care during with [facility]. JAZMIN presented to hospital and [id number] baby via vaginal delivery on 05/04/25 at 40 weeks gestation. Baby girl, named Chung, was born weighing 7lb 10 oz and had apgars of 9 and 9 at one and five minutes of life, respectfully. JAZMIN is breast feeding and reports that baby will be followed by Dr. Hung for pedatric follow up. Educational Status:? Both parents graduated from high school and have college educations. No concerns with reading, learning or comprehension. Financial Status: Both parents are gainfully employed outside of the home. 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 Infant Supplies:?? All necessary baby supplies obtained including; car seat, safe sleep space, clothes, diapers and wipes. Childcare/Caregiver(s):? JAZMIN will be the primary caregiver to baby along with FOB when he is not working. Transportation:?No barriers, both parents have their drivers license and reliable means of transportation. ? Programs/Agencies Involved: Parents are over income for community resources that provide financial assistance. ??? Children Services/Legal Issues:???No prior involvement with children services, no issues or concerns warranting referral to be made at this time. Behavioral Health Issues: ??Mental Health History:??FOB denies mental health history. JAZMIN reports that she has anxiety. MOB states that she thinks this comes from wanting things to be perfect and having a high expectation of herself. Sw encouraged MOB to give herself alexandria and to allow herself to not sweat the small stuff. Andi stated that although it is easier said than done. JAZMIN is not prescribed pharmacological medication to help her manage her mental health and she is not connected to any mental health professionals. JAZMIN reports that she really struggled with her mental health during and following her last . MOB states that is where her anxiety diagnosis comes from. 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 MOB states that going into this period she does not feel anxious at all because she is able to take a full year off of work, and that is huge for her. ? Substance Use History:?? Parents deny substance use prior to and during . Family History: Parents deny family history of addiction or significant mental health diagnoses. ? Drug Screens: No drug screens observed while completing chart review. ? Family/Social Stressors:? Parents deny any issues, stressors or concerns. Support Systems: JAZMIN reports that FOB and both sets of grandparents are their biggest supports. Depression/Shaken Baby/Safe Sleeping:?Andi educated parents on signs and symptoms of baby blues and depression and anxiety. Andi explained to MOB that although she feels okay now, that does not mean that she will not experience any of these symptosm later on during this year. MOB expressed understanding. 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 Andi also processed with MOB that this is her last baby. MOB states that she and FOB were just talking about that. Sw and MOB talked about how there is a variety of emotions that come along with your last baby, there are a lot of happy things but also things that you grieve as well. MOB and FOB talked openly about their thoughts and feelings about MOB mental health and how she will process this journey. FOB reports that he would be able to recognize is MOB were to struggle with her mental health and would know how to help and support her. Andi reminded parents about shaken baby prevention and ABCs of safe sleep, parents express understanding. ASSESSMENT:? MOB and baby admitted following labor and delivery. MOB with mental health history of anxiety during and following her and delivery of her second baby. MOB reports that this felt much different and believes that it is due to the fact that she is able to take this next whole school year off, and focus solely on being home with her family. MOB and FOB both understanding of what red flags to be on the lookout for regarding baby blues and symptoms. MOB open and receptive to talking to her OBGYN if she feels as though she is struggling. MOB also states that she has a lot of natural supports in place that she feels comfortable reaching out to. MOB openly discussed being more type A, while FOB is more type B. Sw again encouraged MOB to give herself alexandria going into this period, as well as this phase of life having three small kiddos. MOB engaging throughout conversation. Both parents engaging in conversation, smiling and conversation flowed naturally. MOB observed holding baby lovingly and attentively. PLAN:? No other services requested or indicated. MOB and baby to be discharged when medically ready. Parents were provided literature regarding: signs and symptoms of baby blues and mood and anxiety disorders, Help Me Grow, shaken baby prevention, ABCs of safe sleep and a list of county resources that are available for them should any needs present themselves. Tiago Boateng, [employer], ELEVATOR CONSTRUCTOR HELPER
== END 2025-05-05 12:00 | disposition home or self-care (01) | DRG 807 ==
LOC: WPOUT 03:27 → WP 03:32
PROVIDERS: Admitting Provider Obstetrics & Gynecology; PCP Student in an Organized Health Care Education/Training Program; Referring Provider Obstetrics & Gynecology; Visit Provider Obstetrics & Gynecology
DX: O35.03X0 Maternal care for (suspected) central nervous system malformation or damage in fetus, choroid plexus cysts, not applicable or unspecified (principal); Z37.0 Single live birth; O99.344 Other mental disorders complicating childbirth; F41.9 Anxiety disorder, unspecified; O77.0 Labor and delivery complicated by meconium in amniotic fluid; Z3A.40 40 weeks gestation of pregnancy
CPT/HCPCS: 59025; 59050; 85025; 86780; 86850; 86900; 86901; 99221; G0378